=== PATIENT | male | born 1945 | race Caucasian/White ===

== ENCOUNTER → 2019-02-17 | Outpatient (CLI) | payer SELFPAY | PROVIDERS: Family Provider Family Medicine; Visit Provider Internal Medicine Medical Oncology | DX: C91.10 Chronic lymphocytic leukemia of B-cell type not having achieved remission (principal) | CPT/HCPCS: 36415; 80053; 82607; 82728; 82746; 83540; 83550; 85025; 85651 ==

== ENCOUNTER 2019-02-19 10:36 | Outpatient (RCR) | payer OTHER, SELFPAY ==
--- NOTE | 2019-02-22 12:00 | ONC FU_ITS ---
Dr. Atkins Patient Follow-Up Note Patient: Heber Mejia Unit #: [id number]: 1945 Dicatated By: Leonard Atkins M.D.Date of Visit:Feb 19, 2019 Onc Med Follow-up/Prog Note Chief Complaint: Chronic lymphocytic leukemia/pulmonary nodules. History of Present Illness: This is a 73 year-old man with chronic lymphocytic leukemia, Norman stage I with deletion 11 on cytogenetics, initially diagnosed in April 2011. He also is being followed for noncalcified pulmonary nodules. He has presented with leukocytosis. CLL was confirmed by flow cytometry on 05/07/2011. He was found to have deletion of chromosome 11 on cytogenetics. His Norman stage was I at presentation, as in June of 2011 CT revealed diffuse adenopathy and noncalcified pulmonary densities. The patient was placed on observation. Prior to his initial visit here he had last seen by wax cutter in December 2013. His WBC measured 38.4, absolute lymphocyte count not available, LDH 138. His recent followup imaging with CT of the chest from 02/15/2014 showed unchanged few pulmonary nodules with the largest in the right lower lobe up to 1.2 cm. There was minimally increasing thoracic adenopathy but otherwise stable disease. 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 The patient was followed for that at [facility] in [place] by Dr. Parker. The patient developed significant ulceration in both legs from vasculopathy, requiring wound care at [place], [place]. He was known to have significant peripheral vascular disease and mesenteric artery disease with diffuse atherosclerosis. A followup CT of the chest done by his oracle fusion middleware architect at [facility] in [place]. It reportedly showed enlarged thoracic adenopathy. PET/CT was eventually performed on 03/03/2015. It revealed an FDG positive mass in the right lower lobe increased to 2.7 cm. There was a 10th rib lesion adjacent to the mass, and lymphadenopathy in mediastinum. There was also lymph nodes in the pectoral region and neck suspicious for metastatic disease. A biopsy of the lung lesion was requested via percutaneous approach, after discussion with radiologist. Unfortunately the patient did not show up to any of his scheduled procedures as he was concerned that [facility] was not going to pay them. He did return for followup with Dr. Epperson on 07/20/2015. White blood cell count at that point was 29,000 with 82% lymphocytes. The hemoglobin was normal at 14 g and the platelet count was normal at 383,000. She did plan to repeat PET/CT for possible biopsy. PET/CT was obtained on 08/13/2015. It showed evidence of right hilar and right paratracheal adenopathy with nodes measuring up to 1.5 cm with low-grade FDG uptake, SUV 2.2 and 2.3 respectively. There were scattered 2-5 mm noncalcified pulmonary nodules with a 1.5 cm cluster of nodules in the base of the right lung with SUV 3.3. The pattern of FDG uptake was felt to be most consistent with a benign infectious or inflammatory process. A 3 cm infrarenal abdominal aortic aneurysm was also noted. I had seen him initially on 12/01/2015. At that point he appeared stable clinically. There appeared to be no indication for treatment of his chronic leukocytic leukemia, and had recommended continued observation/expectant management. He failed to return for follow-up. 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 He also has COPD, GERD, and posttraumatic stress disorder with depression. He has smoked for 50 years and continues to smoke one pack of cigarettes daily. INTERIM HISTORY: On 08/22/2018 he was seen in the emergency room with right shoulder pain. He had suspected pneumonia based on chest x-ray findings, and he was treated with Levaquin. Blood cultures came back positive for Streptococcus pneumoniae. On 09/09/2018 he was admitted to the hospital after presenting to the emergency room with increasing weakness. His CT scan showed left lower lobe consolidation felt to be likely pneumonia. Due to his shoulder pain and positive blood cultures, there was also concern about the possibility of septic arthritis. He underwent arthroscopic surgery on the right shoulder on 09/11/2018. There was no necrotic or pearly material identified. Cultures just grew scant Micrococcus and related species. He did receive 3 weeks of IV antibiotic therapy, initially with vancomycin and subsequently with Rocephin. On 10/01/2018 he was readmitted the hospital with increased pain and swelling in the right shoulder. His CT scans that time was suggestive of hemarthrosis, and he was then taken off anticoagulation. I had seen him for a follow-up visit on 12/29/2018. At that point he appeared to be showing gradual recovery, though he still had somewhat marginal performance status. There appeared to be no progression of the CLL. He is seen for a follow-up visit. He has been feeling pretty good generally, though he recently was seen by Dr. Garduno with a COPD exacerbation, and he currently is on treatment with prednisone and an antibiotic. His energy has been improving, but he still gives out after a few minutes. His ECOG score is 1. His appetite also is improving. He has not had fever. He had one recent episode of night sweating. He still has cough productive of milky sputum. His breathing is getting better. He had a little bit of dull pain in the substernal area this morning. He has no GI complaints other than constipation, which he manages adequately with a laxative. He has had difficulty voiding, mainly if he tries to hold it too long. His joints ache and hurt, particularly the shoulders and hips. He still has limited range of motion at the right shoulder. He has no focal neurologic symptoms. Medications: AmLODIPine Besylate 1 (10 mg) Tablet Oral daily, Aspirin 1 Tablet (of 81 mg) Oral daily, Gemfibrozil 1 (600 mg) Tablet Oral daily, Hydrochlorothiazide 1 (25 mg) Tablet Oral daily, Omeprazole 1 (20 mg) Capsule Delayed Release Oral daily Allergies: No Known Allergies. Review of Systems: Constitutional - He recently had an exacerbation of his COPD and was given steroids and antibiotics. He is feeling pretty good now. He does some light work at home. His appetite is getting better and his weight is up a couple pounds. No fever, chills or hot flashes. He had an episode of night sweats. ECOG score is 1, ENMT - No sinus congestion/drainage. No mouth sores. No sore throat or difficulty swallowing, Hematologic/Lymphatic - He bruises easily, Respiratory - His breathing has gotten better since being on steroids and antibiotics. He has a cough that produces white phlegm. No pleuritic pain or hemoptysis, Cardiovascular - He had an episode of chest discomfort this morning. No palpitations, Gastrointestinal - No nausea or vomiting. No heartburn or acid reflux. He has constipation. No blood in the stool or black stools, Genitourinary (M) - No dysuria or hematuria. No urinary frequency. No urgency or incontinence. 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 He has decreased range of motion in his right shoulder, Integumentary - No skin complications, Neurologic - No headache. He has dizziness quite a bit, especially when he stands up too quickly. No numbness/paresthesias or other focal neurologic symptoms, Psychiatric - He has some depression. He does not sleep well at night. Vital Signs: Performed on Feb 19, 2019 10:49 Height - 69.00 in Weight - 121.2 lbs (HIGH) BSA - 1.67 sq.m BMI - 17.90 (LOW) Temperature - 98.9 F (HIGH) Pulse - 79 /min Respiration - 16 /min BP - 126/78 mm(hg) O2 Sat - 93 % (LOW) Pain - 0 Physical Examination: Constitutional - He looks pretty good generally, Eyes - Sclerae nonicteric. Conjunctivae clear, ENMT - No lesions noted in the oral cavity, Hematologic/Lymphatic - No cervical, clavicular, or axillary adenopathy, Respiratory - Lungs sound clear with diminished air movement bilaterally, Cardiovascular - Heart tones are distant. The rhythm appears regular. There is no murmur, gallop, or rub noted, Abdomen - Thin. Liver and spleen are not enlarged. There is no abdominal mass or ascites noted. There are small inguinal lymph nodes palpable bilaterally, Extremities - No edema, Neurologic - No focal neurologic deficits noted. Lab/Imaging: CBC shows hemoglobin 12.3 g, white blood cell count 20,600, and platelet count 227,000. The absolute lymphocyte count is 17,800. Sed rate is elevated at 86 mm/hour. Comprehensive metabolic profile shows borderline renal function with BUN 32 and creatinine 1.3 mg/dL. Liver enzymes are mildly elevated with SGOT 60/40 U/L and alkaline phosphatase 203/130 U/L. The serum iron studies show low transferrin saturation at 17.1%. Ferritin is also relatively low at 59.0 ng/mL. Impression: 1. Chronic lymphocytic leukemia, Norman stage I with chromosome 11 deletion on cytogenetics. It was initially diagnosed in April 2011 and thus far has been managed with observation. 2. He has been followed for noncalcified pulmonary nodules, the largest in the right lower lobe measuring 2.7 cm. These showed low-grade FDG uptake by PET CT, felt to be most consistent with benign infectious or inflammatory process. His other medical illnesses include: 3. Hypertension. 4. Hyperlipidemia. 5. Extensive atherosclerotic cardiovascular disease with associated mesentery artery stenosis and infrarenal abdominal aortic aneurysm. 6. COPD. 7. GERD. 8. PTSD with depression. 9. He has nicotine dependence (cigarettes). In August 2018 he was treated for streptococcal pneumonia. There was also concern about the possibility of septic arthritis in the right shoulder joint. He did receive 3 weeks of IV antibiotic therapy. His clinical course was further complicated by suspected right shoulder hemarthrosis in September, at which point he was taken off anticoagulation. During that time he became significantly anemic. During follow-up he has been showing gradual recovery, though he is still borderline anemic and he still has significantly elevated sedimentation rate. His serum iron studies are suggestive of iron deficiency. The cause/significance of the elevated sed rate is still uncertain. There has been no evidence, though, of symptomatic progression of the CLL. Plan: He remains on observation/expectant management for the chronic lymphocytic leukemia. He has advised to take a multivitamin with iron. I will see him again in 3 months. Signed By: Leonard Atkins M.D. <<Signature on File>>
== END 2019-03-20 23:59 | disposition home or self-care (01) ==
LOC: ONCMED 10:36
PROVIDERS: Family Provider Family Medicine; PCP Family Medicine; Visit Provider Internal Medicine Medical Oncology
DX: C91.10 Chronic lymphocytic leukemia of B-cell type not having achieved remission (principal); R70.0 Elevated erythrocyte sedimentation rate; R91.8 Other nonspecific abnormal finding of lung field; I10 Essential (primary) hypertension; M25.511 Pain in right shoulder; E78.5 Hyperlipidemia, unspecified; I25.10 Atherosclerotic heart disease of native coronary artery without angina pectoris; J44.9 Chronic obstructive pulmonary disease, unspecified; K21.9 Gastro-esophageal reflux disease without esophagitis; F43.10 Post-traumatic stress disorder, unspecified; F32.9 Major depressive disorder, single episode, unspecified; F17.210 Nicotine dependence, cigarettes, uncomplicated; D50.9 Iron deficiency anemia, unspecified; Z79.82 Long term (current) use of aspirin; Z87.01 Personal history of pneumonia (recurrent)
CPT/HCPCS: 99213; G0463

== ENCOUNTER → 2019-04-03 08:54 | Outpatient (BNVA) | payer OTHER, SELFPAY | PROVIDERS: Family Provider Family Medicine; PCP Family Medicine; Visit Provider Family Medicine | DX: E55.9 Vitamin D deficiency, unspecified (principal); J44.9 Chronic obstructive pulmonary disease, unspecified; I10 Essential (primary) hypertension; F17.219 Nicotine dependence, cigarettes, with unspecified nicotine-induced disorders | CPT/HCPCS: 82306 ==

== ENCOUNTER → 2019-04-24 09:40 | Outpatient (BNVA) | payer OTHER, SELFPAY | PROVIDERS: Family Provider Family Medicine; PCP Family Medicine; Visit Provider Family Medicine | DX: I10 Essential (primary) hypertension (principal); G47.00 Insomnia, unspecified | CPT/HCPCS: 80048 ==

== ENCOUNTER 2019-05-19 06:00 | Outpatient (CLI) | payer OTHER, SELFPAY ==
[2019-05-19 08:01] LABS: Basophils # 0.1 10^3/uL (0.0-0.1); Basophils % 0.2 %; Eosinophils # 0.1 10^3/uL (0.0-0.8); Eosinophils % 0.5 %; Hematocrit 38.6 % (42.0-52.0); Hemoglobin 12.9 g/dL (11.7-16.6); Lymphocytes % 91.3 %; Mean Corpuscular HGB Conc 33.4 g/dL (30.0-36.0); Mean Corpuscular Hemoglobin 31.8 pg (28.0-34.0); Mean Corpuscular Volume 95.1 fL (80-94); Mean Platelet Volume 10.2 fL (7.4-10.4); Monocytes # 0.4 10^3/uL (0.2-0.9); Monocytes % 1.5 %; Neutrophils # 1.6 10^3/uL (1.8-7.7); Neutrophils % 6.4 %; Nucleated Red Blood Cells % 0 %; Platelet Count 207 10^3/cmm (130-400); Red Blood Count 4.06 10^6/uL (4.1-5.3); Red Cell Distribution Width 14.2 % (12.1-15.1); White Blood Count 25.2 10^3/uL (4.0-10.0)
[2019-05-19 08:29] LABS: Alanine Aminotransferase 13 U/L (0-41); Alkaline Phosphatase 201 IU/L (40-130); Anion Gap 14.3 (5-19); Aspartate Amino Transferase 50 U/L (0-40); Blood Urea Nitrogen 24 mg/dL (8-23); C Reactive Protein 10.1 mg/L (0.0-4.9); Calcium 9.6 mg/dL (8.5-10.5); Carbon Dioxide 29 mmol/L (22-29); Chloride 96 mmol/L (98-107); Ferritin 25 ng/mL (30-400); Globulin 3.2 g/dL (1.3-4.6); Glucose 144 mg/dL (65-115); Iron 78 ug/dL (59-158); Lactate Dehydrogenase 114 U/L (135-225); Osmolality Calculated 279 mOsm/kg (285-295); Percent Saturation 20.3 % (20-50); Potassium 4.3 mmol/L (3.5-5.1); Sodium 135 mmol/L (136-145); Total Bilirubin 0.5 mg/dL (0.15-1.2); Total Iron Binding Capacity 384 mcg/dl; Total Protein 7.2 g/dL (6.6-8.7); Unsaturated Iron Binding 306 ug/dL (112-347)
[2019-05-19 08:40] LABS: Slide Review Slide Review Perform
[2019-05-19 08:50] LABS: Erythrocyte Sedimentation Rate 53 mm/hr (0-10)
== END 2019-05-19 06:01 | disposition home or self-care (01) ==
LOC: ONCMED 05-22 09:44
PROVIDERS: Family Provider Family Medicine; PCP Family Medicine; Visit Provider Internal Medicine Medical Oncology
DX: C91.10 Chronic lymphocytic leukemia of B-cell type not having achieved remission (principal); M25.50 Pain in unspecified joint
CPT/HCPCS: 36415; 80053; 82728; 83540; 83550; 83615; 85025; 85651; 86140

== ENCOUNTER → 2019-06-24 16:41 | Outpatient (BNVA) | payer OTHER, SELFPAY | PROVIDERS: Family Provider Family Medicine; PCP Family Medicine; Visit Provider Family Medicine | DX: G47.00 Insomnia, unspecified (principal); L21.9 Seborrheic dermatitis, unspecified; R30.0 Dysuria | CPT/HCPCS: 81000 ==

== ENCOUNTER → 2019-07-29 13:13 | Outpatient (BNVA) | payer OTHER, SELFPAY | PROVIDERS: Family Provider Family Medicine; PCP Family Medicine; Visit Provider Family Medicine | DX: R30.0 Dysuria (principal); F51.01 Primary insomnia; F17.219 Nicotine dependence, cigarettes, with unspecified nicotine-induced disorders | CPT/HCPCS: 80053; 81001 ==

== ENCOUNTER 2019-08-14 14:36 | Outpatient (CLI) | payer OTHER, SELFPAY ==
--- NOTE | 2019-08-14 15:00 | US_ITS ---
WS: [id number] RENAL ULTRASOUND HISTORY: hematuria COMPARISON: None available. TECHNIQUE: 2-D and color Doppler imaging of the kidney submitted. Right kidney: 11.3 cm x 5.0 cm x 5.7 cm. Normal echogenicity with no hydronephrosis or mass. Left kidney: 12.6 cm x 3.5 cm x 4.8 cm. Normal echogenicity with no hydronephrosis or mass. Aorta: Ectatic aorta with maximum diameter of 2.9 cm. Urinary Bladder: Nondistended urinary bladder. Prostate gland is slightly enlarged and heterogeneous. No intraluminal bladder mass. US/US renal BI* [id number] IMPRESSION: Normal renal ultrasound.
== END 2019-08-14 14:37 | disposition home or self-care (01) ==
LOC: RAD 14:38
PROVIDERS: PCP Family Medicine; Visit Provider Family Medicine
DX: R31.9 Hematuria, unspecified (principal)
CPT/HCPCS: 76770

== ENCOUNTER 2019-08-22 13:19 | Inpatient (IN) | payer OTHER, MEDICARE, SELFPAY ==
[2019-08-22] VITALS (55 sets, daily range): BP systolic 117–151; BP diastolic 64–77; PULSE 72–107; RESP 13–28; TEMP 36.8; O2SAT 79–98; BMI 16.8; BMI 17.4
--- NOTE | 2019-08-22 14:00 | ECG_ITS ---
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 Measurements Intervals [place] Rate: 82 P: 79 VT: 203 QRS: 86 QRSD: 102 T: 77 QT: 367 QTc: 431 Interpretive Statements SINUS RHYTHM INCOMPLETE RIGHT BUNDLE BRANCH BLOCK [90+ ms QRS DURATION, TERMINAL R IN V1/V2, 40+ ms S IN I/aVL/V4/V5/V6] MINIMAL ST DEPRESSION [0.025+ mV ST DEPRESSION] Compared to ECG 09/30/2018 13:56:51 Incomplete right bundle-branch block now present ST (T wave) deviation now present Electronically Signed On 08-23-2019 19:55:37 CDT by Jessica Hamilton M.D. [id number]
--- NOTE | 2019-08-22 14:00 | XRR_ITS ---
PROCEDURE INFORMATION: Exam: XR Chest, 1 View Exam date and time: 08/22/2019 2:41 PM Age: 74 years old Clinical indication: Cough and shortness of breath TECHNIQUE: Imaging protocol: XR of the chest Views: 1 view. COMPARISON: CR Chest 1 [place] [id number] 09/30/2018 2:50 PM, CT chest 02/23/2016, CT PE study 08/13/2015. FINDINGS: Lungs: Emphysema. Approximate 0.9 cm nodule in the peripheral right mid lung. Mild interstitial scarring in the lung bases. The lungs are otherwise clear. Pleural space: Unremarkable. No pleural effusion. No pneumothorax. Heart/Mediastinum: Unremarkable. No cardiomegaly. Bones/joints: Scoliosis. XR/XR chest 1V portable [id number] IMPRESSION: 1. No acute finding. 2. 0.9 cm right pulmonary nodule is unchanged and is considered benign.
--- NOTE | 2019-08-22 14:20 | W.ED.SOB ---
HPI - SOB/Dyspnea General: Chief Complaint: Shortness of Breath/Dyspnea Stated Complaint: sob Time Seen by Provider: 08/22/19 13:55 Source: patient and family Mode of arrival: ambulatory Limitations: no limitations History of Present Illness: HPI Narrative: Mr. Mejia is a nice 74-year-old male who comes in complaining of cough and shortness of breath. He denies any fever and adamantly denies any COVID-19 exposures. Patient states she has history of COPD. His oxygenation at home would not go above 85%. Patient denies any chest pain. Denies any bloody sputum. He does have increased shortness of breath with exertion but denies any orthopnea or increased leg swelling. Associated symptoms: Deny abdominal pain, chest congestion, chest pain, diaphoresis, dizziness, extremity pain, fever(s), hemoptysis, lightheadedness, nausea, orthopnea, palpitations, syncope or vomiting Review of Systems Const: Denies: fever(s), chills, body aches, fatigue, malaise or diaphoresis Eyes: Denies: change in vision, blurry vision, blind spots, photophobia, eye discharge or eye redness ENMT: Denies: throat pain, odynophagia, hoarseness, swelling of lips/tongue, oral sores, ear or mastoid pain, ear discharge, change in hearing or nasal discharge Card: Denies: chest pain, palpitations, irregular heart rhythm, edema, lightheadedness, syncope, pre-syncope, dyspnea on exertion or orthopnea Resp: Reports: dyspnea, productive cough and wheezing; Denies: non-productive cough, hemoptysis or chest congestion GI: Denies: abdominal pain, nausea, vomiting, hematemesis, coffee ground emesis, heartburn, diarrhea, constipation, GI cramping, hematochezia or melena : Denies: flank pain, dysuria, urinary frequency, urinary urgency or hematuria Musc: Denies: neck pain, back pain, extremity pain, extremity swelling, joint pain, joint swelling, joint redness, joint warmth or joint stiffness Skin/Breast: Denies: rash, pruritus, erythema, skin tenderness or jaundice Neuro: Denies: headache(s), numbness in extremities, weakness in extremities, sensory changes, lack of coordination, difficulty walking, dizziness, vertigo, confusion, Slurred speech present or seizure-like activity Miguel/Lymph: Denies: easy bruising, easy bleeding, petechiae, purpura or enlarged lymph nodes All/Imm: Denies: urticaria, throat swelling, tongue swelling, facial swelling or acute wheezing PFSH ED PFSH: Medical History Anxiety and depression Atherosclerosis of paimi[place] artery of both lower extremities Cardiomyopathy, idiopathic Chronic GERD Chronic kidney disease, stage 3 Chronic lymphatic leukemia COPD, severe Insomnia Lung nodules Mixed hyperlipidemia Primary hypertension Surgical History H/O wrist surgery Family History Mother Cancer Social History Smoking and tobacco status: current every day smoker cigarettes Packs smoked per day: 1 Alcohol intake: never Physical Exam Const: COMMON NORMALS: patient oriented x3 GENERAL APPEARANCE: well kempt, anxious and frail appearing NUTRITIONAL APPEARANCE: thin ORIENTATION/CONSCIOUSNESS: Yes awake, Yes oriented to person and Yes oriented to place HENMT: COMMON NORMALS: normocephalic, atraumatic, external ears normal, EAC's normal and Normal external nose present HEAD & SCALP: normal to inspection, normocephalic and atraumatic FACE & SINUS: normal facial exam and face symmetric NOSE: Normal external nose present and Normal nares present EXTERNAL EAR: Yes external ears normal EXTERNAL AUDITORY CANAL: EAC's normal MOUTH: Normal oral and palatal mucosa present, lip normal and tongue normal Eye: COMMON NORMALS: Equal, round and reactive pupils present and conjunctivae normal GENERAL EYE: appearance normal, both eyes and all related structures ALIGNMENT: Yes alignment normal PERIORBITAL: periorbital findings normal EYELID: eyelids normal CONJUNCTIVA: Yes conjunctivae normal SCLERA: sclerae normal PUPIL: Yes Equal, round and reactive pupils present Neck/C-Spine: COMMON NORMALS: full ROM, no lymphadenopathy, supple, no meningeal signs and no JVD GENERAL: Yes normal visual inspection and Yes trachea midline Chest: COMMONS NORMALS: normal inspection of the chest and normal palpation of entire chest wall Resp: EFFORT & INSPECTION: Yes respiratory distress, Yes Actively coughing, Yes retractions and Yes audible wheezes AUSCULTATION: rhonchi and wheezes Cardio: COMMON NORMALS: no JVD, regular rate, regular rhythm, S1 normal heart sound present and S2 normal heart sound present RATE: regular rate RHYTHM: regular rhythm HEART SOUNDS: S1 normal heart sound present, S2 normal heart sound present, no click, no gallops, no murmurs, no rubs and abnormal split S2 GI: COMMON NORMALS: Soft to palpation and No hepatosplenomegaly present PALPATION: Yes Soft to palpation, No Tenderness to palpation present (GI), No Guarding due to palpation present (GI), No Rigid due to palpation, Yes No hepatosplenomegaly present, No Hernia present, No Palpable mass present and No Pulsatile mass present : COMMON NORMALS: Yes no CVA tenderness BLADDER/KIDNEY EXAM: Yes no CVA tenderness Back/Pelvis: COMMON NORMALS: no CVA tenderness, thoracic and lumbar spine normal to inspection, no thoracic nor lumbar tenderness and thoraco-lumbar ROM normal Extremity: COMMON NORMALS: normal to inspection, full ROM, capillary refill normal, no joint enlargement, no clubbing, cyanosis or edema and no calf tenderness Neuro: COMMON NORMALS: patient oriented x3, CN's II-XII intact bilaterally, moves all extremities, no focal motor deficits and no sensory deficits noted SENSORIUM/ORIENTATION: Yes oriented to person and Yes oriented to place MENINGEAL SIGNS: Yes no meningeal signs SPEECH: speech normal Psych: COMMON NORMALS: mental status grossly normal, Normal thought process present, cooperative, normal affect, speech normal and activity/motor behavior normal APPEARANCE: Yes well kempt SPEECH: Yes normal speech THOUGHT PROCESS: Normal thought process present Skin: COMMON NORMALS: no rashes or lesions noted, turgor normal, no jaundice, no petechiae and no mottling GENERAL SKIN EXAM: no rashes or lesions noted and turgor normal Course ED course: 1657 -I have discussed with the patient at length and he is refusing to be intubated if he fails BiPAP. He is okay with CPR, life-saving medications, admission to the ICU and all the treatments we can give him except he refuses intubation and mechanical ventilation. I have witnessed this along with my charge nurse and the patient's primary nurse. Please see their notes for verification. I will notify Dr. Duffy. Patient clearly has the capacity at this time to make this decision. Although he is slightly hypercapnic he is alert to person, place, time and situation. I did review with him the possibility of if he refuses this and despite understanding that risk he is refusing this intervention. Vital Signs: Vital signs: Vital Signs Temperature 98.3 F 08/22/19 20:10 Pulse Rate 92 08/22/19 20:10 Respiratory Rate 20 H 08/22/19 20:10 Blood Pressure 136/75 08/22/19 20:10 Pulse Oximetry 94 08/22/19 20:10 MDM - SOB/Dyspnea Lab Data: Labs: Lab Results 08/22/19 08/22/19 08/22/19 Range/Units 14:35 14:40 14:40 WBC 30.3 H* (4.0-10.0) 10^3/ uL RBC 3.54 L (4.1-5.3) 10^6/u L Hgb 11.9 (11.7-16.6) g/dL Hct 35.1 L (42.0-52.0) % MCV 99.2 H (80-94) fL MCH 33.6 (28.0-34.0) pg MCHC 33.9 (30.0-36.0) g/dL RDW 14.0 (12.1-15.1) % Plt Count 139 (130-400) 10^3/c mm MPV 10.4 (7.4-10.4) fL Neut % (Auto) 4.8 % Lymph % (Auto) 93.6 % [place] % (Auto) 1.3 % Eos % (Auto) 0.0 % Baso % (Auto) 0.2 % Neut # (Auto) 1.5 L (1.8-7.7) 10^3/u L Lymph # (Auto) 28.4 H (0.8-4.8) 10^3/u L [place] # (Auto) 0.4 (0.2-0.9) 10^3/u L Eos # (Auto) 0.0 (0.0-0.8) 10^3/u L Baso # (Auto) 0.1 (0.0-0.1) 10^3/u L Nucleated RBC % (a uto) 0 % Nucleated RBCs # 0.0 /100WBC PT (10.5-13.3) SECO NDS INR (0.8-1.2) D-Dimer (0-0.59) ug/mIFE U Specimen Type Arterial Sample Site Radial, right ABG pH 7.33 L (7.35-7.45) ABG pCO2 48.0 H (35-45) mmHg ABG pO2 56.3 L (80.0-100.0) mmH g ABG HCO3 25.2 (22-26) mmol/L ABG O2 Saturation 89.4 ABG Base Excess -1.2 (-2.0-2.0) mmol/ L Jerry Test Pos A-a O2 Gradient 33.7 H (5-10) mmHg Hematocrit 36.1 L (42-52) % Hgb O2 Saturation 82.9 L (95-100) % Carboxyhemoglobin 6.5 (0.4-20.1) %THgb Methemoglobin 0.8 (0.4-1.5) % Total Hemoglobin 11.8 L (14-18) g/dL Sodium 134.0 (131-143) mmol/L Potassium 4.3 (3.5-5.0) mmol/L Glucose 109.0 (70-115) mg/dL Ionized Calcium 1.2 (1.1-1.4) mmol/L O2 Delivery Device Nc O2 Liters/Min 3.0 % FiO2 % Independent Driver ID monro Chloride (98-107) mmol/L Carbon Dioxide (22-29) mmol/L Anion Gap (5-19) BUN (8-23) mg/dL Creatinine (0.7-1.2) mg/dL Calculated Osmolal ity (285-295) mOsm/k g Lactic Acid (0.5-2.2) mmol/L Calcium (8.5-10.5) mg/dL Magnesium (1.7-2.3) mg/dL Total Bilirubin (0.15-1.2) mg/dL AST (0-40) U/L ALT (0-41) U/L Alkaline Phosphata se (40-130) IU/L Troponin T Baselin e (0-15) ng/L Troponin T 120 Min [place] (0-15) ng/L Delta Troponin T (0-10) ABS# NT-Pro-B Natriuret Pep (0-125) pg/mL Total Protein (6.6-8.7) g/dL Albumin (3.5-5.2) g/dL Globulin (1.3-4.6) g/dL Lipase (13-60) U/L Urine Color (Yellow) Urine Appearance (CLEAR) Urine pH (5-7) Ur Specific Gravit y (1.005-1.030) Urine Protein (Negative) Urine Glucose (UA) (Normal) Urine Ketones (Negative) Urine Blood (Negative) Urine Nitrate (Negative) Urine Bilirubin (NEGATIVE) Urine Urobilinogen (Negative) mg/dL Ur Leukocyte Molly ase (Negative) Urine RBC (0-2) /hpf Urine WBC (0-5) /hpf Ur Squamous Epith Cells (0-5) Urine Bacteria (NONE) Urine Mucus Influenza Type A A g Negative (Negative) Influenza Type B A g Negative (Negative) 08/22/19 08/22/19 08/22/19 Range/Units 14:40 14:40 14:40 WBC (4.0-10.0) 10^3/ uL RBC (4.1-5.3) 10^6/u L Hgb (11.7-16.6) g/dL Hct (42.0-52.0) % MCV (80-94) fL MCH (28.0-34.0) pg MCHC (30.0-36.0) g/dL RDW (12.1-15.1) % Plt Count (130-400) 10^3/c mm MPV (7.4-10.4) fL Neut % (Auto) % Lymph % (Auto) % [place] % (Auto) % Eos % (Auto) % Baso % (Auto) % Neut # (Auto) (1.8-7.7) 10^3/u L Lymph # (Auto) (0.8-4.8) 10^3/u L [place] # (Auto) (0.2-0.9) 10^3/u L Eos # (Auto) (0.0-0.8) 10^3/u L Baso # (Auto) (0.0-0.1) 10^3/u L Nucleated RBC % (a uto) % Nucleated RBCs # /100WBC PT 14.10 H (10.5-13.3) SECO NDS INR 1.06 (0.8-1.2) D-Dimer (0-0.59) ug/mIFE U Specimen Type Sample Site ABG pH (7.35-7.45) ABG pCO2 (35-45) mmHg ABG pO2 (80.0-100.0) mmH g ABG HCO3 (22-26) mmol/L ABG O2 Saturation ABG Base Excess (-2.0-2.0) mmol/ L Jerry Test A-a O2 Gradient (5-10) mmHg Hematocrit (42-52) % Hgb O2 Saturation (95-100) % Carboxyhemoglobin (0.4-20.1) %THgb Methemoglobin (0.4-1.5) % Total Hemoglobin (14-18) g/dL Sodium 130 L (131-143) mmol/L Potassium 4.7 (3.5-5.0) mmol/L Glucose 117 H (70-115) mg/dL Ionized Calcium (1.1-1.4) mmol/L O2 Delivery Device O2 Liters/Min % FiO2 % Independent Driver ID Chloride 93 L (98-107) mmol/L Carbon Dioxide 24 (22-29) mmol/L Anion Gap 17.7 (5-19) BUN 26 H (8-23) mg/dL Creatinine 1.6 H (0.7-1.2) mg/dL Calculated Osmolal ity 268 L (285-295) mOsm/k g Lactic Acid 0.8 (0.5-2.2) mmol/L Calcium 9.5 (8.5-10.5) mg/dL Magnesium 2.1 (1.7-2.3) mg/dL Total Bilirubin 1.0 (0.15-1.2) mg/dL AST 81 H (0-40) U/L ALT 15 (0-41) U/L Alkaline Phosphata se 198 H (40-130) IU/L Troponin T Baselin e (0-15) ng/L Troponin T 120 Min [place] (0-15) ng/L Delta Troponin T (0-10) ABS# NT-Pro-B Natriuret Pep 1371 H (0-125) pg/mL Total Protein 8.2 (6.6-8.7) g/dL Albumin 3.9 (3.5-5.2) g/dL Globulin 4.3 (1.3-4.6) g/dL Lipase 44 (13-60) U/L Urine Color (Yellow) Urine Appearance (CLEAR) Urine pH (5-7) Ur Specific Gravit y (1.005-1.030) Urine Protein (Negative) Urine Glucose (UA) (Normal) Urine Ketones (Negative) Urine Blood (Negative) Urine Nitrate (Negative) Urine Bilirubin (NEGATIVE) Urine Urobilinogen (Negative) mg/dL Ur Leukocyte Molly ase (Negative) Urine RBC (0-2) /hpf Urine WBC (0-5) /hpf Ur Squamous Epith Cells (0-5) Urine Bacteria (NONE) Urine Mucus Influenza Type A A g (Negative) Influenza Type B A g (Negative) 08/22/19 08/22/19 08/22/19 Range/Units 14:40 14:40 15:43 WBC (4.0-10.0) 10^3/ uL RBC (4.1-5.3) 10^6/u L Hgb (11.7-16.6) g/dL Hct (42.0-52.0) % MCV (80-94) fL MCH (28.0-34.0) pg MCHC (30.0-36.0) g/dL RDW (12.1-15.1) % Plt Count (130-400) 10^3/c mm MPV (7.4-10.4) fL Neut % (Auto) % Lymph % (Auto) % [place] % (Auto) % Eos % (Auto) % Baso % (Auto) % Neut # (Auto) (1.8-7.7) 10^3/u L Lymph # (Auto) (0.8-4.8) 10^3/u L [place] # (Auto) (0.2-0.9) 10^3/u L Eos # (Auto) (0.0-0.8) 10^3/u L Baso # (Auto) (0.0-0.1) 10^3/u L Nucleated RBC % (a uto) % Nucleated RBCs # /100WBC PT (10.5-13.3) SECO NDS INR (0.8-1.2) D-Dimer 2.76 H (0-0.59) ug/mIFE U Specimen Type Sample Site ABG pH (7.35-7.45) ABG pCO2 (35-45) mmHg ABG pO2 (80.0-100.0) mmH g ABG HCO3 (22-26) mmol/L ABG O2 Saturation ABG Base Excess (-2.0-2.0) mmol/ L Jerry Test A-a O2 Gradient (5-10) mmHg Hematocrit (42-52) % Hgb O2 Saturation (95-100) % Carboxyhemoglobin (0.4-20.1) %THgb Methemoglobin (0.4-1.5) % Total Hemoglobin (14-18) g/dL Sodium (131-143) mmol/L Potassium (3.5-5.0) mmol/L Glucose (70-115) mg/dL Ionized Calcium (1.1-1.4) mmol/L O2 Delivery Device O2 Liters/Min % FiO2 % Independent Driver ID Chloride (98-107) mmol/L Carbon Dioxide (22-29) mmol/L Anion Gap (5-19) BUN (8-23) mg/dL Creatinine (0.7-1.2) mg/dL Calculated Osmolal ity (285-295) mOsm/k g Lactic Acid (0.5-2.2) mmol/L Calcium (8.5-10.5) mg/dL Magnesium (1.7-2.3) mg/dL Total Bilirubin (0.15-1.2) mg/dL AST (0-40) U/L ALT (0-41) U/L Alkaline Phosphata se (40-130) IU/L Troponin T Baselin e 70 H (0-15) ng/L Troponin T 120 Min [place] (0-15) ng/L Delta Troponin T (0-10) ABS# NT-Pro-B Natriuret Pep (0-125) pg/mL Total Protein (6.6-8.7) g/dL Albumin (3.5-5.2) g/dL Globulin (1.3-4.6) g/dL Lipase (13-60) U/L Urine Color Yellow (Yellow) Urine Appearance Clear (CLEAR) Urine pH 5 (5-7) Ur Specific Gravit y 1.020 (1.005-1.030) Urine Protein 2+ H (Negative) Urine Glucose (UA) Norm (Normal) Urine Ketones Negative (Negative) Urine Blood 3+ H (Negative) Urine Nitrate Negative (Negative) Urine Bilirubin Neg (NEGATIVE) Urine Urobilinogen 1 H (Negative) mg/dL Ur Leukocyte Molly ase Negative (Negative) Urine RBC 15-25 H (0-2) /hpf Urine WBC Rare (0-5) /hpf Ur Squamous Epith Cells 0-4 H (0-5) Urine Bacteria Trace (NONE) Urine Mucus Trace Influenza Type A A g (Negative) Influenza Type B A g (Negative) 08/22/19 08/22/19 Range/Units 16:22 16:50 WBC (4.0-10.0) 10^3/ uL RBC (4.1-5.3) 10^6/u L Hgb (11.7-16.6) g/dL Hct (42.0-52.0) % MCV (80-94) fL MCH (28.0-34.0) pg MCHC (30.0-36.0) g/dL RDW (12.1-15.1) % Plt Count (130-400) 10^3/c mm MPV (7.4-10.4) fL Neut % (Auto) % Lymph % (Auto) % [place] % (Auto) % Eos % (Auto) % Baso % (Auto) % Neut # (Auto) (1.8-7.7) 10^3/u L Lymph # (Auto) (0.8-4.8) 10^3/u L [place] # (Auto) (0.2-0.9) 10^3/u L Eos # (Auto) (0.0-0.8) 10^3/u L Baso # (Auto) (0.0-0.1) 10^3/u L Nucleated RBC % (a uto) % Nucleated RBCs # /100WBC PT (10.5-13.3) SECO NDS INR (0.8-1.2) D-Dimer (0-0.59) ug/mIFE U Specimen Type Arterial Sample Site Radial, right ABG pH 7.23 L (7.35-7.45) ABG pCO2 56.3 H (35-45) mmHg ABG pO2 72.6 L (80.0-100.0) mmH g ABG HCO3 23.7 (22-26) mmol/L ABG O2 Saturation ABG Base Excess -4.3 L (-2.0-2.0) mmol/ L Jerry Test Pos A-a O2 Gradient (5-10) mmHg Hematocrit 34.8 L (42-52) % Hgb O2 Saturation (95-100) % Carboxyhemoglobin (0.4-20.1) %THgb Methemoglobin (0.4-1.5) % Total Hemoglobin (14-18) g/dL Sodium (131-143) mmol/L Potassium (3.5-5.0) mmol/L Glucose (70-115) mg/dL Ionized Calcium (1.1-1.4) mmol/L O2 Delivery Device Bipap O2 Liters/Min % FiO2 35.0 % Independent Driver ID monro Chloride (98-107) mmol/L Carbon Dioxide (22-29) mmol/L Anion Gap (5-19) BUN (8-23) mg/dL Creatinine (0.7-1.2) mg/dL Calculated Osmolal ity (285-295) mOsm/k g Lactic Acid (0.5-2.2) mmol/L Calcium (8.5-10.5) mg/dL Magnesium (1.7-2.3) mg/dL Total Bilirubin (0.15-1.2) mg/dL AST (0-40) U/L ALT (0-41) U/L Alkaline Phosphata se (40-130) IU/L Troponin T Baselin e (0-15) ng/L Troponin T 120 Min [place] 59.15 H (0-15) ng/L Delta Troponin T -10.85 L (0-10) ABS# NT-Pro-B Natriuret Pep (0-125) pg/mL Total Protein (6.6-8.7) g/dL Albumin (3.5-5.2) g/dL Globulin (1.3-4.6) g/dL Lipase (13-60) U/L Urine Color (Yellow) Urine Appearance (CLEAR) Urine pH (5-7) Ur Specific Gravit y (1.005-1.030) Urine Protein (Negative) Urine Glucose (UA) (Normal) Urine Ketones (Negative) Urine Blood (Negative) Urine Nitrate (Negative) Urine Bilirubin (NEGATIVE) Urine Urobilinogen (Negative) mg/dL Ur Leukocyte Molly ase (Negative) Urine RBC (0-2) /hpf Urine WBC (0-5) /hpf Ur Squamous Epith Cells (0-5) Urine Bacteria (NONE) Urine Mucus Influenza Type A A g (Negative) Influenza Type B A g (Negative) EKG Data^: EKG 1: Attestation: I personally reviewed and interpreted this EKG as follows: EKG Interpretation Date: 08/22/19 EKG interpretation time: 14:52 Interpretation: Normal sinus rhythm at 82 beats a minute, incomplete right bundle branch block, T wave inversions in aVL. Other nonspecific ST and T wave changes present. Wandering baseline artifact present. 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
[2019-08-22 14:53] LABS: ABG PH Result 7.33 (7.35-7.45); Alveolar-Arterial Oxygen Gradi 33.7 mmHg (5-10); Arterial Blood Gas Hematocrit 36.1 % (42-52); Base Excess ABG -1.2 mmol/L (-2.0-2.0); Blood Gas Allen Test Pos; Blood Gas Sample Site Radial, right; Blood Gas Sample Type Arterial; Carboxyhemoglobin 6.5 %THgb (0.4-20.1); HCO3 ABG 25.2 mmol/L (22-26); HGB O2 Sat 82.9 % (95-100); Ionized Calcium Level - ABG 1.2 mmol/L (1.1-1.4); Methemoglobin 0.8 % (0.4-1.5); Oxygen Device NC; Oxygen Saturation ABG 89.4; PO2 ABG 56.3 mmHg (80.0-100.0); Potassium Level - ABG 4.3 mmol/L (3.5-5.0); Total Hemoglobin 11.8 g/dL (14-18)
[2019-08-22] MEDS: sodium chloride 0.9% 1,000 ML 100 ML IV (14:53)
[2019-08-22] MEDS: ondansetron 2 mg/ML SDV 2 mL 4 MG IVP (14:53)
[2019-08-22 14:55] LABS: Basophils # 0.1 10^3/uL (0.0-0.1); Basophils % 0.2 %; Hematocrit 35.1 % (42.0-52.0); Hemoglobin 11.9 g/dL (11.7-16.6); Lymphocytes # 28.4 10^3/uL (0.8-4.8); Lymphocytes % 93.6 %; Mean Corpuscular HGB Conc 33.9 g/dL (30.0-36.0); Mean Corpuscular Hemoglobin 33.6 pg (28.0-34.0); Mean Corpuscular Volume 99.2 fL (80-94); Mean Platelet Volume 10.4 fL (7.4-10.4); Monocytes # 0.4 10^3/uL (0.2-0.9); Monocytes % 1.3 %; Neutrophils # 1.5 10^3/uL (1.8-7.7); Neutrophils % 4.8 %; Nucleated Red Blood Cells % 0 %; Platelet Count 139 10^3/cmm (130-400); Red Blood Count 3.54 10^6/uL (4.1-5.3)
[2019-08-22] MEDS: ipratropium-albuterol 3 mL Neb 9 ML INHALATION (14:56)
[2019-08-22 15:24] LABS: Lactic Sepsis W/Reflex 0.8 mmol/L (0.5-2.2)
[2019-08-22 15:25] LABS: Troponin(5th) Baseline 70 ng/L (0-15)
[2019-08-22 15:33] LABS: Alanine Aminotransferase 15 U/L (0-41); Albumin Level 3.9 g/dL (3.5-5.2); Alkaline Phosphatase 198 IU/L (40-130); Anion Gap 17.7 (5-19); Aspartate Amino Transferase 81 U/L (0-40); Blood Urea Nitrogen 26 mg/dL (8-23); Calcium 9.5 mg/dL (8.5-10.5); Carbon Dioxide 24 mmol/L (22-29); Chloride 93 mmol/L (98-107); Globulin 4.3 g/dL (1.3-4.6); Glucose 117 mg/dL (65-115); Lipase 44 U/L (13-60); Magnesium 2.1 mg/dL (1.7-2.3); NT Pro B Type Natriuretic Pept 1371 pg/mL (0-125); Osmolality Calculated 268 mOsm/kg (285-295); Potassium 4.7 mmol/L (3.5-5.1); Sodium 130 mmol/L (136-145); Total Protein 8.2 g/dL (6.6-8.7)
[2019-08-22 15:33] LABS: Influenza A by IFA Negative (Negative); Influenza B by IFA Negative (Negative)
[2019-08-22 15:34] LABS: Slide Review Slide Review Perform
[2019-08-22 15:35] LABS: White Blood Count 30.3 10^3/uL (4.0-10.0)
[2019-08-22 15:36] LABS: INR 1.06 (0.8-1.2)
--- NOTE | 2019-08-22 16:00 | ECG_ITS ---
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 Measurements Intervals [place] Rate: 102 P: 73 MN: 180 QRS: 81 QRSD: 102 T: 77 QT: 348 QTc: 454 Interpretive Statements SINUS TACHYCARDIA POSSIBLE RIGHT ATRIAL ENLARGEMENT [0.25mV P WAVE] ABNORMAL RHYTHM ECG Compared to ECG 08/22/2019 14:52:46 Sinus rhythm no longer present Incomplete right bundle-branch block no longer present ST (T wave) deviation no longer present Electronically Signed On 08-23-2019 20:02:58 CDT by Jessica Hamilton M.D. [id number]
[2019-08-22] MEDS: FUROsemide 10 mg/mL SDV 4mL 40 MG IVP (16:10)
[2019-08-22] MEDS: nitroglycerin 1 gm/inch oint Pkt 1 INCH TOPICAL (16:10)
[2019-08-22 16:12] LABS: Bilirubin Urine Neg (NEGATIVE); Blood Urine 3+ (Negative); Glucose Urine UA Norm (Normal); Ketones Urine Negative (Negative); Leukocyte Esterase Urine Negative (Negative); Nitrate Urine Negative (Negative); Protein Urine 2+ (Negative); Urine Appearance Clear (CLEAR); Urine Color Yellow (Yellow); Urobilinogen Urine 1 mg/dL (Negative); pH Urine 5 (5-7)
[2019-08-22 16:13] LABS: RBC Urine 15-25 /hpf (0-2)
[2019-08-22 16:14] LABS: Add Urine Culture? Yes; Bacteria Urine TRACE; Mucus Urine TRACE; Squamous Epithelial Cell Urine 0-4 (0-5); WBC Urine RARE /hpf (0-5)
[2019-08-22 16:36] LABS: ABG PCO2 56.3 mmHg (35-45); ABG PH Result 7.23 (7.35-7.45); Arterial Blood Gas Hematocrit 34.8 % (42-52); Base Excess ABG -4.3 mmol/L (-2.0-2.0); Blood Gas Allen Test Pos; Blood Gas Sample Site Radial, right; Blood Gas Sample Type Arterial; HCO3 ABG 23.7 mmol/L (22-26); Oxygen Device BIPAP; PO2 ABG 72.6 mmHg (80.0-100.0)
--- NOTE | 2019-08-22 16:54 | PC.NURSE ---
PT ASKED IF THINGS GOT WORSE DID HE WANT TO BE PLACED ON VENTILATOR PT STATES NO HE DOES NOT WANT PLACED ON VENTILATOR
[2019-08-22 17:10] LABS: Troponin 5 2HR 59.15 ng/L (0-15)
[2019-08-22 17:32] LABS: Troponin 5 2HR Delta -10.85 ABS# (0-10)
--- NOTE | 2019-08-22 18:34 | PM.HP ---
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 Patient currently appears comfortbale on Bipap. No h/o fever or known covid exposure Review of Systems General: Reports: 10 or more systems reviewed and unremarkable except in HPI and below Const: Denies: fever(s), chills or body aches Eyes: Denies: change in vision, blurry vision or photophobia ENMT: Reports: hoarseness; Denies: throat pain, enlarged tonsils, odynophagia or nasal congestion Card: Denies: chest pain, palpitations, irregular heart rhythm, edema, swelling of feet/ankles, lightheadedness, pre-syncope, dyspnea on exertion or orthopnea Resp: Denies: dyspnea, productive cough, non-productive cough, wheezing, stridor, pain on inspiration, change in phlegm color, hemoptysis or chest congestion GI: Denies: abdominal pain, nausea, vomiting, hematemesis, coffee ground emesis, dysphagia, heartburn, diarrhea, constipation, GI cramping, change in stool character, hematochezia or melena : Denies: flank pain, dysuria, urinary frequency, urinary urgency, urinary hesitancy or hematuria Musc: Denies: neck pain, back pain, extremity pain, joint swelling, joint warmth or deformity Neuro: Denies: headache(s), numbness in extremities, weakness in extremities, sensory changes, difficulty walking, frequent falls, dizziness, vertigo, behavioral changes, Slurred speech present or seizure-like activity Psych: Denies: anxiety, depression, suicidal ideation or homicidal ideation Endo: Denies: polyuria, polydipsia, tired all the time, cold intolerance or hot flashes Miguel/Lymph: Denies: easy bruising or easy bleeding Medications/Allergies Home Medications Medication Instructions Recorded Confirmed Last Taken Type gemfibrozil 600 mg tablet 600 mg PO BID 03/09/19 08/22/19 08/22/19 History metoprolol tartrate 100 mg tablet 50 mg PO BID tab 03/09/19 08/22/19 08/22/19 History nitroglycerin 0.4 mg sublingual 0.4 mg SUBLINGUAL Q5M PRN 03/09/19 08/22/19 Unknown History tablet tamsulosin 0.4 mg capsule 0.4 mg PO DAILY 03/09/19 08/22/19 08/22/19 History cholecalciferol (vitamin D3) 50 1,000 unit PO DAILY #90 tab 04/07/19 08/22/19 08/21/19 Rx mcg (2,000 unit) tablet albuterol sulfate 2.5 mg INHALATION QID PRN #180 ml 04/29/19 08/22/19 08/22/19 Rx ketoconazole 1 % shampoo 1 applic TOPICAL Q3D #200 ml 06/24/19 08/22/19 Unknown Rx amlodipine 2.5 mg tablet 2.5 mg PO BID #180 tab 08/03/19 08/22/19 08/22/19 Rx budesonide-formoterol HFA 160 2 puff INHALATION BID #10.2 gm 08/20/19 08/22/19 08/22/19 Rx mcg-4.5 mcg/actuation aerosol inhaler diclofenac sodium 1 % topical gel 2 gm TOPICAL QID #100 gm 08/20/19 08/22/19 08/22/19 Rx hydrocodone 5 mg-acetaminophen 325 1 tab PO DAILY PRN 30 Days #30 tab 08/20/19 08/22/19 Unknown Rx mg tablet tiotropium bromide 2.5 2 puff INHALATION QAM #4 gm 08/20/19 08/22/19 08/22/19 Rx mcg/actuation mist for inhalation coal tar 1 applic TOPICAL DAILY 08/22/19 08/22/19 Unknown History mirtazapine 7.5 mg PO BEDTIME 08/22/19 08/22/19 08/21/19 History pantoprazole 40 mg PO DAILY 08/22/19 08/22/19 08/22/19 History Allergies Allergy/AdvReac Type Severity Reaction Status Date / Time No Known Allergies Allergy Unverified 08/22/19 13:42 PFSH Acute PFSH: Medical History Anxiety and depression Atherosclerosis of [place] artery of both lower extremities Cardiomyopathy, idiopathic Chronic GERD Chronic kidney disease, stage 3 Chronic lymphatic leukemia COPD, severe Insomnia Lung nodules Mixed hyperlipidemia Primary hypertension Surgical History H/O wrist surgery Family History Mother Cancer Social History Smoking and tobacco status: current every day smoker cigarettes Packs smoked per day: 1 Alcohol intake: never Vitals/I&O/Wt Last Vital Signs Temp 98.2 F 08/22/19 13:40 Pulse 95 08/22/19 16:40 Resp 20 H 08/22/19 14:58 BP 149/71 08/22/19 13:40 Pulse Ox 95 08/22/19 16:40 Weight last 48 hrs Weight 51.71 kg Physical Exam Narrative: EXAM NARRATIVE: GEN: Awake, alert and oriented, no acute distress on Bipap CVS: S1S2 N RS: CTA B/L Abd: Soft, nt/nd , bs+ 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 neuro 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 Data : 08/22/19 14:40 08/22/19 14:40 Micro: Microbiology 08/22/19 14:40 Blood Culture - Preliminary Blood SPECIMEN COLLECTED 08/22/19 14:35 Blood Culture - Preliminary Blood SPECIMEN COLLECTED A&P Assessment and plan (1) Acute exacerbation of chronic obstructive airways disease: Status: Acute (2) Nicotine dependence, cigarettes, with unspecified nicotine-induced disorders: Status: Chronic (3) COPD, severe: Status: Chronic Additional A&P Information Admit to ICU Hypercapneic respiratory failure from COPD excarebation, acute on chronic Duonebs q4h, budesonide q12h inh methylprednisone 60 mg iv q8h received lasix x 1 in ED serial tropinins without significant delta, no c/o chest pain DNI DVT ppx; lovenox Attestations Medical Necessity Statement*: > 2midnight expected for hypercapneic respiratory failure, COVID rule out Coding Level of Care Code Acute Gastroenterology Manager for Chg Fwd Diagnoses Acute exacerbation of chronic obstructive airways disease J44.1 Nicotine dependence, cigarettes, with unspecified nicotine-induced disorders F17.219 COPD, severe J44.9
[2019-08-22 18:52] LABS: D Dimer 2.76 ug/mIFEU (0-0.59)
[2019-08-22] MEDS: levofloxacin-dextrose 5 % 750 MG/150 ML PREMIX 150 MG IV (19:09)
[2019-08-22] MEDS: enoxaparin 40 mg/0.4 mL Syringe SUBCUT (19:14)
[2019-08-22] MEDS: morphine 4 mg/mL SDV 1 mL 2 MG IVP (19:14)
[2019-08-22 20:58] LABS: Troponin 5 6HR 63.38 ng/L (0-15)
[2019-08-22] MEDS: mirtazapine 15 mg Tablet 7.5 MG PO (21:08)
[2019-08-22 21:13] LABS: Troponin 5 6HR Delta -6.62 ng/L (0-12)
[2019-08-22] MEDS: albuterol 8 gm MDI 2 PUFF INHALATION (21:21)
[2019-08-23] VITALS (158 sets, daily range): BP systolic 127–155; BP diastolic 59–79; PULSE 64–165; RESP 13–33; TEMP 36.6–36.8; O2SAT 83–99
[2019-08-23 03:57] LABS: Basophils % 0.1 %; Hematocrit 32.3 % (42.0-52.0); Hemoglobin 10.6 g/dL (11.7-16.6); Lymphocytes # 26.2 10^3/uL (0.8-4.8); Lymphocytes % 93.8 %; Mean Corpuscular HGB Conc 32.8 g/dL (30.0-36.0); Mean Corpuscular Hemoglobin 33.1 pg (28.0-34.0); Mean Corpuscular Volume 100.9 fL (80-94); Mean Platelet Volume 10.8 fL (7.4-10.4); Monocytes # 0.3 10^3/uL (0.2-0.9); Monocytes % 0.9 %; Neutrophils # 1.5 10^3/uL (1.8-7.7); Neutrophils % 5.2 %; Nucleated Red Blood Cells % 0 %; Platelet Count 119 10^3/cmm (130-400); Red Cell Distribution Width 13.9 % (12.1-15.1)
[2019-08-23] MEDS: albuterol 8 gm MDI 2 PUFF INHALATION (04:30)
[2019-08-23 04:36] LABS: Slide Review Slide Review Perform
[2019-08-23 06:03] LABS: Alanine Aminotransferase 13 U/L (0-41); Albumin Level 3.6 g/dL (3.5-5.2); Alkaline Phosphatase 168 IU/L (40-130); Anion Gap 15.7 (5-19); Aspartate Amino Transferase 70 U/L (0-40); Blood Urea Nitrogen 33 mg/dL (8-23); Calcium 8.9 mg/dL (8.5-10.5); Carbon Dioxide 26 mmol/L (22-29); Chloride 97 mmol/L (98-107); Globulin 3.8 g/dL (1.3-4.6); Glucose 132 mg/dL (65-115); Osmolality Calculated 277 mOsm/kg (285-295); Potassium 4.7 mmol/L (3.5-5.1); Sodium 134 mmol/L (136-145); Total Bilirubin 0.6 mg/dL (0.15-1.2); Total Protein 7.4 g/dL (6.6-8.7)
[2019-08-23 07:17] LABS: Procalcitonin 0.17 ng/mL (0-0.5)
[2019-08-23] MEDS: amlodipine 5 mg Tablet PO (08:45)
[2019-08-23] MEDS: tamsulosin 0.4 mg Capsule PO (08:45)
[2019-08-23] MEDS: gemfibrozil 600 mg Tablet PO (08:46)
[2019-08-23] MEDS: metoprolol tartrate 50 mg Tablet PO (08:46)
[2019-08-23] MEDS: pantoprazole DR 40 mg Tablet PO (08:46)
[2019-08-23] MEDS: HYDROcodone-acetaminophen 5-325 mg Tablet 1 TAB PO (11:14)
[2019-08-23 14:18] LABS: ABG PCO2 50.5 mmHg (35-45); ABG PH Result 7.28 (7.35-7.45); Arterial Blood Gas Hematocrit 34.5 % (42-52); Base Excess ABG -3.6 mmol/L (-2.0-2.0); Blood Gas Allen Test Pos; Blood Gas Sample Site Radial, left; Blood Gas Sample Type Arterial; HCO3 ABG 23.5 mmol/L (22-26); Oxygen Device BIPAP; PO2 ABG 74.8 mmHg (80.0-100.0)
--- NOTE | 2019-08-23 16:00 | P.DS_ITS ---
Discharge Providers Date of Admission: 08/22/19 16:57 Date of Discharge: August 23, 2019 Attending Provider at Admission: Verito uDffy MD Attending Provider at Discharge: Verito Duffy MD Primary Care Provider: Jada Garduno DO Diagnoses at Discharge Discharge Diagnosis (1) Acute exacerbation of chronic obstructive airways disease: Status: Acute (2) Nicotine dependence, cigarettes, with unspecified nicotine-induced disorders: Status: Chronic (3) COPD, severe: Status: Chronic Reason for Visit Reason for Visit: sob Discharge Data Data Completed and Pending: Completed Studies During Hospitalization Category Date Time Status XR chest 1V brigette ble [id number] Stat Exams 08/22/19 14:00 Completed Pending at discharge Category Date Time Status Blood Culture Sta t Lab 08/22/19 14:40 Results Complete Blood Co unt w/Auto AM LABS Lab 08/24/19 04:00 Ordered Complete Blood Co unt w/Auto AM LABS Lab 08/25/19 04:00 Ordered Comprehensive Met abolic Panel AM LA BS Lab 08/24/19 04:00 Ordered Comprehensive Met abolic Panel AM LA BS Lab 08/25/19 04:00 Ordered Coronavirus Lab T est PTC Stat Lab 08/22/19 17:55 Received Urine Culture Sta t Lab 08/22/19 15:43 Received Labs from last 24 hours 08/23/19 08/23/19 08/22/19 05:22 02:58 20:34 WBC 28.0 H RBC 3.20 L Hgb 10.6 L Hct 32.3 L MCV 100.9 H MCH 33.1 MCHC 32.8 RDW 13.9 Plt Count 119 L MPV 10.8 H Neut % (Auto) 5.2 Lymph % (Auto) 93.8 Potter % (Auto) 0.9 Eos % (Auto) 0.0 Baso % (Auto) 0.1 Neut # (Auto) 1.5 L Lymph # (Auto) 26.2 H Potter # (Auto) 0.3 Eos # (Auto) 0.0 Baso # (Auto) 0.0 Nucleated RBC % (a uto) 0 Nucleated RBCs # 0.0 D-Dimer Specimen Type Sample Site ABG pH ABG pCO2 ABG pO2 ABG HCO3 ABG Base Excess Jerry Test Hematocrit O2 Delivery Device FiO2 Product Support Sales Representative ID Sodium 134 L Potassium 4.7 Chloride 97 L Carbon Dioxide 26 Anion Gap 15.7 BUN 33 H Creatinine 1.6 H Glucose 132 H Calculated Osmolal ity 277 L Calcium 8.9 Total Bilirubin 0.6 AST 70 H ALT 13 Alkaline Phosphata se 168 H Troponin I 6 Hour 63.38 H Troponin I Hi Sens Del -6.62 L Troponin T 120 Min [place] Troponin T Total Protein 7.4 Albumin 3.6 Globulin 3.8 Procalcitonin 0.17 Urine Color Urine Appearance Urine pH Ur Specific Gravit y Urine Protein Urine Glucose (UA) Urine Ketones Urine Blood Urine Nitrate Urine Bilirubin Urine Urobilinogen Ur Leukocyte Molly ase Urine RBC Urine WBC Ur Squamous Epith Cells Urine Bacteria Urine Mucus 08/22/19 08/22/19 08/22/19 17:30 16:50 16:22 WBC RBC Hgb Hct MCV MCH MCHC RDW Plt Count MPV Neut % (Auto) Lymph % (Auto) [place] % (Auto) Eos % (Auto) Baso % (Auto) Neut # (Auto) Lymph # (Auto) Potter # (Auto) Eos # (Auto) Baso # (Auto) Nucleated RBC % (a uto) Nucleated RBCs # D-Dimer Specimen Type Arterial Arterial Sample Site Radial, left Radial, right ABG pH 7.28 L 7.23 L ABG pCO2 50.5 H 56.3 H ABG pO2 74.8 L 72.6 L ABG HCO3 23.5 23.7 ABG Base Excess -3.6 L -4.3 L Jerry Test Pos Pos Hematocrit 34.5 L 34.8 L O2 Delivery Device Bipap Bipap FiO2 35.0 35.0 Product Support Sales Representative ID monro monro Sodium Potassium Chloride Carbon Dioxide Anion Gap BUN Creatinine Glucose Calculated Osmolal ity Calcium Total Bilirubin AST ALT Alkaline Phosphata se Troponin I 6 Hour Troponin I Hi Sens Del Troponin T 120 Min [place] 59.15 H Delta Troponin T -10.85 L Total Protein Albumin Globulin Procalcitonin Urine Color Urine Appearance Urine pH Ur Specific Gravit y Urine Protein Urine Glucose (UA) Urine Ketones Urine Blood Urine Nitrate Urine Bilirubin Urine Urobilinogen Ur Leukocyte Molly ase Urine RBC Urine WBC Ur Squamous Epith Cells Urine Bacteria Urine Mucus 08/22/19 08/22/19 15:43 14:40 WBC RBC Hgb Hct MCV MCH MCHC RDW Plt Count MPV Neut % (Auto) Lymph % (Auto) [place] % (Auto) Eos % (Auto) Baso % (Auto) Neut # (Auto) Lymph # (Auto) Potter # (Auto) Eos # (Auto) Baso # (Auto) Nucleated RBC % (a uto) Nucleated RBCs # D-Dimer 2.76 H Specimen Type Sample Site ABG pH ABG pCO2 ABG pO2 ABG HCO3 ABG Base Excess Jerry Test Hematocrit O2 Delivery Device FiO2 Product Support Sales Representative ID Sodium Potassium Chloride Carbon Dioxide Anion Gap BUN Creatinine Glucose Calculated Osmolal ity Calcium Total Bilirubin AST ALT Alkaline Phosphata se Troponin I 6 Hour Troponin I Hi Sens Del Troponin T 120 Min [place] Troponin T Total Protein Albumin Globulin Procalcitonin Urine Color Yellow Urine Appearance Clear Urine pH 5 Ur Specific Gravit y 1.020 Urine Protein 2+ H Urine Glucose (UA) Norm Urine Ketones Negative Urine Blood 3+ H Urine Nitrate Negative Urine Bilirubin Neg Urine Urobilinogen 1 H Ur Leukocyte Molly ase Negative Urine RBC 15-25 H Urine WBC Rare Ur Squamous Epith Cells 0-4 H Urine Bacteria Trace Urine Mucus Trace Vitals: Last Vital Signs Temp 97.8 F 08/23/19 15:33 Pulse 73 08/23/19 15:15 Resp 22 H 08/23/19 15:33 BP 149/78 08/23/19 15:33 Pulse Ox 92 08/23/19 15:33 Discharge Plan Discharge Patient Disposition: Home, Self-Care Condition: Stable Prescriptions: New prednisone 20 mg tablet 20 mg PO BID 5 Days Qty: 10 RF: 0 Continued gemfibrozil [Lopid] 600 mg tablet 600 mg PO BID RF: 0 metoprolol tartrate 100 mg tablet 50 mg PO BID RF: 0 nitroglycerin 0.4 mg tablet, sublingual 0.4 mg SUBLINGUAL Q5M PRN (Reason: Chest Pain) RF: 0 tamsulosin 0.4 mg capsule 0.4 mg PO DAILY RF: 0 ketoconazole 1 % shampoo 1 applic TOPICAL Q3D Qty: 200 RF: 1 diclofenac sodium 1 % gel 2 gm TOPICAL QID Qty: 100 RF: 1 Spiriva Respimat 2.5 mcg/actuation mist 2 puff INHALATION QAM Qty: 4 RF: 2 Symbicort 160-4.5 mcg/actuation HFA aerosol inhaler 2 puff INHALATION BID Qty: 10.2 RF: 2 hydrocodone-acetaminophen 5-325 mg tablet 1 tab PO DAILY PRN (Reason: pain) 30 Days Qty: 30 RF: 0 cholecalciferol (vitamin D3) 2,000 unit tablet 1,000 unit PO DAILY Qty: 90 RF: 1 albuterol sulfate 2.5 mg /3 mL (0.083 %) solution for nebulization 2.5 mg INHALATION QID PRN (Reason: shortness of breath or wheezing) Qty: 180 RF: 2 amlodipine 2.5 mg tablet 2.5 mg PO BID Qty: 180 RF: 0 pantoprazole 40 mg tablet,delayed release (DR/EC) 40 mg PO DAILY RF: 0 mirtazapine 15 mg tablet 7.5 mg PO BEDTIME RF: 0 coal tar 2.5 % shampoo 1 applic TOPICAL DAILY RF: 0 Discharge Orders: Discharge Order (Routine); Ordered 08/23/19 Ordered By: Verito Duffy Other Ambulatory Orders: DME: Oxygen (Order) Location: None Selected Ordered By: Verito Duffy Sleep Study/Titration (Routine) Timeframe: 2 Weeks Location: None Selected Ordered By: Verito Duffy Referrals: [facility] [place] Jada Garduno DO [Primary Care Provider] - 4-7 days Discharge Diet: Usual diet Discharge Activity: Resume usual activity Activity Restrictions/Additional Instructions: COVID-19 test results still remain pending at the time of discharge. Since you are returning home, please maintain all home isolation recommendations to minimize risk of transmission , as explained during admission until these test results are obtained. Discharge Attestations Time Spent in Discharge Care*: greater than 30 min Quality Metrics Clinical Quality Measures During this hospital stay, did patient experience: None Coding Level of Care Code Acute Prick Stitcher for Roman Oro Diagnoses Acute exacerbation of chronic obstructive airways disease J44.1 Nicotine dependence, cigarettes, with unspecified nicotine-induced disorders F17.219 COPD, severe J44.9
--- NOTE | 2019-08-23 16:01 | P.DS_ITS ---
Discharge Providers Date of Admission: 08/22/19 16:57 Date of Discharge: August 23, 2019 Attending Provider at Admission: Verito Duffy MD Attending Provider at Discharge: Verito Duffy MD Primary Care Provider: Jada Garduno DO Diagnoses at Discharge Discharge Diagnosis (1) Acute exacerbation of chronic obstructive airways disease: Status: Acute (2) Nicotine dependence, cigarettes, with unspecified nicotine-induced disorders: Status: Chronic (3) COPD, severe: Status: Chronic Reason for Visit Reason for Visit: sob Hospital Course Discharge Summary: Heber Mejia is a 74 year old male with CLL on expectant management, Hypertension, Hyperlipidemia, 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 Upon presentation noted to have acute hypercapneic respiratory failure for which he was started on Bipap, initially without significant improvement, however through the course of the evening while remaining on BiPAP his respiratory status improved. He also received steroids with Solu-Medrol IV. This has been transitioned to p.o. prednisone upon discharge. Patient is looking significantly improved today. He has been titrated down to nasal cannula. He underwent a home O2 evaluation and qualified for 2 L/min on that. He states that Dr. Garduno had been trying to arrange for his oxygen as an outpatient as well, so I suspect he has been having worsening COPD for a little bit now. He is anxious and insistent to return home. His chest x-ray did not show any acute findings. He underwent COVID-19 RT-PCR testing as well. Results remain pending at the time of discharge. Since patient is insistent on returning home, dyspnea will need to be followed up as an outpatient. In the interim while these results are pending, he is instructed to maintain home isolation and instructions have been provided for the same. A sleep study has been ordered as an outpatient. Physical Exam Narrative: EXAM NARRATIVE: GEN: Awake, alert and oriented, no acute distress HEENT: NC/AT, NC in place CVS: S1S2 N RS: CTA B/L Abd: Soft, nt/nd , bs+ AXLE POLISHER: no focal neuro deficits Discharge Data Data Completed and Pending: Completed Studies During Hospitalization Category Date Time Status XR chest 1V brigette ble [id number] Stat Exams 08/22/19 14:00 Completed Pending at discharge Category Date Time Status Blood Culture Sta t Lab 08/22/19 14:40 Results Complete Blood Co unt w/Auto AM LABS Lab 08/24/19 04:00 Ordered Complete Blood Co unt w/Auto AM LABS Lab 08/25/19 04:00 Ordered Comprehensive Met abolic Panel AM LA BS Lab 08/24/19 04:00 Ordered Comprehensive Met abolic Panel AM LA BS Lab 08/25/19 04:00 Ordered Coronavirus Lab T est PTC Stat Lab 08/22/19 17:55 Received Urine Culture Sta t Lab 08/22/19 15:43 Received Labs from last 24 hours 08/23/19 08/23/19 08/22/19 05:22 02:58 20:34 WBC 28.0 H RBC 3.20 L Hgb 10.6 L Hct 32.3 L MCV 100.9 H MCH 33.1 MCHC 32.8 RDW 13.9 Plt Count 119 L MPV 10.8 H Neut % (Auto) 5.2 Lymph % (Auto) 93.8 [place] % (Auto) 0.9 Eos % (Auto) 0.0 Baso % (Auto) 0.1 Neut # (Auto) 1.5 L Lymph # (Auto) 26.2 H [place] # (Auto) 0.3 Eos # (Auto) 0.0 Baso # (Auto) 0.0 Nucleated RBC % (a uto) 0 Nucleated RBCs # 0.0 D-Dimer Specimen Type Sample Site ABG pH ABG pCO2 ABG pO2 ABG HCO3 ABG Base Excess Jerry Test Hematocrit O2 Delivery Device FiO2 Business Test Analyst ID Sodium 134 L Potassium 4.7 Chloride 97 L Carbon Dioxide 26 Anion Gap 15.7 BUN 33 H Creatinine 1.6 H Glucose 132 H Calculated Osmolal ity 277 L Calcium 8.9 Total Bilirubin 0.6 AST 70 H ALT 13 Alkaline Phosphata se 168 H Troponin I 6 Hour 63.38 H Troponin I Hi Sens Del -6.62 L Troponin T 120 Min [place] Troponin T Total Protein 7.4 Albumin 3.6 Globulin 3.8 Procalcitonin 0.17 Urine Color Urine Appearance Urine pH Ur Specific Gravit y Urine Protein Urine Glucose (UA) Urine Ketones Urine Blood Urine Nitrate Urine Bilirubin Urine Urobilinogen Ur Leukocyte Molly ase Urine RBC Urine WBC Ur Squamous Epith Cells Urine Bacteria Urine Mucus 08/22/19 08/22/19 08/22/19 17:30 16:50 16:22 WBC RBC Hgb Hct MCV MCH MCHC RDW Plt Count MPV Neut % (Auto) Lymph % (Auto) [place] % (Auto) Eos % (Auto) Baso % (Auto) Neut # (Auto) Lymph # (Auto) [place] # (Auto) Eos # (Auto) Baso # (Auto) Nucleated RBC % (a uto) Nucleated RBCs # D-Dimer Specimen Type Arterial Arterial Sample Site Radial, left Radial, right ABG pH 7.28 L 7.23 L ABG pCO2 50.5 H 56.3 H ABG pO2 74.8 L 72.6 L ABG HCO3 23.5 23.7 ABG Base Excess -3.6 L -4.3 L Jerry Test Pos Pos Hematocrit 34.5 L 34.8 L O2 Delivery Device Bipap Bipap FiO2 35.0 35.0 Business Test Analyst ID monro monro Sodium Potassium Chloride Carbon Dioxide Anion Gap BUN Creatinine Glucose Calculated Osmolal ity Calcium Total Bilirubin AST ALT Alkaline Phosphata se Troponin I 6 Hour Troponin I Hi Sens Del Troponin T 120 Min [place] 59.15 H Delta Troponin T -10.85 L Total Protein Albumin Globulin Procalcitonin Urine Color Urine Appearance Urine pH Ur Specific Gravit y Urine Protein Urine Glucose (UA) Urine Ketones Urine Blood Urine Nitrate Urine Bilirubin Urine Urobilinogen Ur Leukocyte Molly ase Urine RBC Urine WBC Ur Squamous Epith Cells Urine Bacteria Urine Mucus 08/22/19 08/22/19 15:43 14:40 WBC RBC Hgb Hct MCV MCH MCHC RDW Plt Count MPV Neut % (Auto) Lymph % (Auto) [place] % (Auto) Eos % (Auto) Baso % (Auto) Neut # (Auto) Lymph # (Auto) [place] # (Auto) Eos # (Auto) Baso # (Auto) Nucleated RBC % (a uto) Nucleated RBCs # D-Dimer 2.76 H Specimen Type Sample Site ABG pH ABG pCO2 ABG pO2 ABG HCO3 ABG Base Excess Jerry Test Hematocrit O2 Delivery Device FiO2 Business Test Analyst ID Sodium Potassium Chloride Carbon Dioxide Anion Gap BUN Creatinine Glucose Calculated Osmolal ity Calcium Total Bilirubin AST ALT Alkaline Phosphata se Troponin I 6 Hour Troponin I Hi Sens Del Troponin T 120 Min [place] Troponin T Total Protein Albumin Globulin Procalcitonin Urine Color Yellow Urine Appearance Clear Urine pH 5 Ur Specific Gravit y 1.020 Urine Protein 2+ H Urine Glucose (UA) Norm Urine Ketones Negative Urine Blood 3+ H Urine Nitrate Negative Urine Bilirubin Neg Urine Urobilinogen 1 H Ur Leukocyte Molly ase Negative Urine RBC 15-25 H Urine WBC Rare Ur Squamous Epith Cells 0-4 H Urine Bacteria Trace Urine Mucus Trace Vitals: Last Vital Signs Temp 97.8 F 08/23/19 15:33 Pulse 73 08/23/19 15:15 Resp 22 H 08/23/19 15:33 BP 149/78 08/23/19 15:33 Pulse Ox 92 08/23/19 15:33 Discharge Plan Discharge Patient Disposition: Home, Self-Care Condition: Stable Prescriptions: New prednisone 20 mg tablet 20 mg PO BID 5 Days Qty: 10 RF: 0 Continued gemfibrozil [Lopid] 600 mg tablet 600 mg PO BID RF: 0 metoprolol tartrate 100 mg tablet 50 mg PO BID RF: 0 nitroglycerin 0.4 mg tablet, sublingual 0.4 mg SUBLINGUAL Q5M PRN (Reason: Chest Pain) RF: 0 tamsulosin 0.4 mg capsule 0.4 mg PO DAILY RF: 0 ketoconazole 1 % shampoo 1 applic TOPICAL Q3D Qty: 200 RF: 1 diclofenac sodium 1 % gel 2 gm TOPICAL QID Qty: 100 RF: 1 Spiriva Respimat 2.5 mcg/actuation mist 2 puff INHALATION QAM Qty: 4 RF: 2 Symbicort 160-4.5 mcg/actuation HFA aerosol inhaler 2 puff INHALATION BID Qty: 10.2 RF: 2 hydrocodone-acetaminophen 5-325 mg tablet 1 tab PO DAILY PRN (Reason: pain) 30 Days Qty: 30 RF: 0 cholecalciferol (vitamin D3) 2,000 unit tablet 1,000 unit PO DAILY Qty: 90 RF: 1 albuterol sulfate 2.5 mg /3 mL (0.083 %) solution for nebulization 2.5 mg INHALATION QID PRN (Reason: shortness of breath or wheezing) Qty: 180 RF: 2 amlodipine 2.5 mg tablet 2.5 mg PO BID Qty: 180 RF: 0 pantoprazole 40 mg tablet,delayed release (DR/EC) 40 mg PO DAILY RF: 0 mirtazapine 15 mg tablet 7.5 mg PO BEDTIME RF: 0 coal tar 2.5 % shampoo 1 applic TOPICAL DAILY RF: 0 Discharge Orders: Discharge Order (Routine); Ordered 08/23/19 Ordered By: Verito Duffy Other Ambulatory Orders: DME: Oxygen (Order) Location: None Selected Ordered By: Verito Duffy Sleep Study/Titration (Routine) Timeframe: 2 Weeks Location: None Selected Ordered By: Verito Duffy Referrals: [facility] [place] [Outside] Jada Garduno DO [Primary Care Provider] - 4-7 days Discharge Diet: Usual diet Discharge Activity: Resume usual activity and Oxygen as instructed Activity Restrictions/Additional Instructions: COVID-19 test results still remain pending at the time of discharge. Since you are returning home, please maintain all home isolation recommendations to minimize risk of transmission , as explained during admission until these test results are obtained. Discharge Attestations Time Spent in Discharge Care*: greater than 30 min Quality Metrics Clinical Quality Measures During this hospital stay, did patient experience: None Coding Level of Care Code Acute Supervisor Data Processing for Roman Oro Diagnoses Acute exacerbation of chronic obstructive airways disease J44.1 Nicotine dependence, cigarettes, with unspecified nicotine-induced disorders F17.219 COPD, severe J44.9
--- NOTE | 2019-08-23 17:40 | PC.NURSE ---
when i walked into patients room at 0740 with his tray, he stated that he wanted the doctor in there now and he wanted to go home. i explained that his doctor is making rounds around the hospital and i could not know her exact time of coming to his room . i did promise to call if she had not been in by 9. patient stated he had no oxygen at home and thats all he needs. manager of case management notifide of need and rt performed qualifing tests so that when his doctor came by all would be accomplished for insurance needs. patient threatened several times to go ama. he refused his lunch as he was planning on going home. he was upset that the er doctor insisted he wear his cpap all night then the cell installer rt and nurse never replaced it on him when he came to [facility]. the doctor was bedside around 1500, discharge orders placed around 1645, and he was out the door at 1715, unfortunately he dropped his phone on his way out. it was brought to the er entrance and messages left for his home line and his sons phone . Mr Mejia was very happy abut his [employer] oxygen set up.
[2019-08-23 20:38] LABS: Coronavirus Lab Test PTC SEE COMMENTS
== END 2019-08-23 17:15 | disposition home or self-care (01) | DRG 189 ==
LOC: ER 13:55 → ICU 17:27
PROVIDERS: Admitting Provider Student in an Organized Health Care Education/Training Program; Emergency Provider Emergency Medicine; PCP Family Medicine; Visit Provider Student in an Organized Health Care Education/Training Program
DX: J96.22 Acute and chronic respiratory failure with hypercapnia (principal); J44.1 Chronic obstructive pulmonary disease with (acute) exacerbation; K55.1 Chronic vascular disorders of intestine; I42.8 Other cardiomyopathies; C91.10 Chronic lymphocytic leukemia of B-cell type not having achieved remission; F17.210 Nicotine dependence, cigarettes, uncomplicated; I71.4 Abdominal aortic aneurysm, without rupture; K21.9 Gastro-esophageal reflux disease without esophagitis; F43.10 Post-traumatic stress disorder, unspecified; Z11.59 Encounter for screening for other viral diseases; F41.8 Other specified anxiety disorders; N18.3 Chronic kidney disease, stage 3 (moderate); I12.9 Hypertensive chronic kidney disease with stage 1 through stage 4 chronic kidney disease, or unspecified chronic kidney disease; I25.10 Atherosclerotic heart disease of native coronary artery without angina pectoris; G47.00 Insomnia, unspecified; E78.2 Mixed hyperlipidemia
CPT/HCPCS: 12345; 36415; 36600; 71045; 80051; 80053; 81001; 82803; 82810; 83605; 83690; 83735; 83880; 83986; 84145; 84484; 85025; 85378; 85610; 87040; 87086; 87635; 87804; 93005; 94640; 94660; 94664; 96372; 96375; 99283; J1650; J1940; J1956; J2270; J2405; J2930; J3535; J7030

== ENCOUNTER 2019-08-24 05:50 | Inpatient (IN) | payer OTHER, MEDICARE, SELFPAY ==
[2019-08-24] VITALS (23 sets, daily range): BP systolic 135–180; BP diastolic 70–121; PULSE 68–120; RESP 17–36; TEMP 36.4–36.6; O2SAT 84–100; BMI 17.7
--- NOTE | 2019-08-24 05:55 | ECG_ITS ---
[facility] Test Date: 2019-08-24 Pat Name: Heber Mejia Department: Room: Gender: Male First Assist: : 1945 Requested By: Baljit Shoemaker Order Number: [id number] Garrick MD: Jessica Hamilton M.D. Measurements Intervals [place] Rate: 97 P: 86 NM: 203 QRS: 85 QRSD: 110 T: 75 QT: 342 QTc: 435 Interpretive Statements SINUS RHYTHM RIGHT ATRIAL ENLARGEMENT [0.3mV P WAVE] POSSIBLE LEFT ATRIAL ENLARGEMENT [-0.1mV P WAVE IN V1/V2] MODERATE ST DEPRESSION [0.05+ mV ST DEPRESSION] Compared to ECG 08/22/2019 16:54:35 ST (T wave) deviation now present Sinus tachycardia no longer present Electronically Signed On 08-24-2019 21:39:57 CDT by Jessica Hamilton M.D. [id number]
--- NOTE | 2019-08-24 05:55 | XR_ITS ---
WS: [id number] PORTABLE CHEST HISTORY: sob COMPARISON: 08/22/2019 Marked pulmonary hyperinflation with emphysema. No pneumonia. Stable 9 mm nodule RIGHT lower lung fie ld. No pleural effusion or pneumothorax. Cardiac size: Normal. Mediastinum/Aorta: Moderate atherosclerosis aorta. Dilated pulmonary arteries. Osteopenia with degenerative changes at the glenohumeral joints and rotary scoliosis thoracic spine. XR/XR chest 1V portable [id number] IMPRESSION: 1. Chronic emphysema with no pneumonia. 2. Pulmonary hypertension. 3. Atherosclerosis aorta.
[2019-08-24 06:10] LABS: ABG PCO2 59.8 mmHg (35-45); ABG PH Result 7.28 (7.35-7.45); Arterial Blood Gas Hematocrit 35.3 % (42-52); Base Excess ABG 0.1 mmol/L (-2.0-2.0); Blood Gas Allen Test Pos; Blood Gas Sample Site Brachial, right; Blood Gas Sample Type Arterial; Carboxyhemoglobin 3.5 %THgb (0.4-20.1); HCO3 ABG 27.9 mmol/L (22-26); HGB O2 Sat 91.1 % (95-100); Methemoglobin 0.2 % (0.4-1.5); Oxygen Device NC; PO2 ABG 75.1 mmHg (80.0-100.0); Total Hemoglobin 11.5 g/dL (14-18)
[2019-08-24] MEDS: ipratropium-albuterol 3 mL Neb INHALATION ×5 (06:11→23:20)
--- NOTE | 2019-08-24 06:18 | ED_ITS ---
HPI - SOB/Dyspnea General: Chief Complaint: Shortness of Breath/Dyspnea Stated Complaint: sob Time Seen by Provider: 08/24/19 06:02 History of Present Illness: HPI Narrative: 74-year-old male presents emergency room complaining of shortness of breath. He was discharged home yesterday on portable oxygen from observation status. He had been advised by the hospitalist to stay but elected to leave he still regularly smokes. He also has a history of chronic lymphocytic leukemia. He was tested for COVID yesterday and the result came back as on today's chart as negative. He states he feels like he is filling up with fluid. He does state that since returning home he has been coughing. He still has a productive cough. He denies any fever. MD elicited complaint: shortness of breath and cough Pertinent past history: COPD Onset (ago): hour(s) Context: recent illness and occurred during exertion Timing: constant Severity: severe Exacerbating factors: exertion, coughing and smoke Relieving factors: oxygen and rest Known history of: COPD and other (History of cardiomyopathy) Associated symptoms: Reports chest congestion and cough; Deny abdominal pain, chest pain, fever(s), nausea, orthopnea or vomiting Treatment prior to arrival: oxygen and bronchodilator (Patient has not used any since last night at 11:00.) Review of Systems Const: Denies: fever(s), chills, body aches, change in appetite, fatigue or malaise ENMT: Denies: throat pain, ear or mastoid pain, nasal discharge or nasal congestion Card: Denies: chest pain, edema, dyspnea on exertion or orthopnea Resp: Reports: chest congestion GI: Denies: abdominal pain, nausea, vomiting, hematemesis, coffee ground emesis, diarrhea, constipation, bloating, hematochezia or melena : Denies: flank pain, dysuria, urinary frequency or urinary urgency Skin/Breast: Denies: rash or pruritus PFSH ED PFSH: Medical History (Updated 08/24/19 @ 14:42 by Bill Barrett DO) Anxiety and depression Atherosclerosis of [place] artery of both lower extremities Cardiomyopathy, idiopathic Chronic GERD Chronic kidney disease, stage 3 Chronic lymphatic leukemia COPD, severe Insomnia Lung nodules Mixed hyperlipidemia Primary hypertension Surgical History H/O wrist surgery Family History Mother Cancer Social History Smoking and tobacco status: current every day smoker cigarettes Packs smoked per day: 1 Alcohol intake: never Physical Exam Const: COMMON NORMALS: no acute distress GENERAL APPEARANCE: cooperative and comfortable ORIENTATION/CONSCIOUSNESS: Yes awake, Yes oriented to person, Yes oriented to place and Yes oriented to time HENMT: COMMON NORMALS: normocephalic, atraumatic, hearing grossly normal bilaterally, external ears normal, EAC's normal, TM's normal bilaterally, Normal nasal mucous membranes and turbinates present, moist oral mucous membranes and oropharynx normal HEAD & SCALP: normocephalic and atraumatic NOSE: Normal nasal mucous membranes and turbinates present EXTERNAL EAR: Yes external ears normal EXTERNAL AUDITORY CANAL: EAC's normal TYMPANIC MEMBRANE: TM's normal bilaterally Eye: COMMON NORMALS: Equal, round and reactive pupils present, EOMs intact bilaterally, conjunctivae normal and no scleral icterus CONJUNCTIVA: Yes conjunctivae normal PUPIL: Yes Equal, round and reactive pupils present Neck/C-Spine: COMMON NORMALS: full ROM, no lymphadenopathy, supple and no JVD Lymph: LYMPHATIC: no lymphadenopathy noted and no lymphedema noted Resp: AUSCULTATION: wheezes expiratory wheezes and lower bilaterally and diminished lung sounds Cardio: COMMON NORMALS: no JVD, regular rate, regular rhythm and No murmurs present (Cardio) RATE: regular rate RHYTHM: regular rhythm GI: COMMON NORMALS: Soft to palpation and No hepatosplenomegaly present AUSCULTATION: Yes normoactive bowel sounds PALPATION: Yes Soft to palpation, No Tenderness to palpation present (GI), No Guarding due to palpation present (GI) and Yes No hepatosplenomegaly present Extremity: COMMON NORMALS: normal to inspection, capillary refill normal, no clubbing, cyanosis or edema, no calf tenderness and no pedal edema Neuro: SENSORIUM/ORIENTATION: Yes oriented to person, Yes oriented to place and Yes oriented to time Skin: COMMON NORMALS: no rashes or lesions noted GENERAL SKIN EXAM: no rashes or lesions noted Course Vital Signs: Vital signs: Vital Signs Temperature 97.8 F 08/24/19 11:00 Pulse Rate 97 08/24/19 11:00 Respiratory Rate 20 H 08/24/19 12:00 Blood Pressure 155/85 08/24/19 11:00 Pulse Oximetry 100 08/24/19 11:00 MDM - SOB/Dyspnea MDM Narrative: Medical decision making narrative: Improved mildly on BiPAP. He was extremely anxious in regard to the Ativan did help him breathe a little better as well. He was also given multiple nebulizer treatments were going to go ahead and readmit continue steroids aggressive pulmonary toilet. Discussed with Dr. Drew he will accept on his services. Lab Data: Labs: Lab Results 08/24/19 08/24/19 08/24/19 Range/Units 06:00 06:00 06:00 WBC 49.5 H* (4.0-10.0) 10^3/ uL RBC 3.58 L (4.1-5.3) 10^6/u L Hgb 11.5 L (11.7-16.6) g/dL Hct 35.1 L (42.0-52.0) % MCV 98.0 H (80-94) fL MCH 32.1 (28.0-34.0) pg MCHC 32.8 (30.0-36.0) g/dL RDW 13.9 (12.1-15.1) % Plt Count 150 (130-400) 10^3/c mm MPV 10.8 H (7.4-10.4) fL Neut % (Auto) 5.2 % Lymph % (Auto) 93.6 % Dundy % (Auto) 0.9 % Eos % (Auto) 0.0 % Baso % (Auto) 0.2 % Neut # (Auto) 2.6 (1.8-7.7) 10^3/u L Lymph # (Auto) 46.3 H (0.8-4.8) 10^3/u L Dundy # (Auto) 0.4 (0.2-0.9) 10^3/u L Eos # (Auto) 0.0 (0.0-0.8) 10^3/u L Baso # (Auto) 0.1 (0.0-0.1) 10^3/u L Nucleated RBC % (a uto) 0 % Nucleated RBCs # 0.0 /100WBC Specimen Type Sample Site ABG pH (7.35-7.45) ABG pCO2 (35-45) mmHg ABG pO2 (80.0-100.0) mmH g ABG HCO3 (22-26) mmol/L ABG O2 Saturation ABG Base Excess (-2.0-2.0) mmol/ L Jerry Test A-a O2 Gradient (5-10) mmHg Hematocrit (42-52) % Hgb O2 Saturation (95-100) % Carboxyhemoglobin (0.4-20.1) %THgb Methemoglobin (0.4-1.5) % Total Hemoglobin (14-18) g/dL Ionized Calcium (1.1-1.4) mmol/L O2 Delivery Device O2 Liters/Min % FiO2 % Director Community Organization ID Sodium 134 L (136-145) mmol/L Potassium 4.2 (3.5-5.1) mmol/L Chloride 94 L (98-107) mmol/L Carbon Dioxide 27 (22-29) mmol/L Anion Gap 17.2 (5-19) BUN 40 H (8-23) mg/dL Creatinine 1.6 H (0.7-1.2) mg/dL Glucose 110 (65-115) mg/dL Calculated Osmolal ity 276 L (285-295) mOsm/k g Lactic Acid 0.7 (0.5-2.2) mmol/L Uric Acid (3.4-7.0) mg/dL Calcium 8.9 (8.5-10.5) mg/dL Phosphorus (2.5-4.5) mg/dL Total Bilirubin 0.5 (0.15-1.2) mg/dL AST 79 H (0-40) U/L ALT 16 (0-41) U/L Alkaline Phosphata se 158 H (40-130) IU/L Lactate Dehydrogen ase (135-225) U/L NT-Pro-B Natriuret Pep 1693 H (0-125) pg/mL Total Protein 8.1 (6.6-8.7) g/dL Albumin 3.8 (3.5-5.2) g/dL Globulin 4.3 (1.3-4.6) g/dL Procalcitonin (0-0.5) ng/mL TSH (0.27-4.20) uIU/ mL 08/24/19 08/24/19 08/24/19 Range/Units 06:00 06:03 07:50 WBC (4.0-10.0) 10^3/ uL RBC (4.1-5.3) 10^6/u L Hgb (11.7-16.6) g/dL Hct (42.0-52.0) % MCV (80-94) fL MCH (28.0-34.0) pg MCHC (30.0-36.0) g/dL RDW (12.1-15.1) % Plt Count (130-400) 10^3/c mm MPV (7.4-10.4) fL Neut % (Auto) % Lymph % (Auto) % Dundy % (Auto) % Eos % (Auto) % Baso % (Auto) % Neut # (Auto) (1.8-7.7) 10^3/u L Lymph # (Auto) (0.8-4.8) 10^3/u L Dundy # (Auto) (0.2-0.9) 10^3/u L Eos # (Auto) (0.0-0.8) 10^3/u L Baso # (Auto) (0.0-0.1) 10^3/u L Nucleated RBC % (a uto) % Nucleated RBCs # /100WBC Specimen Type Arterial Arterial Sample Site Brachial, right Brachial, right ABG pH 7.28 L 7.28 L (7.35-7.45) ABG pCO2 59.8 H 57.1 H (35-45) mmHg ABG pO2 75.1 L 99.1 (80.0-100.0) mmH g ABG HCO3 27.9 H 26.6 H (22-26) mmol/L ABG O2 Saturation 98.2 ABG Base Excess 0.1 -1.0 (-2.0-2.0) mmol/ L Jerry Test Pos N/a A-a O2 Gradient 113.2 H (5-10) mmHg Hematocrit 35.3 L 37.0 L (42-52) % Hgb O2 Saturation 91.1 L 94.3 L (95-100) % Carboxyhemoglobin 3.5 3.3 (0.4-20.1) %THgb Methemoglobin 0.2 L 0.6 (0.4-1.5) % Total Hemoglobin 11.5 L 12.1 L (14-18) g/dL Ionized Calcium 1.2 (1.1-1.4) mmol/L O2 Delivery Device Nc Bipap O2 Liters/Min 4.0 % FiO2 0.0 40.0 % Director Community Organization ID [email or web address] amh Sodium 135.0 (136-145) mmol/L Potassium 3.8 (3.5-5.1) mmol/L Chloride (98-107) mmol/L Carbon Dioxide (22-29) mmol/L Anion Gap (5-19) BUN (8-23) mg/dL Creatinine (0.7-1.2) mg/dL Glucose 127.0 H (65-115) mg/dL Calculated Osmolal ity (285-295) mOsm/k g Lactic Acid (0.5-2.2) mmol/L Uric Acid 7.0 (3.4-7.0) mg/dL Calcium (8.5-10.5) mg/dL Phosphorus 3.6 (2.5-4.5) mg/dL Total Bilirubin (0.15-1.2) mg/dL AST (0-40) U/L ALT (0-41) U/L Alkaline Phosphata se (40-130) IU/L Lactate Dehydrogen ase 166 (135-225) U/L NT-Pro-B Natriuret Pep (0-125) pg/mL Total Protein (6.6-8.7) g/dL Albumin (3.5-5.2) g/dL Globulin (1.3-4.6) g/dL Procalcitonin 0.14 (0-0.5) ng/mL TSH 0.93 (0.27-4.20) uIU/ mL 08/24/19 Range/Units 09:15 WBC (4.0-10.0) 10^3/ uL RBC (4.1-5.3) 10^6/u L Hgb (11.7-16.6) g/dL Hct (42.0-52.0) % MCV (80-94) fL MCH (28.0-34.0) pg MCHC (30.0-36.0) g/dL RDW (12.1-15.1) % Plt Count (130-400) 10^3/c mm MPV (7.4-10.4) fL Neut % (Auto) % Lymph % (Auto) % Dundy % (Auto) % Eos % (Auto) % Baso % (Auto) % Neut # (Auto) (1.8-7.7) 10^3/u L Lymph # (Auto) (0.8-4.8) 10^3/u L Dundy # (Auto) (0.2-0.9) 10^3/u L Eos # (Auto) (0.0-0.8) 10^3/u L Baso # (Auto) (0.0-0.1) 10^3/u L Nucleated RBC % (a uto) % Nucleated RBCs # /100WBC Specimen Type Arterial Sample Site Brachial, right ABG pH 7.29 L (7.35-7.45) ABG pCO2 56.0 H (35-45) mmHg ABG pO2 75.9 L (80.0-100.0) mmH g ABG HCO3 27.0 H (22-26) mmol/L ABG O2 Saturation ABG Base Excess -0.4 (-2.0-2.0) mmol/ L Jerry Test N/a A-a O2 Gradient (5-10) mmHg Hematocrit 35.2 L (42-52) % Hgb O2 Saturation (95-100) % Carboxyhemoglobin (0.4-20.1) %THgb Methemoglobin (0.4-1.5) % Total Hemoglobin (14-18) g/dL Ionized Calcium (1.1-1.4) mmol/L O2 Delivery Device Bipap O2 Liters/Min % FiO2 33.0 % Director Community Organization ID [email or web address] Sodium (136-145) mmol/L Potassium (3.5-5.1) mmol/L Chloride (98-107) mmol/L Carbon Dioxide (22-29) mmol/L Anion Gap (5-19) BUN (8-23) mg/dL Creatinine (0.7-1.2) mg/dL Glucose (65-115) mg/dL Calculated Osmolal ity (285-295) mOsm/k g Lactic Acid (0.5-2.2) mmol/L Uric Acid (3.4-7.0) mg/dL Calcium (8.5-10.5) mg/dL Phosphorus (2.5-4.5) mg/dL Total Bilirubin (0.15-1.2) mg/dL AST (0-40) U/L ALT (0-41) U/L Alkaline Phosphata se (40-130) IU/L Lactate Dehydrogen ase (135-225) U/L NT-Pro-B Natriuret Pep (0-125) pg/mL Total Protein (6.6-8.7) g/dL Albumin (3.5-5.2) g/dL Globulin (1.3-4.6) g/dL Procalcitonin (0-0.5) ng/mL TSH (0.27-4.20) uIU/ mL Discharge Plan Discharge Patient Disposition: Admitted As Inpatient Admit Provider: Reynaldo Piña Clinical Impression: COPD, severe, Nicotine dependence, cigarettes, with unspecified nicotine- induced disorders, Acute exacerbation of chronic obstructive airways disease, Acute hypercapnic respiratory failure, Chronic lymphocytic leukemia Condition: Stable Interventions: ED Discharge Assessment Last Done: 08/24/19 10:35 ED Charges Last Done: 08/24/19 10:35 Discharge Date/Time: 08/24/19 11:07 Coding Level of Care Code ED Laundry Tech for Chg Fwd Exam Comprehensive
[2019-08-24 06:34] LABS: Lactic Sepsis W/Reflex 0.7 mmol/L (0.5-2.2)
[2019-08-24 06:40] LABS: Alanine Aminotransferase 16 U/L (0-41); Albumin Level 3.8 g/dL (3.5-5.2); Alkaline Phosphatase 158 IU/L (40-130); Anion Gap 17.2 (5-19); Aspartate Amino Transferase 79 U/L (0-40); Blood Urea Nitrogen 40 mg/dL (8-23); Calcium 8.9 mg/dL (8.5-10.5); Carbon Dioxide 27 mmol/L (22-29); Chloride 94 mmol/L (98-107); Globulin 4.3 g/dL (1.3-4.6); Glucose 110 mg/dL (65-115); NT Pro B Type Natriuretic Pept 1693 pg/mL (0-125); Osmolality Calculated 276 mOsm/kg (285-295); Potassium 4.2 mmol/L (3.5-5.1); Sodium 134 mmol/L (136-145); Total Bilirubin 0.5 mg/dL (0.15-1.2); Total Protein 8.1 g/dL (6.6-8.7)
[2019-08-24 06:54] LABS: Basophils # 0.1 10^3/uL (0.0-0.1); Basophils % 0.2 %; Hematocrit 35.1 % (42.0-52.0); Hemoglobin 11.5 g/dL (11.7-16.6); Lymphocytes # 46.3 10^3/uL (0.8-4.8); Lymphocytes % 93.6 %; Mean Corpuscular HGB Conc 32.8 g/dL (30.0-36.0); Mean Corpuscular Hemoglobin 32.1 pg (28.0-34.0); Mean Platelet Volume 10.8 fL (7.4-10.4); Monocytes # 0.4 10^3/uL (0.2-0.9); Monocytes % 0.9 %; Neutrophils # 2.6 10^3/uL (1.8-7.7); Neutrophils % 5.2 %; Nucleated Red Blood Cells % 0 %; Platelet Count 150 10^3/cmm (130-400); Red Blood Count 3.58 10^6/uL (4.1-5.3); Red Cell Distribution Width 13.9 % (12.1-15.1)
[2019-08-24 07:00] LABS: Slide Review Slide Review Perform
[2019-08-24] MEDS: LORazepam 2 mg/mL INJ 1 mL 1 MG IVP (07:00)
[2019-08-24 07:01] LABS: White Blood Count 49.5 10^3/uL (4.0-10.0)
[2019-08-24 08:03] LABS: ABG PCO2 57.1 mmHg (35-45); ABG PH Result 7.28 (7.35-7.45); Alveolar-Arterial Oxygen Gradi 113.2 mmHg (5-10); Blood Gas Operator Identificat amh; Blood Gas Sample Site Brachial, right; Blood Gas Sample Type Arterial; Carboxyhemoglobin 3.3 %THgb (0.4-20.1); HCO3 ABG 26.6 mmol/L (22-26); HGB O2 Sat 94.3 % (95-100); Ionized Calcium Level - ABG 1.2 mmol/L (1.1-1.4); Methemoglobin 0.6 % (0.4-1.5); Oxygen Device BIPAP; Oxygen Saturation ABG 98.2; PO2 ABG 99.1 mmHg (80.0-100.0); Potassium Level - ABG 3.8 mmol/L (3.5-5.0); Total Hemoglobin 12.1 g/dL (14-18)
[2019-08-24 09:28] LABS: ABG PH Result 7.29 (7.35-7.45); Arterial Blood Gas Hematocrit 35.2 % (42-52); Base Excess ABG -0.4 mmol/L (-2.0-2.0); Blood Gas Operator Identificat amh; Blood Gas Sample Site Brachial, right; Blood Gas Sample Type Arterial; Oxygen Device BIPAP; PO2 ABG 75.9 mmHg (80.0-100.0)
[2019-08-24] MEDS: D5-NS 0.45% + KCL 20 mEq 20 MEQ/1,000 ML BAG 100 MEQ IV (10:44)
--- NOTE | 2019-08-24 11:58 | CTR_ITS ---
PROCEDURE INFORMATION: Exam: CT Chest Without Contrast Exam date and time: 08/24/2019 7:51 PM Age: 74 years old Clinical indication: Shortness of breath; Patient HX: HX of cll, copd, chf, lung nodules with worsening SOB TECHNIQUE: Imaging protocol: Computed tomography of the chest without contrast. Radiation optimization: All CT scans at this facility use at least one of these dose optimization techniques: automated exposure control; mA and/or kV adjustment per patient size (includes targeted exams where dose is matched to clinical indication); or iterative reconstruction. COMPARISON: CTA Chest-Pulmonary Emb [id number] 02/20/2018 9:46 AM RADIATION DOSE METRICS: Total DLP (mGy-cm): 509.44 FINDINGS: Lungs: Centrilobular emphysema. Stable 12 mm nodule in the right lower lobe, image 45. Calcified granulomas in the left lower lobe. Stable 6 mm nodule in the left lower lobe, image 52. Stable 9 mm nodule in the left lower lobe, image 53. Increased patchy consolidation in the posterior left lower lobe. Pleural space: Unremarkable. No pneumothorax. No pleural effusion. Heart: Unremarkable. No cardiomegaly. No pericardial effusion. Aorta: Unremarkable. No aortic aneurysm. Lymph nodes: Stable cervical, axillary, mediastinal, and hilar lymphadenopathy. Calcified right hilar lymph nodes. Gallbladder and bile ducts: Cholelithiasis. Kidneys and ureters: Hypodense homogeneous lesion in the right kidney Hounsfield units less than 20. No further workup recommended. Bones/joints: Unremarkable. No acute fracture. Soft tissues: Unremarkable. CT/CT chest wo con [id number] IMPRESSION: 1. Increased consolidation in the left lower lobe is suspicious for pneumonia or aspiration. 2. Greater than 1 year stability of the bilateral pulmonary nodules measuring up to [address] follow-up in 1 year is recommended. 3. Mediastinal, hilar, axillary, and cervical lymphadenopathy. This is most likely infectious or inflammatory. A neoplastic process however cannot be excluded. Radiation Dose CTDIVOL = (mGy): DLP = 509.44 (mGy-cm)
--- NOTE | 2019-08-24 11:58 | USCV_ITS ---
Mejia Heber Age: 74 Gender: M : 1945 Exam Date: 08/24/2019 15:15 Ordering Phys: Reynaldo Piña MD Technologist: Rafael Marc [place] [facility] [place]: SOB BP: 124 / 73 HR: 94 Rhythm: Sinus Technical Quality: Suboptimal MEASUREMENTS (Male / Female) Normal Values 2D ECHO LV Diastolic Diameter PLAX 3.9 cm 4.2 - 5.9 / 3.9 - 5.3 cm LV Systolic Diameter PLAX 2.1 cm IVS Diastolic Thickness 0.8 cm 0.6 - 1.0 / 0.6 - 0.9 cm IVS Systolic Thickness 1.6 cm LVPW Diastolic Thickness 0.9 cm 0.6 - 1.0 / 0.6 - 0.9 cm LVPW Systolic Thickness 1.3 cm LVOT Diameter 2.1 cm LV Ejection Fraction 2D Teich 77.8 % LV Ejection Fraction MOD 2C 71.4 % LV Ejection Fraction 2C AL 72.3 % LA Diameter 5.0 cm LA Width 4.2 cm LA Height 4.4 cm RA Width 4.0 cm RA Height 4.1 cm M-MODE LV Diastolic Diameter MM 4.0 cm 4.2 - 5.9 / 3.9 - 5.3 cm LV Systolic Diameter MM 2.4 cm LV Ejection Fraction MM Teich 71.0 % IVS Diastolic Thickness MM 1.1 cm 0.6 - 1.0 / 0.6 - 0.9 cm IVS Systolic Thickness MM 1.6 cm LVPW Diastolic Thickness MM 1.2 cm 0.6 - 1.0 / 0.6 - 0.9 cm LVPW Systolic Thickness MM 1.4 cm RV Diastolic Diameter MM 2.5 cm Aortic Annulus Diameter 4.2 cm LA Ao Ratio MM 1.2 MV E Point Septal Separation 1.5 cm DOPPLER AV Peak Velocity 134.0 cm/s LVOT Peak Velocity 98.0 cm/s AV Area Cont Eq vti 3.6 cm squared AV Area Cont Eq pk 2.5 cm squared MV Area PHT 5.0 cm squared Mitral E to A Ratio 0.5 MV E' Velocity 11.0 cm/s Mitral E to MV E' Ratio 5.7 Mitral E to LV E' Lateral Ratio 4.7 Mitral E to LV E' Septal Ratio 7.1 TR Peak Velocity 223.0 cm/s TR Peak Gradient 19.9 mmHg TV Peak E Velocity 93.0 cm/s Right Atrial Pressure 3.0 mmHg Pulmonary Artery Systolic Pressu 22.9 mmHg FINDINGS Left Ventricle Normal left ventricular size and systolic function, EF 65 %. No gross wall motion normalities noted Right Ventricle Normal right ventricular size and systolic function, RVSP 22.9 mmHg. Right Atrium Normal right atrial size. Left Atrium Normal left atrial size. Mitral Valve Thickened mitral valve. Trace mitral valve regurgitation. Aortic Valve Thickened aortic valve. Tricuspid Valve No gross abnormalities noted.trace tricuspid valve regurgitation. Pulmonic Valve Pulmonic valve not well visualized. Pericardium No pericardial effusion. Aorta Normal aortic annulus size. CONCLUSIONS Normal left ventricular size and systolic function, EF 65 %. No gross wall motion normalities noted. Normal right ventricular size and systolic function. Estimated pulmonary artery peak systolic pressure 23 mmHg Trace of mitral and tricuspid regurgitation Thickened aortic and mitral valves. There is no pericardial effusion. Technically difficult study because of the poor ultrasonic window. Dr Jessica Hamilton MD FACC (Electronically Signed) Final Date: 24 August 2019 21:27 S
--- NOTE | 2019-08-24 12:30 | PM.HP ---
Providers/Chief Complaint Admitting Physician: Reynaldo Piña MD Primary Care Provider: Jada Garduno DO Chief Complaint: sob History of Present Illness Heber Mejia is a 74 year old male with a past medical history of COPD, active smoker, chronic lymphocytic leukemia, atrial fibrillation not on anticoagulation, CAD,extensive atherosclerotic cardiovascular disease associate with mesenteric artery stenosis and infrarenal abdominal aortic aneurysm, GERD, PTSD with depression, CKD stage III, history of pulmonary nodules, presents [facility] due to complaints of worsening shortness of breath. Patient was recently admitted to [facility] for shortness of breath, received steroids, clinically improved, discharged on 2 L nasal cannula. Patient states that when he got to the hospital he felt quite well, but over the next few days, he had gradual worsening shortness of breath, nonproductive cough, no fevers, chills, recent travel, no sick contacts, and he was tested negative for Covid 19. Patient also complains of substernal chest pain, nonradiating, lasting 30 minutes, associate with shortness of breath, no lightheadedness, no dizziness. Denies calf pain, immobility, recent surgery, any recent travel, hemoptysis. In the emergency room, patient was found to have hypercarbic respiratory failure, placed on BiPAP, clinically improved, hospitalist team was called for admission. Review of Systems Const: Denies: fever(s), chills, fatigue or malaise Eyes: Denies: change in vision or blurry vision ENMT: Denies: throat pain or nasal congestion Card: Reports: chest pain; Denies: palpitations or irregular heart rhythm Resp: Reports: dyspnea, non-productive cough and wheezing; Denies: productive cough GI: Denies: abdominal pain, nausea, vomiting, hematemesis, diarrhea, constipation, hematochezia or melena : Denies: flank pain, difficulty urinating, dysuria or urinary frequency Musc: Denies: neck pain or back pain Skin/Breast: Denies: rash Neuro: Denies: headache(s), dizziness or vertigo Psych: Denies: anxiety or depression Endo: Denies: polyuria or polydipsia Medications/Allergies Home Medications Medication Instructions Recorded Confirmed Last Taken Type gemfibrozil 600 mg tablet 600 mg PO BID 03/09/19 08/24/19 08/23/19 History metoprolol tartrate 100 mg tablet 50 mg PO BID tab 03/09/19 08/24/19 08/23/19 History nitroglycerin 0.4 mg sublingual 0.4 mg SUBLINGUAL Q5M PRN 03/09/19 08/24/19 Unknown History tablet tamsulosin 0.4 mg capsule 0.4 mg PO DAILY 03/09/19 08/24/19 08/23/19 History cholecalciferol (vitamin D3) 50 1,000 unit PO DAILY #90 tab 04/07/19 08/24/19 08/23/19 Rx mcg (2,000 unit) tablet albuterol sulfate 2.5 mg INHALATION QID PRN #180 ml 04/29/19 08/24/19 08/23/19 Rx ketoconazole 1 % shampoo 1 applic TOPICAL Q3D #200 ml 06/24/19 08/24/19 Unknown Rx amlodipine 2.5 mg tablet 2.5 mg PO BID #180 tab 08/03/19 08/24/19 08/23/19 Rx budesonide-formoterol HFA 160 2 puff INHALATION BID #10.2 gm 08/20/19 08/24/19 08/23/19 Rx mcg-4.5 mcg/actuation aerosol inhaler diclofenac sodium 1 % topical gel 2 gm TOPICAL QID #100 gm 08/20/19 08/24/19 08/23/19 Rx hydrocodone 5 mg-acetaminophen 325 1 tab PO DAILY PRN 30 Days #30 tab 08/20/19 08/24/19 Unknown Rx mg tablet tiotropium bromide 2.5 2 puff INHALATION QAM #4 gm 08/20/19 08/24/19 08/23/19 Rx mcg/actuation mist for inhalation coal tar 1 applic TOPICAL DAILY 08/22/19 08/24/19 08/23/19 History mirtazapine 7.5 mg PO BEDTIME 08/22/19 08/24/19 08/23/19 History pantoprazole 40 mg PO DAILY 08/22/19 08/24/19 08/23/19 History prednisone 20 mg PO BID 5 Days #10 tab 08/23/19 08/24/19 Unknown Rx Allergies Allergy/AdvReac Type Severity Reaction Status Date / Time No Known Allergies Allergy Unverified 07/04/20 13:42 PFSH Acute PFSH: Medical History Anxiety and depression Atherosclerosis of [place] artery of both lower extremities Cardiomyopathy, idiopathic Chronic GERD Chronic kidney disease, stage 3 Chronic lymphatic leukemia COPD, severe Insomnia Lung nodules Mixed hyperlipidemia Primary hypertension Surgical History H/O wrist surgery Family History Mother Cancer Social History Smoking and tobacco status: current every day smoker cigarettes Packs smoked per day: 1 Alcohol intake: never Vitals/I&O/Wt Last Vital Signs Temp 97.8 F 08/24/19 11:00 Pulse 97 08/24/19 11:00 Resp 20 H 08/24/19 11:00 BP 155/85 08/24/19 11:00 Pulse Ox 100 08/24/19 11:00 Weight last 48 hrs Weight 54.431 kg Physical Exam Const: COMMON NORMALS: no acute distress and patient oriented x3 GENERAL APPEARANCE: cooperative and comfortable HENMT: COMMON NORMALS: normocephalic HEAD & SCALP: normocephalic Eye: COMMON NORMALS: Equal, round and reactive pupils present, EOMs intact bilaterally and no papilledema GENERAL EYE: appearance normal, both eyes and all related structures PUPIL: Yes Equal, round and reactive pupils present DIRECT OPHTHALMOSCOPY: Yes no papilledema Neck/C-Spine: COMMON NORMALS: full ROM, no lymphadenopathy, no JVD and Thyroid normal THYROID: Thyroid normal Lymph: LYMPHATIC: no lymphadenopathy noted Resp: COMMON NORMALS: normal respiratory effort and No use of accessory muscles EFFORT & INSPECTION: Yes able to speak in complete sentences and Yes tachypneic AUSCULTATION: rhonchi and wheezes Cardio: COMMON NORMALS: no JVD, regular rate, regular rhythm, S1 normal heart sound present, S2 normal heart sound present, No gallops present (Cardio), No clicks present (Cardio) and No murmurs present (Cardio) RATE: regular rate RHYTHM: regular rhythm HEART SOUNDS: S1 normal heart sound present and S2 normal heart sound present GI: COMMON NORMALS: Normal to inspection, nondistended, normoactive bowel sounds present, Soft to palpation, non-tender and No hepatosplenomegaly present PALPATION: Yes Soft to palpation and Yes No hepatosplenomegaly present Extremity: COMMON NORMALS: normal to inspection, full ROM and no pedal edema Neuro: COMMON NORMALS: patient oriented x3, CN's II-XII intact bilaterally, moves all extremities and no focal motor deficits Psych: COMMON NORMALS: mental status grossly normal, Normal thought process present and cooperative THOUGHT PROCESS: Normal thought process present Data : 08/24/19 06:00 08/24/19 06:00 Micro: Microbiology 08/24/19 06:31 Gram Stain - Final Sputum - Expectorated Sputum A&P Assessment and plan (1) Acute hypercapnic respiratory failure: Multifactorial: Related to COPD, CHF, pulmonary hypertension -Cannot exclude leukostasis as a contributing factor Plan: - wean to nasal cannula, BiPAP overnight -Lasix 40 mg IV twice daily, fluid restrictions 1500 cc -Solu-Medrol 80 every 8 hours -Ipratropium every 4 hours as needed -Mucomyst with albuterol to help with congestion -Mucinex -Levaquin Monitor 750 every 24 hours -Monitor respiratory status closely -Consider chest vest therapy -Patient is DNR/DNI -We will do a CT of the chest with a cardiac echocardiogram Status: Acute (2) Chest pain: -Complaints of left-sided chest pain, nonradiating, does have a CAD history, last echo on 01/07/2019 showed an ejection fraction 40%, and hypokinesia of the apical anterior septal and basal inferior lateral segments. Also had a cardiac stress test on 01/07/2019 which showed left ventricular wall motion diffuse hypokinesis of the septum Plan: -Aspirin, statin, beta-brittany, telemetry monitoring, nitro for chest pain -Echo as above -Serial EKGs, serial troponins Status: Acute (3) Leukocytosis: White blood cell count 49,000, limb lymphocytic, likely related to chronic lymphocytic leukemia Cannot rule out leukostasis as contributing to respiratory failure, will monitor lymphocyte count, LDH, uric acid, potassium, phosphate Status: Acute (4) Arthritis, multiple joint involvement: Status: Acute (5) Dysuria: Status: Acute (6) Chronic lymphocytic leukemia: Status: Acute (7) COPD, severe: Status: Chronic (8) Lung nodules: Status: Acute (9) CHF (congestive heart failure): Status: Acute Attestations Medical Necessity Statement*: Please requires hospitalization, inpatient, greater than 2 midnights, acute hypercapnic respiratory failure Coding Level of Care Code Acute Kiln Setter for Roman Fwtameka Diagnoses Acute hypercapnic respiratory failure J96.02 Chest pain R07.9 Leukocytosis D72.829 Arthritis, multiple joint involvement M12.9 Dysuria R30.0 Chronic lymphocytic leukemia C91.10 COPD, severe J44.9 Lung nodules R91.8 CHF (congestive heart failure) I50.9
--- NOTE | 2019-08-24 12:33 | ECG_ITS ---
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 Measurements Intervals [place] Rate: 119 P: MN: -1 QRS: 85 QRSD: 105 T: 71 QT: 304 QTc: 429 Interpretive Statements Sinus tachycardia with a heart rate of [address] DEPRESSION [0.025+ mV ST DEPRESSION] ABNORMAL RHYTHM ECG Compared to ECG 08/24/2019 06:29:28 Sinus rhythm no longer present Atrial abnormality no longer present ST (T wave) deviation still present Electronically Signed On 08-24-2019 21:42:45 CDT by Jessica Hamilton M.D. [id number]
[2019-08-24 12:52] LABS: LAB Peripheral Smear Sent for Review
[2019-08-24 12:54] LABS: INR 1.04 (0.8-1.2)
[2019-08-24 12:55] LABS: Procalcitonin 0.14 ng/mL (0-0.5); Thyroid Stimulating Hormone 0.93 uIU/mL (0.27-4.20)
[2019-08-24 12:55] LABS: Fibrinogen 523 mg/dL (184-529); Partial Thromboplastin Time 29.4 SECONDS (23.9-36.7)
[2019-08-24 12:58] LABS: D Dimer 2.33 ug/mIFEU (0-0.59)
[2019-08-24 13:01] LABS: Troponin(5th) Baseline 51 ng/L (0-15)
[2019-08-24 13:06] LABS: Lactate Dehydrogenase 166 U/L (135-225); Phosphorus 3.6 mg/dL (2.5-4.5)
[2019-08-24] MEDS: enoxaparin 40 mg/0.4 mL Syringe SUBCUT (13:52)
[2019-08-24] MEDS: levofloxacin-dextrose 5 % 750 MG/150 ML PREMIX 100 MG IV (13:54)
--- NOTE | 2019-08-24 15:30 | PC.RESP ---
Smoking Cessation and Pulmonary Rehab information and a schedule of classes sent to patient.
[2019-08-24 17:31] LABS: Troponin 5 2HR 48.73 ng/L (0-15)
[2019-08-24] MEDS: guaiFENesin 600 mg Tablet PO (17:44)
[2019-08-24] MEDS: gemfibrozil 600 mg Tablet PO (17:45)
[2019-08-24] MEDS: amlodipine 5 mg Tablet 2.5 MG PO (17:45)
[2019-08-24] MEDS: metoprolol tartrate 50 mg Tablet PO (17:46)
[2019-08-24] MEDS: FUROsemide 10 mg/mL SDV 4mL 40 MG IVP (17:46)
[2019-08-24 18:36] LABS: Troponin 5 2HR Delta -2.27 ABS# (0-10)
[2019-08-24] MEDS: mirtazapine 15 mg Tablet 7.5 MG PO (21:18)
[2019-08-24] MEDS: atorvastatin 40 mg Tablet 20 MG PO (21:18)
--- NOTE | 2019-08-24 22:05 | PC.NURSE ---
AMA: Pt stating that he wishes to leave AMA. Video Technician spoke with the pt and explained why it would be to his benefit to stay in the hospital (IV meds, treatment, etc.) Pt agreed to stay through the night and speak with the day shift Physician.
[2019-08-25] VITALS (9 sets, daily range): BP systolic 138–161; BP diastolic 68–76; PULSE 79–91; RESP 18–24; TEMP 36.5–37.4; O2SAT 93–96
--- NOTE | 2019-08-25 00:24 | PC.PHAR ---
Levaquin dosage is adjusted from 750mg IVPB every 24 hours to 750mg IVPB every 48 hours due to creatinine clearance of 31.6
[2019-08-25 04:25] LABS: Basophils % 0.1 %; Hematocrit 31.7 % (42.0-52.0); Hemoglobin 10.6 g/dL (11.7-16.6); Lymphocytes # 25.7 10^3/uL (0.8-4.8); Lymphocytes % 91.6 %; Mean Corpuscular HGB Conc 33.4 g/dL (30.0-36.0); Mean Corpuscular Hemoglobin 32.9 pg (28.0-34.0); Mean Corpuscular Volume 98.4 fL (80-94); Monocytes # 0.1 10^3/uL (0.2-0.9); Monocytes % 0.3 %; Neutrophils # 2.2 10^3/uL (1.8-7.7); Neutrophils % 7.9 %; Nucleated Red Blood Cells % 0 %; Platelet Count 124 10^3/cmm (130-400); Red Blood Count 3.22 10^6/uL (4.1-5.3); White Blood Count 28.1 10^3/uL (4.0-10.0)
[2019-08-25 05:04] LABS: Chol HDL Ratio 3.02 mg/dL (1.0-5.00); Cholesterol 142 mg/dL (0-200); HDL Cholesterol 47 mg/dL (60-100); LDL Cholesterol Calculated 86 mg/dL (50-129); LDL HDL Ratio 1.83 RATIO (0.00-3.22); Magnesium 2.2 mg/dL (1.7-2.3); Phosphorus 3.5 mg/dL (2.5-4.5); Triglycerides 44 mg/dL (0-150)
[2019-08-25 05:18] LABS: Alanine Aminotransferase 15 U/L (0-41); Albumin Level 3.6 g/dL (3.5-5.2); Alkaline Phosphatase 127 IU/L (40-130); Anion Gap 13.2 (5-19); Aspartate Amino Transferase 73 U/L (0-40); Blood Urea Nitrogen 42 mg/dL (8-23); Calcium 8.7 mg/dL (8.5-10.5); Carbon Dioxide 29 mmol/L (22-29); Chloride 96 mmol/L (98-107); Globulin 3.3 g/dL (1.3-4.6); Glucose 139 mg/dL (65-115); Osmolality Calculated 278 mOsm/kg (285-295); Potassium 4.2 mmol/L (3.5-5.1); Sodium 134 mmol/L (136-145); Total Bilirubin 0.3 mg/dL (0.15-1.2); Total Protein 6.9 g/dL (6.6-8.7)
[2019-08-25 05:48] LABS: Estmated Average Glucose 88; Hemoglobin A1C 4.7 % (4.0-6.0)
[2019-08-25] MEDS: ketoconazole Cream 15 gm 1 APPLIC TOPICAL (05:54)
[2019-08-25] MEDS: FUROsemide 10 mg/mL SDV 4mL 40 MG IVP (05:54)
--- NOTE | 2019-08-25 06:14 | PC.NURSE ---
AT THE BEGINNING OF PRINCIPAL NETWORK ENGINEER 08/23, PT STATED HE WANTED TO LEAVE AMA, THIS NURSE TRIED TO TALK HIM OUT OF IT BUT HE STILL INSISTED ON GOING HOME. THE BLADE WORKER CAME IN AND TALKED TO HIM AND WAS ABLE TO CONVINCE HIM TO STAY THROUGH THE NIGHT TO GET IV MEDICATIONS, BUT THE PT STATES HE WANTS TO TALK TO THE DR AND LEAVE FIRST THING IN THE MORNING.
[2019-08-25 06:27] LABS: Slide Review Slide Review Perform
[2019-08-25] MEDS: ipratropium-albuterol 3 mL Neb INHALATION ×2 (08:53→13:11)
[2019-08-25] MEDS: aspirin 81 mg EC Tablet PO (09:05)
[2019-08-25] MEDS: guaiFENesin 600 mg Tablet PO (09:06)
[2019-08-25] MEDS: gemfibrozil 600 mg Tablet PO (09:06)
[2019-08-25] MEDS: tamsulosin 0.4 mg Capsule PO (09:06)
[2019-08-25] MEDS: metoprolol tartrate 50 mg Tablet PO (09:06)
[2019-08-25] MEDS: pantoprazole DR 40 mg Tablet PO (09:06)
[2019-08-25] MEDS: cholecalciferol (vitamin D3) 1,000 unit Tablet 1000 UNIT PO (09:06)
[2019-08-25] MEDS: amlodipine 5 mg Tablet 2.5 MG PO (09:06)
--- NOTE | 2019-08-25 11:21 | PC.CHAP ---
Pastoral Care Encounter/Spiritual Assessment Type of Contact [] Declined retail assistant manager visit [] Patient/Family/Request visit [] Outpatient visit [] Follow-up visit [] Physician referral [] Code/Alert [x] Routine visit [] Staff referral [] Actively dying [] Patient sleeping [] Family support [] [] Out of room [] Palliative care [] [x] Receiving care in room [] Pre-surgical visit [] Trauma [] Long length of stay [] ICU visit [] Other: Relational/Emotional Strength [] Patient feels connected with others/family/visitors/staff [x] Distress [] Loneliness/isolation [] Abandonment Spirituality of Patient [x] Person of Joya [] Attends Jewish of their Joya [x] Believes in Prayer [] Reads Bible or Religion materials [] There are Spiritual issues to be addressed Regional Sales Manager Interventions [x] Prayer [x] Active listening [x] Non-anxious presence [x] Spiritual/emotional support [] Crisis/trauma care [x] Spiritual counseling [] Bereavement support [] Provided bereavement packet [] Provided Bible/devotional materials [] Provided toy/stuffed animal, coloring book to patient or family member [] Provided Communion [] Anointing/Whitt [] Salvation [x] Completed spiritual assessment [] Other: Impact on Illness or Injury [] Angry [] Fearful [x] Anxious [] Often cries [] Exhaustion [] Unable to work [] Unable to attend presybeterian [] Unable to walk/stand [] Unable to read [] Unable to drive [] Unable to eat/drink [] Unable to sleep [] Unable to be with family [] Patient intubated [] Other: Summary Dosen't what is wrong or when he can go home, has a good attitude Time spent with patient 10 mins
--- NOTE | 2019-08-25 11:57 | P.DS_ITS ---
Discharge Providers Date of Admission: 08/24/19 09:45 Date of Discharge: August 25, 2019 Attending Provider at Admission: Reynaldo Piña MD Attending Provider at Discharge: Reynaldo Piña MD Primary Care Provider: Jada Garduno DO Diagnoses at Discharge Discharge Diagnosis (1) Acute hypercapnic respiratory failure: Status: Acute (2) Chest pain: Status: Acute (3) Leukocytosis: Status: Acute (4) Arthritis, multiple joint involvement: Status: Acute (5) Dysuria: Status: Acute (6) Chronic lymphocytic leukemia: Status: Acute (7) COPD, severe: Status: Chronic (8) Lung nodules: Status: Acute (9) CHF (congestive heart failure): Status: Acute Reason for Visit Reason for Visit: sob Hospital Course Discharge Summary: This is a 74-year-old male with a past medical history of COPD, 2 to 3 L oxygen dependent, active smoker, history of chronic lymphocytic leukemia, atrial fibrillation not on anticoagulation, CAD, extensive atherosclerotic cardiovascular disease associate with mesenteric artery stenosis, and infrarenal abdominal aortic aneurysm, GERD, PTSD, depression, CKD stage III, history of pulmonary nodules who presents to [facility] due to complaints of shortness of breath, with recent discharge from [facility] a day ago for COPD exacerbation. Patient was admitted to [facility] for shortness of breath secondary to COPD exacerbation and left lower lobe pneumonia. Patient received Levaquin, steroids, nebulizer treatments, and monitored over the next 24 hours. Patient clinically improved, shortness of breath significantly improved, blood cultures so far since last admission were within normal limits. His CT of the chest showed left lower lobe consolidation concerning for pneumonia, echo showed ejection fraction of 65%, no gross wall motion abnormalities. I advised patient that he requires another day of admission, as he was just discharged the day before and is a readmission, I feel that giving another day of antibiotics and steroids would have clinical benefit, and prevent readmission. However patient refused, was adamant about going home. Advised the risk of going to early, risks including but not limited to respiratory failure, ventilation, sepsis, septic shock, significant morbidity mortality. Patient voices today, all questions answered, adamant about going home, patient was discharged home with a steroid taper and Levaquin. Patient also tells me that he has a follow-up with Dr. Edmonds this week, patient is to keep up with this appointment. On admission patient was also found to have leukocytosis, related to his chronic lymphocytic leukemia, his white blood cell count got as high as 49,500, on discharge it was 28,000, CT of his chest did show mediastinal, hilar, axillary and cervical lymphadenopathy. Likely this is related to his chronic lymphocytic leukemia, but cannot rule out other neoplastic process, patient is to follow-up with Dr. Atkins as outpatient. During his admission patient patient also had complaints of chest pain, likely related to a acute respiratory failure, his echo had no significant wall motion abnormalities, EF of 65%, baseline troponin was 51, 6-hour 40.7, negative delta. Patient EKG showed minimal ST depressions in inferior leads, he was relatively asymptomatic during his hospitalization, likely patient patient's chest pain was related to his acute respiratory failure but cannot exclude cardiac etiology. Patient was discharged on aspirin, statin, and instructions to follow with [facility] physician as outpatient. Patient is to schedule to follow-up with cardiology as outpatient for considerations of stress testing. patient was advised that if he were to have recurrent chest pain to come back to emergency room. Physical Exam Const: COMMON NORMALS: no acute distress and patient oriented x3 HENMT: COMMON NORMALS: normocephalic HEAD & SCALP: normocephalic Neck/C-Spine: COMMON NORMALS: no JVD Resp: COMMON NORMALS: normal respiratory effort, No retractions, No use of accessory muscles and clear to auscultation bilaterally AUSCULTATION: clear to auscultation bilaterally Cardio: COMMON NORMALS: no JVD, regular rate, regular rhythm, S1 normal heart sound present and S2 normal heart sound present RATE: regular rate RHYTHM: regular rhythm HEART SOUNDS: S1 normal heart sound present and S2 normal heart sound present GI: COMMON NORMALS: Normal to inspection, nondistended, normoactive bowel sounds present, Soft to palpation, non-tender, No hepatosplenomegaly present, no masses and no bruits PALPATION: Yes Soft to palpation and Yes No hepatosplenomegaly present Extremity: COMMON NORMALS: capillary refill normal, no clubbing, cyanosis or edema, no calf tenderness and no pedal edema Neuro: COMMON NORMALS: patient oriented x3 Psych: COMMON NORMALS: mental status grossly normal Discharge Data Data Completed and Pending: Completed Studies During Hospitalization Category Date Time Status CT chest wo con 7 1250 Routine Cat Scan 08/24/19 11:58 Completed XR chest 1V brigette ble 15222 Urgent Exams 08/24/19 05:55 Completed CV echo complete* [id number] Routine Ultrasound 08/24/19 11:58 Completed Pending at discharge Category Date Time Status Magnesium AM LABS Lab 08/26/19 04:00 Ordered Magnesium AM LABS Lab 08/27/19 04:00 Ordered Phosphorus AM LAB S Lab 08/26/19 04:00 Ordered Phosphorus AM LAB S Lab 08/27/19 04:00 Ordered Sputum Culture an d Gram Stain Stat Lab 08/24/19 06:31 Results Sputum Culture an d Gram Stain Stat Lab 08/24/19 12:43 Uncollected Labs from last 24 hours 08/25/19 08/25/19 08/25/19 03:25 03:25 03:25 WBC RBC Hgb Hct MCV MCH MCHC RDW Plt Count MPV Neut % (Auto) Lymph % (Auto) Howard % (Auto) Eos % (Auto) Baso % (Auto) Neut # (Auto) Lymph # (Auto) Howard # (Auto) Eos # (Auto) Baso # (Auto) Nucleated RBC % (a uto) Nucleated RBCs # PT INR APTT Fibrinogen Fibrin Degrad Prod ucts D-Dimer Sodium Potassium Chloride Carbon Dioxide Anion Gap BUN Creatinine Glucose Estimat Average Gl ucose 88 Hemoglobin A1c 4.7 Calculated Osmolal ity Uric Acid Calcium Phosphorus 3.5 Magnesium 2.2 Total Bilirubin AST ALT Alkaline Phosphata se Lactate Dehydrogen ase Troponin I 6 Hour Troponin I Hi Sens Del Troponin T Baselin e Troponin T 120 Min [place] Delta Troponin T Total Protein Albumin Globulin Triglycerides 44 Cholesterol 142 LDL Cholesterol, C alc 86 HDL Cholesterol 47 L LDL/HDL Ratio 1.83 Cholesterol/HDL Ra abraham 3.02 Procalcitonin TSH 08/25/19 08/25/19 08/24/19 03:25 03:25 18:35 WBC 28.1 H RBC 3.22 L Hgb 10.6 L Hct 31.7 L MCV 98.4 H MCH 32.9 MCHC 33.4 RDW 14.0 Plt Count 124 L MPV 11.0 H Neut % (Auto) 7.9 Lymph % (Auto) 91.6 Howard % (Auto) 0.3 Eos % (Auto) 0.0 Baso % (Auto) 0.1 Neut # (Auto) 2.2 Lymph # (Auto) 25.7 H Howard # (Auto) 0.1 L Eos # (Auto) 0.0 Baso # (Auto) 0.0 Nucleated RBC % (a uto) 0 Nucleated RBCs # 0.0 PT INR APTT Fibrinogen Fibrin Degrad Prod ucts D-Dimer Sodium 134 L Potassium 4.2 Chloride 96 L Carbon Dioxide 29 Anion Gap 13.2 BUN 42 H Creatinine 1.4 H Glucose 139 H Estimat Average Gl ucose Hemoglobin A1c Calculated Osmolal ity 278 L Uric Acid Calcium 8.7 Phosphorus Magnesium Total Bilirubin 0.3 AST 73 H ALT 15 Alkaline Phosphata se 127 Lactate Dehydrogen ase Troponin I 6 Hour 48.70 H Troponin I Hi Sens Del -2.30 L Troponin T Baselin e Troponin T 120 Min [place] Delta Troponin T Total Protein 6.9 Albumin 3.6 Globulin 3.3 Triglycerides Cholesterol LDL Cholesterol, C alc HDL Cholesterol LDL/HDL Ratio Cholesterol/HDL Ra abraham Procalcitonin TSH 08/24/19 08/24/19 08/24/19 16:28 12:25 12:25 WBC RBC Hgb Hct MCV MCH MCHC RDW Plt Count MPV Neut % (Auto) Lymph % (Auto) Howard % (Auto) Eos % (Auto) Baso % (Auto) Neut # (Auto) Lymph # (Auto) Howard # (Auto) Eos # (Auto) Baso # (Auto) Nucleated RBC % (a uto) Nucleated RBCs # PT 13.90 H INR 1.04 APTT 29.4 Fibrinogen 523 Fibrin Degrad Prod ucts Pos, 10-40 H D-Dimer 2.33 H Sodium Potassium Chloride Carbon Dioxide Anion Gap BUN Creatinine Glucose Estimat Average Gl ucose Hemoglobin A1c Calculated Osmolal ity Uric Acid Calcium Phosphorus Magnesium Total Bilirubin AST ALT Alkaline Phosphata se Lactate Dehydrogen ase Troponin I 6 Hour Troponin I Hi Sens Del Troponin T Baselin e 51 H Troponin T 120 Min [place] 48.73 H Delta Troponin T -2.27 L Total Protein Albumin Globulin Triglycerides Cholesterol LDL Cholesterol, C alc HDL Cholesterol LDL/HDL Ratio Cholesterol/HDL Ra abraham Procalcitonin TSH 08/24/19 06:00 WBC RBC Hgb Hct MCV MCH MCHC RDW Plt Count MPV Neut % (Auto) Lymph % (Auto) Howard % (Auto) Eos % (Auto) Baso % (Auto) Neut # (Auto) Lymph # (Auto) Howard # (Auto) Eos # (Auto) Baso # (Auto) Nucleated RBC % (a uto) Nucleated RBCs # PT INR APTT Fibrinogen Fibrin Degrad Prod ucts D-Dimer Sodium Potassium Chloride Carbon Dioxide Anion Gap BUN Creatinine Glucose Estimat Average Gl ucose Hemoglobin A1c Calculated Osmolal ity Uric Acid 7.0 Calcium Phosphorus 3.6 Magnesium Total Bilirubin AST ALT Alkaline Phosphata se Lactate Dehydrogen ase 166 Troponin I 6 Hour Troponin I Hi Sens Del Troponin T Baselin e Troponin T 120 Min [place] Delta Troponin T Total Protein Albumin Globulin Triglycerides Cholesterol LDL Cholesterol, C alc HDL Cholesterol LDL/HDL Ratio Cholesterol/HDL Ra abraham Procalcitonin 0.14 TSH 0.93 Vitals: Last Vital Signs Temp 99.3 F 08/25/19 11:06 Pulse 79 08/25/19 11:06 Resp 18 08/25/19 11:06 BP 147/76 08/25/19 11:06 Pulse Ox 96 08/25/19 11:06 Discharge Plan Discharge Patient Disposition: Home, Self-Care Condition: Stable Prescriptions: New Levaquin 750 mg tablet 750 mg PO DAILY 7 Days Qty: 7 RF: 0 prednisone 10 mg tablet See Rx Instructions .ROUTE .COMPLEX Qty: 53 RF: 0 aspirin 81 mg tablet,delayed release (DR/EC) 81 mg PO DAILY 30 Days Qty: 30 RF: 0 atorvastatin 20 mg tablet 20 mg PO DAILY 30 Days Qty: 30 RF: 0 Mucinex 600 mg tablet extended release 12hr 600 mg PO BID PRN (Reason: cough) 15 Days Qty: 30 RF: 0 Continued gemfibrozil [Lopid] 600 mg tablet 600 mg PO BID RF: 0 metoprolol tartrate 100 mg tablet 50 mg PO BID RF: 0 nitroglycerin 0.4 mg tablet, sublingual 0.4 mg SUBLINGUAL Q5M PRN (Reason: Chest Pain) RF: 0 tamsulosin 0.4 mg capsule 0.4 mg PO DAILY RF: 0 ketoconazole 1 % shampoo 1 applic TOPICAL Q3D Qty: 200 RF: 1 diclofenac sodium 1 % gel 2 gm TOPICAL QID Qty: 100 RF: 1 Spiriva Respimat 2.5 mcg/actuation mist 2 puff INHALATION QAM Qty: 4 RF: 2 Symbicort 160-4.5 mcg/actuation HFA aerosol inhaler 2 puff INHALATION BID Qty: 10.2 RF: 2 hydrocodone-acetaminophen 5-325 mg tablet 1 tab PO DAILY PRN (Reason: pain) 30 Days Qty: 30 RF: 0 cholecalciferol (vitamin D3) 2,000 unit tablet 1,000 unit PO DAILY Qty: 90 RF: 1 albuterol sulfate 2.5 mg /3 mL (0.083 %) solution for nebulization 2.5 mg INHALATION QID PRN (Reason: shortness of breath or wheezing) Qty: 180 RF: 2 amlodipine 2.5 mg tablet 2.5 mg PO BID Qty: 180 RF: 0 pantoprazole 40 mg tablet,delayed release (DR/EC) 40 mg PO DAILY RF: 0 mirtazapine 15 mg tablet 7.5 mg PO BEDTIME RF: 0 coal tar 2.5 % shampoo 1 applic TOPICAL DAILY RF: 0 Discontinued prednisone 20 mg tablet 20 mg PO BID 5 Days Qty: 10 RF: 0 Discharge Orders: Discharge Order (Routine); Ordered 08/25/19 Ordered By: Reynaldo Piña Referrals: Jessica Hamilton MD [Physician] - 1 week (chest pain ) Jada Garduno DO [Primary Care Provider] - 09/01/19 3:30 pm Leonard Atkins MD [Hospitalist] - 09/09/19 9:00 am Discharge Diet: Cardiac Discharge Activity: Resume usual activity Patient Instructions: Decongestant/Expectorant (By mouth), Prednisone (By mouth), Aspirin (By mouth), Atorvastatin (By mouth), Levofloxacin (By mouth), How to Stop Smoking (GEN), Chronic Lymphocytic Leukemia (GEN), Chronic Obstructive Pulmonary Disease (DC), Chronic Obstructive Pulmonary Disease (GEN), Bacterial Pneumonia (GEN), Quitting Smoking Activity Restrictions/Additional Instructions: -Please stop smoking -Please take antibiotics as prescribed -Please take steroids as prescribed -Please follow-up with sleep scientist as scheduled -Follow-up with Dr. Atkins in 2 weeks for CLL and lymphadenopathy -If you have worsening shortness of breath, fevers, come back to the emergency room Discharge Attestations Time Spent in Discharge Care*: less than 30 min Quality Metrics Clinical Quality Measures During this hospital stay, did patient experience: None Coding Level of Care Code Acute Lap Hand Tool for Chg Fwd Exam Comprehensive Diagnoses Acute hypercapnic respiratory failure J96.02 Chest pain R07.9 Leukocytosis D72.829 Arthritis, multiple joint involvement M12.9 Dysuria R30.0 Chronic lymphocytic leukemia C91.10 COPD, severe J44.9 Lung nodules R91.8 CHF (congestive heart failure) I50.9
--- NOTE | 2019-08-25 14:10 | PC.NURSE ---
PATIENT SET UP THROUGH [facility] FOR SERVICES. PHONE NUMBER PROVIDED TO PATIENT.
== END 2019-08-25 14:14 | disposition home or self-care (01) | DRG 193 ==
LOC: ER 06:02 → MEDSURG 10:17
PROVIDERS: Emergency Medicine; Family Medicine; Admitting Provider Family Medicine; PCP Family Medicine; Visit Provider Family Medicine
DX: J18.9 Pneumonia, unspecified organism (principal); J96.02 Acute respiratory failure with hypercapnia; J44.1 Chronic obstructive pulmonary disease with (acute) exacerbation; C91.10 Chronic lymphocytic leukemia of B-cell type not having achieved remission; K55.1 Chronic vascular disorders of intestine; I13.0 Hypertensive heart and chronic kidney disease with heart failure and stage 1 through stage 4 chronic kidney disease, or unspecified chronic kidney disease; J44.0 Chronic obstructive pulmonary disease with (acute) lower respiratory infection; Z66 Do not resuscitate; N18.3 Chronic kidney disease, stage 3 (moderate); M13.89 Other specified arthritis, multiple sites; R30.0 Dysuria; R91.8 Other nonspecific abnormal finding of lung field; Z99.81 Dependence on supplemental oxygen; F17.210 Nicotine dependence, cigarettes, uncomplicated; I48.91 Unspecified atrial fibrillation; I25.10 Atherosclerotic heart disease of native coronary artery without angina pectoris; I71.4 Abdominal aortic aneurysm, without rupture; K21.9 Gastro-esophageal reflux disease without esophagitis; F43.10 Post-traumatic stress disorder, unspecified; E78.2 Mixed hyperlipidemia; G47.00 Insomnia, unspecified; F41.8 Other specified anxiety disorders; I50.9 Heart failure, unspecified; I25.5 Ischemic cardiomyopathy
CPT/HCPCS: 12345; 36415; 36600; 71045; 71250; 80051; 80053; 80061; 82803; 82805; 82810; 83036; 83605; 83615; 83735; 83880; 83986; 84100; 84145; 84443; 84484; 84550; 85025; 85362; 85378; 85384; 85610; 85730; 87070; 87205; 93005; 93306; 94640; 94660; 96372; 96375; 99283; J1650; J1940; J1956; J2060; J2930

== ENCOUNTER 2019-09-09 09:07 | Outpatient (CLI) | payer OTHER, SELFPAY ==
[2019-09-09 10:10] LABS: Basophils % 0.1 %; Eosinophils # 0.1 10^3/uL (0.0-0.8); Eosinophils % 0.2 %; Hematocrit 35.2 % (42.0-52.0); Hemoglobin 11.2 g/dL (11.7-16.6); Lymphocytes # 22.8 10^3/uL (0.8-4.8); Lymphocytes % 94.8 %; Mean Corpuscular HGB Conc 31.8 g/dL (30.0-36.0); Mean Corpuscular Hemoglobin 32.1 pg (28.0-34.0); Mean Corpuscular Volume 100.9 fL (80-94); Mean Platelet Volume 11.1 fL (7.4-10.4); Monocytes # 0.1 10^3/uL (0.2-0.9); Monocytes % 0.6 %; Neutrophils # 1.01 10^3/uL (1.8-7.7); Neutrophils % 4.3 %; Nucleated Red Blood Cells % 0 %; Platelet Count 118 10^3/cmm (130-400); Red Blood Count 3.49 10^6/uL (4.1-5.3); Red Cell Distribution Width 13.8 % (12.1-15.1)
[2019-09-09 10:32] LABS: Alanine Aminotransferase 11 U/L (0-41); Albumin Level 3.5 g/dL (3.5-5.2); Alkaline Phosphatase 136 IU/L (40-130); Anion Gap 12.6 (5-19); Aspartate Amino Transferase 76 U/L (0-40); Blood Urea Nitrogen 12 mg/dL (8-23); Calcium 8.7 mg/dL (8.5-10.5); Carbon Dioxide 29 mmol/L (22-29); Chloride 97 mmol/L (98-107); Globulin 3.8 g/dL (1.3-4.6); Glucose 87 mg/dL (65-115); Lactate Dehydrogenase 126 U/L (135-225); Osmolality Calculated 273 mOsm/kg (285-295); Potassium 4.6 mmol/L (3.5-5.1); Slide Review Slide Review Perform; Sodium 134 mmol/L (136-145); Total Bilirubin 0.5 mg/dL (0.15-1.2); Total Protein 7.3 g/dL (6.6-8.7)
--- NOTE | 2019-09-09 20:46 | ONC FU_ITS ---
Dr. Atkins Patient Follow-Up Note Patient: Heber Mejia Unit #: [id number]: 1945 Dicatated By: Leonard Atkins M.D.Date of Visit:Sep 09, 2019 Onc Med Follow-up/Prog Note Chief Complaint: Chronic lymphocytic leukemia/pulmonary nodules. History of Present Illness: This is a 74 year-old man with chronic lymphocytic leukemia, Norman stage I with deletion 11 on cytogenetics, initially diagnosed in April 2011. He also is being followed for noncalcified pulmonary nodules. He has presented with leukocytosis. CLL was confirmed by flow cytometry on 05/07/2011. He was found to have deletion of chromosome 11 on cytogenetics. His Norman stage was I at presentation, as in June of 2011 CT revealed diffuse adenopathy and noncalcified pulmonary densities. The patient was placed on observation. Prior to his initial visit here he had last seen by specialty sales consultant in December 2013. His WBC measured 38.4, absolute lymphocyte count not available, LDH 138. His recent followup imaging with CT of the chest from 02/15/2014 showed unchanged few pulmonary nodules with the largest in the right lower lobe up to 1.2 cm. There was minimally increasing thoracic adenopathy but otherwise stable disease. 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 The patient was followed for that at [facility] in [place] by Dr. Parker. The patient developed significant ulceration in both legs from vasculopathy, requiring wound care at [place], [place]. He was known to have significant peripheral vascular disease and mesenteric artery disease with diffuse atherosclerosis. A followup CT of the chest done by his production pattern maker at [facility] in [place]. It reportedly showed enlarged thoracic adenopathy. PET/CT was eventually performed on 03/03/2015. It revealed an FDG positive mass in the right lower lobe increased to 2.7 cm. There was a 10th rib lesion adjacent to the mass, and lymphadenopathy in mediastinum. There was also lymph nodes in the pectoral region and neck suspicious for metastatic disease. A biopsy of the lung lesion was requested via percutaneous approach, after discussion with radiologist. Unfortunately the patient did not show up to any of his scheduled procedures as he was concerned that [facility] was not going to pay them. He did return for followup with Dr. Epperson on 07/20/2015. White blood cell count at that point was 29,000 with 82% lymphocytes. The hemoglobin was normal at 14 g and the platelet count was normal at 383,000. She did plan to repeat PET/CT for possible biopsy. PET/CT was obtained on 08/13/2015. It showed evidence of right hilar and right paratracheal adenopathy with nodes measuring up to 1.5 cm with low-grade FDG uptake, SUV 2.2 and 2.3 respectively. There were scattered 2-5 mm noncalcified pulmonary nodules with a 1.5 cm cluster of nodules in the base of the right lung with SUV 3.3. The pattern of FDG uptake was felt to be most consistent with a benign infectious or inflammatory process. A 3 cm infrarenal abdominal aortic aneurysm was also noted. I had seen him initially on 12/01/2015. At that point he appeared stable clinically. There appeared to be no indication for treatment of his chronic leukocytic leukemia, and had recommended continued observation/expectant management. He failed to return for follow-up. 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 He also has COPD, GERD, and posttraumatic stress disorder with depression. He has smoked for 50 years and continues to smoke one pack of cigarettes daily. INTERIM HISTORY: On 08/22/2018 he was seen in the emergency room with right shoulder pain. He had suspected pneumonia based on chest x-ray findings, and he was treated with Levaquin. Blood cultures came back positive for Streptococcus pneumoniae. On 09/09/2018 he was admitted to the hospital after presenting to the emergency room with increasing weakness. His CT scan showed left lower lobe consolidation felt to be likely pneumonia. Due to his shoulder pain and positive blood cultures, there was also concern about the possibility of septic arthritis. He underwent arthroscopic surgery on the right shoulder on 09/11/2018. There was no necrotic or pearly material identified. Cultures just grew scant Micrococcus and related species. He did receive 3 weeks of IV antibiotic therapy, initially with vancomycin and subsequently with Rocephin. On 10/01/2018 he was readmitted the hospital with increased pain and swelling in the right shoulder. His CT scans that time was suggestive of hemarthrosis, and he was then taken off anticoagulation. I had seen him for a follow-up visit on 12/29/2018. At that point he appeared to be showing gradual recovery, though he still had somewhat marginal performance status. There appeared to be no progression of the CLL. On 08/24/2019 he was admitted to the hospital with acute respiratory failure in association with COPD exacerbation and left lower lobe pneumonia. His chest CT showed greater than one-year stability of small bilateral pulmonary nodules. Also noted was mediastinal, hilar, axillary, and cervical lymphadenopathy which appeared to be most likely infectious or inflammatory, though neoplastic process was not excluded. He is seen for a follow-up visit. He is still pretty weak following his recent hospitalization, and his activity is still very limited. ECOG score is 2. His appetite has been lousy, but that he attributes to being on antibiotic. His weight is down 3 pounds. He does not have fever or night sweats. He did require treatment for a yeast infection in his mouth. He still has shortness of breath, but he is off oxygen now. He has cough productive of white or creamy colored sputum. He is not having chest pain. He has no GI complaints. He does complain that it hurts a lot when he urinates. He is seeing Dr. Snyder. He has generalized joint pain. The most significant is in his hips and shoulders. He very seldom has headache. He has no focal neurologic symptoms. Medications: Albuterol Sulfate 1 (2.5 mg/0.5mL) Nebulization solution Inhalation PRN, AmLODIPine Besylate 1 Tablet (of 2.5 mg) Oral b.i.d., Aspirin 1 Tablet (of 81 mg) Tablet, enteric coated Oral daily, Atorvastatin Calcium 1 Tablet (of 20 mg) Oral daily, Cholecalciferol 1 Tablet (of 25 mcg ) Oral daily, Diclofenac Sodium 1 (1 %) Gel (jelly) Transdermal daily, Gemfibrozil 1 Tablet (of 600 mg) Oral b.i.d., HYDROcodone-Acetaminophen 1 Tablet (of 5-325 mg) Oral daily PRN, Meclizine HCl 1 Tablet (of 25 mg) Oral b.i.d. PRN, Metoprolol Tartrate 0.5 Tablet (of 100 mg) Oral b.i.d., Mirtazapine 0.5 Tablet (of 15 mg) Oral at bedtime, Protonix 1 Tablet (of 40 mg) Tablet, enteric coated Oral daily, Spiriva Respimat 1 (2.5 mcg/act) Aerosol, solution Inhalation daily, Symbicort 1 (160-4.5 mcg/act) Aerosol Inhalation b.i.d., Tamsulosin HCl 1 Capsule (of 0.4 mg) Oral daily Allergies: No Known Allergies. Review of Systems: Constitutional - He is not feeling too bad, but he does complain that he has no energy, and he has very limited activity. His appetite has been lousy, that he attributes to being on antibiotic. He has no fever or night sweats. ECOG score is 2, ENMT - No sinus congestion/drainage. He recently was treated for a yeast infection in his mouth. No sore throat or difficulty swallowing, Hematologic/Lymphatic - He has easy bruising, Respiratory - He still has some shortness of breath, but he is off oxygen now. He has cough productive of white or cream-colored sputum. No pleuritic pain or hemoptysis, Cardiovascular - No angina pain. No palpitations, Gastrointestinal - No nausea or vomiting. No heartburn or acid reflux. No diarrhea or constipation. No blood in the stool or black stools, Genitourinary (M) - He has been hurting when he urinates. No hematuria. No urinary frequency. No urgency or incontinence, Musculoskeletal - He has generalized joint pain, especially in the hips and shoulders, Integumentary - , Neurologic - He very seldom has headache. He does have dizziness. No numbness or tingling. No other focal neurologic symptoms, Psychiatric - He has anxiety/depression, but adequately managed with medication. He has difficulty sleeping. Vital Signs: Performed on Sep 09, 2019 09:17 Height - 69.00 in Weight - 118.2 lbs (LOW) BSA - 1.65 sq.m BMI - 17.46 (LOW) Temperature - 99.2 F (HIGH) Pulse - 73 /min Respiration - 22 /min BP - 129/69 mm(hg) O2 Sat - 93 % (LOW) Pain - 0 Physical Examination: Constitutional - He appears somewhat weak generally, but not acutely ill, Eyes - Sclerae nonicteric. Conjunctivae clear, ENMT - No lesions noted in the oral cavity, Hematologic/Lymphatic - I whom did not feel any cervical, clavicular, or axillary lymphadenopathy, Respiratory - Lungs sound clear with diminished air movement bilaterally, Cardiovascular - Heartrhythm is regular. There is no murmur, gallop, or rub noted, Abdomen - Soft. Liver and spleen are not enlarged. There is no abdominal mass or ascites noted. There are small inguinal lymph nodes bilaterally, Extremities - No edema. There is extensive purpura on both arms, Integumentary - There is a somewhat linear area of actinic change in the lateral aspect of the left cheek, Neurologic - No focal neurologic deficits noted. Lab/Imaging: Test performed on Sep 09, 2019 09:44 LDH (Total) 126 U/L Sodium 134 mmol/L Potassium 4.6 mmol/L Chloride 97 mmol/L CO2 29 mmol/L Anion Gap 12.6 BUN 12 mg/dL Creatinine 1.2 mg/dL Cr Clearance (Est) 41.5800 mL/min Glucose 87 mg/dL Calcium 8.7 mg/dL Protein, Total 7.3 g/dL Albumin 3.5 g/dL Globulin 3.8 g/dL Bilirubin, Total 0.5 mg/dL ALT (SGPT) 11 U/L AST (SGOT) 76 U/L Alkaline Phosphatase 136 IU/L WBC 24.0 10 3/uL RBC 3.49 10 6/uL HGB 11.2 g/dL HCT 35.2 % MCV 100.9 fL MCH 32.1 pg MCHC 31.8 g/dL RDW 13.8 % Platelet Count 118 10 3/cmm MPV 11.1 fL Neutrophils 1.01 10 3/uL Lymphocytes 22.8 10 3/uL Monocytes 0.1 10 3/uL Eosinophils 0.1 10 3/uL Basophils 0.0 10 3/uL Neutrophil % 4.3 % Lymphocyte % 94.8 % Monocyte % 0.6 % Eosinophil % 0.2 % Basophils % 0.1 % NRBC % 0 % CBC Slide Review Slide Review Perform Impression: 1. Chronic lymphocytic leukemia, Norman stage I with chromosome 11 deletion on cytogenetics. It was initially diagnosed in April 2011 and thus far has been managed with observation. 2. He has been followed for noncalcified pulmonary nodules, the largest in the right lower lobe measuring 2.7 cm. These showed low-grade FDG uptake by PET CT, felt to be most consistent with benign infectious or inflammatory process. His other medical illnesses include: 3. Hypertension. 4. Hyperlipidemia. 5. Extensive atherosclerotic cardiovascular disease with associated mesentery artery stenosis and infrarenal abdominal aortic aneurysm. 6. COPD. 7. GERD. 8. PTSD with depression. 9. He has nicotine dependence (cigarettes). In August 2018 he was treated for streptococcal pneumonia. There was also concern about the possibility of septic arthritis in the right shoulder joint. He did receive 3 weeks of IV antibiotic therapy. His clinical course was further complicated by suspected right shoulder hemarthrosis in September, at which point he was taken off anticoagulation. During that time he became significantly anemic. During follow-up he has been showing gradual recovery, though he was still borderline anemic and he still had significantly elevated sedimentation rate. His serum iron studies were suggestive of iron deficiency. The cause/significance of the elevated sed rate was still uncertain, but there was no evidence for symptomatic progression of the CLL. He recently was hospitalized again with pneumonia and acute respiratory failure. He does appear to be showing gradual recovery. He continues to have very marginal performance status. His chest CT did report mediastinal, hilar, and axillary lymphadenopathy. It was thought to be reactive, but it is more likely related to the CLL. Nonetheless, he otherwise appears stable from the standpoint of the CLL. As yet, there appears to be no indication for treatment. Plan: He remains on observation/expectant management for the chronic lymphocytic leukemia. I will see him again in 3 months. In the meantime, [facility] can get him into see a location analyst for the actinic lesions on the left side of his face. Signed By: Leonard Atkins M.D. <<Signature on File>>
== END 2019-09-09 09:08 | disposition home or self-care (01) ==
PROVIDERS: PCP Family Medicine; Visit Provider Internal Medicine Medical Oncology
DX: C91.10 Chronic lymphocytic leukemia of B-cell type not having achieved remission (principal); R91.8 Other nonspecific abnormal finding of lung field; J44.9 Chronic obstructive pulmonary disease, unspecified; L98.9 Disorder of the skin and subcutaneous tissue, unspecified; I10 Essential (primary) hypertension; E78.5 Hyperlipidemia, unspecified; I25.10 Atherosclerotic heart disease of native coronary artery without angina pectoris; K55.1 Chronic vascular disorders of intestine; I71.4 Abdominal aortic aneurysm, without rupture; K21.9 Gastro-esophageal reflux disease without esophagitis; F32.9 Major depressive disorder, single episode, unspecified; F17.210 Nicotine dependence, cigarettes, uncomplicated; Z87.01 Personal history of pneumonia (recurrent)
CPT/HCPCS: 80053; 83615; 85025; 99214

== ENCOUNTER 2019-10-09 04:55 | Inpatient (IN) | payer OTHER, MEDICARE, SELFPAY ==
[2019-10-09] VITALS (18 sets, daily range): BP systolic 116–160; BP diastolic 53–61; PULSE 63–97; RESP 17–29; TEMP 36.4–37.3; O2SAT 91–96; BMI 16.5
--- NOTE | 2019-10-09 05:02 | ECG_ITS ---
[facility] Test Date: 2019-10-09 Pat Name: Heber Mejia Department: Room: Gender: Male Social Professionals: : 1945 Requested By: Bill Ware Order Number: [id number] Garrick MD: Reji Barahona M.D. Measurements Intervals [place] Rate: 100 P: 108 OH: 174 QRS: 86 QRSD: 101 T: 125 QT: 342 QTc: 441 Interpretive Statements SINUS TACHYCARDIA Compared to ECG 08/24/2019 13:22:11 ST (T wave) deviation no longer present Electronically Signed On 10-10-2019 19:43:52 CDT by Reji Barahona M.D. [id number]
--- NOTE | 2019-10-09 05:04 | W.ED.AMS ---
HPI - Altered Mental Status General: Chief Complaint: Altered Mental Status Stated Complaint: ams Time Seen by Provider: 10/09/19 05:01 History of Present Illness: HPI narrative: 74-year-old male presents to the emergency room via EMS with a complaint of altered mental status he recently started taking clonazepam 0.5 twice daily since then there complaining is difficult to arouse. Patient presents at 5 AM this morning. He denies any difficulty breathing denies any chest pain or abdominal pain he does have some shaking which he states is new. In route to the hospital patient was given 125 of Solu-Medrol, Lasix and subcu terbutaline. His arrived in the department confirms that he has continued to smoke. He is a DNI. She is unsure how often he was taking the clonazepam evidently they no longer live together, he lives with his son his son has his own health issues and was not around yesterday from around 11 AM to 4 PM and he was very sedate and lethargic since then. She is unaware if he has had any fever he denies he does have a baseline productive cough that has not changed significantly. MD complaint: decreased responsiveness Onset (ago): day(s) Timing confirmed by: family member Severity: mild Consistency of symptoms: Waxing and Waning Context: change in medication (Addition of clonazepam) and COPD Associated symptoms: Deny auditory hallucinations, visual hallucinations, delusions, homicidal ideation, racing thoughts or suicidal ideation Treatments prior to arrival: oxygen and other (Solu-Medrol Lasix and terbutaline) Review of Systems Const: Denies: fever(s), chills, body aches, change in appetite, fatigue or malaise ENMT: Denies: throat pain, ear or mastoid pain, nasal discharge or nasal congestion Card: Denies: chest pain, edema, dyspnea on exertion or orthopnea Resp: Denies: dyspnea, productive cough or non-productive cough GI: Denies: abdominal pain, nausea, vomiting, hematemesis, coffee ground emesis, diarrhea, constipation, bloating, hematochezia or melena : Denies: flank pain, dysuria, urinary frequency or urinary urgency Skin/Breast: Denies: rash or pruritus Psych: Denies: visual hallucinations, auditory hallucinations, suicidal ideation or homicidal ideation [facility] PFSH: Medical History (Updated 10/09/19 @ 09:21 by Bill Barrett DO) Abdominal aortic aneurysm Anxiety and depression Atherosclerosis of [place] artery of both lower extremities Cardiomyopathy Patient had a repeat echocardiogram in August 2019 in the hospital. He was found to have ejection fraction in the normal range. Cardiomyopathy, idiopathic Chronic GERD Chronic kidney disease, stage 3 Chronic lymphatic leukemia COPD, severe Insomnia Lung nodules Mixed hyperlipidemia Primary hypertension Surgical History H/O wrist surgery Family History Mother Cancer Social History Smoking and tobacco status: current every day smoker cigarettes Packs smoked per day: 1 Years cigarettes smoked: 50 Alcohol intake: never Lives independently: Yes Household members: none Marital status: / Current occupational status: retired and disabled History of recent travel: No Current gender identity: Male Physical Exam Const: COMMON NORMALS: no acute distress GENERAL APPEARANCE: comfortable HENMT: COMMON NORMALS: normocephalic and atraumatic HEAD & SCALP: normocephalic and atraumatic Eye: COMMON NORMALS: Equal, round and reactive pupils present, EOMs intact bilaterally, conjunctivae normal and no scleral icterus CONJUNCTIVA: Yes conjunctivae normal PUPIL: Yes Equal, round and reactive pupils present Neck/C-Spine: COMMON NORMALS: full ROM, no lymphadenopathy, supple and no JVD Lymph: LYMPHATIC: no lymphadenopathy noted and no lymphedema noted Resp: AUSCULTATION: rales, wheezes expiratory wheezes and diminished lung sounds Cardio: COMMON NORMALS: no JVD, regular rate, regular rhythm and No murmurs present (Cardio) RATE: regular rate RHYTHM: regular rhythm GI: COMMON NORMALS: Soft to palpation and No hepatosplenomegaly present AUSCULTATION: Yes normoactive bowel sounds PALPATION: Yes Soft to palpation, No Tenderness to palpation present (GI), No Guarding due to palpation present (GI) and Yes No hepatosplenomegaly present Extremity: COMMON NORMALS: normal to inspection, capillary refill normal, no clubbing, cyanosis or edema, no calf tenderness and no pedal edema Psych: THOUGHT CONTENT: No delusions Course Vital Signs: Vital signs: Vital Signs Temperature 99.1 F 10/09/19 04:56 Pulse Rate 80 10/09/19 08:50 Respiratory Rate 24 H 10/09/19 08:22 Blood Pressure 137/60 10/09/19 08:22 Pulse Oximetry 94 10/09/19 08:50 MDM - Altered Mental Status MDM Narrative: Medical decision making narrative: ABG shows hypercapnic respiratory failure. He has a suppressed absolute neutrophil count at 800. I am anticipating of increased blasts were getting a manual differential. He will need to be admitted due to his hypercapnic respiratory failure. He has been started on BiPAP with the is okay with that but does not want anything more aggressive done. May need consult from oncology looking through his old CBCs this is a new finding. Labs were reviewed. Repeat ABG shows improvement from initial prior to BiPAP. Rapid COVID test is negative. Lab Data: Labs: Lab Results 10/09/19 10/09/19 10/09/19 Range/Units 05:00 05:00 05:00 WBC 19.4 H (4.0-10.0) 10^3/ uL RBC 3.24 L (4.1-5.3) 10^6/u L Hgb 10.1 L (11.7-16.6) g/dL Hct 32.5 L (42.0-52.0) % MCV 100.3 H (80-94) fL MCH 31.2 (28.0-34.0) pg MCHC 31.1 (30.0-36.0) g/dL RDW 13.9 (12.1-15.1) % Plt Count 133 (130-400) 10^3/c mm MPV 11.8 H (7.4-10.4) fL Neut % (Auto) 4.2 % Lymph % (Auto) 94.6 % Rolette % (Auto) 0.7 % Eos % (Auto) 0.2 % Baso % (Auto) 0.2 % Neut # (Auto) 0.81 L* (1.8-7.7) 10^3/u L Lymph # (Auto) 18.3 H (0.8-4.8) 10^3/u L Rolette # (Auto) 0.1 L (0.2-0.9) 10^3/u L Eos # (Auto) 0.0 (0.0-0.8) 10^3/u L Baso # (Auto) 0.0 (0.0-0.1) 10^3/u L Nucleated RBC % (a uto) 0 % Total Counted (0-100) Atypical Lymphs % (0-5) % Segmented Neutroph ils % Band Neutrophils % Lymphocytes (Manua l) % Monocytes (Manual) % Nucleated RBCs # 0.0 /100WBC Platelet Estimate (Normal) Specimen Type Sample Site ABG pH (7.35-7.45) ABG pCO2 (35-45) mmHg ABG pO2 (80.0-100.0) mmH g ABG HCO3 (22-26) mmol/L ABG O2 Saturation ABG Base Excess (-2.0-2.0) mmol/ L Jerry Test A-a O2 Gradient (5-10) mmHg Hematocrit (42-52) % Hgb O2 Saturation (95-100) % Carboxyhemoglobin (0.4-20.1) %THgb Methemoglobin (0.4-1.5) % Total Hemoglobin (14-18) g/dL Ionized Calcium (1.1-1.4) mmol/L O2 Delivery Device O2 Liters/Min % Community Health Nursing Director ID Sodium 134 L (136-145) mmol/L Potassium 4.7 (3.5-5.1) mmol/L Chloride 97 L (98-107) mmol/L Carbon Dioxide 29 (22-29) mmol/L Anion Gap 12.7 (5-19) BUN 38 H (8-23) mg/dL Creatinine 1.5 H (0.7-1.2) mg/dL GFR Calculation Not Reportable Glucose 92 (65-115) mg/dL Calculated Osmolal ity 275 L (285-295) mOsm/k g Calcium 8.6 (8.5-10.5) mg/dL Total Bilirubin 1.0 (0.15-1.2) mg/dL AST 84 H (0-40) U/L ALT 16 (0-41) U/L Alkaline Phosphata se 98 (40-130) IU/L NT-Pro-B Natriuret Pep 972 H (0-125) pg/mL Total Protein 7.1 (6.6-8.7) g/dL Albumin 2.9 L (3.5-5.2) g/dL Globulin 4.2 (1.3-4.6) g/dL Urine Color (Yellow) Urine Appearance (CLEAR) Urine pH (5-7) Ur Specific Gravit y (1.005-1.030) Urine Protein (Negative) Urine Glucose (UA) (Normal) Urine Ketones (Negative) Urine Blood (Negative) Urine Nitrate (Negative) Urine Bilirubin (NEGATIVE) Urine Urobilinogen (Negative) mg/dL Ur Leukocyte Molly ase (Negative) 10/09/19 10/09/19 10/09/19 Range/Units 05:00 05:37 05:50 WBC (4.0-10.0) 10^3/ uL RBC (4.1-5.3) 10^6/u L Hgb (11.7-16.6) g/dL Hct (42.0-52.0) % MCV (80-94) fL MCH (28.0-34.0) pg MCHC (30.0-36.0) g/dL RDW (12.1-15.1) % Plt Count (130-400) 10^3/c mm MPV (7.4-10.4) fL Neut % (Auto) % Lymph % (Auto) % Rolette % (Auto) % Eos % (Auto) % Baso % (Auto) % Neut # (Auto) (1.8-7.7) 10^3/u L Lymph # (Auto) (0.8-4.8) 10^3/u L Rolette # (Auto) (0.2-0.9) 10^3/u L Eos # (Auto) (0.0-0.8) 10^3/u L Baso # (Auto) (0.0-0.1) 10^3/u L Nucleated RBC % (a uto) % Total Counted 100 (0-100) Atypical Lymphs % 0.0 (0-5) % Segmented Neutroph ils 5 % Band Neutrophils 0.0 % Lymphocytes (Manua l) 95 % Monocytes (Manual) 0.0 % Nucleated RBCs # /100WBC Platelet Estimate Normal (Normal) Specimen Type Arterial Sample Site Brachial, right ABG pH 7.28 L (7.35-7.45) ABG pCO2 59.2 H (35-45) mmHg ABG pO2 76.7 L (80.0-100.0) mmH g ABG HCO3 28.0 H (22-26) mmol/L ABG O2 Saturation 95.0 ABG Base Excess 0.6 (-2.0-2.0) mmol/ L Jerry Test N/a A-a O2 Gradient 0.1 L (5-10) mmHg Hematocrit 29.3 L (42-52) % Hgb O2 Saturation 92.3 L (95-100) % Carboxyhemoglobin 2.4 (0.4-20.1) %THgb Methemoglobin 0.5 (0.4-1.5) % Total Hemoglobin 9.6 L (14-18) g/dL Ionized Calcium 1.2 (1.1-1.4) mmol/L O2 Delivery Device Nc O2 Liters/Min 3.0 % Community Health Nursing Director ID Harkr Sodium 135.0 (136-145) mmol/L Potassium 4.5 (3.5-5.1) mmol/L Chloride (98-107) mmol/L Carbon Dioxide (22-29) mmol/L Anion Gap (5-19) BUN (8-23) mg/dL Creatinine (0.7-1.2) mg/dL GFR Calculation Glucose 97.0 (65-115) mg/dL Calculated Osmolal ity (285-295) mOsm/k g Calcium (8.5-10.5) mg/dL Total Bilirubin (0.15-1.2) mg/dL AST (0-40) U/L ALT (0-41) U/L Alkaline Phosphata se (40-130) IU/L NT-Pro-B Natriuret Pep (0-125) pg/mL Total Protein (6.6-8.7) g/dL Albumin (3.5-5.2) g/dL Globulin (1.3-4.6) g/dL Urine Color Yellow (Yellow) Urine Appearance Clear (CLEAR) Urine pH 5 (5-7) Ur Specific Gravit y 1.020 (1.005-1.030) Urine Protein Neg (Negative) Urine Glucose (UA) Norm (Normal) Urine Ketones Negative (Negative) Urine Blood Neg (Negative) Urine Nitrate Negative (Negative) Urine Bilirubin Neg (NEGATIVE) Urine Urobilinogen Norm (Negative) mg/dL Ur Leukocyte Molly ase Negative (Negative) Discharge Plan Discharge Patient Disposition: Admitted As Inpatient Admit Provider: Sruthi Godfrey Clinical Impression: Acute hypercapnic respiratory failure, Chronic lymphocytic leukemia, Acute interstitial pneumonitis Condition: Stable Interventions: ED Discharge Assessment Last Done: 10/09/19 08:22 ED Charges Last Done: 10/09/19 08:22 Discharge Date/Time: 10/09/19 08:33 Coding Level of Care Code ED Contact And Service Clerks Supervisor for Chg Fwd Exam Comprehensive
--- NOTE | 2019-10-09 05:14 | XR_ITS ---
WS: [id number] EXAM: AP CHEST: PORTABLE UPRIGHT DATE OF EXAM: 10/09/2019, 0517 hours COMPARISON: Chest x-ray from 08/24/2019 HISTORY: Patient is 74 years old with shortness of breath. History of leukemia. FINDINGS: The cardiac silhouette is normal in size. The mediastinal contours are similar. Calcified plaque i n the aorta.. The pulmonary vascularity is normal. Fairly extensive chronic lung changes are demon strated. There are some minimal increased interstitial markings in the right lung base. Whether this is related to vascularity versus a slight interstitial pneumonitis is uncertain. Trace right pleural fluid. There has been interval development of an infiltrate in the left lower chest felt to represen t pneumonia with a small left effusion. No pneumothorax. Bone density is decreased. Multilevel degen erative changes in the spine. XR/XR chest 1V portable [id number] IMPRESSION: COPD changes with hyperinflation and fibrosis. Interval development of infiltra te suggesting pneumonia in the left lower lobe with trace left effusion. Slight increased interstitial markings in the right lung base. Whether this is related to pulmonary vascularity versus acute interstitial pneumonitis in the r ight lung base as well is uncertain. Follow-up recommended.
--- NOTE | 2019-10-09 05:22 | PC.NURSE ---
XRAY IN ROOM
[2019-10-09 05:25] LABS: Basophils % 0.2 %; Eosinophils % 0.2 %; Hematocrit 32.5 % (42.0-52.0); Hemoglobin 10.1 g/dL (11.7-16.6); Lymphocytes # 18.3 10^3/uL (0.8-4.8); Lymphocytes % 94.6 %; Mean Corpuscular HGB Conc 31.1 g/dL (30.0-36.0); Mean Corpuscular Hemoglobin 31.2 pg (28.0-34.0); Mean Corpuscular Volume 100.3 fL (80-94); Mean Platelet Volume 11.8 fL (7.4-10.4); Monocytes # 0.1 10^3/uL (0.2-0.9); Monocytes % 0.7 %; Neutrophils % 4.2 %; Nucleated Red Blood Cells % 0 %; Platelet Count 133 10^3/cmm (130-400); Red Blood Count 3.24 10^6/uL (4.1-5.3); Red Cell Distribution Width 13.9 % (12.1-15.1); White Blood Count 19.4 10^3/uL (4.0-10.0)
[2019-10-09 05:56] LABS: Neutrophils # 0.81 10^3/uL (1.8-7.7); Slide Review Slide Review Perform
[2019-10-09 06:01] LABS: ABG PCO2 59.2 mmHg (35-45); ABG PH Result 7.28 (7.35-7.45); Alveolar-Arterial Oxygen Gradi 0.1 mmHg (5-10); Arterial Blood Gas Hematocrit 29.3 % (42-52); Base Excess ABG 0.6 mmol/L (-2.0-2.0); Blood Gas Operator Identificat HARKR; Blood Gas Sample Site Brachial, right; Blood Gas Sample Type Arterial; Carboxyhemoglobin 2.4 %THgb (0.4-20.1); HGB O2 Sat 92.3 % (95-100); Ionized Calcium Level - ABG 1.2 mmol/L (1.1-1.4); Methemoglobin 0.5 % (0.4-1.5); Oxygen Device NC; PO2 ABG 76.7 mmHg (80.0-100.0); Potassium Level - ABG 4.5 mmol/L (3.5-5.0); Total Hemoglobin 9.6 g/dL (14-18)
[2019-10-09 06:18] LABS: Add Urine Microscopic? NO
[2019-10-09 06:22] LABS: Lymphocytes 95 %; Segmented Neutrophils 5 %; Total Cells Counted 100 (0-100)
[2019-10-09 06:24] LABS: Alanine Aminotransferase 16 U/L (0-41); Albumin Level 2.9 g/dL (3.5-5.2); Alkaline Phosphatase 98 IU/L (40-130); Anion Gap 12.7 (5-19); Aspartate Amino Transferase 84 U/L (0-40); Blood Urea Nitrogen 38 mg/dL (8-23); Calcium 8.6 mg/dL (8.5-10.5); Carbon Dioxide 29 mmol/L (22-29); Chloride 97 mmol/L (98-107); Globulin 4.2 g/dL (1.3-4.6); Glucose 92 mg/dL (65-115); Osmolality Calculated 275 mOsm/kg (285-295); Potassium 4.7 mmol/L (3.5-5.1); Sodium 134 mmol/L (136-145); Total Protein 7.1 g/dL (6.6-8.7)
[2019-10-09 06:27] LABS: Platelet Estimate Normal (Normal)
[2019-10-09 06:32] LABS: Bilirubin Urine Neg (NEGATIVE); Blood Urine Neg (Negative); Glucose Urine UA Norm (Normal); Ketones Urine Negative (Negative); Leukocyte Esterase Urine Negative (Negative); Nitrate Urine Negative (Negative); Protein Urine Neg (Negative); Urine Appearance Clear (CLEAR); Urine Color Yellow (Yellow); Urobilinogen Urine Norm (Negative); pH Urine 5 (5-7)
[2019-10-09 06:50] LABS: NT Pro B Type Natriuretic Pept 972 pg/mL (0-125)
[2019-10-09] MEDS: cefTAZidime 2,000 MG in sodium chloride 0.9% (plus) 50 ML 150 MG IV (07:49)
--- NOTE | 2019-10-09 08:01 | PC.NURSE ---
pt swabbed for patterson virus-pt on droplet precautions
[2019-10-09 08:21] LABS: ABG PCO2 50.8 mmHg (35-45); ABG PH Result 7.35 (7.35-7.45); Arterial Blood Gas Hematocrit 29.1 % (42-52); Base Excess ABG 1.8 mmol/L (-2.0-2.0); Blood Gas Allen Test Pos; Blood Gas Operator Identificat CAK; Blood Gas Sample Site Radial, left; Blood Gas Sample Type Arterial; Oxygen Device BIPAP; PO2 ABG 96.8 mmHg (80.0-100.0)
[2019-10-09 08:36] LABS: SARS Covid-2 Antigen Negative (Negative)
--- NOTE | 2019-10-09 09:49 | P.HP_ITS ---
Providers/Chief Complaint Admitting Physician: Sruthi Godfrey DO Primary Care Provider: Jada Garduno DO Chief Complaint: ams History of Present Illness Heber Mejia is a 74 year old male with a past medical history of abdominal aortic aneurysm, hyperlipidemia, diastolic congestive heart failure, peripheral vascular disease and chronic lymphocytic leukemia that presented to the hospital for altered mental status. Patient was brought to the ER due to decreased mentation, noted to have acute on chronic hypercapnic respiratory failure and placed on BiPAP. He was noted to have neutropenia, this is new finding and left lower lobe pneumonia. Patient was tested for COVID-19 it was negative. Patient is able to tell me somewhat of a history but is uncertain why he was brought to the hospital, stated that he just woke up here and is uncertain why. He denies any chest pain, no fevers or chills. Patient reports chronic cough with sputum production that is may be slightly increased. He reports that he is chronically on 2 L of oxygen by nasal cannula. Reports that he was recently started on Klonopin yesterday, son was not at home yesterday but typically in the home with him. He does not recall how many doses of pain medication or anxiety medication that he took yesterday. Further HPI unable to be obtained due to patient's altered mental status Review of Systems General: Reports: Other (Difficult to obtain full review of systems due to patient's altered mental status, able to answer yes and no appropriately but unable to expand on questions) Const: Reports: fatigue; Denies: fever(s) or chills Eyes: Denies: change in vision ENMT: Denies: nasal congestion Card: Denies: chest pain, palpitations or edema Resp: Reports: dyspnea and productive cough; Denies: hemoptysis GI: Reports: constipation; Denies: abdominal pain, nausea, vomiting, diarrhea, hematochezia or melena : Denies: dysuria or hematuria Musc: Denies: extremity pain or muscle cramps Skin/Breast: Denies: rash or new lesions Neuro: Denies: headache(s) or dizziness Psych: Denies: anxiety or depression Endo: Denies: polyuria or hot flashes Miguel/Lymph: Denies: easy bruising or easy bleeding Medications/Allergies Home Medications Medication Instructions Recorded Confirmed Last Taken Type gemfibrozil 600 mg tablet 600 mg PO BID 03/09/19 09/22/19 08/23/19 History nitroglycerin 0.4 mg sublingual 0.4 mg SUBLINGUAL Q5M PRN 03/09/19 09/22/19 Unknown History tablet cholecalciferol (vitamin D3) 50 1,000 unit PO DAILY #90 tab 04/07/19 09/22/19 08/23/19 Rx mcg (2,000 unit) tablet ketoconazole 1 % shampoo 1 applic TOPICAL Q3D #200 ml 06/24/19 09/22/19 Unknown Rx amlodipine 2.5 mg tablet 2.5 mg PO BID #180 tab 08/03/19 09/22/19 08/23/19 Rx diclofenac sodium 1 % topical gel 2 gm TOPICAL QID #100 gm 08/20/19 09/22/19 08/23/19 Rx coal tar 1 applic TOPICAL DAILY 08/22/19 09/22/19 08/23/19 History mirtazapine 7.5 mg PO BEDTIME 08/22/19 09/22/19 08/23/19 History pantoprazole 40 mg PO DAILY 08/22/19 09/22/19 08/23/19 History fluticasone fur. 100 mcg-umeclid 1 inh INHALATION Q24H 30 Days #60 08/26/19 09/22/19 Unknown Rx 62.5 mcg-vilant 25 mcg each inhalat.powder hydrocodone 5 mg-acetaminophen 325 1 tab PO DAILY PRN 23 Days #23 tab 08/27/19 09/22/19 Unknown Rx mg tablet budesonide-formoterol HFA 160 2 puff INHALATION BID 09/01/19 09/22/19 Unknown History mcg-4.5 mcg/actuation aerosol inhaler gabapentin 100 mg capsule 100 mg PO TID #90 cap 09/01/19 09/22/19 Unknown Rx nystatin 100,000 unit/mL oral 5 ml PO Q6H #250 ml 09/01/19 09/22/19 Unknown Rx suspension tiotropium bromide 2.5 2 inh INHALATION QAM 09/01/19 09/22/19 Unknown History mcg/actuation mist for inhalation tamsulosin 0.4 mg capsule 0.4 mg PO DAILY #90 cap 09/02/19 09/22/19 Unknown Rx meclizine 25 mg tablet 25 mg PO BID PRN #60 tab 09/16/19 09/22/19 Unknown Rx metoprolol tartrate 100 mg tablet 50 mg PO BID #180 tab 09/16/19 09/22/19 Unknown Rx albuterol sulfate 2.5 mg INHALATION QID PRN #180 ml 09/28/19 Unknown Rx Inogen #1 ea 10/06/19 Unknown Rx clonazepam 0.5 mg tablet 0.5 mg PO TID #45 tab 10/06/19 Unknown Rx Allergies Allergy/AdvReac Type Severity Reaction Status Date / Time No Known Allergies Allergy Verified 09/22/19 10:17 PFSH Acute PFSH: Medical History Abdominal aortic aneurysm Anxiety and depression Atherosclerosis of [place] artery of both lower extremities Cardiomyopathy Patient had a repeat echocardiogram in August 2019 in the hospital. He was found to have ejection fraction in the normal range. Cardiomyopathy, idiopathic Chronic GERD Chronic kidney disease, stage 3 Chronic lymphatic leukemia COPD, severe Insomnia Lung nodules Mixed hyperlipidemia Primary hypertension Surgical History H/O wrist surgery Family History Mother Cancer Social History Smoking and tobacco status: current every day smoker cigarettes Packs smoked per day: 1 Years cigarettes smoked: 50 Alcohol intake: never Lives independently: Yes Household members: none Marital status: / Current occupational status: retired and disabled History of recent travel: No Current gender identity: Male Vitals/I&O/Wt Last Vital Signs Temp 99.0 F 10/09/19 09:37 Pulse 84 10/09/19 09:37 Resp 18 10/09/19 09:37 BP 116/56 10/09/19 09:37 Pulse Ox 95 10/09/19 09:37 10/08/19 10/09/19 10/09/19 22:59 06:59 14:59 Intake Total 50 / 50 Balance 50 / 50 Weight last 48 hrs Weight 52.163 kg Physical Exam Const: COMMON NORMALS: alert GENERAL APPEARANCE: cooperative, lethargic, ill appearing and frail appearing ORIENTATION/CONSCIOUSNESS: Yes awake, Yes oriented to person and Yes oriented to place HENMT: COMMON NORMALS: normocephalic and atraumatic HEAD & SCALP: normocephalic and atraumatic Eye: COMMON NORMALS: Equal, round and reactive pupils present PUPIL: Yes Equal, round and reactive pupils present Neck/C-Spine: COMMON NORMALS: supple GENERAL: Yes normal visual inspection Resp: AUSCULTATION: no rhonchi and no wheezes OTHER: BiPAP in place, tachypneic, moderate accessory muscle use, diminished breath sounds bilaterally with prolonged expiratory phase, rhonchi in the left base Cardio: COMMON NORMALS: regular rate, regular rhythm and No murmurs present (Cardio) RATE: regular rate RHYTHM: regular rhythm GI: COMMON NORMALS: Soft to palpation and non-tender INSPECTION: No abdominal distension AUSCULTATION: Yes normoactive bowel sounds PALPATION: Yes Soft to palpation : COMMON NORMALS: Yes no CVA tenderness BLADDER/KIDNEY EXAM: Yes no CVA tenderness Back/Pelvis: COMMON NORMALS: no CVA tenderness Extremity: COMMON NORMALS: no clubbing, cyanosis or edema and no calf tenderness OTHER: Muscle atrophy in the lower extremities bilaterally Neuro: COMMON NORMALS: patient oriented x3, CN's II-XII intact bilaterally, moves all extremities and no focal motor deficits SENSORIUM/ORIENTATION: Yes alert, Yes oriented to person and Yes oriented to place Psych: COMMON NORMALS: cooperative OTHER: Patient answers questions appropriately but remains lethargic and falls asleep during questions Skin: COMMON NORMALS: no rashes or lesions noted GENERAL SKIN EXAM: no rashes or lesions noted Data : 10/09/19 05:00 10/09/19 05:00 A&P Assessment and plan (1) Acute encephalopathy: Believed to be multifactorial due to new prescription of Klonopin and acute on chronic hypercapnic respiratory failure Continue close neurologic checks Telemetry CT scan of the head ordered for further evaluation and treatment Continue on BiPAP with treatment for pneumonia as below Caution with any sedating medications including home Klonopin. Status: Acute (2) Acute on chronic respiratory failure with hypercapnia: Respiratory therapy to assess and treat Oxygen per protocol Continue on BiPAP and wean to oxygen by nasal cannula as needed, patient is on 2 L of oxygen by nasal cannula at baseline After discussing with patient's son, Rich, it was reported that home health nurse recently increased his home oxygen requirements Continue to wean oxygen with a goal oxygen saturation of 90 to 92%. Patient has shown improvement with BiPAP, improved ABG, believe that due to his chronic respiratory failure he would benefit from a BiPAP at home. Patient's hypoxia and hypercapnia is not related to obstructive sleep apnea. He has had recurrent admissions in the past due to acute on chronic hypercapnic respiratory failure and feel that patient would strongly benefit from a home BiPAP Status: Acute (3) Neutropenia: Patient with underlying CLL Placed on reverse isolation Cover with broad-spectrum antibiotics including vancomycin and Zosyn Repeat CBC in the morning Add manual differential Status: Acute (4) Pneumonia: Left lower lobe pneumonia Due to neutropenia we will continue on broad-spectrum antibiotics Blood in sputum culture ordered and pending Status: Acute (5) Abdominal aortic aneurysm: Followed by cardiology, Dr. Hamilton Status: Acute Qualifiers: Presence of rupture: without rupture Qualified Code(s): I71.4 - Abdominal aortic aneurysm, without rupture (6) Cardiomyopathy: Diastolic CHF Appears to be euvolemic at this time Strict intake and output, daily weights Status: Acute Qualifiers: Cardiomyopathy type: dilated Qualified Code(s): I42.0 - Dilated cardiomyopathy (7) COPD (chronic obstructive pulmonary disease): Status: Acute Qualifiers: COPD type: unspecified COPD Qualified Code(s): J44.9 - Chronic obstructive pulmonary disease, unspecified (8) Chronic lymphocytic leukemia: Followed closely by Dr. Atkins Not currently on any treatment Status: Acute Additional A&P Information Diet: Cardiac diet DVT prophylaxis: Lovenox CODE STATUS: Do Not Resuscitate/DNI, this was discussed with patient on admission, also confirmed with patient's son, Rich Attestlester Medical Necessity Statement*: Patient requires hospitalization due to acute encephalopathy secondary to pneumonia and acute on chronic hypercapnic respirato ry failure. Expected stay greater than 2 midnights. 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
[2019-10-09 10:28] LABS: Procalcitonin 0.28 ng/mL (0-0.5); Thyroid Stimulating Hormone 0.84 uIU/mL (0.27-4.20)
--- NOTE | 2019-10-09 10:52 | CT_ITS ---
WS: [id number] EXAM: CT head wo con* [id number] DATE OF EXAMINATION: 10/09/2019, 1617 hours COMPARISON: Head CT from 03/04/2017 HISTORY: 74 years old with lethargy. Acute mental status changes. History of chronic lymphocytic leukemia. TECHNIQUE: Thin slice imaging obtained through the brain. Viewed in brain, subdural and bone window with reconst ructions. DLP: 865.[address] scans at [facility] use at least one of these dose optimization techniques: automat ed exposure control; mA and/or kV adjustment per patient size (includes targeted exams where dose is matched to clinical indication); or iterative reconstruction. FINDINGS: Again demonstrated are slight changes of atrophy. Rangel-white differentiation is normal. There are sli ght changes of decreased attenuation within the white matter felt to represent sequelae from chronic small vessel white matter microangiopathic change. No findings of hemorrhage, hydrocephalus, mass, ma ss effect or abnormal extra-axial fluid collection is seen. Slight cerebellar atrophy is seen. Arter ial calcified plaque changes noted. Extracalvarial soft tissues are unremarkable. The paranasal sinus es are well pneumatized as visualized. CT/CT head wo con* [id number] IMPRESSION: Atrophy and slight chronic white matter changes. No acute intracranial process.
[2019-10-09 10:59] LABS: Lactic Sepsis W/Reflex 0.9 mmol/L (0.5-2.2)
[2019-10-09] MEDS: enoxaparin 40 mg/0.4 mL Syringe SUBCUT (11:00)
[2019-10-09] MEDS: polyethylene glycol 3350 Pkt 17 gm PO (11:01)
--- NOTE | 2019-10-09 11:28 | PC.OT ---
Patient held per nursing
[2019-10-09] MEDS: nicotine 21 mg Patch 1 PATCH TRANSDERMA (11:52)
[2019-10-09] MEDS: vancomycin 750 MG in sodium chloride 0.9% 250 ML 250 MG IV (11:52)
[2019-10-09] MEDS: piperacillin-tazobactam 3.375 GM in sodium chloride 0.9% (plus) 50 ML IV ×2 (13:57→21:50)
[2019-10-09] MEDS: ipratropium-albuterol 3 mL Neb INHALATION ×2 (14:34→21:39)
[2019-10-09] MEDS: metoprolol tartrate 50 mg Tablet PO (17:58)
--- NOTE | 2019-10-09 19:58 | PC.NURSE ---
VS on wrong pt
[2019-10-09] MEDS: mirtazapine 15 mg Tablet 7.5 MG PO (20:58)
[2019-10-09] MEDS: lanolin oint 7 gm 1 APPLIC TOPICAL (20:58)
[2019-10-09] MEDS: gabapentin 100 mg Capsule PO (21:00)
[2019-10-09] MEDS: nystatin 100,000 unit/mL UDC 5 mL 500000 UNIT PO (23:37)
[2019-10-10] VITALS (9 sets, daily range): BP systolic 118–133; BP diastolic 53–55; PULSE 57–78; RESP 18; TEMP 35.7–36.6; O2SAT 92–99
[2019-10-10] MEDS: ipratropium-albuterol 3 mL Neb INHALATION ×2 (03:39→08:42)
[2019-10-10 04:22] LABS: Alanine Aminotransferase 15 U/L (0-41); Albumin Level 2.5 g/dL (3.5-5.2); Alkaline Phosphatase 80 IU/L (40-130); Anion Gap 10.1 (5-19); Aspartate Amino Transferase 95 U/L (0-40); Blood Urea Nitrogen 43 mg/dL (8-23); Calcium 8.9 mg/dL (8.5-10.5); Carbon Dioxide 30 mmol/L (22-29); Chloride 97 mmol/L (98-107); Globulin 3.4 g/dL (1.3-4.6); Glucose 151 mg/dL (65-115); Osmolality Calculated 275 mOsm/kg (285-295); Potassium 5.1 mmol/L (3.5-5.1); Sodium 132 mmol/L (136-145); Total Bilirubin 0.4 mg/dL (0.15-1.2); Total Protein 5.9 g/dL (6.6-8.7)
[2019-10-10 05:14] LABS: Basophils % 0.1 %; Hematocrit 26.3 % (42.0-52.0); Lymphocytes # 12.5 10^3/uL (0.8-4.8); Lymphocytes % 88.1 %; Mean Corpuscular HGB Conc 30.4 g/dL (30.0-36.0); Mean Corpuscular Hemoglobin 30.3 pg (28.0-34.0); Mean Corpuscular Volume 99.6 fL (80-94); Mean Platelet Volume 12.3 fL (7.4-10.4); Monocytes # 0.1 10^3/uL (0.2-0.9); Monocytes % 0.6 %; Neutrophils # 1.59 10^3/uL (1.8-7.7); Neutrophils % 11.1 %; Nucleated Red Blood Cells % 0 %; Platelet Count 121 10^3/cmm (130-400); Red Blood Count 2.64 10^6/uL (4.1-5.3); Red Cell Distribution Width 13.6 % (12.1-15.1); White Blood Count 14.2 10^3/uL (4.0-10.0)
[2019-10-10] MEDS: piperacillin-tazobactam 3.375 GM in sodium chloride 0.9% (plus) 50 ML IV (05:43)
[2019-10-10] MEDS: nystatin 100,000 unit/mL UDC 5 mL 500000 UNIT PO (05:45)
[2019-10-10 06:02] LABS: Slide Review Slide Review Perform
[2019-10-10] MEDS: gabapentin 100 mg Capsule PO (09:27)
[2019-10-10] MEDS: pantoprazole DR 40 mg Tablet PO (09:27)
[2019-10-10] MEDS: metoprolol tartrate 50 mg Tablet PO (09:27)
[2019-10-10] MEDS: tamsulosin 0.4 mg Capsule PO (09:27)
[2019-10-10] MEDS: cholecalciferol (vitamin D3) 1,000 unit Tablet 1000 UNIT PO (09:27)
[2019-10-10] MEDS: polyethylene glycol 3350 Pkt 17 gm PO (09:29)
[2019-10-10] MEDS: enoxaparin 40 mg/0.4 mL Syringe SUBCUT (09:33)
--- NOTE | 2019-10-10 11:12 | PC.OT ---
Orders received to evaluate and treat. Pt. informed therapist he is on hospice. Evaluation not appropriate at this time.
--- NOTE | 2019-10-10 11:53 | PM.DCS ---
Discharge Providers Date of Admission: 10/09/19 07:53 Date of Discharge: October 10, 2019 Attending Provider at Admission: Sruthi Godfrey DO Attending Provider at Discharge: Mandeep Church MD Primary Care Provider: Jada Garduno DO Diagnoses at Discharge Discharge Diagnosis (1) Acute encephalopathy: Status: Acute Problem details: Resolved. Secondary to Klonopin (2) Acute on chronic respiratory failure with hypercapnia: Status: Acute Problem details: Resolved (3) Neutropenia: Status: Acute (4) Pneumonia: Status: Acute Problem details: Will finish 7 days of Levaquin (5) Abdominal aortic aneurysm: Status: Acute Qualifiers: Presence of rupture: without rupture Qualified Code(s): I71.4 - Abdominal aortic aneurysm, without rupture (6) Cardiomyopathy: Status: Acute Problem details: Patient had a repeat echocardiogram in August 2019 in the hospital. He was found to have ejection fraction in the normal range. Qualifiers: Cardiomyopathy type: dilated Qualified Code(s): I42.0 - Dilated cardiomyopathy (7) COPD (chronic obstructive pulmonary disease): Status: Acute Qualifiers: COPD type: unspecified COPD Qualified Code(s): J44.9 - Chronic obstructive pulmonary disease, unspecified (8) Chronic lymphocytic leukemia: Status: Acute Reason for Visit Reason for Visit: ams Hospital Course Hospital Course: Heber is a 74-year-old white male who presented to the emergency department with decreased mental status, after initiating Klonopin as a new medication. Left lower lobe pneumonia was noted on x-ray. He required BiPAP secondary to acute on chronic respiratory failure. He was tested for COVID and negative, placed in the hospital on IV antibiotics secondary to immune suppression from his underlying CLL. The following day his mental status was back to baseline. He was off BiPAP and on 2 L of oxygen which was his baseline. He told me he was on hospice and had been for the last 2 to 3 weeks and would like to go home, to focus on comfort as was his intention when he initiated hospice. I discussed this with his son and discharge planning and this was arranged. He will finish up 7 days of Levaquin for his pneumonia. Physical Exam Narrative: EXAM NARRATIVE: General exam no apparent distress, alert and oriented Cardiovascular regular in rhythm Lungs with diminished breath sounds bilaterally but no wheezes or crackles Abdomen is soft, positive bowel sounds Extremities no cyanosis clubbing or edema Discharge Data Data Completed and Pending: Completed Studies During Hospitalization Category Date Time Status CT head wo con* 7 0450 Routine Cat Scan 10/09/19 10:52 Completed XR chest 1V brigette ble [id number] Stat Exams 10/09/19 05:14 Completed Pending at discharge Category Date Time Status Sputum Culture an d Gram Stain Stat Lab 10/09/19 21:00 Results Vancomycin Trough Timed Lab 10/11/19 10:00 Ordered Labs from last 24 hours 10/10/19 10/10/19 03:35 03:35 WBC 14.2 H RBC 2.64 L Hgb 8.0 L Hct 26.3 L MCV 99.6 H MCH 30.3 MCHC 30.4 RDW 13.6 Plt Count 121 L MPV 12.3 H Neut % (Auto) 11.1 Lymph % (Auto) 88.1 [place] % (Auto) 0.6 Eos % (Auto) 0.0 Baso % (Auto) 0.1 Neut # (Auto) 1.59 L Lymph # (Auto) 12.5 H [place] # (Auto) 0.1 L Eos # (Auto) 0.0 Baso # (Auto) 0.0 Nucleated RBC % (a uto) 0 Nucleated RBCs # 0.0 Sodium 132 L Potassium 5.1 Chloride 97 L Carbon Dioxide 30 H Anion Gap 10.1 BUN 43 H Creatinine 1.6 H GFR Calculation Not Reportable Glucose 151 H Calculated Osmolal ity 275 L Calcium 8.9 Total Bilirubin 0.4 AST 95 H ALT 15 Alkaline Phosphata se 80 Total Protein 5.9 L Albumin 2.5 L Globulin 3.4 Vitals: Last Vital Signs Temp 97.8 F 10/10/19 11:48 Pulse 67 10/10/19 11:48 Resp 18 10/10/19 11:48 BP 122/54 10/10/19 11:48 Pulse Ox 95 10/10/19 11:48 Discharge Plan Discharge Patient Disposition: Hospice - Home Condition: Stable Prescriptions: New levofloxacin [Levaquin] 750 mg tablet 750 mg PO DAILY 7 Days Qty: 7 RF: 0 Continued gemfibrozil [Lopid] 600 mg tablet 600 mg PO BID RF: 0 nitroglycerin 0.4 mg tablet, sublingual 0.4 mg SUBLINGUAL Q5M PRN (Reason: Chest Pain) RF: 0 nystatin 100,000 unit/mL suspension 5 ml PO Q6H Qty: 250 RF: 0 Trelegy Ellipta 100-62.5-25 mcg blister with device 1 inh INHALATION Q24H 30 Days Qty: 60 RF: 3 ketoconazole 1 % shampoo 1 applic TOPICAL Q3D Qty: 200 RF: 1 diclofenac sodium 1 % gel 2 gm TOPICAL QID Qty: 100 RF: 1 hydrocodone-acetaminophen 5-325 mg tablet 1 tab PO DAILY PRN (Reason: pain) 23 Days Qty: 23 RF: 0 budesonide-formoterol [Symbicort] 160-4.5 mcg/actuation HFA aerosol inhaler 2 puff INHALATION BID RF: 0 Spiriva Respimat 2.5 mcg/actuation mist 2 inh INHALATION QAM RF: 0 gabapentin [Neurontin] 100 mg capsule 100 mg PO TID Qty: 90 RF: 0 cholecalciferol (vitamin D3) 2,000 unit tablet 1,000 unit PO DAILY Qty: 90 RF: 1 tamsulosin 0.4 mg capsule 0.4 mg PO DAILY Qty: 90 RF: 0 meclizine 25 mg tablet 25 mg PO BID PRN (Reason: dizziness) Qty: 60 RF: 0 metoprolol tartrate 100 mg tablet 50 mg PO BID Qty: 180 RF: 0 albuterol sulfate 2.5 mg /3 mL (0.083 %) solution for nebulization 2.5 mg INHALATION QID PRN (Reason: shortness of breath or wheezing) Qty: 180 RF: 0 (DME) Inogen See Rx Instructions .Route .MEDSUPPLY Qty: 1 RF: 0 pantoprazole 40 mg tablet,delayed release (DR/EC) 40 mg PO DAILY RF: 0 mirtazapine 15 mg tablet 7.5 mg PO BEDTIME RF: 0 coal tar 2.5 % shampoo 1 applic TOPICAL DAILY RF: 0 Discontinued amlodipine 2.5 mg tablet 2.5 mg PO BID Qty: 180 RF: 0 clonazepam 0.5 mg Tablet 0.25 mg PO TID PRN (Reason: Anxiety) RF: 0 Discharge Orders: Discharge Order (Routine); Ordered 10/10/19 Ordered By: Mandeep Church Referrals: [facility] [Outside] Jada Garduno DO [Primary Care Provider] - 4-7 days Discharge Diet: Usual diet Discharge Activity: Increase activity as tolerated Activity Restrictions/Additional Instructions: Take all medicine as prescribed Resume hospice services on discharge Resume 2 L of oxygen per nasal cannula on discharge Discharge Attestations Time Spent in Discharge Care*: greater than 30 min Quality Metrics Clinical Quality Measures During this hospital stay, did patient experience: None Coding Level of Care Code 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
--- NOTE | 2019-10-10 13:50 | PC.PT ---
PT note; patient pleasantly declined attempted PT evaluation, stating he is on hospice care, and that they help him as needed, denies needs at this time, provided walker in room for patient use, patient agreeable with same; no further attempts at PT evaluation at this time, unless new orders are received.
--- NOTE | 2019-10-10 15:00 | PC.NURSE ---
Reviewed patient's discharge with patient and significant other at this time. Patient was dispensed 1 750mg Levaquin pill for home use tomorrow because his pharmacy will be closed until Saturday. Patient and significant other verbalized understanding of medications instructions and follow up appoints. Patient is A&Ox3. Respirations even and non-labored on 2 liters.
--- NOTE | 2019-10-12 16:39 | PC.RESP ---
SMOKING CESSATION AND PULMONARY REHAB INFORMATION SENT TO PATIENT.
== END 2019-10-10 15:00 | disposition hospice, home (50) | DRG 189 ==
LOC: ER 05:22 → MEDSURG 08:17
PROVIDERS: Family Medicine; Admitting Provider Family Medicine; PCP Family Medicine; Visit Provider Internal Medicine
DX: J96.22 Acute and chronic respiratory failure with hypercapnia (principal); J18.9 Pneumonia, unspecified organism; G93.40 Encephalopathy, unspecified; C91.10 Chronic lymphocytic leukemia of B-cell type not having achieved remission; J44.0 Chronic obstructive pulmonary disease with (acute) lower respiratory infection; I42.9 Cardiomyopathy, unspecified; I42.0 Dilated cardiomyopathy; I71.4 Abdominal aortic aneurysm, without rupture; E78.2 Mixed hyperlipidemia; I12.9 Hypertensive chronic kidney disease with stage 1 through stage 4 chronic kidney disease, or unspecified chronic kidney disease; N18.3 Chronic kidney disease, stage 3 (moderate); I73.9 Peripheral vascular disease, unspecified; D70.9 Neutropenia, unspecified; Z99.81 Dependence on supplemental oxygen; F41.8 Other specified anxiety disorders; K21.9 Gastro-esophageal reflux disease without esophagitis; F17.210 Nicotine dependence, cigarettes, uncomplicated; Z66 Do not resuscitate; Z79.891 Long term (current) use of opiate analgesic; Z79.51 Long term (current) use of inhaled steroids
CPT/HCPCS: 12345; 36415; 36600; 70450; 71045; 80051; 80053; 81003; 82803; 82810; 83605; 83880; 83986; 84145; 84443; 85007; 85025; 87070; 87205; 87426; 93005; 94640; 94660; 94664; 96372; 99284; J0713; J1650; J2543; J3370; J7050

== ENCOUNTER → 2019-11-06 11:38 | Outpatient (BNVA) | payer OTHER, SELFPAY | PROVIDERS: PCP Family Medicine; Referring Provider Family Medicine; Visit Provider Nurse Practitioner Family | DX: R31.9 Hematuria, unspecified (principal) | CPT/HCPCS: 80053; 81001; 88112 ==

== ENCOUNTER 2019-12-04 11:08 | Outpatient (CLI) | payer OTHER, SELFPAY ==
--- NOTE | 2019-12-04 11:30 | CT_ITS ---
WS: [id number] CT ABDOMEN AND PELVIS WITH AND WITHOUT CONTRAST HISTORY: MICROSCOPIC HEMATURIA TECHNIQUE: Unenhanced 5 mm axial imaging first performed through the abdomen. Post contrast imaging t hrough the abdomen and pelvis. Oral contrast has not been provided. Sagittal and coronal reformats a re submitted. All CT scans at [facility] use at least one of these dose optimization tech niques: automated exposure control; mA and/or kV adjustment per patient size (includes targeted exams where dose is matched to clinical indication); or iterative reconstruction. CONTRAST: Visipaque 320; 95 mL IV. DLP: 597.1 mGy.cm COMPARISON: 09/21/2018, 04/26/2014 Long-term stability lobulated solid nodule at the RIGHT lung base measures 12 mm. The dense consolida tion previously described at the LEFT lung base has probably not changed significantly. There is patric cent atelectasis with pleural thickening. Not significantly changed since 09/21/2018 but new since 2014. On a prior chest CT of 08/24/2019 that to be pneumonia or aspiration. May be an area of scarring and atelectasis. Marked pulmonary emphysema. Atherosclerosis within the visualized aorta. New RIGHT basilar nodular consolidation is similar to the consolidation in the LEFT lower lobe. Liver and spleen are unchanged. No enhancing masses. Contracted gallbladder bladder with stones. Atro phied pancreas. No adrenal mass. Moderate atherosclerosis aorta with near complete calcification and additional intraluminal thrombus. Maximum transverse diameter is 3.2 cm. Extensive calcifications con tinue into the iliac arteries. RIGHT kidney: Mild atrophy with perinephric stranding. 1.5 cm. Cortical cyst. Additional cyst in the lower pole. No solid mass is identified. Mild atrophy and cortical thinning of the LEFT kidney. No so lid mass. Small extrarenal pelvis. Diffuse constipation with tortuous colon. Marked dilatation of the rectum with fecal material. Normal appendix. Small shoddy retroperitoneal and inguinal lymph nodes. Probably similar to the prior studies. No inte rval change. Prostate gland is not significantly enlarged. There is mild indentation into the posterior bladder. N o bladder wall thickening is appreciated. Small RIGHT hydrocele. Bones are osteopenic. Severe degenerative disc disease and spondylitic changes at L4-5 and L5-S1. No bone lesions identified. CT/CT abdomen pelvis wo/w [id number] IMPRESSION: 1. Mild atrophy and perinephric stranding and cortical thinning of each kidney . 2. No renal stones or calcifications identified. No solid mass. 3. Minimal enlargement of the prostate gland encroaching into the posterior bl adder. 4. Marked fecal retention and impaction. 5. Small abdominal aortic aneurysm at 3.2 cm. 6. Contracted gallbladder with cholelithiasis. 7. New RIGHT lower lobe consolidation. Probably pneumonia or atelectasis. Kaylee lar to the consolidation in the LEFT lower lobe which has been stable since at least 09/21/2018. 8. Chronic emphysema. 9. Retroperitoneal and inguinal lymph nodes are indeterminate and similar to .
[2019-12-04] MEDS: iodixanol 320 mg/mL 100mL Btl IV (12:07)
[2019-12-04 12:11] LABS: Blood Urea Nitrogen 21 mg/dL (8-23)
== END 2019-12-04 11:09 | disposition home or self-care (01) ==
PROVIDERS: PCP Family Medicine; Visit Provider Nurse Practitioner Family
DX: R31.29 Other microscopic hematuria (principal); N26.1 Atrophy of kidney (terminal); N40.0 Benign prostatic hyperplasia without lower urinary tract symptoms; K59.00 Constipation, unspecified; I71.4 Abdominal aortic aneurysm, without rupture; K80.20 Calculus of gallbladder without cholecystitis without obstruction; J43.9 Emphysema, unspecified
CPT/HCPCS: 36415; 74178; 81001; 82565; 84520

== ENCOUNTER 2019-12-08 06:08 | Outpatient (CLI) | payer OTHER, SELFPAY ==
[2019-12-08 11:21] LABS: Hematocrit 36.4 % (42.0-52.0); Hemoglobin 11.4 g/dL (11.7-16.6); Mean Corpuscular HGB Conc 31.3 g/dL (30.0-36.0); Mean Corpuscular Hemoglobin 29.3 pg (28.0-34.0); Mean Corpuscular Volume 93.6 fL (80-94); Mean Platelet Volume 10.4 fL (7.4-10.4); Platelet Count 127 10^3/cmm (130-400); Red Blood Count 3.89 10^6/uL (4.1-5.3); Red Cell Distribution Width 14.4 % (12.1-15.1); White Blood Count 28.5 10^3/uL (4.0-10.0)
[2019-12-08 11:47] LABS: Alanine Aminotransferase 10 U/L (0-41); Albumin Level 3.7 g/dL (3.5-5.2); Alkaline Phosphatase 115 IU/L (40-130); Anion Gap 11.7 (5-19); Aspartate Amino Transferase 78 U/L (0-40); Blood Urea Nitrogen 20 mg/dL (8-23); Carbon Dioxide 27 mmol/L (22-29); Chloride 99 mmol/L (98-107); Globulin 3.1 g/dL (1.3-4.6); Glucose 109 mg/dL (65-115); Lactate Dehydrogenase 159 U/L (135-225); Osmolality Calculated 279 mOsm/kg (285-295); Potassium 4.7 mmol/L (3.5-5.1); Sodium 133 mmol/L (136-145); Total Bilirubin 0.5 mg/dL (0.15-1.2); Total Protein 6.8 g/dL (6.6-8.7)
[2019-12-08 11:50] LABS: Slide Review Slide Review Perform
[2019-12-08 11:51] LABS: Absolute Segmented Neutrophil 1.4 10/cmm (1.6-7.1); Band Neutrophils Absolute 0.9 10^3/cmm (0.0-1.2); Lymphocytes 88 %; Monocytes Absolute 0.3 10^3/cmm (0.1-0.6); Segmented Neutrophils 5 %; Total Cells Counted 100 (0-100)
[2019-12-08 11:52] LABS: Absolute Neutrophil 2.3 10^3/cmm (1.4-6.5); Blastocytes 3 % (0-0); Platelet Estimate Decreased (Normal)
[2019-12-08 11:54] LABS: Eosinophils 0 %
== END 2019-12-08 06:09 | disposition home or self-care (01) ==
LOC: ONCMED 06:12
PROVIDERS: PCP Family Medicine; Visit Provider Internal Medicine Medical Oncology
DX: C91.10 Chronic lymphocytic leukemia of B-cell type not having achieved remission (principal)
CPT/HCPCS: 36415; 80053; 83615; 85007; 85025

== ENCOUNTER 2019-12-10 06:10 | Outpatient (CLI) | payer OTHER, SELFPAY ==
--- NOTE | 2019-12-13 21:23 | ONC FU_ITS ---
Dr. Atkins Patient Follow-Up Note Patient: Heber Mejia Unit #: [id number]: 1945 Dicatated By: Leonard Atkins M.D.Date of Visit:Dec 10, 2019 Onc Med Follow-up/Prog Note Chief Complaint: Chronic lymphocytic leukemia/pulmonary nodules. History of Present Illness: This is a 74 year-old man with chronic lymphocytic leukemia, Norman stage I with deletion 11 on cytogenetics, initially diagnosed in April 2011. He also is being followed for noncalcified pulmonary nodules. He has presented with leukocytosis. CLL was confirmed by flow cytometry on 05/07/2011. He was found to have deletion of chromosome 11 on cytogenetics. His Norman stage was I at presentation, as in June of 2011 CT revealed diffuse adenopathy and noncalcified pulmonary densities. The patient was placed on observation. Prior to his initial visit here he had last seen by imitation marble mechanic in December 2013. His WBC measured 38.4, absolute lymphocyte count not available, LDH 138. His recent followup imaging with CT of the chest from 02/15/2014 showed unchanged few pulmonary nodules with the largest in the right lower lobe up to 1.2 cm. There was minimally increasing thoracic adenopathy but otherwise stable disease. 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 The patient was followed for that at [facility] in [place] by Dr. Parker. The patient developed significant ulceration in both legs from vasculopathy, requiring wound care at [place], [place]. He was known to have significant peripheral vascular disease and mesenteric artery disease with diffuse atherosclerosis. A followup CT of the chest done by his director of sales at [facility] in [place]. It reportedly showed enlarged thoracic adenopathy. PET/CT was eventually performed on 03/03/2015. It revealed an FDG positive mass in the right lower lobe increased to 2.7 cm. There was a 10th rib lesion adjacent to the mass, and lymphadenopathy in mediastinum. There was also lymph nodes in the pectoral region and neck suspicious for metastatic disease. A biopsy of the lung lesion was requested via percutaneous approach, after discussion with radiologist. Unfortunately the patient did not show up to any of his scheduled procedures as he was concerned that [facility] was not going to pay them. He did return for followup with Dr. Epperson on 07/20/2015. White blood cell count at that point was 29,000 with 82% lymphocytes. The hemoglobin was normal at 14 g and the platelet count was normal at 383,000. She did plan to repeat PET/CT for possible biopsy. PET/CT was obtained on 08/13/2015. It showed evidence of right hilar and right paratracheal adenopathy with nodes measuring up to 1.5 cm with low-grade FDG uptake, SUV 2.2 and 2.3 respectively. There were scattered 2-5 mm noncalcified pulmonary nodules with a 1.5 cm cluster of nodules in the base of the right lung with SUV 3.3. The pattern of FDG uptake was felt to be most consistent with a benign infectious or inflammatory process. A 3 cm infrarenal abdominal aortic aneurysm was also noted. I had seen him initially on 12/01/2015. At that point he appeared stable clinically. There appeared to be no indication for treatment of his chronic leukocytic leukemia, and had recommended continued observation/expectant management. He failed to return for follow-up. 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 He also has COPD, GERD, and posttraumatic stress disorder with depression. He has smoked for 50 years and continues to smoke one pack of cigarettes daily. INTERIM HISTORY: On 08/22/2018 he was seen in the emergency room with right shoulder pain. He had suspected pneumonia based on chest x-ray findings, and he was treated with Levaquin. Blood cultures came back positive for Streptococcus pneumoniae. On 09/09/2018 he was admitted to the hospital after presenting to the emergency room with increasing weakness. His CT scan showed left lower lobe consolidation felt to be likely pneumonia. Due to his shoulder pain and positive blood cultures, there was also concern about the possibility of septic arthritis. He underwent arthroscopic surgery on the right shoulder on 09/11/2018. There was no necrotic or pearly material identified. Cultures just grew scant Micrococcus and related species. He did receive 3 weeks of IV antibiotic therapy, initially with vancomycin and subsequently with Rocephin. On 10/01/2018 he was readmitted the hospital with increased pain and swelling in the right shoulder. His CT scans that time was suggestive of hemarthrosis, and he was then taken off anticoagulation. I had seen him for a follow-up visit on 12/29/2018. At that point he appeared to be showing gradual recovery, though he still had somewhat marginal performance status. There appeared to be no progression of the CLL. On 08/24/2019 he was admitted to the hospital with acute respiratory failure in association with COPD exacerbation and left lower lobe pneumonia. His chest CT showed greater than one-year stability of small bilateral pulmonary nodules. Also noted was mediastinal, hilar, axillary, and cervical lymphadenopathy which appeared to be most likely infectious or inflammatory, though neoplastic process was not excluded. I had seen him for a follow-up visit on 09/09/2019. At that point he was still recovering from the pneumonia. There appeared to be no indication, though, for treatment of the chronic lymphocytic leukemia. He is seen for a follow-up visit. He has been feeling better generally. He has started some new medications for his COPD, including a low-dose of prednisone, and he has had improvement in his energy and activity tolerance. His ECOG score is 1. His appetite also has improved. He has no fever or night sweats. He still has shortness of breath with activity, but his breathing is better. He has cough productive of cream-colored sputum. He does not complain of chest pain. He has no GI complaints. He has some chronic bladder issues. He sees Dr. Snyder for that. He says he has a lot of arthritis, but with just occasional flareups. He has only rare headaches. He has no focal neurologic symptoms. Medications: Albuterol Sulfate 1 (2.5 mg/0.5mL) Nebulization solution Inhalation PRN, AmLODIPine Besylate 1 Tablet (of 2.5 mg) Oral b.i.d., Aspirin 1 Tablet (of 81 mg) Tablet, enteric coated Oral daily, Atorvastatin Calcium 1 Tablet (of 20 mg) Oral daily, Cholecalciferol 1 Tablet (of 25 mcg ) Oral daily, Diclofenac Sodium 1 (1 %) Gel (jelly) Transdermal daily, Gemfibrozil 1 Tablet (of 600 mg) Oral b.i.d., HYDROcodone-Acetaminophen 1 Tablet (of 5-325 mg) Oral daily PRN, Meclizine HCl 1 Tablet (of 25 mg) Oral b.i.d. PRN, Metoprolol Tartrate 0.5 Tablet (of 100 mg) Oral b.i.d., Mirtazapine 0.5 Tablet (of 15 mg) Oral at bedtime, predniSONE 1 Tablet (of 5 mg) Oral daily, Protonix 1 Tablet (of 40 mg) Tablet, enteric coated Oral daily, Tamsulosin HCl 1 Capsule (of 0.4 mg) Oral daily Allergies: No Known Allergies. Review of Systems: Constitutional - He is doing very well and feeling great. His energy is good. He is able to do light work around the house. His appetite is good and his weight is up 11 pounds from last visit. No fever, night sweats, or hot flashes. ECOG score is 1, ENMT - No sinus congestion/drainage. No mouth sores. No sore throat or difficulty swallowing, Hematologic/Lymphatic - He bruises easily, Respiratory - He gets short of breath with exertion, but overall his breathing has improved. He has a cough that produces thick beige colored phlegm. No pleuritic pain or hemoptysis, Cardiovascular - No angina pain. No palpitations, Gastrointestinal - No nausea or vomiting. No heartburn or acid reflux. No diarrhea or constipation. No blood in the stool or black stools, Genitourinary (M) - No dysuria or hematuria. No urinary frequency. No urgency or incontinence, Musculoskeletal - He has arthritic pain, Integumentary - No skin complications, Neurologic - No headache. His dizziness is adequately managed with meclizine. No numbness or tingling. No other focal neurologic symptoms, Psychiatric - No anxiety or depression. No insomnia. Vital Signs: Performed on Dec 10, 2019 13:42 Height - 69.00 in Weight - 129.0 lbs (HIGH) BSA - 1.71 sq.m BMI - 19.05 Temperature - 98.8 F Pulse - 71 /min Respiration - 20 /min BP - 160/79 mm(hg) (HIGH) O2 Sat - 94 % (LOW) Pain - 0 Physical Examination: Constitutional - He looks pretty good generally, Eyes - Sclerae nonicteric. Conjunctivae clear, ENMT - No lesions noted in the oral cavity, Hematologic/Lymphatic - No cervical, clavicular, or axillary adenopathy, Respiratory - Lungs sound clear with diminished air movement bilaterally, Cardiovascular - Heart rhythm is regular. There is a II/ systolic murmur. There is no gallop or rub noted, Abdomen - Soft. Liver and spleen are not enlarged. There is no abdominal mass or ascites noted and there is no inguinal adenopathy, Extremities - No edema. He has extensive purpura, Neurologic - No focal neurologic deficits noted. Lab/Imaging: Test performed on Dec 08, 2019 10:55 LDH (Total) 159 U/L Sodium 133 mmol/L Potassium 4.7 mmol/L Chloride 99 mmol/L CO2 27 mmol/L Anion Gap 11.7 BUN 20 mg/dL Creatinine 1.4 mg/dL Cr Clearance (Est) 35.6400 mL/min Glucose 109 mg/dL Osmolality - Calculated 279 mOsm/kg Calcium 9.0 mg/dL Protein, Total 6.8 g/dL Albumin 3.7 g/dL Globulin 3.1 g/dL Bilirubin, Total 0.5 mg/dL ALT (SGPT) 10 U/L AST (SGOT) 78 U/L Alkaline Phosphatase 115 IU/L WBC 28.5 10 3/uL Manual Segs % 5 % Manual Bands % 3.0 % RBC 3.89 10 6/uL HGB 11.4 g/dL Manual Lymphs % 88 % HCT 36.4 % MCV 93.6 fL Total Cells Counted 100 Manual Monos % 1.0 % MCH 29.3 pg Manual Eos % 0 % MCHC 31.3 g/dL Manual Basos % 0.0 % RDW 14.4 % Platelet Count 127 10 3/cmm MPV 10.4 fL Blasts % 3 % CBC Slide Review Slide Review Perform Platelet Estimate Decreased Manual Segs Abs 1.4 10/cmm Manual Bands Abs 0.9 10 3/cmm Manual Neutrophils Abs 2.3 10 3/cmm Manual Monocytes Abs 0.3 10 3/cmm Manual Eosinophils Abs 0.0 10 3/cmm Manual Basophils Abs 0.0 10 3/cmm Impression: 1. Chronic lymphocytic leukemia, Norman stage I with chromosome 11 deletion on cytogenetics. It was initially diagnosed in April 2011 and thus far has been managed with observation. 2. He has been followed for noncalcified pulmonary nodules, the largest in the right lower lobe measuring 2.7 cm. These showed low-grade FDG uptake by PET CT, felt to be most consistent with benign infectious or inflammatory process. His other medical illnesses include: 3. Hypertension. 4. Hyperlipidemia. 5. Extensive atherosclerotic cardiovascular disease with associated mesentery artery stenosis and infrarenal abdominal aortic aneurysm. 6. COPD. 7. GERD. 8. PTSD with depression. 9. He has nicotine dependence (cigarettes). In August 2018 he was treated for streptococcal pneumonia. There was also concern about the possibility of septic arthritis in the right shoulder joint. He did receive 3 weeks of IV antibiotic therapy. His clinical course was further complicated by suspected right shoulder hemarthrosis in September, at which point he was taken off anticoagulation. During that time he became significantly anemic. During follow-up he has been showing gradual recovery, though he was still borderline anemic and he still had significantly elevated sedimentation rate. His serum iron studies were suggestive of iron deficiency. The cause/significance of the elevated sed rate was still uncertain, but there was no evidence for symptomatic progression of the CLL. In August 2019 he was hospitalized again with pneumonia and acute respiratory failure. He does appear to be showing gradual recovery. He continues to have very marginal performance status. His chest CT did report mediastinal, hilar, and axillary lymphadenopathy. It was thought to be reactive, though I had suspected that it is more likely related to the underlying chronic lymphocytic leukemia. However, there is still no clear indication for treatment, and he continued on observation/expectant management. He has since then shown some improvement in his energy/activity tolerance, mainly due to adjustments in the treatment for his COPD. Overall, he appears to be doing well clinically. There has been no significant progression or any indication for treatment of the chronic lymphocytic leukemia. Plan: He remains on observation/expectant management for the chronic lymphocytic leukemia. I will see him again in 3 months. Signed By: Leonard Atkins M.D. <<Signature on File>>
== END 2019-12-10 06:11 | disposition home or self-care (01) ==
PROVIDERS: PCP Family Medicine; Visit Provider Internal Medicine Medical Oncology
DX: C91.10 Chronic lymphocytic leukemia of B-cell type not having achieved remission (principal); I10 Essential (primary) hypertension; E78.5 Hyperlipidemia, unspecified; I25.10 Atherosclerotic heart disease of native coronary artery without angina pectoris; I71.4 Abdominal aortic aneurysm, without rupture; J44.9 Chronic obstructive pulmonary disease, unspecified; K21.9 Gastro-esophageal reflux disease without esophagitis; F43.10 Post-traumatic stress disorder, unspecified; F32.9 Major depressive disorder, single episode, unspecified; F17.210 Nicotine dependence, cigarettes, uncomplicated; Z87.01 Personal history of pneumonia (recurrent)
CPT/HCPCS: G0463

== ENCOUNTER 2020-01-18 02:48 | Inpatient (IN) | payer OTHER, MEDICARE, SELFPAY ==
[2020-01-18] VITALS (34 sets, daily range): BP systolic 102–199; BP diastolic 45–82; PULSE 64–142; RESP 18–42; TEMP 36.5–36.9; O2SAT 81–100; BMI 19.3
--- NOTE | 2020-01-18 03:01 | XRR_ITS ---
PROCEDURE INFORMATION: Exam: XR Chest, 1 View Exam date and time: 01/18/2020 3:14 AM Age: 74 years old Clinical indication: Shortness of breath; Additional info: SOB TECHNIQUE: Imaging protocol: XR of the chest Views: 1 view. COMPARISON: CR XR chest 1V portable [id number] 10/09/2019 5:15 AM FINDINGS: Lungs: Emphysema. Patchy airspace consolidation within the left mid lung and left lower lobe. Mildly improved within the left lung base. Pleural space: Unremarkable. No pleural effusion. No pneumothorax. Heart/Mediastinum: Unremarkable. No cardiomegaly. Bones/joints: Unremarkable. XR/XR chest 1V portable [id number] IMPRESSION: Emphysema. Patchy airspace consolidation within the left mid lung and left lower lobe. Mildly improved within the left lung base.
--- NOTE | 2020-01-18 03:03 | ECG_ITS ---
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: : [id number] Requested By: Rea Ortega Order Number: [id number] Garrick MD: LISA FLORES Measurements Intervals [place] Rate: 170 P: AK: QRS: 97 QRSD: 98 T: 61 QT: 241 QTc: 406 Interpretive Statements ATRIAL FIBRILLATION WITH RAPID VENTRICULAR RESPONSE BORDERLINE RIGHT AXIS DEVIATION [QRS AXIS > 90] VOLTAGE CRITERIA FOR LVH [MEETS CRITERIA IN ONE OF: R(aVL), S(V1), R(V5), R(V5/V6)+S(V1)] MODERATE ST DEPRESSION [0.05+ mV ST DEPRESSION] Compared to ECG 10/09/2019 05:05:50 Left ventricular hypertrophy now present ST (T wave) deviation now present Sinus tachycardia no longer present Electronically Signed On 01-18-2020 17:31:22 INTELLIGENCE DIRECTOR by LISA FLORES [email or web address]
[2020-01-18 03:12] LABS: Basophils # 0.1 10^3/uL (0.0-0.1); Basophils % 0.2 %; Hematocrit 36.8 % (42.0-52.0); Hemoglobin 11.2 g/dL (11.7-16.6); Lymphocytes # 36.2 10^3/uL (0.8-4.8); Lymphocytes % 94.2 %; Mean Corpuscular HGB Conc 30.4 g/dL (30.0-36.0); Mean Corpuscular Hemoglobin 28.5 pg (28.0-34.0); Mean Corpuscular Volume 93.6 fL (80-94); Mean Platelet Volume 11.3 fL (7.4-10.4); Monocytes # 0.1 10^3/uL (0.2-0.9); Monocytes % 0.3 %; Neutrophils # 1.96 10^3/uL (1.8-7.7); Neutrophils % 5.1 %; Nucleated Red Blood Cells % 0 %; Platelet Count 171 10^3/cmm (130-400); Red Blood Count 3.93 10^6/uL (4.1-5.3); Red Cell Distribution Width 15.4 % (12.1-15.1)
[2020-01-18] MEDS: sodium chloride 0.9% 500 ML 999 ML IV (03:14)
--- NOTE | 2020-01-18 03:22 | W.ED.SOB ---
HPI - SOB/Dyspnea General: Chief Complaint: Shortness of Breath/Dyspnea Stated Complaint: trouble breathing/low o2 Time Seen by Provider: 01/18/20 03:17 Source: patient Mode of arrival: ambulatory Limitations: no limitations History of Present Illness: HPI Narrative: 74-year-old male has a long history of COPD and is a longtime smoker continues to smoke. Patient is on 3 L of oxygen at home. He states that over the last day to 2 days he has had increasing shortness of breath and is requiring 6 L of oxygen here. He states he has had a cough as well and generalized weakness. He has no known sick contacts. He denies any chest pain denies any worsening or improving factors. MD elicited complaint: shortness of breath Associated symptoms: Deny abdominal pain, chest pain, fever(s), nausea or vomiting Review of Systems Const: Denies: fever(s), chills, body aches or change in appetite Eyes: Denies: blurry vision or eye discomfort ENMT: Denies: throat pain or dental pain Card: Denies: chest pain Resp: Reports: dyspnea and non-productive cough GI: Denies: abdominal pain, nausea, vomiting or diarrhea : Denies: dysuria Musc: Denies: neck pain or back pain Skin/Breast: Denies: rash Neuro: Denies: headache(s) Psych: Denies: depression Miguel/Lymph: Denies: easy bruising All/Imm: Denies: urticaria PFSH ED PFSH: Medical History (Updated 01/18/20 @ 04:44 by Rea Ortega MD) Abdominal aortic aneurysm Anxiety and depression Atherosclerosis of iliamna artery of both lower extremities BPH loc w urin obs/LUTS Cardiomyopathy Patient had a repeat echocardiogram in August 2019 in the hospital. He was found to have ejection fraction in the normal range. Cardiomyopathy, idiopathic Chronic GERD Chronic kidney disease, stage 3 Chronic lymphatic leukemia COPD, severe Insomnia Lung nodules Microscopic hematuria Negative evaluation including cystoscopy, CT scan, physical exam, cytology and culture. Mixed hyperlipidemia Primary hypertension Surgical History H/O wrist surgery Family History Mother Cancer Social History Smoking and tobacco status: current every day smoker cigarettes Packs smoked per day: 1 Years cigarettes smoked: 50 Alcohol intake: never Lives independently: Yes Household members: none Marital status: / Current occupational status: retired and disabled History of recent travel: No Current gender identity: Male Physical Exam Const: COMMON NORMALS: no acute distress, patient oriented x3 and healthy appearing HENMT: COMMON NORMALS: normocephalic and atraumatic HEAD & SCALP: normocephalic and atraumatic Eye: COMMON NORMALS: Equal, round and reactive pupils present and EOMs intact bilaterally PUPIL: Yes Equal, round and reactive pupils present Neck/C-Spine: COMMON NORMALS: full ROM and supple Chest: COMMONS NORMALS: normal inspection of the chest and normal palpation of entire chest wall Resp: COMMON NORMALS: No retractions and No use of accessory muscles EFFORT & INSPECTION: Yes tachypneic AUSCULTATION: rales on the left and wheezes Cardio: COMMON NORMALS: No murmurs present (Cardio) RATE: tachycardic RHYTHM: abnormal rhythm irregularly irregular GI: COMMON NORMALS: Normal to inspection, nondistended, normoactive bowel sounds present, Soft to palpation, non-tender and no masses PALPATION: Yes Soft to palpation Extremity: COMMON NORMALS: normal to inspection and full ROM Neuro: COMMON NORMALS: patient oriented x3, moves all extremities and no focal motor deficits Psych: COMMON NORMALS: mental status grossly normal, Normal thought process present and cooperative THOUGHT PROCESS: Normal thought process present Skin: COMMON NORMALS: no rashes or lesions noted and no wounds GENERAL SKIN EXAM: no rashes or lesions noted Course Vital Signs: Vital signs: Vital Signs Temperature 98.5 F 01/18/20 02:51 Pulse Rate 95 01/18/20 04:41 Respiratory Rate 28 H 01/18/20 04:41 Blood Pressure 150/68 01/18/20 04:41 Pulse Oximetry 95 01/18/20 04:41 MDM - SOB/Dyspnea MDM Narrative: Medical decision making narrative: Heber presents here with respiratory distress from Covid 19 pneumonia. Patient also has A. fib with RVR heart rate is improved with Cardizem. Patient started on remdesivir along with Solu-Medrol. Spoke to hospitalist and will admit to the viral ICU. Lab Data: Labs: Lab Results 01/18/20 01/18/20 01/18/20 Range/Units 03:00 03:00 03:00 WBC 38.4 H* (4.0-10.0) 10^3/ uL RBC 3.93 L (4.1-5.3) 10^6/u L Hgb 11.2 L (11.7-16.6) g/dL Hct 36.8 L (42.0-52.0) % MCV 93.6 (80-94) fL MCH 28.5 (28.0-34.0) pg MCHC 30.4 (30.0-36.0) g/dL RDW 15.4 H (12.1-15.1) % Plt Count 171 (130-400) 10^3/c mm MPV 11.3 H (7.4-10.4) fL Neut % (Auto) 5.1 % Lymph % (Auto) 94.2 % Pinal % (Auto) 0.3 % Eos % (Auto) 0.0 % Baso % (Auto) 0.2 % Neut # (Auto) 1.96 (1.8-7.7) 10^3/u L Lymph # (Auto) 36.2 H (0.8-4.8) 10^3/u L Pinal # (Auto) 0.1 L (0.2-0.9) 10^3/u L Eos # (Auto) 0.0 (0.0-0.8) 10^3/u L Baso # (Auto) 0.1 (0.0-0.1) 10^3/u L Nucleated RBC % (a uto) 0 % Nucleated RBCs # 0.0 /100WBC D-Dimer (0-0.59) ug/mIFE U Specimen Type Sample Site ABG pH (7.35-7.45) ABG pCO2 (35-45) mmHg ABG pO2 (80.0-100.0) mmH g ABG HCO3 (22-26) mmol/L ABG Base Excess (-2.0-2.0) mmol/ L Jerry Test Hematocrit (42-52) % Hgb O2 Saturation (95-100) % Carboxyhemoglobin (0.4-20.1) %THgb Methemoglobin (0.4-1.5) % Total Hemoglobin (14-18) g/dL O2 Delivery Device O2 Liters/Min % Vineyard Supervisor ID Sodium 127 L (136-145) mmol/L Potassium 4.6 (3.5-5.1) mmol/L Chloride 91 L (98-107) mmol/L Carbon Dioxide 23 (22-29) mmol/L Anion Gap 17.6 (5-19) BUN 39 H (8-23) mg/dL Creatinine 1.7 H (0.7-1.2) mg/dL GFR Calculation Not Reportable Glucose 94 (65-115) mg/dL Calculated Osmolal ity 273 L (285-295) mOsm/k g Lactic Acid 1.7 (0.5-2.2) mmol/L Calcium 8.8 (8.5-10.5) mg/dL Total Bilirubin 1.8 H (0.15-1.2) mg/dL AST 95 H (0-40) U/L ALT 17 (0-41) U/L Alkaline Phosphata se 111 (40-130) IU/L Troponin T Gen 5 n g/L Troponin T Baselin e (0-15) ng/L NT-Pro-B Natriuret Pep 4303 H (0-125) pg/mL Total Protein 6.7 (6.6-8.7) g/dL Albumin 3.3 L (3.5-5.2) g/dL Globulin 3.4 (1.3-4.6) g/dL Influenza Type A A g (Negative) Influenza Type B A g (Negative) SARS-CoV-2 Ag (Rap id) (Negative) 01/18/20 01/18/20 01/18/20 Range/Units 03:00 03:00 03:00 WBC (4.0-10.0) 10^3/ uL RBC (4.1-5.3) 10^6/u L Hgb (11.7-16.6) g/dL Hct (42.0-52.0) % MCV (80-94) fL MCH (28.0-34.0) pg MCHC (30.0-36.0) g/dL RDW (12.1-15.1) % Plt Count (130-400) 10^3/c mm MPV (7.4-10.4) fL Neut % (Auto) % Lymph % (Auto) % Pinal % (Auto) % Eos % (Auto) % Baso % (Auto) % Neut # (Auto) (1.8-7.7) 10^3/u L Lymph # (Auto) (0.8-4.8) 10^3/u L Pinal # (Auto) (0.2-0.9) 10^3/u L Eos # (Auto) (0.0-0.8) 10^3/u L Baso # (Auto) (0.0-0.1) 10^3/u L Nucleated RBC % (a uto) % Nucleated RBCs # /100WBC D-Dimer 5.42 H (0-0.59) ug/mIFE U Specimen Type Sample Site ABG pH (7.35-7.45) ABG pCO2 (35-45) mmHg ABG pO2 (80.0-100.0) mmH g ABG HCO3 (22-26) mmol/L ABG Base Excess (-2.0-2.0) mmol/ L Jerry Test Hematocrit (42-52) % Hgb O2 Saturation (95-100) % Carboxyhemoglobin (0.4-20.1) %THgb Methemoglobin (0.4-1.5) % Total Hemoglobin (14-18) g/dL O2 Delivery Device O2 Liters/Min % Vineyard Supervisor ID Sodium (136-145) mmol/L Potassium (3.5-5.1) mmol/L Chloride (98-107) mmol/L Carbon Dioxide (22-29) mmol/L Anion Gap (5-19) BUN (8-23) mg/dL Creatinine (0.7-1.2) mg/dL GFR Calculation Glucose (65-115) mg/dL Calculated Osmolal ity (285-295) mOsm/k g Lactic Acid (0.5-2.2) mmol/L Calcium (8.5-10.5) mg/dL Total Bilirubin (0.15-1.2) mg/dL AST (0-40) U/L ALT (0-41) U/L Alkaline Phosphata se (40-130) IU/L Troponin T Gen 5 n g/L Cancelled Troponin T Baselin e 95 H (0-15) ng/L NT-Pro-B Natriuret Pep (0-125) pg/mL Total Protein (6.6-8.7) g/dL Albumin (3.5-5.2) g/dL Globulin (1.3-4.6) g/dL Influenza Type A A g (Negative) Influenza Type B A g (Negative) SARS-CoV-2 Ag (Rap id) (Negative) 01/18/20 01/18/20 01/18/20 Range/Units 03:11 03:11 03:20 WBC (4.0-10.0) 10^3/ uL RBC (4.1-5.3) 10^6/u L Hgb (11.7-16.6) g/dL Hct (42.0-52.0) % MCV (80-94) fL MCH (28.0-34.0) pg MCHC (30.0-36.0) g/dL RDW (12.1-15.1) % Plt Count (130-400) 10^3/c mm MPV (7.4-10.4) fL Neut % (Auto) % Lymph % (Auto) % Pinal % (Auto) % Eos % (Auto) % Baso % (Auto) % Neut # (Auto) (1.8-7.7) 10^3/u L Lymph # (Auto) (0.8-4.8) 10^3/u L Pinal # (Auto) (0.2-0.9) 10^3/u L Eos # (Auto) (0.0-0.8) 10^3/u L Baso # (Auto) (0.0-0.1) 10^3/u L Nucleated RBC % (a uto) % Nucleated RBCs # /100WBC D-Dimer (0-0.59) ug/mIFE U Specimen Type Arterial Sample Site Radial, left ABG pH 7.38 (7.35-7.45) ABG pCO2 36.9 (35-45) mmHg ABG pO2 62.1 L (80.0-100.0) mmH g ABG HCO3 21.6 L (22-26) mmol/L ABG Base Excess -3.2 L (-2.0-2.0) mmol/ L Jerry Test Pos Hematocrit 31.9 L (42-52) % Hgb O2 Saturation 88.9 L (95-100) % Carboxyhemoglobin 2.1 (0.4-20.1) %THgb Methemoglobin 0.6 (0.4-1.5) % Total Hemoglobin 10.4 L (14-18) g/dL O2 Delivery Device Nc O2 Liters/Min 6.0 % Vineyard Supervisor ID [email or web address] Sodium (136-145) mmol/L Potassium (3.5-5.1) mmol/L Chloride (98-107) mmol/L Carbon Dioxide (22-29) mmol/L Anion Gap (5-19) BUN (8-23) mg/dL Creatinine (0.7-1.2) mg/dL GFR Calculation Glucose (65-115) mg/dL Calculated Osmolal ity (285-295) mOsm/k g Lactic Acid (0.5-2.2) mmol/L Calcium (8.5-10.5) mg/dL Total Bilirubin (0.15-1.2) mg/dL AST (0-40) U/L ALT (0-41) U/L Alkaline Phosphata se (40-130) IU/L Troponin T Gen 5 n g/L Troponin T Baselin e (0-15) ng/L NT-Pro-B Natriuret Pep (0-125) pg/mL Total Protein (6.6-8.7) g/dL Albumin (3.5-5.2) g/dL Globulin (1.3-4.6) g/dL Influenza Type A A g Negative (Negative) Influenza Type B A g Negative (Negative) SARS-CoV-2 Ag (Rap id) Positive H (Negative) Imaging Data^: CXR: Attestation: I personally reviewed and interpreted this imaging study as follows: My impression: L sided infiltrates EKG Data^: EKG 1: Attestation: I personally reviewed and interpreted this EKG as follows: EKG Interpretation Date: 01/18/20 EKG interpretation time: 02:59 Interpretation: afib hr [address] or t wave abnormalities qrs 98 qtc 333 Critical Care Time Critical Care Time: Critical Care Time: Yes Total Critical Care Time: 36 Attestation: This case had a high probability of a clinically significant, sudden, or life threatening deterioration of this patient's condition which required my full and direct attention, intervention and personal management. Discharge Plan Discharge Patient Disposition: Admitted As Inpatient Clinical Impression: Pneumonia due to 2019-nCoV, Atrial fibrillation Condition: Stable Coding Level of Care Code ED Regulatory Agency Director for Caling Fwd Exam Comprehensive
[2020-01-18 03:23] LABS: Lactic Sepsis W/Reflex 1.7 mmol/L (0.5-2.2)
[2020-01-18 03:25] LABS: Troponin(5th) Baseline 95 ng/L (0-15)
[2020-01-18 03:32] LABS: ABG PCO2 36.9 mmHg (35-45); ABG PH Result 7.38 (7.35-7.45); Arterial Blood Gas Hematocrit 31.9 % (42-52); Base Excess ABG -3.2 mmol/L (-2.0-2.0); Blood Gas Allen Test Pos; Blood Gas Sample Site Radial, left; Blood Gas Sample Type Arterial; Carboxyhemoglobin 2.1 %THgb (0.4-20.1); HCO3 ABG 21.6 mmol/L (22-26); HGB O2 Sat 88.9 % (95-100); Methemoglobin 0.6 % (0.4-1.5); Oxygen Device NC; PO2 ABG 62.1 mmHg (80.0-100.0); Total Hemoglobin 10.4 g/dL (14-18)
[2020-01-18 03:37] LABS: Alanine Aminotransferase 17 U/L (0-41); Albumin Level 3.3 g/dL (3.5-5.2); Alkaline Phosphatase 111 IU/L (40-130); Anion Gap 17.6 (5-19); Aspartate Amino Transferase 95 U/L (0-40); Blood Urea Nitrogen 39 mg/dL (8-23); Calcium 8.8 mg/dL (8.5-10.5); Carbon Dioxide 23 mmol/L (22-29); Chloride 91 mmol/L (98-107); Globulin 3.4 g/dL (1.3-4.6); Glucose 94 mg/dL (65-115); NT Pro B Type Natriuretic Pept 4303 pg/mL (0-125); Osmolality Calculated 273 mOsm/kg (285-295); Potassium 4.6 mmol/L (3.5-5.1); Sodium 127 mmol/L (136-145); Total Bilirubin 1.8 mg/dL (0.15-1.2); Total Protein 6.7 g/dL (6.6-8.7)
[2020-01-18 03:45] LABS: Influenza A by IFA Negative (Negative); Influenza B by IFA Negative (Negative); SARS Covid-2 Antigen Positive (Negative)
[2020-01-18 03:53] LABS: White Blood Count 38.4 10^3/uL (4.0-10.0)
[2020-01-18 04:19] LABS: D Dimer 5.42 ug/mIFEU (0-0.59)
--- NOTE | 2020-01-18 04:27 | CTR_ITS ---
PROCEDURE INFORMATION: Exam: CT Angiography Chest With Contrast Exam date and time: 01/18/2020 4:35 AM Age: 74 years old Clinical indication: Shortness of breath; Patient HX: SOB with hypoxia. Covid positive. TECHNIQUE: Imaging protocol: Computed tomographic angiography of the chest with intravenous contrast. 3D rendering (Not supervised by radiologist): MIP and/or 3D reconstructed images were created by the technologist. Radiation optimization: All CT scans at this facility use at least one of these dose optimization techniques: automated exposure control; mA and/or kV adjustment per patient size (includes targeted exams where dose is matched to clinical indication); or iterative reconstruction. Contrast material: VISI 320; Contrast volume: 67 ml; Contrast route: INTRAVENOUS (IV); COMPARISON: CTA Chest-Pulmonary Emb [id number] 02/20/2018 9:46 AM RADIATION DOSE METRICS: Total DLP (mGy-cm): 529.33 FINDINGS: Pulmonary arteries: Normal. No pulmonary emboli. Aorta: Unremarkable. No aortic aneurysm. No aortic dissection. Other arteries: There is aneurysmal dilatation the proximal abdominal aorta measuring 3 cm transverse dimension by 3.7 cm AP dimension at the origin of the superior mesenteric artery. Lungs: There is a background of centrilobular emphysema, bronchiectasis and pulmonary fibrosis. There are some patchy opacities in the lower hemithoraces bilaterally compatible with atelectasis. However, bilateral basilar pneumonia cannot be entirely excluded. There is a 9.9 x 14.4 mm pulmonary nodularity seen in the right lower lobe laterally. Pleural space: Unremarkable. No pneumothorax. No pleural effusion. Heart: Unremarkable. No cardiomegaly. No pericardial effusion. Lymph nodes: There is prominent mediastinal and hilar lymphadenopathy. The most prominent lymph node is seen in the subcarinal region measuring 22 mm transverse dimension. There are prominent bilateral axillary lymph nodes present. Multiple mildly prominent retroperitoneal lymph nodes are present. Bones/joints: Unremarkable. No acute fracture. Soft tissues: Unremarkable. CT/CT angio chest PE protcl [id number] IMPRESSION: 1. There is no evidence for pulmonary emboli. 2. There is bulky mediastinal and hilar lymphadenopathy, prominent bilateral axillary and retroperitoneal lymph nodes, findings that could represent reactive lymph nodes although a lymphoproliferative disorder cannot be entirely excluded. 3. Aneurysmal dilatation of the proximal abdominal aorta measuring 3 x 3.7 cm at the level of the superior mesenteric artery. There is no evidence for dissection or extravasation. 4. Background of severe centrilobular emphysema, bronchiectasis and pulmonary fibrosis. Patchy opacities are seen in the lower hemithoraces likely representing atelectasis although bilateral basilar pneumonia cannot be entirely excluded. 5. Solitary pulmonary nodularity in the right lower lobe measuring up to 14.4 mm. For both low risk and high risk patients, consider CT Chest at 3 months, PET/CT, or biopsy. (Reference: Poppy) REFERENCES: Poppy Kinney, et al. Guidelines for Management of Incidental Pulmonary Nodules Detected on CT Images: From the Fleischner Society 2017. Radiology. 2017;284(1):228-243. Radiation Dose CTDIVOL = (mGy): DLP = 529.33 (mGy-cm)
--- NOTE | 2020-01-18 05:16 | ECG_ITS ---
[facility] Test Date: 2020-01-18 Pat Name: Heber Mejia Department: Room: ICU19 Gender: Male Business Intelligence Director: : [id number] Requested By: Rea Ortega Order Number: [id number] Reading MD: LISA FLORES Measurements Intervals Robson Rate: 93 P: 59 KS: 176 QRS: 79 QRSD: 95 T: 55 QT: 350 QTc: 435 Interpretive Statements SINUS RHYTHM VOLTAGE CRITERIA FOR LVH [MEETS CRITERIA IN ONE OF: R(aVL), S(V1), R(V5), R(V5/V6)+S(V1)] Compared to ECG 01/18/2020 02:59:20 Atrial fibrillation no longer present ST (T wave) deviation no longer present Electronically Signed On 01-18-2020 17:33:23 CHIEF SOLUTION ARCHITECT by LISA FLORES [id number] f
[2020-01-18] MEDS: iodixanol 320 mg/mL 100mL Btl IV (06:22)
--- NOTE | 2020-01-18 06:45 | PC.NURSE ---
Patient brought to VICU 5 via stretcher from ER. Patient ambulated to bed from stretcher without difficulty. Placed on specialist managers, blood pressure cuff, sat monitor and is on a oxymask at 12L.
[2020-01-18 07:03] LABS: Lactate Dehydrogenase 233 U/L (135-225)
[2020-01-18 07:24] LABS: Troponin 5 2HR 86.45 ng/L (0-15)
[2020-01-18 07:39] LABS: Troponin 5 2HR Delta -8.55 ABS# (0-10)
[2020-01-18] MEDS: cefTRIAXone 1,000 MG in sodium chloride 0.9% (plus) 50 ML 100 MG IV (07:50)
[2020-01-18] MEDS: dexamethasone 4 mg/mL INJ 6 MG IVP (07:50)
[2020-01-18] MEDS: enoxaparin 40 mg/0.4 mL Syringe SUBCUT (07:50)
[2020-01-18] MEDS: FUROsemide 10 mg/mL SDV 2mL 20 MG IVP (07:51)
--- NOTE | 2020-01-18 08:34 | P.HP_ITS ---
Providers/Chief Complaint Admitting Physician: Verito Duffy MD Primary Care Provider: Jada Garduno DO Chief Complaint: trouble breathing/low o2 History of Present Illness Heber Mejia is a 74 year old gentleman with past history of COPD, which he states is quite severe, in the past he was to be on oxygen, although says that over the last several months has actually done better and had weaned off down to room air. He also states previously he was even under hospice care temporarily. Other chronic medical conditions as listed below, including CLL for which he is managed expectantly/under observation with Dr. Atkins. He presented overnight with admission requested this morning due to progressive shortness of breath over the last 1-2 days. In ER he is found positive for COVID-19 rapid antigen which she says is the first time he has tested positive. He states he has been afebrile, and apart from shortness of breath has not had any chills, muscle aches, headache, nausea, vomiting or diarrhea. Rapid flu negative. In ER found with hypoxemia, PO2 62. Requiring initially up to 15 l of oxygen. D-dimer abnormal at 5.42. CTA chest was performed without finding of PE. Noted bulky mediastinal and hilar lymphadenopathy, prominent retroperitoneal lymph nodes. 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 No evidence of dissection. Severe centrilobular emphysema, bronchiectasis and pulmonary fibrosis. Patchy opacities in lower hemithoraces. Pulmonary nodule noted in right lower lobe, 14.4 mm. She is also noted to have creatinine 1.7, baseline around 1.4. Sodium 127. T bili 1.8, baseline normal. AST 95. He denies NSAID use at home, although I do see he takes Voltaren gel. In ER he is started on ceftriaxone, azithromycin. He started on remdesivir, Solu-Medrol. Received 1 dose of Lasix 20 mg. Due to noted atrial fibrillation he was started on diltiazem drip. Review of Systems Const: Denies: fever(s), chills, body aches or malaise Eyes: Denies: change in vision or eye redness ENMT: Denies: throat pain, oral sores or ear or mastoid pain Card: Denies: chest pain, edema, pre-syncope or dyspnea on exertion Resp: Reports: dyspnea, productive cough (Yellow-colored sputum) and change in phlegm color; Denies: hemoptysis GI: Denies: abdominal pain, nausea, vomiting, diarrhea, constipation, hematochezia or melena : Denies: flank pain, difficulty urinating, urinary frequency or hematuria Musc: Denies: back pain, joint swelling or joint redness Skin/Breast: Denies: rash, sores or new lesions Neuro: Denies: headache(s), numbness in extremities, weakness in extremities, dizziness, confusion or seizure-like activity Endo: Denies: polyuria or polydipsia Miguel/Lymph: Denies: easy bleeding or purpura All/Imm: Denies: urticaria, throat swelling or tongue swelling Medications/Allergies Home Medications Medication Instructions Recorded Confirmed Last Taken Type gemfibrozil 600 mg tablet 600 mg PO BID 03/09/19 01/12/20 10/09/19 History ketoconazole 1 % shampoo 1 applic TOPICAL Q3D #200 ml 06/24/19 01/12/20 10/09/19 Rx diclofenac sodium 1 % topical gel 2 gm TOPICAL QID #100 gm 08/20/19 01/12/20 10/09/19 Rx coal tar 1 applic TOPICAL DAILY 08/22/19 01/12/20 08/23/19 History gabapentin 100 mg capsule 100 mg PO TID #90 cap 09/01/19 01/12/20 10/09/19 Rx nystatin 100,000 unit/mL oral 5 ml PO Q6H #250 ml 09/01/19 01/12/20 Unknown Rx suspension tiotropium bromide 2.5 2 inh INHALATION QAM 09/01/19 01/12/20 Unknown History mcg/actuation mist for inhalation Inogen #1 ea 10/06/19 01/12/20 Unknown Rx clonazepam 0.25 mg disintegrating 0.125 mg PO BID PRN #15 tab 10/14/19 01/12/20 Unknown Rx tablet albuterol sulfate 2.5 mg INHALATION QID PRN #180 ml 10/23/19 01/12/20 Unknown Rx hydrocodone 5 mg-acetaminophen 325 1 tab PO BID PRN 15 Days #30 tab 10/23/19 01/12/20 Unknown Rx mg tablet mirtazapine 15 mg tablet 15 mg PO BEDTIME #15 tab 10/28/19 01/12/20 Unknown Rx prednisone 5 mg tablet 5 mg PO DAILY 90 Days #90 tab 11/03/19 01/12/20 Unknown Rx cholecalciferol (vitamin D3) 50 1,000 unit PO DAILY #90 tab 11/06/19 01/12/20 Unknown Rx mcg (2,000 unit) tablet mometasone 1 inh INHALATION BID 90 Days #3 11/11/19 01/12/20 Unknown Rx each nitroglycerin 0.4 mg sublingual 0.4 mg SUBLINGUAL Q5M PRN #1 tab 11/16/19 01/12/20 Unknown Rx tablet pantoprazole 40 mg tablet,delayed 40 mg PO DAILY #90 tab 11/16/19 01/12/20 Unknown Rx release meclizine 25 mg tablet 25 mg PO BID PRN #30 tab 11/26/19 01/12/20 Unknown Rx clobetasol 0.05 % topical ointment 1 applic TOPICAL BID 14 Days #60 gm 12/14/19 01/12/20 Unknown Rx halobetasol propionate 0.05 % 1 applic TOPICAL BID 12/14/19 01/12/20 Unknown History topical cream mometasone 0.1 % topical solution 1 applic TOPICAL DAILY PRN #60 ml 12/14/19 01/12/20 Unknown Rx tamsulosin 0.4 mg capsule 0.4 mg PO DAILY #90 cap 12/14/19 01/12/20 Unknown Rx triamcinolone acetonide 0.05 % 1 applic TOPICAL BID #430 gm 12/14/19 01/12/20 Unknown Rx topical ointment metoprolol tartrate 100 mg tablet 50 mg PO BID #180 tab 12/17/19 01/12/20 Unknown Rx doxycycline hyclate 100 mg tablet 100 mg PO BID #60 tab 01/13/20 Unknown Rx ipratropium 0.5 mg-albuterol 3 mg 3 ml INHALATION QID 30 Days #360 ml 01/15/20 Unknown Rx (2.5 mg base)/3 mL nebulization soln Allergies Allergy/AdvReac Type Severity Reaction Status Date / Time No Known Allergies Allergy Verified 01/12/20 11:03 PFSH Acute PFSH: Medical History (Updated 01/18/20 @ 09:22 by Reji Perez MD) Abdominal aortic aneurysm Anxiety and depression Atherosclerosis of tangirnaq artery of both lower extremities BPH loc w urin obs/LUTS Cardiomyopathy Patient had a repeat echocardiogram in August 2019 in the hospital. He was found to have ejection fraction in the normal range. Cardiomyopathy, idiopathic Chronic GERD Chronic kidney disease, stage 3 Chronic lymphatic leukemia COPD, severe Current smoker Insomnia Lung nodules Microscopic hematuria Negative evaluation including cystoscopy, CT scan, physical exam, cytology and culture. Mixed hyperlipidemia Primary hypertension Surgical History H/O wrist surgery Family History Mother Cancer Social History Smoking and tobacco status: current every day smoker cigarettes Packs smoked per day: 1 Years cigarettes smoked: 50 Alcohol intake: never Lives independently: Yes Household members: none Marital status: / Current occupational status: retired and disabled History of recent travel: No Current gender identity: Male Vitals/I&O/Wt Last Vital Signs Temp 98.1 F 01/18/20 08:01 Pulse 81 01/18/20 08:01 Resp 26 H 01/18/20 08:01 BP 140/66 01/18/20 08:01 Pulse Ox 95 01/18/20 08:01 01/17/20 01/18/20 01/18/20 22:59 06:59 14:59 Intake Total 106.5 / 106.5 110.5 / 110.5 Output Total 100 / 100 Balance 106.5 / 106.5 10.5 / 10.5 Weight last 48 hrs Weight 57.561 kg Weight 63.503 kg Physical Exam Const: COMMON NORMALS: no acute distress and patient oriented x3 HENMT: COMMON NORMALS: oropharynx normal Neck/C-Spine: COMMON NORMALS: no JVD Resp: COMMON NORMALS: normal respiratory effort and clear to auscultation bilaterally AUSCULTATION: clear to auscultation bilaterally Cardio: COMMON NORMALS: no JVD, regular rhythm, S1 normal heart sound present, S2 normal heart sound present and No murmurs present (Cardio) RHYTHM: regular rhythm HEART SOUNDS: S1 normal heart sound present and S2 normal heart sound present GI: COMMON NORMALS: Normal to inspection, nondistended, normoactive bowel sounds present, Soft to palpation and non-tender PALPATION: Yes Soft to palpation Extremity: COMMON NORMALS: no joint enlargement and no pedal edema Neuro: COMMON NORMALS: patient oriented x3 and moves all extremities Skin: COMMON NORMALS: no rashes or lesions noted GENERAL SKIN EXAM: no rashes or lesions noted Data : 01/18/20 03:00 01/18/20 03:00 Micro: Microbiology 01/18/20 03:05 Blood Culture - Preliminary Blood SPECIMEN COLLECTED 01/18/20 03:00 Blood Culture - Preliminary Blood SPECIMEN COLLECTED A&P Assessment and plan (1) Pneumonia due to 2019-nCoV: Hypoxic respiratory failure with covid-19 pneumonia and underlying immune compromise due to CLL, as well as COPD exacerbation. Continue oxygen support, at this time on high flow cannula. States he does not have sleep apnea, and does not use NIPPV at home. Wean down as tolerating. Target saturation around 88-92% with severe underlying COPD. Remdesivir Solu-Medrol Change to Advair, Combivent. Rocephin for COPD exacerbation. Started on Lovenox VT prophylaxis. Status: Acute (2) COPD (chronic obstructive pulmonary disease): Additionally COPD exacerbation with severe underlying COPD, continue oxygen support, wean off as tolerating. Collect sputum culture. Continue Rocephin. Solu-Medrol. Advair, Combivent. Status: Acute Qualifiers: COPD type: unspecified COPD Qualified Code(s): J44.9 - Chronic obstructive pulmonary disease, unspecified (3) Atrial fibrillation: Currently back in sinus rhythm. This appears to be secondary to respiratory failure, viral infection, COPD exacerbation. We will stop Cardizem drip. Resume his home metoprolol. He states not aware of prior history of atrial fibrillation. Troponin is moderately elevated. He denies chest pain. Suspect this is due to the arrhythmia. Will assess TTE. He may benefit from anticoagulation for stroke risk reduction if he agrees. Status: Acute Qualifiers: Atrial fibrillation type: unspecified Qualified Code(s): I48.91 - Unspecified atrial fibrillation (4) Acute kidney injury superimposed on CKD: Cr 1.7, baseline ~1.4. He is not hypotensive, blood pressure has been stable, although he does report poor oral intake at home, poor appetite. May be prerenal component to it. Otherwise may be NSAID induced, SIC he does use his diclofenac. Additionally we will check CK. Hold NSAID. Regular diet. For now hold off on IV hydration. Status: Acute (5) Elevated bilirubin: Elevated 1.8. He does not have any abdominal pain. There is no pain on right upper quadrant palpation. Monitor for now. Right upper quadrant ultrasound. Status: Acute (6) Transaminitis: AST elevated 95. Will check CK. Monitor. Status: Acute (7) Chronic lymphocytic leukemia: Under obs. Status: Acute (8) Troponin level elevated: Suspected demand ishchemia w AFib, DASHA/CKD, hypoxia. No chest pain. Assess TTE. Status: Acute (9) Current smoker: Encourage cessation. Nicotine patch, gum made available. Status: Acute (10) Hyponatremia: Possibly secondary to poor PO intake Status: Acute (11) Pulmonary nodule: RLL, did increased in size from Aug. Consider PET scan after acute issue resolves. Status: Acute Attestations Medical Necessity Statement*: Admission of over 2 midnights continued for assessment of management of hypoxic respiratory failure, COVID-19 pneumonia, C OPD exacerbation, acute kidney injury, other problems listed above and gentleman with severe underlying COPD, immune compromised with CLL. Coding Level of Care Code Acute Autism Specialist for [facility] Diagnoses Pneumonia due to 2019-nCoV U07.1; J12.89 COPD (chronic obstructive pulmonary disease) J44.9 COPD type: unspecified COPD Atrial fibrillation I48.91 Atrial fibrillation type: unspecified Acute kidney injury superimposed on CKD N17.9; N18.9 Elevated bilirubin R17 Transaminitis R74.01 Chronic lymphocytic leukemia C91.10 Troponin level elevated R77.8 Current smoker F17.200 Hyponatremia E87.1 Pulmonary nodule R91.1
--- NOTE | 2020-01-18 09:07 | USCV_ITS ---
Heber Mejia Age: 74 Gender: M : 1945 Exam Date: 01/18/2020 12:45 Ordering Phys: Reji Perez MD Technologist: Rafael Marc Exam Location: [facility] – [place] Indication: AFIB BP: 126 / 76 HR: 75 Rhythm: Sinus Technical Quality: Adequate MEASUREMENTS (Male / Female) Normal Values 2D ECHO LV Diastolic Diameter PLAX 3.7 cm 4.2 - 5.9 / 3.9 - 5.3 cm LV Systolic Diameter PLAX 2.7 cm IVS Diastolic Thickness 1.0 cm 0.6 - 1.0 / 0.6 - 0.9 cm IVS Systolic Thickness 1.4 cm LVPW Diastolic Thickness 1.1 cm 0.6 - 1.0 / 0.6 - 0.9 cm LVPW Systolic Thickness 1.6 cm LVOT Diameter 2.1 cm LV Ejection Fraction 2D Teich 52.4 % LV Ejection Fraction MOD 2C 60.8 % LV Ejection Fraction 2C AL 60.5 % LA Diameter 3.6 cm LA Width 3.6 cm LA Height 4.0 cm RA Width 3.9 cm RA Height 3.7 cm Aorta at Sinotubular Diameter 3.1 cm M-MODE LV Diastolic Diameter MM 4.9 cm 4.2 - 5.9 / 3.9 - 5.3 cm LV Systolic Diameter MM 3.4 cm LV Ejection Fraction MM Teich 57.5 % IVS Diastolic Thickness MM 1.5 cm 0.6 - 1.0 / 0.6 - 0.9 cm IVS Systolic Thickness MM 1.9 cm LVPW Diastolic Thickness MM 1.4 cm 0.6 - 1.0 / 0.6 - 0.9 cm LVPW Systolic Thickness MM 1.7 cm RV Diastolic Diameter MM 2.0 cm Aortic Annulus Diameter 4.0 cm LA Ao Ratio MM 1.0 MV E Point Septal Separation 0.7 cm DOPPLER AV Peak Velocity 165.0 cm/s LVOT Peak Velocity 105.0 cm/s AV Area Cont Eq vti 2.0 cm squared AV Area Cont Eq pk 2.1 cm squared MV Area PHT 5.0 cm squared Mitral E to A Ratio 0.9 MV E' Velocity 41.5 cm/s Mitral E to MV E' Ratio 6.7 Mitral E to LV E' Lateral Ratio 7.9 Mitral E to LV E' Septal Ratio 5.8 TR Peak Velocity 238.7 cm/s TR Peak Gradient 22.8 mmHg TV Peak E Velocity 93.0 cm/s PV Peak Velocity 116.0 cm/s FINDINGS Left Ventricle Normal left ventricular size and systolic function, EF 65 %. Grade I/IV diastolic dysfunction (abnormal relaxation filling pattern), normal to mildly elevated filling pressures. Mild left ventricular hypertrophy. Right Ventricle The right ventricle is normal in size and function. Right Atrium The right atrium is normal in size. Left Atrium The left atrium is normal in size. Mitral Valve Thickened mitral valve. Aortic Valve Moderate to heavy calcification was noted in the valve. Mild aortic valve regurgitation. Tricuspid Valve No gross abnormalities noted Pulmonic Valve Pulmonic valve not well visualized. Pericardium Normal pericardium without effusion. Aorta Normal ascending aorta dimension. CONCLUSIONS Normal left ventricular size and systolic function, EF 65 %. Grade I/IV diastolic dysfunction (abnormal relaxation filling pattern), normal to mildly elevated filling pressures. Mild left ventricular hypertrophy. Thickened mitral valve. Moderate to heavy calcification was noted in the aortic valve. Mild aortic valve regurgitation. There is no pericardial effusion. Thickened aortic and mitral valves. There are no intracardiac masses. Compared to the study from 08/24/2019, there may not be a significant change Dr Jessica Hamilton MD FACC (Electronically Signed) Final Date: 18 January 2020 19:45 S
[2020-01-18 09:28] LABS: Creatine Phosphokinase 133 U/L (39-308)
[2020-01-18] MEDS: pantoprazole DR 40 mg Tablet PO (09:30)
[2020-01-18] MEDS: gemfibrozil 600 mg Tablet PO ×2 (09:30→17:05)
[2020-01-18] MEDS: tamsulosin 0.4 mg Capsule PO (09:30)
[2020-01-18] MEDS: gabapentin 100 mg Capsule PO ×3 (09:30→21:24)
[2020-01-18] MEDS: metoprolol tartrate 50 mg Tablet PO ×2 (09:30→17:05)
[2020-01-18 09:35] LABS: Basophils % 0.2 %; Hematocrit 32.4 % (42.0-52.0); Hemoglobin 10.5 g/dL (11.7-16.6); Lymphocytes # 24.4 10^3/uL (0.8-4.8); Mean Corpuscular HGB Conc 32.4 g/dL (30.0-36.0); Mean Corpuscular Hemoglobin 28.7 pg (28.0-34.0); Mean Corpuscular Volume 88.5 fL (80-94); Mean Platelet Volume 10.8 fL (7.4-10.4); Monocytes # 0.1 10^3/uL (0.2-0.9); Monocytes % 0.2 %; Neutrophils # 1.42 10^3/uL (1.8-7.7); Neutrophils % 5.4 %; Nucleated Red Blood Cells % 0 %; Platelet Count 131 10^3/cmm (130-400); Red Blood Count 3.66 10^6/uL (4.1-5.3); Red Cell Distribution Width 15.2 % (12.1-15.1)
[2020-01-18 10:09] LABS: Slide Review Slide Review Perform
[2020-01-18] MEDS: benzonatate 100 mg Capsule PO (12:13)
[2020-01-18] MEDS: nicotine 21 mg Patch 1 PATCH TRANSDERMA (12:13)
--- NOTE | 2020-01-18 16:53 | PC.RESP ---
Smoking Cessation and Pulmonary Rehab information sent to patient.
--- NOTE | 2020-01-18 18:45 | PC.NURSE ---
Received report on patient from Trista AGUILERA. Assumed care at this time.
[2020-01-18] MEDS: nicotine 2 mg Gum BUCCAL (20:21)
[2020-01-18] MEDS: mirtazapine 15 mg Tablet PO (21:24)
[2020-01-19] VITALS (30 sets, daily range): BP systolic 122–152; BP diastolic 54–104; PULSE 64–105; RESP 13–28; TEMP 36.2–37.7; O2SAT 90–99; BMI 19.3
[2020-01-19 04:21] LABS: Basophils % 0.1 %; Hematocrit 29.9 % (42.0-52.0); Hemoglobin 9.5 g/dL (11.7-16.6); Lymphocytes # 26.2 10^3/uL (0.8-4.8); Lymphocytes % 92.6 %; Mean Corpuscular HGB Conc 31.8 g/dL (30.0-36.0); Mean Corpuscular Hemoglobin 27.9 pg (28.0-34.0); Mean Corpuscular Volume 87.9 fL (80-94); Mean Platelet Volume 11.2 fL (7.4-10.4); Monocytes # 0.1 10^3/uL (0.2-0.9); Monocytes % 0.2 %; Neutrophils # 1.94 10^3/uL (1.8-7.7); Neutrophils % 6.9 %; Nucleated Red Blood Cells % 0 %; Platelet Count 135 10^3/cmm (130-400); White Blood Count 28.2 10^3/uL (4.0-10.0)
[2020-01-19 04:54] LABS: Alanine Aminotransferase 23 U/L (0-41); Albumin Level 2.6 g/dL (3.5-5.2); Alkaline Phosphatase 90 IU/L (40-130); Anion Gap 14.9 (5-19); Aspartate Amino Transferase 118 U/L (0-40); Blood Urea Nitrogen 52 mg/dL (8-23); C Reactive Protein 260.3 mg/L (0.0-4.9); Calcium 8.9 mg/dL (8.5-10.5); Carbon Dioxide 25 mmol/L (22-29); Chloride 96 mmol/L (98-107); Globulin 3.6 g/dL (1.3-4.6); Glucose 148 mg/dL (65-115); Osmolality Calculated 291 mOsm/kg (285-295); Potassium 3.9 mmol/L (3.5-5.1); Sodium 132 mmol/L (136-145); Total Bilirubin 0.4 mg/dL (0.15-1.2); Total Protein 6.2 g/dL (6.6-8.7)
[2020-01-19 05:24] LABS: Slide Review Slide Review Perform
[2020-01-19] MEDS: cefTRIAXone 1,000 MG in sodium chloride 0.9% (plus) 50 ML 100 MG IV (06:21)
--- NOTE | 2020-01-19 07:00 | US_ITS ---
WS: [id number] ULTRASOUND ABDOMEN LIMITED CLINICAL INFORMATION: Hepatobiliary COMPARISON: None. FINDINGS: Liver Size: Mild hepatomegaly Craniocaudal length: 16.3 cm. Echogenicity: Normal. Surface nodularity: None. Mass (size and location): None. Bile ducts Intrahepatic ducts: Normal. Common bile duct diameter: 0.3 cm. Gallbladder Cholelithiasis Gallstones: Present Gallbladder sludge: None. Gallbladder wall thickening: Gallbladder is contracted. Wall measures 4.3 mm. Pericholecystic fluid: None. Sonographic Turcios sign: Absent. Pancreas Normal as visualized. Right kidney: Normal. Hydronephrosis: None. Size: 10.1 cm x 5.6 cm x 5.6 cm. Abdominal aorta and IVC Visualized portions are normal. Ascites: None. US/US abdomen limited [id number] IMPRESSION: 1. Mild hepatomegaly. No intrahepatic biliary ductal dilatation. 2. Cholelithiasis with dense shadowing. No pericholecystic fluid. Normal commo n bile duct. 3. No hydronephrosis in right kidney. 4. Simple cyst right kidney measuring 1.4 x 1.3 CCM.
[2020-01-19] MEDS: enoxaparin 40 mg/0.4 mL Syringe SUBCUT (07:49)
[2020-01-19] MEDS: dexamethasone 4 mg/mL INJ 6 MG IVP (07:49)
[2020-01-19] MEDS: benzonatate 100 mg Capsule PO ×2 (08:17→17:18)
[2020-01-19] MEDS: gabapentin 100 mg Capsule PO ×3 (08:17→21:16)
[2020-01-19] MEDS: tamsulosin 0.4 mg Capsule PO (08:17)
[2020-01-19] MEDS: metoprolol tartrate 50 mg Tablet PO ×2 (08:17→17:18)
[2020-01-19] MEDS: pantoprazole DR 40 mg Tablet PO (08:17)
[2020-01-19] MEDS: gemfibrozil 600 mg Tablet PO ×2 (08:17→17:18)
[2020-01-19] MEDS: nicotine 21 mg Patch 1 PATCH TRANSDERMA (12:32)
--- NOTE | 2020-01-19 18:45 | PC.NURSE ---
Received report on patient from Trista AGUILERA. Assumed care at this time.
--- NOTE | 2020-01-19 19:52 | PM.PN ---
Subjective Subjective: Interval history: Standing up attempting to urinate, however, with difficulties maintaining his balance. Stated him so he could complete the process. He afterwards denies any chest pain or pressure. Feels that his breathing has been fair with oxygen support. Saturation mostly in the 90s at rest, does drop down into 80s with exertion. Denies headache, nausea vomiting or diarrhea. No abdominal discomfort. Denies any questions. Later in the day he walked with physical therapy with a walker. Vitals/I&O/Wt Last Vital Signs Temp 97.9 F 01/19/20 19:32 Pulse 77 01/19/20 18:00 Resp 21 H 01/19/20 18:00 BP 152/67 01/19/20 18:00 Pulse Ox 93 01/19/20 18:00 01/19/20 01/19/20 01/19/20 06:59 14:59 22:59 Intake Total 240 / 1550.5 750 / 750 120 / 870 Output Total 700 / 1725 100 / 100 250 / 350 Balance -460 / -174.5 650 / 650 -130 / 520 Weight last 48 hrs Weight 57.561 kg Weight 57.561 kg Weight 63.503 kg Physical Exam Const: COMMON NORMALS: no acute distress and patient oriented x3 HENMT: COMMON NORMALS: oropharynx normal Neck/C-Spine: COMMON NORMALS: no JVD Resp: COMMON NORMALS: normal respiratory effort and clear to auscultation bilaterally AUSCULTATION: clear to auscultation bilaterally Cardio: COMMON NORMALS: no JVD, regular rhythm, S1 normal heart sound present, S2 normal heart sound present and No murmurs present (Cardio) RHYTHM: regular rhythm HEART SOUNDS: S1 normal heart sound present and S2 normal heart sound present GI: COMMON NORMALS: Normal to inspection, nondistended, normoactive bowel sounds present, Soft to palpation and non-tender PALPATION: Yes Soft to palpation Extremity: COMMON NORMALS: no joint enlargement and no pedal edema Neuro: COMMON NORMALS: patient oriented x3 and moves all extremities Skin: COMMON NORMALS: no rashes or lesions noted GENERAL SKIN EXAM: no rashes or lesions noted Data : 01/19/20 03:45 01/19/20 03:45 Micro: Microbiology 01/18/20 12:36 Gram Stain - Final Sputum - Expectorated Sputum Sputum Culture - Preliminary Gram Negative Rods 01/18/20 03:05 Blood Culture - Preliminary Blood NEGATIVE TO DATE 01/18/20 03:00 Blood Culture - Preliminary Blood NEGATIVE TO DATE A&P Assessment and plan (1) Pneumonia due to 2019-nCoV: Hypoxic respiratory failure with covid-19 pneumonia and underlying immune compromise due to CLL, as well as COPD exacerbation. His oxygenation appears to have reached a plateau, and is gradually improving. Oxygen requirement down to 4 L today. He does desaturate very easily with minimal exertion like standing. Saturations dropped down into mid to high 80s. He did successfully walk some in the young with a walker and oxygen with physical therapy. D-dimer is better. CRP much higher today. He appears to have gotten irritated today having forgotten that he had spoken with me, and requesting multiple times regarding plan of care and timing of discharge to nursing staff. Discussing with his life partner she states that he has a very well established history of getting very impatient as soon as his condition improved somewhat, and very frequently leaving the hospital prematurely and AGAINST MEDICAL ADVICE not infrequently. Discussed with her that we would like to avoid that if possible given the seriousness of the illness, as well as underlying conditions in his case. This would risk severe disability and very poor outcome including . However, he has shown some signs of improvement, and hopefully will continue to improve as he is currently, and so far he has allowed to continue hospitalization. She states that he has a portable oxygen machine at home, although the larger stationary unit has been taken away by hospice care after he was discharged from their care. On discharge, or if leaves prematurely would be encouraged to at least continue anticoagulation given elevated D-dimer and elevated risk of VTE. Given severe COVID-19 illness, with high risk for deterioration to life-threatening illness we will continue with remdesivir, Decadron. Continue with inhalers. Oxygen support, wean down as tolerating. He has severe underlying COPD. Also noted bronchiectasis, pulmonary fibrosis on CT of the chest. No PE. Status: Acute (2) COPD (chronic obstructive pulmonary disease): Additionally COPD exacerbation with severe underlying COPD, continue oxygen support, wean off as tolerating. Collect sputum culture. Continue Rocephin. Decadron. Advair, Combivent. Status: Acute Qualifiers: COPD type: unspecified COPD Qualified Code(s): J44.9 - Chronic obstructive pulmonary disease, unspecified (3) Atrial fibrillation: Metoprolol. He states not aware of prior history of atrial fibrillation. Troponin is moderately elevated. He denies chest pain. Suspect this is due to the arrhythmia. Will assess TTE. He may benefit from anticoagulation for stroke risk reduction if he agrees. Status: Acute Qualifiers: Atrial fibrillation type: unspecified Qualified Code(s): I48.91 - Unspecified atrial fibrillation (4) Acute kidney injury superimposed on CKD: Better today, creatinine down to 1.6. Cr baseline ~1.4. He is not hypotensive, blood pressure has been stable, although he does report poor oral intake at home, poor appetite. May be prerenal component to it. Otherwise may be NSAID induced. Normal CK. Hold NSAID. Regular diet. For now hold off on IV hydration. Status: Acute (5) Elevated bilirubin: Resolved. Cholelithiasis, mild hepatomegaly noted on ultrasound, with normal CBD. He does not have any abdominal pain. There is no pain on right upper quadrant palpation. Monitor for now. Status: Acute (6) Transaminitis: AST elevated secondary to viral illness. Normal CK. Monitor. Status: Acute (7) Chronic lymphocytic leukemia: Under obs. Status: Acute (8) Troponin level elevated: Suspected demand ishchemia w AFib, DASHA/CKD, hypoxia. No chest pain. Assess TTE. Status: Acute (9) Current smoker: Encourage cessation. Nicotine patch, gum made available. Status: Acute (10) Hyponatremia: Minimal. Possibly secondary to poor PO intake Status: Acute (11) Pulmonary nodule: RLL, did increased in size from Aug. Consider PET scan after acute issue resolves. Status: Acute (12) UTI (urinary tract infection): Gram-negative rods. Continue Rocephin. Status: Acute Attestations Medical Necessity Statement*: Continue admission for severe COVID-19 pneumonia with severe underlying pulmonary disease and gentleman who is current smoker, with DASHA, UTI. Coding Level of Care Code Acute Computer Forensic Specialist for [facility] Diagnoses Pneumonia due to 2019-nCoV U07.1; J12.89 COPD (chronic obstructive pulmonary disease) J44.9 COPD type: unspecified COPD Atrial fibrillation I48.91 Atrial fibrillation type: unspecified Acute kidney injury superimposed on CKD N17.9; N18.9 Elevated bilirubin R17 Transaminitis R74.01 Chronic lymphocytic leukemia C91.10 Troponin level elevated R77.8 Current smoker F17.200 Hyponatremia E87.1 Pulmonary nodule R91.1 UTI (urinary tract infection) N39.0
[2020-01-19] MEDS: mirtazapine 15 mg Tablet PO (21:16)
[2020-01-20] VITALS (30 sets, daily range): BP systolic 133–164; BP diastolic 58–93; PULSE 68–98; RESP 13–25; TEMP 35.6–36.7; O2SAT 79–98
[2020-01-20 05:23] LABS: Basophils # 0.1 10^3/uL (0.0-0.1); Basophils % 0.2 %; Hematocrit 33.3 % (42.0-52.0); Hemoglobin 10.4 g/dL (11.7-16.6); Lymphocytes # 35.5 10^3/uL (0.8-4.8); Lymphocytes % 91.2 %; Mean Corpuscular HGB Conc 31.2 g/dL (30.0-36.0); Mean Corpuscular Hemoglobin 28.1 pg (28.0-34.0); Mean Platelet Volume 11.8 fL (7.4-10.4); Monocytes # 0.1 10^3/uL (0.2-0.9); Monocytes % 0.2 %; Neutrophils # 3.19 10^3/uL (1.8-7.7); Neutrophils % 8.1 %; Nucleated Red Blood Cells % 0 %; Platelet Count 157 10^3/cmm (130-400); Red Cell Distribution Width 15.4 % (12.1-15.1)
[2020-01-20 05:47] LABS: Alanine Aminotransferase 22 U/L (0-41); Alkaline Phosphatase 102 IU/L (40-130); Aspartate Amino Transferase 110 U/L (0-40); Blood Urea Nitrogen 53 mg/dL (8-23); Calcium 8.9 mg/dL (8.5-10.5); Carbon Dioxide 28 mmol/L (22-29); Chloride 100 mmol/L (98-107); Globulin 3.9 g/dL (1.3-4.6); Glucose 131 mg/dL (65-115); Osmolality Calculated 302 mOsm/kg (285-295); Sodium 138 mmol/L (136-145); Total Bilirubin 0.4 mg/dL (0.15-1.2); Total Protein 6.9 g/dL (6.6-8.7)
[2020-01-20 05:54] LABS: Slide Review Slide Review Perform
[2020-01-20] MEDS: cefTRIAXone 1,000 MG in sodium chloride 0.9% (plus) 50 ML 100 MG IV (05:54)
[2020-01-20] MEDS: enoxaparin 40 mg/0.4 mL Syringe SUBCUT (09:49)
[2020-01-20] MEDS: metoprolol tartrate 50 mg Tablet PO ×2 (09:49→17:48)
[2020-01-20] MEDS: gemfibrozil 600 mg Tablet PO ×2 (09:50→17:48)
[2020-01-20] MEDS: gabapentin 100 mg Capsule PO ×3 (09:50→21:28)
[2020-01-20] MEDS: pantoprazole DR 40 mg Tablet PO (09:50)
[2020-01-20] MEDS: tamsulosin 0.4 mg Capsule PO (09:50)
[2020-01-20] MEDS: dexamethasone 4 mg/mL INJ 6 MG IVP (09:51)
[2020-01-20] MEDS: benzonatate 100 mg Capsule PO (11:28)
--- NOTE | 2020-01-20 18:15 | PC.NURSE ---
Patient Complaint Patient very upset about room temperature. Patient stating that his family has brought a heater to the hospital and he would like it brought to his room. nurse educated patient about safety protocols and risk of fire hazard. nurse also educated patient on why temperature in room could not be changed. primary nurse had already given patient warmed blankets, pants, and socks. patient requesting that administration be called about issue. This nurse informed ICU charge nurse, cleaner housekeeping, and physician of complaint. loom fixer supervisor came and spoke with patient and further educated patient on subject.
[2020-01-20] MEDS: nicotine 21 mg Patch 1 PATCH TRANSDERMA (18:25)
--- NOTE | 2020-01-20 18:44 | PC.NURSE ---
Shift status update: Patient has been up in hallway today with therapy tolerated well. Patient has also had episodes of coughing with productive sputum pale yellow thick. Patients SPO2 drops with minimal activity and does have a prolonged recovery time. Encouraged purse lip breathing. O2 increased during these episodes and titrated back down to 4 liters. patient has been c/o feeling cold today. Warm blankets placed. Patient wants to bring in personal heater which is discouraged. cellars supervisor did come down and speak with patient. Patient put on pants socks and shoes which have helped. No c/o pain or discomfort continue to monitor
--- NOTE | 2020-01-20 19:23 | PC.NURSE ---
Received report from ALE Corrales. Pt sitting in chair. several blankets wrapped around pt. Pt appears to be resting with eyes closed. Pt appeared to be in deep sleep, shoulder tap to wake pt up to complete assessment. Pt denies pain. No needs.
--- NOTE | 2020-01-20 19:54 | PC.NURSE ---
Report to ALE Elias.
--- NOTE | 2020-01-20 20:02 | PM.PN ---
Subjective Subjective: Interval history: He is feeling little bit better today. He is feeling somewhat impatient to return home. States I can do all the same things at home . Discussed with him regarding persistent hypoxia, worsening leukocytosis, worsening CRP. As well as therapies that he cannot continue at home, including IV remdesivir, IV steroids, IV broad-spectrum antibiotic while awaiting culture with gram-negative rods growing in sputum, as well as high risk of deterioration with severe underlying pulmonary illness, and other ongoing and chronic underlying problems. He is agreeable to stay. Discussed with him that since he is still requiring oxygen we will try to aim for 5 days of remdesivir therapy which would complete day after tomorrow. He states that he is willing to stay only on till tomorrow, but is willing to revisit at that time. Later reported aggravated due to cold temperature, despite being provided multiple warm blankets (this cannot be adjusted reliably due to airflow restrictions, currently in the third room since admission to try accommodate his request), and again threatening to leave AMA to nursing staff. Discussed again to see if anything else can be done to help him feel warmer. I had also discussed with his son regarding his condition, and our plans of treatment. He is agreeable that patient or other should stay in the hospital if he will agree. Discussed with his son need for oxygen which would have to be set up in case patient leaves AMA, as well as medications which could be continued at home including steroids, antibiotic for gram-negative flaca pulmonary infection, anticoagulation due to coagulopathy from COVID-19, as well as A. fib. His son verbalized understanding and agreement to follow-up if needed. Vitals/I&O/Wt Last Vital Signs Temp 97.6 F 01/20/20 19:00 Pulse 70 01/20/20 19:34 Resp 17 01/20/20 19:00 BP 152/63 01/20/20 19:00 Pulse Ox 98 01/20/20 19:00 01/20/20 01/20/20 01/20/20 06:59 14:59 22:59 Intake Total 300 / 1170 600 / 600 360 / 960 Output Total 550 / 900 550 / 550 200 / 750 Balance -250 / 270 50 / 50 160 / 210 Weight last 48 hrs Weight 60.781 kg Weight 57.561 kg Physical Exam Const: COMMON NORMALS: no acute distress, patient oriented x3 and alert ORIENTATION/CONSCIOUSNESS: Yes awake OTHER: Slightly irritable but cooperative during my visit. HENMT: COMMON NORMALS: oropharynx normal Neck/C-Spine: COMMON NORMALS: no JVD Resp: COMMON NORMALS: normal respiratory effort AUSCULTATION: diminished lung sounds Cardio: COMMON NORMALS: no JVD, regular rhythm, S1 normal heart sound present, S2 normal heart sound present and No murmurs present (Cardio) RHYTHM: regular rhythm HEART SOUNDS: S1 normal heart sound present and S2 normal heart sound present GI: COMMON NORMALS: Normal to inspection, nondistended, normoactive bowel sounds present, Soft to palpation and non-tender PALPATION: Yes Soft to palpation Extremity: COMMON NORMALS: no joint enlargement and no pedal edema Neuro: COMMON NORMALS: patient oriented x3 and moves all extremities SENSORIUM/ORIENTATION: Yes alert Skin: COMMON NORMALS: no rashes or lesions noted GENERAL SKIN EXAM: no rashes or lesions noted Data : 01/20/20 03:35 01/20/20 03:35 Micro: Microbiology 01/18/20 12:36 Gram Stain - Final Sputum - Expectorated Sputum Sputum Culture - Preliminary Gram Negative Rods A&P Assessment and plan (1) Pneumonia due to 2019-nCoV: Hypoxia with some gradual improvement, down to 4 L today, but with exertion requiring 6 L by nasal cannula. D-dimer today is better. CRP was higher yesterday, but today is slightly better, still very high at 153. He is becoming somewhat impatient to get home. Has allowed to continue treatment until tomorrow, although it was discussed in detail with him that he is at risk of very severe illness and potentially disabling or fatal outcome with COVID-19, with his underlying severe pulmonary disease, hematologic malignancy. He states that overall since he had been on hospice care his goals of care are rather limited and expectations are rather low. He states that tomorrow he would most likely like to return home no matter what even if it means he may pass away prematurely due to this acute episode of illness. Discussed his condition and wishes with his son who does encourage him to stay in the hospital if he will be willing to. Continue remdesivir, Decadron. On discharge will require oxygen. Anticoagulation given elevated D-dimer and elevated risk of VTE and A. fib. Given severe COVID-19 illness, with high risk for deterioration to life-threatening illness we will continue with remdesivir, Decadron. Continue with inhalers. Oxygen support, wean down as tolerating. He has severe underlying COPD. Also noted bronchiectasis, pulmonary fibrosis on CT of the chest. No PE. Status: Acute (2) COPD (chronic obstructive pulmonary disease): Additionally COPD exacerbation with severe underlying COPD, continue oxygen support, wean off as tolerating. Collect sputum culture. Continue Rocephin. Decadron. Advair, Combivent. Status: Acute Qualifiers: COPD type: unspecified COPD Qualified Code(s): J44.9 - Chronic obstructive pulmonary disease, unspecified (3) Atrial fibrillation: Metoprolol. He states not aware of prior history of atrial fibrillation. Troponin is moderately elevated. He denies chest pain. Suspect this is due to the arrhythmia. Will assess TTE. He may benefit from anticoagulation for stroke risk reduction if he agrees. Status: Acute Qualifiers: Atrial fibrillation type: unspecified Qualified Code(s): I48.91 - Unspecified atrial fibrillation (4) Acute kidney injury superimposed on CKD: Better, creatinine down to 1.6. Cr baseline ~1.4. He is not hypotensive, blood pressure has been stable, although he does report poor oral intake at home, poor appetite. May be prerenal component to it. Otherwise may be NSAID induced. Normal CK. Hold NSAID. Regular diet. For now hold off on IV hydration. Status: Acute (5) Elevated bilirubin: Resolved. Cholelithiasis, mild hepatomegaly noted on ultrasound, with normal CBD. He does not have any abdominal pain. There is no pain on right upper quadrant palpation. Monitor for now. Status: Acute (6) Transaminitis: AST elevated secondary to viral illness. Normal CK. Monitor. Status: Acute (7) Chronic lymphocytic leukemia: Under obs. Status: Acute (8) Troponin level elevated: Suspected demand ishchemia w AFib, DASHA/CKD, hypoxia. No chest pain. Normal EF, grade 1 diastolic dysfunction, thickened mitral valve, moderate to heavy calcification in aortic valve on TTE. No significant change compared to August 2019. Status: Acute (9) Current smoker: Encourage cessation. Nicotine patch, gum made available. Status: Acute (10) Hyponatremia: Resolved. Possibly secondary to poor PO intake Status: Acute (11) Pulmonary nodule: RLL, did increased in size from Aug. Consider PET scan after acute issue resolves. Status: Acute (12) UTI (urinary tract infection): No UTI. Pulmomnary infection with gram negative rods growing in sputum. Status: Acute Attestations Medical Necessity Statement*: Continue admission for treatment of respiratory failure secondary to severe COVID-19 pneumonia with severe underlying pulmonary disease. 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
[2020-01-20] MEDS: enoxaparin 60 mg/0.6 mL Syringe SUBCUT (21:29)
[2020-01-20] MEDS: mirtazapine 15 mg Tablet PO (21:29)
[2020-01-21] VITALS (21 sets, daily range): BP systolic 124–167; BP diastolic 50–73; PULSE 67–92; RESP 18–28; TEMP 36.6; O2SAT 77–94
--- NOTE | 2020-01-21 00:18 | PC.NURSE ---
While sleeping, it appears pt removed his NC from his nostrils, noted a drop in SP02 84% on RA. Once replaced the NC to pt's nostril, time between SP02 84% and 92% was approximately 20 minutes.
--- NOTE | 2020-01-21 00:32 | PC.NURSE ---
Pt turned on his left side and NC came off. replaced pt on pt nostrils and noted improvement with 4L NC. Review with pt the importance of NC.
--- NOTE | 2020-01-21 02:19 | PC.NURSE ---
Pt Sp02 low secondary to pt removes NC from Nostril. Replaced back in nostril immediate return to 92-94% on 4L NC.
[2020-01-21 04:31] LABS: Alanine Aminotransferase 18 U/L (0-41); Albumin Level 2.4 g/dL (3.5-5.2); Alkaline Phosphatase 104 IU/L (40-130); Aspartate Amino Transferase 85 U/L (0-40); Blood Urea Nitrogen 47 mg/dL (8-23); C Reactive Protein 97.9 mg/L (0.0-4.9); Calcium 8.4 mg/dL (8.5-10.5); Carbon Dioxide 29 mmol/L (22-29); Chloride 100 mmol/L (98-107); Globulin 3.6 g/dL (1.3-4.6); Glucose 118 mg/dL (65-115); Osmolality Calculated 293 mOsm/kg (285-295); Sodium 135 mmol/L (136-145); Total Bilirubin 0.3 mg/dL (0.15-1.2)
[2020-01-21 04:34] LABS: D Dimer 2.56 ug/mIFEU (0-0.59)
[2020-01-21 04:40] LABS: Anion Gap 10.6 (5-19); Potassium 4.6 mmol/L (3.5-5.1)
[2020-01-21] MEDS: cefTRIAXone 1,000 MG in sodium chloride 0.9% (plus) 50 ML 100 MG IV (06:54)
--- NOTE | 2020-01-21 07:09 | PC.NURSE ---
Report to ALE Hamilton
[2020-01-21] MEDS: gemfibrozil 600 mg Tablet PO (08:32)
[2020-01-21] MEDS: pantoprazole DR 40 mg Tablet PO (08:32)
[2020-01-21] MEDS: metoprolol tartrate 50 mg Tablet PO (08:32)
[2020-01-21] MEDS: tamsulosin 0.4 mg Capsule PO (08:32)
[2020-01-21] MEDS: dexamethasone 4 mg/mL INJ 6 MG IVP (08:35)
[2020-01-21] MEDS: enoxaparin 60 mg/0.6 mL Syringe SUBCUT (08:36)
[2020-01-21] MEDS: gabapentin 100 mg Capsule PO (08:36)
[2020-01-21] MEDS: nicotine 2 mg Gum BUCCAL (08:36)
[2020-01-21 08:58] LABS: Basophils % 0.1 %; Hematocrit 30.3 % (42.0-52.0); Hemoglobin 9.4 g/dL (11.7-16.6); Lymphocytes # 30.2 10^3/uL (0.8-4.8); Lymphocytes % 92.8 %; Mean Corpuscular Volume 90.2 fL (80-94); Mean Platelet Volume 12.2 fL (7.4-10.4); Monocytes # 0.1 10^3/uL (0.2-0.9); Monocytes % 0.2 %; Neutrophils % 6.7 %; Nucleated Red Blood Cells % 0 %; Platelet Count 144 10^3/cmm (130-400); Red Blood Count 3.36 10^6/uL (4.1-5.3); Red Cell Distribution Width 16.1 % (12.1-15.1)
--- NOTE | 2020-01-21 09:00 | PC.SOCIAL ---
IMM Page 2 of [facility] explained to patient's life partner, Clarissa Rodriguez, by phone. She verbalizes understanding. Initialed, dated, and timed and will be sent to medical records at the time he is discharged.
[2020-01-21 09:50] LABS: Slide Review Slide Review Perform; White Blood Count 32.6 10^3/uL (4.0-10.0)
--- NOTE | 2020-01-21 14:48 | PC.NURSE ---
Discharge Patient adamant about going home, demanding to be discharged home today. Discharge instructions given to patient, verbal understanding, oxygen on and working. IV removed. Prescriptions called to [facility] (not [facility] per [place] request. Patient wheeled to private vehicle, friend driving home. No further questions.
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
== END 2020-01-21 14:53 | disposition hospice, home (50) | DRG 177 ==
LOC: ER 04:41 → ICU 05:33
PROVIDERS: Admitting Provider Student in an Organized Health Care Education/Training Program; Emergency Provider Emergency Medicine; PCP Family Medicine; Visit Provider Internal Medicine
DX: U07.1 COVID-19 (principal); J12.89 Other viral pneumonia; J96.91 Respiratory failure, unspecified with hypoxia; I42.9 Cardiomyopathy, unspecified; J44.0 Chronic obstructive pulmonary disease with (acute) lower respiratory infection; I24.8 Other forms of acute ischemic heart disease; N17.9 Acute kidney failure, unspecified; E87.1 Hypo-osmolality and hyponatremia; C91.10 Chronic lymphocytic leukemia of B-cell type not having achieved remission; J44.1 Chronic obstructive pulmonary disease with (acute) exacerbation; I48.91 Unspecified atrial fibrillation; F17.210 Nicotine dependence, cigarettes, uncomplicated; N18.30 Chronic kidney disease, stage 3 unspecified; I25.10 Atherosclerotic heart disease of native coronary artery without angina pectoris; Z79.82 Long term (current) use of aspirin; K21.9 Gastro-esophageal reflux disease without esophagitis; G47.00 Insomnia, unspecified; R91.8 Other nonspecific abnormal finding of lung field; N40.0 Benign prostatic hyperplasia without lower urinary tract symptoms; F41.8 Other specified anxiety disorders; I71.4 Abdominal aortic aneurysm, without rupture; E78.2 Mixed hyperlipidemia; I12.9 Hypertensive chronic kidney disease with stage 1 through stage 4 chronic kidney disease, or unspecified chronic kidney disease
CPT/HCPCS: 12345; 36415; 36600; 71045; 71275; 76705; 80053; 82550; 82805; 83605; 83615; 83880; 84484; 85025; 85378; 86140; 87040; 87070; 87077; 87186; 87205; 87426; 87804; 93005; 93306; 94640; 94664; 96372; 96375; 97110; 97116; 97163; 97166; 97530; 97535; 99283; J0696; J1100; J1650; J1940; J2930; J3490; J3535; J7040; Q9967

== ENCOUNTER 2020-01-23 04:20 | Inpatient (IN) | payer OTHER, MEDICARE, SELFPAY ==
[2020-01-23] VITALS (11 sets, daily range): BP systolic 170–192; BP diastolic 73–89; PULSE 75–98; RESP 18–32; TEMP 36.6–37.2; O2SAT 91–96; BMI 18.2
--- NOTE | 2020-01-23 05:03 | XRR_ITS ---
PROCEDURE INFORMATION: Exam: XR Chest, 1 View Exam date and time: 01/23/2020 5:12 AM Age: 74 years old Clinical indication: Shortness of breath; Patient HX: SOB. Hypoxia. Covid +. History of cll. TECHNIQUE: Imaging protocol: XR of the chest Views: 1 view. COMPARISON: CR XR chest 1V portable [id number] 01/18/2020 3:00 AM FINDINGS: Lungs: There is worsening interstitial and alveolar consolidation in the left lung. Stable hazy interstitial infiltrates are present in the right lung. These findings indicate worsening left pneumonia. This may be viral in nature. Pleural space: Unremarkable. No pleural effusion. No pneumothorax. Heart/Mediastinum: Unremarkable. No cardiomegaly. Bones/joints: Unremarkable. XR/XR chest 1V portable [id number] IMPRESSION: There is worsening interstitial and alveolar pneumonia in the left lung which is most likely viral etiology.
--- NOTE | 2020-01-23 05:03 | ECG_ITS ---
[facility] Test Date: 2020-01-23 Pat Name: Heber Mejia Department: Room: Gender: Male Hall Tender: : 1945 Requested By: Baljit Shoemaker Order Number: [id number] Reading MD: LISA FLORES Measurements Intervals [place] Rate: 81 P: MS: QRS: 95 QRSD: 97 T: 81 QT: 370 QTc: 430 Interpretive Statements Sinus rhythm BORDERLINE RIGHT AXIS DEVIATION [QRS AXIS > 90] INCOMPLETE RIGHT BUNDLE BRANCH BLOCK [90+ ms QRS DURATION, TERMINAL R IN V1/V2, 40+ ms S IN I/aVL/V4/V5/V6] MODERATE ST DEPRESSION [0.05+ mV ST DEPRESSION] Compared to ECG 01/18/2020 05:31:37 There is no change Electronically Signed On 01-23-2020 17:27:15 PANELBEATER by LISA FLORES [id number]
[2020-01-23 05:28] LABS: ABG PCO2 47.7 mmHg (35-45); ABG PH Result 7.42 (7.35-7.45); Base Excess ABG 5.8 mmol/L (-2.0-2.0); Blood Gas Allen Test Pos; Blood Gas Sample Type Arterial; Carboxyhemoglobin 2.1 %THgb (0.4-20.1); HGB O2 Sat 89.3 % (95-100); Methemoglobin 0.8 % (0.4-1.5); PO2 ABG 59.4 mmHg (80.0-100.0); Total Hemoglobin 10.1 g/dL (14-18)
[2020-01-23 05:29] LABS: Blood Gas Operator Identificat HARKR; Blood Gas Sample Site Radial, right; Oxygen Device NC
[2020-01-23 05:47] LABS: Basophils % 0.1 %; Eosinophils % 0.1 %; Hematocrit 31.5 % (42.0-52.0); Lymphocytes # 30.4 10^3/uL (0.8-4.8); Lymphocytes % 95.8 %; Mean Corpuscular HGB Conc 31.7 g/dL (30.0-36.0); Mean Corpuscular Hemoglobin 28.5 pg (28.0-34.0); Mean Corpuscular Volume 89.7 fL (80-94); Monocytes # 0.1 10^3/uL (0.2-0.9); Monocytes % 0.3 %; Neutrophils # 1.15 10^3/uL (1.8-7.7); Neutrophils % 3.6 %; Nucleated Red Blood Cells % 0 %; Platelet Count 70 10^3/cmm (130-400); Red Blood Count 3.51 10^6/uL (4.1-5.3); Red Cell Distribution Width 16.4 % (12.1-15.1)
--- NOTE | 2020-01-23 05:47 | W.ED.SOB ---
Documented by User: Baljit Navid Kevin, 01/23/20 19:00 HPI - SOB/Dyspnea General: Chief Complaint: Shortness of Breath/Dyspnea Stated Complaint: RESP DISTRESS Time Seen by Provider: 01/23/20 04:27 History of Present Illness: HPI Narrative: 74-year-old gentleman who went home around 36 hours ago from the hospital where he presents to the ER this morning with shortness of breath. He says he could not breathe at home. He was supposed to go home on hospice, but I do not know if hospice is made a visit to his home yet. He complains of some cough, shortness of breath. He has no fever. He is usually on 3 L of oxygen at home, but has been using 6 since he was hospitalized. MD elicited complaint: shortness of breath and cough Pertinent past history: COPD Onset (ago): day(s) Context: recent illness Severity: moderate Exacerbating factors: exertion Relieving factors: oxygen Known history of: COPD Associated symptoms: Reports chest congestion, cough and nausea; Deny chest pain, extremity pain, fever(s) or vomiting Review of Systems Const: Denies: fever(s) or chills Eyes: Denies: change in vision Card: Denies: chest pain Resp: Reports: chest congestion GI: Reports: nausea; Denies: vomiting Musc: Denies: extremity pain PFSH ED PFSH: Medical History Abdominal aortic aneurysm Anxiety and depression Atherosclerosis of eyak artery of both lower extremities BPH loc w urin obs/LUTS Cardiomyopathy Patient had a repeat echocardiogram in August 2019 in the hospital. He was found to have ejection fraction in the normal range. Cardiomyopathy, idiopathic Chronic GERD Chronic kidney disease, stage 3 Chronic lymphatic leukemia Chronic lymphocytic leukemia COPD (chronic obstructive pulmonary disease) COPD, severe Current smoker Insomnia Lung nodules Microscopic hematuria Negative evaluation including cystoscopy, CT scan, physical exam, cytology and culture. Mixed hyperlipidemia Primary hypertension Troponin level elevated Surgical History H/O wrist surgery Family History Mother Cancer Social History (Reviewed 01/23/20 @ 10:25 by NIA Malin Smoking and tobacco status: current every day smoker cigarettes Packs smoked per day: 1 Years cigarettes smoked: 50 Alcohol intake: never Lives independently: Yes Household members: none Marital status: / Current occupational status: retired and disabled History of recent travel: No Current gender identity: Male Physical Exam Const: GENERAL APPEARANCE: anxious, ill appearing and frail appearing ORIENTATION/CONSCIOUSNESS: Yes oriented to person and Yes oriented to place HENMT: COMMON NORMALS: normocephalic, external ears normal and Normal external nose present HEAD & SCALP: normocephalic FACE & SINUS: normal facial exam NOSE: Normal external nose present and No nasal discharge present EXTERNAL EAR: Yes external ears normal THROAT: posterior oropharynx normal; no peritonsillar mass Eye: COMMON NORMALS: Equal, round and reactive pupils present, EOMs intact bilaterally and conjunctivae normal EYELID: eyelids normal CONJUNCTIVA: Yes conjunctivae normal PUPIL: Yes Equal, round and reactive pupils present Neck/C-Spine: GENERAL: No tracheal deviation Chest: COMMONS NORMALS: normal inspection of the chest CHEST: No tenderness Resp: COMMON NORMALS: negative for clear to auscultation bilaterally EFFORT & INSPECTION: Yes tachypneic, Yes respiratory distress, No retractions, Yes uses accessory muscles and No tracheal deviation AUSCULTATION: not clear to auscultation bilaterally, rhonchi, wheezes and diminished lung sounds Cardio: COMMON NORMALS: regular rate and regular rhythm RATE: regular rate RHYTHM: regular rhythm HEART SOUNDS: no murmurs PERIPHERAL PULSES: radial pulses present GI: INSPECTION: No abdominal distension AUSCULTATION: No Hyperactive bowel sounds present and No Hypoactive bowel sounds present PALPATION: No Guarding due to palpation present (GI) and No Rigid due to palpation PERCUSSION: no dullness to percussion and no tympanic to percussion : COMMON NORMALS: Yes no CVA tenderness BLADDER/KIDNEY EXAM: Yes no CVA tenderness Back/Pelvis: COMMON NORMALS: no CVA tenderness Neuro: SENSORIUM/ORIENTATION: Yes oriented to person and Yes oriented to place Skin: COMMON NORMALS: no rashes or lesions noted GENERAL SKIN EXAM: no rashes or lesions noted Course Vital Signs: Vital signs: Vital Signs Temperature 98.1 F 01/23/20 13:12 Pulse Rate 77 01/23/20 13:12 Respiratory Rate 20 H 01/23/20 13:12 Blood Pressure 173/78 01/23/20 13:12 Pulse Oximetry 94 01/23/20 13:12 MDM - SOB/Dyspnea MDM Narrative: Medical decision making narrative: 74-year-old male who presented with shortness of breath and some respiratory distress. He had increased oxygen demand. His chest x-ray showed worsening bilateral pneumonitis. Labs were pending at change of shift. He was checked out to Dr. Barrett. Lab Data: Labs: Lab Results 01/23/20 01/23/20 01/23/20 Range/Units 04:29 04:29 04:29 WBC 31.7 H* (4.0-10.0) 10^3/ uL RBC 3.51 L (4.1-5.3) 10^6/u L Hgb 10.0 L (11.7-16.6) g/dL Hct 31.5 L (42.0-52.0) % MCV 89.7 (80-94) fL MCH 28.5 (28.0-34.0) pg MCHC 31.7 (30.0-36.0) g/dL RDW 16.4 H (12.1-15.1) % Plt Count 70 L (130-400) 10^3/c mm MPV 12.0 H (7.4-10.4) fL Neut % (Auto) 3.6 % Lymph % (Auto) 95.8 % Martin % (Auto) 0.3 % Eos % (Auto) 0.1 % Baso % (Auto) 0.1 % Neut # (Auto) 1.15 L (1.8-7.7) 10^3/u L Lymph # (Auto) 30.4 H (0.8-4.8) 10^3/u L Martin # (Auto) 0.1 L (0.2-0.9) 10^3/u L Eos # (Auto) 0.0 (0.0-0.8) 10^3/u L Baso # (Auto) 0.0 (0.0-0.1) 10^3/u L Nucleated RBC % (a uto) 0 % Nucleated RBCs # 0.0 /100WBC PT 14.10 (12.1-14.9) SECO NDS INR 1.06 (0.8-1.2) D-Dimer 5.34 H (0-0.59) ug/mIFE U Specimen Type Sample Site ABG pH (7.35-7.45) ABG pCO2 (35-45) mmHg ABG pO2 (80.0-100.0) mmH g ABG HCO3 (22-26) mmol/L ABG Base Excess (-2.0-2.0) mmol/ L Jerry Test Hematocrit (42-52) % Hgb O2 Saturation (95-100) % Carboxyhemoglobin (0.4-20.1) %THgb Methemoglobin (0.4-1.5) % Total Hemoglobin (14-18) g/dL O2 Delivery Device O2 Liters/Min % Sous Chef Kitchen Manager ID Sodium 132 L (136-145) mmol/L Potassium 5.0 (3.5-5.1) mmol/L Chloride 96 L (98-107) mmol/L Carbon Dioxide 28 (22-29) mmol/L Anion Gap 13.0 (5-19) BUN 41 H (8-23) mg/dL Creatinine 1.8 H (0.7-1.2) mg/dL GFR Calculation Not Reportable Glucose 82 (65-115) mg/dL Calculated Osmolal ity 283 L (285-295) mOsm/k g Lactic Acid (0.5-2.2) mmol/L Calcium 8.3 L (8.5-10.5) mg/dL Total Bilirubin 0.8 (0.15-1.2) mg/dL AST 70 H (0-40) U/L ALT 12 (0-41) U/L Alkaline Phosphata se 81 (40-130) IU/L NT-Pro-B Natriuret Pep 5389 H (0-125) pg/mL Total Protein 6.1 L (6.6-8.7) g/dL Albumin 2.2 L (3.5-5.2) g/dL Globulin 3.9 (1.3-4.6) g/dL 01/23/20 01/23/20 Range/Units 05:15 05:18 WBC (4.0-10.0) 10^3/ uL RBC (4.1-5.3) 10^6/u L Hgb (11.7-16.6) g/dL Hct (42.0-52.0) % MCV (80-94) fL MCH (28.0-34.0) pg MCHC (30.0-36.0) g/dL RDW (12.1-15.1) % Plt Count (130-400) 10^3/c mm MPV (7.4-10.4) fL Neut % (Auto) % Lymph % (Auto) % Martin % (Auto) % Eos % (Auto) % Baso % (Auto) % Neut # (Auto) (1.8-7.7) 10^3/u L Lymph # (Auto) (0.8-4.8) 10^3/u L Martin # (Auto) (0.2-0.9) 10^3/u L Eos # (Auto) (0.0-0.8) 10^3/u L Baso # (Auto) (0.0-0.1) 10^3/u L Nucleated RBC % (a uto) % Nucleated RBCs # /100WBC PT (12.1-14.9) SECO NDS INR (0.8-1.2) D-Dimer (0-0.59) ug/mIFE U Specimen Type Arterial Sample Site Radial, right ABG pH 7.42 (7.35-7.45) ABG pCO2 47.7 H (35-45) mmHg ABG pO2 59.4 L (80.0-100.0) mmH g ABG HCO3 31.0 H (22-26) mmol/L ABG Base Excess 5.8 H (-2.0-2.0) mmol/ L Jerry Test Pos Hematocrit 31.0 L (42-52) % Hgb O2 Saturation 89.3 L (95-100) % Carboxyhemoglobin 2.1 (0.4-20.1) %THgb Methemoglobin 0.8 (0.4-1.5) % Total Hemoglobin 10.1 L (14-18) g/dL O2 Delivery Device Nc O2 Liters/Min 6.0 % Sous Chef Kitchen Manager ID Harkr Sodium (136-145) mmol/L Potassium (3.5-5.1) mmol/L Chloride (98-107) mmol/L Carbon Dioxide (22-29) mmol/L Anion Gap (5-19) BUN (8-23) mg/dL Creatinine (0.7-1.2) mg/dL GFR Calculation Glucose (65-115) mg/dL Calculated Osmolal ity (285-295) mOsm/k g Lactic Acid 1.1 (0.5-2.2) mmol/L Calcium (8.5-10.5) mg/dL Total Bilirubin (0.15-1.2) mg/dL AST (0-40) U/L ALT (0-41) U/L Alkaline Phosphata se (40-130) IU/L NT-Pro-B Natriuret Pep (0-125) pg/mL Total Protein (6.6-8.7) g/dL Albumin (3.5-5.2) g/dL Globulin (1.3-4.6) g/dL Discharge Plan Discharge Patient Disposition: Admitted As Inpatient Admit Provider: Reji Perez Clinical Impression: Pneumonia, COPD, severe, Chronic respiratory failure with hypoxia and hypercapnia, Pneumonia due to 2019-nCoV, Acute kidney injury Condition: Fair Discharge Diet: Usual diet and Regular Discharge Activity: Oxygen as instructed Sign Out Sign Out Data: Patient Sign Out occurred on 01/23/20 at 06:48. Patient's care was discussed, and care was transferred from to Bill Barrett DO. Coding Level of Care Code ED Regional Education Coordinator for Chg Fwd Exam Comprehensive Documented by User: Bill Barrett DO 01/23/20 07:59 HPI - SOB/Dyspnea General: Chief Complaint: Shortness of Breath/Dyspnea Stated Complaint: RESP DISTRESS Time Seen by Provider: 01/23/20 04:27 PFSH ED PFSH: Medical History Abdominal aortic aneurysm Anxiety and depression Atherosclerosis of [place] artery of both lower extremities BPH loc w urin obs/LUTS Cardiomyopathy Patient had a repeat echocardiogram in August 2019 in the hospital. He was found to have ejection fraction in the normal range. Cardiomyopathy, idiopathic Chronic GERD Chronic kidney disease, stage 3 Chronic lymphatic leukemia Chronic lymphocytic leukemia COPD (chronic obstructive pulmonary disease) COPD, severe Current smoker Insomnia Lung nodules Microscopic hematuria Negative evaluation including cystoscopy, CT scan, physical exam, cytology and culture. Mixed hyperlipidemia Primary hypertension Troponin level elevated Surgical History H/O wrist surgery Family History Mother Cancer Social History Smoking and tobacco status: current every day smoker cigarettes Packs smoked per day: 1 Years cigarettes smoked: 50 Alcohol intake: never Lives independently: Yes Household members: none Marital status: / Current occupational status: retired and disabled History of recent travel: No Current gender identity: Male Course Vital Signs: Vital signs: Vital Signs Temperature 98.1 F 01/23/20 13:12 Pulse Rate 77 01/23/20 13:12 Respiratory Rate 20 H 01/23/20 13:12 Blood Pressure 173/78 01/23/20 13:12 Pulse Oximetry 94 01/23/20 13:12 MDM - SOB/Dyspnea MDM Narrative: Medical decision making narrative: Care assumed a change of shift. Patient has leukocytosis probably in large part due to his steroid intake. He does seem to have worsening Covid suspect is a secondary pneumonia. We will go ahead and admit him to the medical surgical floor he would like to be treated but he still does not want to be intubated so he is done as a DNI. He is requiring higher levels of oxygen although at the time of discharge she was listed as being home on 6 L/min he reported to Dr. Brown that he was down to 3 L/min and then it was increased to 6. At this point you wishes to be treated again. Discussed Dr. Langston orders have been written. Lab Data: Labs: Lab Results 01/23/20 01/23/20 01/23/20 Range/Units 04:29 04:29 04:29 WBC 31.7 H* (4.0-10.0) 10^3/ uL RBC 3.51 L (4.1-5.3) 10^6/u L Hgb 10.0 L (11.7-16.6) g/dL Hct 31.5 L (42.0-52.0) % MCV 89.7 (80-94) fL MCH 28.5 (28.0-34.0) pg MCHC 31.7 (30.0-36.0) g/dL RDW 16.4 H (12.1-15.1) % Plt Count 70 L (130-400) 10^3/c mm MPV 12.0 H (7.4-10.4) fL Neut % (Auto) 3.6 % Lymph % (Auto) 95.8 % Martin % (Auto) 0.3 % Eos % (Auto) 0.1 % Baso % (Auto) 0.1 % Neut # (Auto) 1.15 L (1.8-7.7) 10^3/u L Lymph # (Auto) 30.4 H (0.8-4.8) 10^3/u L Martin # (Auto) 0.1 L (0.2-0.9) 10^3/u L Eos # (Auto) 0.0 (0.0-0.8) 10^3/u L Baso # (Auto) 0.0 (0.0-0.1) 10^3/u L Nucleated RBC % (a uto) 0 % Nucleated RBCs # 0.0 /100WBC PT 14.10 (12.1-14.9) SECO NDS INR 1.06 (0.8-1.2) D-Dimer 5.34 H (0-0.59) ug/mIFE U Specimen Type Sample Site ABG pH (7.35-7.45) ABG pCO2 (35-45) mmHg ABG pO2 (80.0-100.0) mmH g ABG HCO3 (22-26) mmol/L ABG Base Excess (-2.0-2.0) mmol/ L Jerry Test Hematocrit (42-52) % Hgb O2 Saturation (95-100) % Carboxyhemoglobin (0.4-20.1) %THgb Methemoglobin (0.4-1.5) % Total Hemoglobin (14-18) g/dL O2 Delivery Device O2 Liters/Min % Sous Chef Kitchen Manager ID Sodium 132 L (136-145) mmol/L Potassium 5.0 (3.5-5.1) mmol/L Chloride 96 L (98-107) mmol/L Carbon Dioxide 28 (22-29) mmol/L Anion Gap 13.0 (5-19) BUN 41 H (8-23) mg/dL Creatinine 1.8 H (0.7-1.2) mg/dL GFR Calculation Not Reportable Glucose 82 (65-115) mg/dL Calculated Osmolal ity 283 L (285-295) mOsm/k g Lactic Acid (0.5-2.2) mmol/L Calcium 8.3 L (8.5-10.5) mg/dL Total Bilirubin 0.8 (0.15-1.2) mg/dL AST 70 H (0-40) U/L ALT 12 (0-41) U/L Alkaline Phosphata se 81 (40-130) IU/L NT-Pro-B Natriuret Pep 5389 H (0-125) pg/mL Total Protein 6.1 L (6.6-8.7) g/dL Albumin 2.2 L (3.5-5.2) g/dL Globulin 3.9 (1.3-4.6) g/dL 01/23/20 01/23/20 Range/Units 05:15 05:18 WBC (4.0-10.0) 10^3/ uL RBC (4.1-5.3) 10^6/u L Hgb (11.7-16.6) g/dL Hct (42.0-52.0) % MCV (80-94) fL MCH (28.0-34.0) pg MCHC (30.0-36.0) g/dL RDW (12.1-15.1) % Plt Count (130-400) 10^3/c mm MPV (7.4-10.4) fL Neut % (Auto) % Lymph % (Auto) % Martin % (Auto) % Eos % (Auto) % Baso % (Auto) % Neut # (Auto) (1.8-7.7) 10^3/u L Lymph # (Auto) (0.8-4.8) 10^3/u L Martin # (Auto) (0.2-0.9) 10^3/u L Eos # (Auto) (0.0-0.8) 10^3/u L Baso # (Auto) (0.0-0.1) 10^3/u L Nucleated RBC % (a uto) % Nucleated RBCs # /100WBC PT (12.1-14.9) SECO NDS INR (0.8-1.2) D-Dimer (0-0.59) ug/mIFE U Specimen Type Arterial Sample Site Radial, right ABG pH 7.42 (7.35-7.45) ABG pCO2 47.7 H (35-45) mmHg ABG pO2 59.4 L (80.0-100.0) mmH g ABG HCO3 31.0 H (22-26) mmol/L ABG Base Excess 5.8 H (-2.0-2.0) mmol/ L Jerry Test Pos Hematocrit 31.0 L (42-52) % Hgb O2 Saturation 89.3 L (95-100) % Carboxyhemoglobin 2.1 (0.4-20.1) %THgb Methemoglobin 0.8 (0.4-1.5) % Total Hemoglobin 10.1 L (14-18) g/dL O2 Delivery Device Nc O2 Liters/Min 6.0 % Sous Chef Kitchen Manager ID Harkr Sodium (136-145) mmol/L Potassium (3.5-5.1) mmol/L Chloride (98-107) mmol/L Carbon Dioxide (22-29) mmol/L Anion Gap (5-19) BUN (8-23) mg/dL Creatinine (0.7-1.2) mg/dL GFR Calculation Glucose (65-115) mg/dL Calculated Osmolal ity (285-295) mOsm/k g Lactic Acid 1.1 (0.5-2.2) mmol/L Calcium (8.5-10.5) mg/dL Total Bilirubin (0.15-1.2) mg/dL AST (0-40) U/L ALT (0-41) U/L Alkaline Phosphata se (40-130) IU/L NT-Pro-B Natriuret Pep (0-125) pg/mL Total Protein (6.6-8.7) g/dL Albumin (3.5-5.2) g/dL Globulin (1.3-4.6) g/dL Discharge Plan Discharge Patient Disposition: Admitted As Inpatient Admit Provider: Reji Perez Clinical Impression: Pneumonia, COPD, severe, Chronic respiratory failure with hypoxia and hypercapnia, Pneumonia due to 2019-nCoV, Acute kidney injury Condition: Fair Discharge Diet: Usual diet and Regular Discharge Activity: Oxygen as instructed Sign Out Sign Out Data: Patient Sign Out occurred on 01/23/20 at 06:48. Patient's care was discussed, and care was transferred from to Bill Barrett DO. Coding Level of Care Code ED Regional Education Coordinator for Chg Fwd Exam Comprehensive
[2020-01-23 05:49] LABS: INR 1.06 (0.8-1.2)
[2020-01-23 06:00] LABS: D Dimer 5.34 ug/mIFEU (0-0.59)
[2020-01-23 06:36] LABS: Alanine Aminotransferase 12 U/L (0-41); Albumin Level 2.2 g/dL (3.5-5.2); Alkaline Phosphatase 81 IU/L (40-130); Aspartate Amino Transferase 70 U/L (0-40); Blood Urea Nitrogen 41 mg/dL (8-23); Calcium 8.3 mg/dL (8.5-10.5); Carbon Dioxide 28 mmol/L (22-29); Chloride 96 mmol/L (98-107); Globulin 3.9 g/dL (1.3-4.6); Glucose 82 mg/dL (65-115); NT Pro B Type Natriuretic Pept 5389 pg/mL (0-125); Osmolality Calculated 283 mOsm/kg (285-295); Sodium 132 mmol/L (136-145); Total Bilirubin 0.8 mg/dL (0.15-1.2); Total Protein 6.1 g/dL (6.6-8.7)
[2020-01-23] MEDS: levofloxacin-dextrose 5 % 750 MG/150 ML PREMIX 100 MG IV (06:40)
[2020-01-23 06:49] LABS: White Blood Count 31.7 10^3/uL (4.0-10.0)
[2020-01-23 06:50] LABS: Slide Review Slide Review Perform
[2020-01-23] MEDS: sodium chloride 0.9% 500 ML 999 ML IV (07:59)
[2020-01-23 08:05] LABS: Lactic Sepsis W/Reflex 1.1 mmol/L (0.5-2.2)
[2020-01-23] MEDS: dexamethasone 4 mg Tablet 6 MG PO (09:59)
[2020-01-23] MEDS: sodium chloride 0.9% 1,000 ML 100 ML IV (09:59)
--- NOTE | 2020-01-23 10:21 | P.HP_ITS ---
Providers/Chief Complaint Admitting Physician: Reji Perez Primary Care Provider: Jada Garduno DO Chief Complaint: RESP DISTRESS History of Present Illness 74-year-old gentleman returns to the hospital after discharge on 01/20 after discharging prematurely from admission for treatment of hypoxic respiratory failure, acute on chronic, due to severe COVID-19, underwent treatment with remdesivir, Decadron, empirically ceftriaxone due to underlying severe COPD. Had been recently discharged from hospice with severe underlying pulmonary disease apart from COPD with bronchiectasis and pulmonary fibrosis. He was feeling better, felt that there was no further benefit he could gain from staying in the hospital and decided to leave and reengage hospice care at home. Sputum culture from last admission growing Bordetella bronchiseptica. He was discharged with a course of Levaquin. However, he states he has not taken any of his medications after discharge. He states he did not have anybody to sort through his medications. States was admitted to hospice, however, he did not have anybody to come out to his house until Saturday. He states that at home he tried smoking, but could not do much of it. He started feeling more short of breath, decided to return to the hospital. In ER he is requiring 6 L of oxygen by nasal cannula. There is noted progression of opacification on chest x-ray. WBC 31.7, PLT 70, Hb 10. D-dimer 5.34. ABG 7.42/47.7/59.4/31. Sodium 132. Creatinine 1.8. AST 70. BNP 5389. EKG with atrial flutter. This was new onset during prior admission. On discharge she was continued metoprolol. Rate is controlled, currently 80. Was started on Eliquis. He states he is willing to come to the hospital and be admitted, but not for long . Review of Systems Const: Reports: fatigue; Denies: fever(s), chills, body aches or malaise Eyes: Denies: change in vision or eye redness ENMT: Denies: throat pain, oral sores or ear or mastoid pain Card: Denies: chest pain, edema, pre-syncope or dyspnea on exertion Resp: Reports: dyspnea; Denies: productive cough, change in phlegm color or hemoptysis GI: Denies: abdominal pain, nausea, vomiting, diarrhea, constipation, hematochezia or melena : Denies: flank pain, difficulty urinating, urinary frequency or hematuria Musc: Denies: back pain, joint swelling or joint redness Skin/Breast: Denies: rash, sores or new lesions Neuro: Denies: headache(s), numbness in extremities, weakness in extremities, dizziness, confusion or seizure-like activity Endo: Denies: polyuria or polydipsia Miguel/Lymph: Denies: easy bleeding or purpura All/Imm: Denies: urticaria, throat swelling or tongue swelling Medications/Allergies Home Medications Medication Instructions Recorded Confirmed Last Taken Type gemfibrozil 600 mg tablet 600 mg PO BID 03/09/19 01/23/20 10/09/19 History ketoconazole 1 % shampoo 1 applic TOPICAL Q3D #200 ml 06/24/19 01/23/20 01/21/20 Rx coal tar 1 applic TOPICAL . DIRECTED PRN 08/22/19 01/23/20 01/21/20 History gabapentin 100 mg capsule 100 mg PO TID #90 cap 09/01/19 01/23/20 01/21/20 Rx tiotropium bromide 2.5 2 inh INHALATION QAM 09/01/19 01/23/20 Unknown History mcg/actuation mist for inhalation Inogen #1 ea 10/06/19 01/23/20 Unknown Rx albuterol sulfate 2.5 mg INHALATION QID PRN #180 ml 10/23/19 01/23/20 Unknown Rx hydrocodone 5 mg-acetaminophen 325 1 tab PO BID PRN 15 Days #30 tab 10/23/19 01/23/20 Unknown Rx mg tablet prednisone 5 mg tablet 5 mg PO DAILY 90 Days #90 tab 11/03/19 01/23/20 01/21/20 Rx cholecalciferol (vitamin D3) 50 1,000 unit PO DAILY #90 tab 11/06/19 01/23/20 01/21/20 Rx mcg (2,000 unit) tablet mometasone 1 inh INHALATION BID 90 Days #3 11/11/19 01/23/20 Unknown Rx each nitroglycerin 0.4 mg sublingual 0.4 mg SUBLINGUAL Q5M PRN #1 tab 11/16/19 01/23/20 Unknown Rx tablet pantoprazole 40 mg tablet,delayed 40 mg PO DAILY #90 tab 11/16/19 01/23/20 01/21/20 Rx release meclizine 25 mg tablet 25 mg PO BID PRN #30 tab 11/26/19 01/23/20 Unknown Rx clobetasol 0.05 % topical ointment 1 applic TOPICAL BID 14 Days #60 gm 12/14/19 01/23/20 Unknown Rx halobetasol propionate 0.05 % 1 applic TOPICAL BID 12/14/19 01/23/20 Unknown History topical cream mometasone 0.1 % topical solution 1 applic TOPICAL DAILY PRN #60 ml 12/14/19 01/23/20 Unknown Rx tamsulosin 0.4 mg capsule 0.4 mg PO DAILY #90 cap 12/14/19 01/23/20 01/21/20 Rx triamcinolone acetonide 0.05 % 1 applic TOPICAL BID #430 gm 12/14/19 01/23/20 Unknown Rx topical ointment metoprolol tartrate 100 mg tablet 50 mg PO BID #180 tab 12/17/19 01/23/20 01/21/20 Rx doxycycline hyclate 100 mg tablet 100 mg PO BID #60 tab 01/13/20 01/23/20 Unknown Rx ipratropium 0.5 mg-albuterol 3 mg 3 ml INHALATION QID 30 Days #360 ml 01/15/20 01/23/20 01/21/20 Rx (2.5 mg base)/3 mL nebulization soln aspirin 81 mg PO QAM 01/18/20 01/23/20 01/21/20 History atorvastatin [Lipitor] 20 mg PO QPM 01/18/20 01/23/20 01/21/20 History budesonide-formoterol [Symbicort] 2 puff INHALATION BID 01/18/20 01/23/20 01/21/20 History clonazepam 0.5 mg PO Q12H PRN 01/18/20 01/23/20 Unknown History guaifenesin [Mucinex] 600 mg PO BID 01/18/20 01/23/20 Unknown History mirtazapine 7.5 mg PO BEDTIME 01/18/20 01/23/20 01/21/20 History polyethylene glycol 3350 [Miralax] 17 g PO DAILY PRN 01/18/20 01/23/20 Unknown History trazodone 100 mg PO BEDTIME 01/18/20 01/23/20 Unknown History apixaban See Rx Instructions .ROUTE 01/21/20 01/23/20 01/21/20 Rx .COMPLEX #74 ea benzonatate 100 mg PO TID PRN #30 cap 01/21/20 01/23/20 01/21/20 Rx dexamethasone 6 mg PO DAILY #12 tab 01/21/20 01/23/20 01/21/20 Rx levofloxacin 750 mg PO DAILY 7 Days #7 tab 01/21/20 01/23/20 01/21/20 Rx nicotine 1 patch TRANSDERMAL DAILY PRN #30 01/21/20 01/23/20 01/21/20 Rx ea Allergies Allergy/AdvReac Type Severity Reaction Status Date / Time No Known Allergies Allergy Verified 01/22/20 13:42 PFSH Acute PFSH: Medical History Abdominal aortic aneurysm Anxiety and depression Atherosclerosis of [place] artery of both lower extremities BPH loc w urin obs/LUTS Cardiomyopathy Patient had a repeat echocardiogram in August 2019 in the hospital. He was found to have ejection fraction in the normal range. Cardiomyopathy, idiopathic Chronic GERD Chronic kidney disease, stage 3 Chronic lymphatic leukemia Chronic lymphocytic leukemia COPD (chronic obstructive pulmonary disease) COPD, severe Current smoker Insomnia Lung nodules Microscopic hematuria Negative evaluation including cystoscopy, CT scan, physical exam, cytology and culture. Mixed hyperlipidemia Primary hypertension Troponin level elevated Surgical History H/O wrist surgery Family History Mother Cancer Social History Smoking and tobacco status: current every day smoker cigarettes Packs smoked per day: 1 Years cigarettes smoked: 50 Alcohol intake: never Lives independently: Yes Household members: none Marital status: / Current occupational status: retired and disabled History of recent travel: No Current gender identity: Male Vitals/I&O/Wt Last Vital Signs Temp 98.9 F 01/23/20 08:50 Pulse 87 01/23/20 08:50 Resp 22 H 01/23/20 08:50 BP 172/73 01/23/20 08:50 Pulse Ox 94 01/23/20 08:50 01/22/20 01/23/20 01/23/20 22:59 06:59 14:59 Output Total 400 / 400 Balance -400 / -400 Weight last 48 hrs Weight 54.431 kg Physical Exam Const: COMMON NORMALS: no acute distress and patient oriented x3 HENMT: COMMON NORMALS: oropharynx normal Neck/C-Spine: COMMON NORMALS: no JVD Resp: COMMON NORMALS: normal respiratory effort and clear to auscultation bilaterally AUSCULTATION: crackles (coarse, more at bases) and diminished lung sounds Cardio: COMMON NORMALS: no JVD, regular rhythm, S1 normal heart sound present, S2 normal heart sound present and No murmurs present (Cardio) RHYTHM: regular rhythm HEART SOUNDS: S1 normal heart sound present and S2 normal heart sound present GI: COMMON NORMALS: Normal to inspection, nondistended, normoactive bowel sounds present, Soft to palpation and non-tender PALPATION: Yes Soft to palpation Extremity: COMMON NORMALS: no joint enlargement and no pedal edema Neuro: COMMON NORMALS: patient oriented x3 and moves all extremities Skin: COMMON NORMALS: no rashes or lesions noted GENERAL SKIN EXAM: no rashes or lesions noted Data : 01/23/20 04:29 01/23/20 04:29 Micro: Microbiology 01/23/20 05:20 Blood Culture - Preliminary Blood SPECIMEN COLLECTED 01/23/20 05:12 Blood Culture - Preliminary Blood SPECIMEN COLLECTED A&P Assessment and plan (1) Pneumonia due to 2019-nCoV: Severe COVID-19 infection. Underlying severe pulmonary disease with COPD, bronchiectasis, pulmonary fibrosis. Current smoker. Became more short of breath at home, return to the hospital. On admission progression opacities on x-ray. Hypoxemia. He did not take any of his medications at home as well. Bordetella bronchiseptica from sputum suspected bacterial superinfection during past admission. We will restart Decadron, he received Levaquin, will continue. Breathing treatments. D-dimer elevated. Continue Eliquis. We will not restart Decadron as he had almost completed the therapy last time, as well as renal function appears worse this time. He wants to receive treatment currently. He states that we will not be staying in the hospital long. Intends to return to hospice after discharge. Appreciate caser in assistance with arrangements. Status: Acute (2) Bordetella bronchiseptica (b. bronchiseptica): Continue Levaquin. Status: Acute (3) Acute kidney injury: Avoid nephrotoxins. For now hold off diuretic. Monitor renal function. Hold off additional IV fluids. Status: Acute (4) Current smoker: Encourage cessation. Status: Acute (5) COPD, severe: Possible minimal exacerbation. Decreased air entry. Does have underlying bronchiectasis, pulmonary fibrosis. Graduated hospice shortly prior to last admission. Currently resumed under hospice care. Status: Chronic (6) Thrombocytopenia: Has underlying CLL. Platelet level is worse currently than previously. Unsure if this may be from some fluid overload given his diuretic has been held last time due to acute kidney injury, although does not appear fluid overloaded on exam. Possibly may be secondary to Covid infection. Possible sepsis with pulmonary source, although does not fit sepsis criteria currently. Monitor. For now we will hold aspirin. Status: Acute Attestations Medical Necessity Statement*: Admission of over 2 midnights is continued for assessment management of severe COVID-19 infection, superimposed bacterial pulmonary infection with Bordetella Mccammon septic a, with underlying severe COPD, bronchiectasis, pulmonary fibrosis. Coding Level of Care Code Acute Geneticist for [facility] Diagnoses Pneumonia due to 2019-nCoV U07.1; J12.89 Bordetella bronchiseptica (b. bronchiseptica) A37.80 Acute kidney injury N17.9 Current smoker F17.200 COPD, severe J44.9 Thrombocytopenia D69.6
[2020-01-23] MEDS: tamsulosin 0.4 mg Capsule PO (11:53)
[2020-01-23] MEDS: pantoprazole DR 40 mg Tablet PO (11:53)
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
--- NOTE | 2020-01-25 10:52 | PC.RESP ---
Smoking Cessation and Pulmonary Rehab packet sent to patient.
--- NOTE | 2020-01-25 13:54 | PC.SOCIAL ---
Spoke with the patient's son Rich on the phone about the discharge information they received spoke about signs and symptoms to watch for such as; blue lips or face, fever of 104 or higher, trouble breathing or catching breath, chest pain lasting longer than 5 minute, confusion or trouble waking up. We also spoke about ways to improve the immune system, these included; eating and drinking well, eating fruits and vegetables, lean meat, low fat dairy products, keeping up with immunizations such as flu/pneumonia/shingles shots, going to all appointments and follow ups, lessening and stress. We also spoke about ways to stop or prevent the spread of the COVID 19. These included; social distancing at all times, washing hands longer than 20 seconds with a good lather, sanitizing surfaces in home and in vehicle, masking up when possible and washing any cloth masks after use and allow them to dry completely before next use, sneezing or coughing into arm, restricting company or going out in public. We spoke a little about the benefits of plasma donation. He stated that his father was suppose to have an appointment set up with Dr. miller, this was never set up. They did a telehealth Appointment on the . He readmitted to the hospital after that. The patient is on hospice so he likely will not need the PCP follow up. I informed the nurse for Dr. Miller to F/U with the hospice company to see if a new apt is even needed.
== END 2020-01-23 13:30 | disposition left against medical advice (07) | DRG 177 ==
LOC: ER 06:48 → MEDSURG 07:47
PROVIDERS: Emergency Medicine; Admitting Provider Internal Medicine; Emergency Provider Family Medicine; PCP Family Medicine; Visit Provider Internal Medicine
DX: U07.1 COVID-19 (principal); J12.89 Other viral pneumonia; J96.21 Acute and chronic respiratory failure with hypoxia; A00-B99 Certain infectious and parasitic diseases; J44.0 Chronic obstructive pulmonary disease with (acute) lower respiratory infection; I48.92 Unspecified atrial flutter; N13.8 Other obstructive and reflux uropathy; I42.9 Cardiomyopathy, unspecified; C91.10 Chronic lymphocytic leukemia of B-cell type not having achieved remission; N17.9 Acute kidney failure, unspecified; J84.10 Pulmonary fibrosis, unspecified; F17.210 Nicotine dependence, cigarettes, uncomplicated; I71.4 Abdominal aortic aneurysm, without rupture; F41.8 Other specified anxiety disorders; I73.9 Peripheral vascular disease, unspecified; N40.1 Benign prostatic hyperplasia with lower urinary tract symptoms; K21.9 Gastro-esophageal reflux disease without esophagitis; N18.30 Chronic kidney disease, stage 3 unspecified; I12.9 Hypertensive chronic kidney disease with stage 1 through stage 4 chronic kidney disease, or unspecified chronic kidney disease; G47.00 Insomnia, unspecified; R91.8 Other nonspecific abnormal finding of lung field; E78.2 Mixed hyperlipidemia; Z79.82 Long term (current) use of aspirin; Z79.891 Long term (current) use of opiate analgesic; Z53.29 Procedure and treatment not carried out because of patient's decision for other reasons; Z91.128 Patient's intentional underdosing of medication regimen for other reason; D69.6 Thrombocytopenia, unspecified
CPT/HCPCS: 12345; 36600; 71045; 80053; 82805; 83605; 83880; 85025; 85378; 85610; 87040; 93005; 99283; J1956; J7030; J7040; J8540

== ENCOUNTER → 2020-06-02 11:53 | Outpatient (BNVA) | payer OTHER, MEDICARE, SELFPAY | PROVIDERS: PCP Family Medicine; Visit Provider Urology | DX: N40.1 Benign prostatic hyperplasia with lower urinary tract symptoms (principal); R30.0 Dysuria; R31.29 Other microscopic hematuria; F17.210 Nicotine dependence, cigarettes, uncomplicated | CPT/HCPCS: 81003; 87086 ==

== ENCOUNTER 2020-06-07 06:52 | Inpatient (IN) | payer OTHER, MEDICARE, SELFPAY ==
[2020-06-07] VITALS (21 sets, daily range): BP systolic 113–167; BP diastolic 65–98; PULSE 63–88; RESP 16–25; TEMP 36.4–37.1; O2SAT 81–95; BMI 18.4
--- NOTE | 2020-06-07 07:20 | W.ED.SOB ---
HPI - SOB/Dyspnea General: Chief Complaint: Shortness of Breath/Dyspnea Stated Complaint: DIFFICULTY BREATHING, HEADACHE, EYE SORENESS Time Seen by Provider: 06/07/20 06:55 History of Present Illness: HPI Narrative: 75-year-old male presents emergency room with complaints of shortness of breath and mild chest discomfort. symptoms began overnight. Patient has a history of severe COPD as well as CLL. Patient had COVID-19 pneumonia in December 2019. He is also has chronic kidney disease and atrial fibrillation. He is on anticoagulation and states he has been taking it regularly. His symptoms seem to begin for the most part overnight. He has some mild chest discomfort along with it on the left base. He denies any vomiting or diarrhea. MD elicited complaint: shortness of breath and cough Pertinent past history: COPD and other (Chronic lymphocytic leukemia) Onset (ago): day(s) Context: occurred during exertion Timing: constant Severity: severe Exacerbating factors: exertion and coughing Relieving factors: oxygen and rest Known history of: COPD Associated symptoms: Reports chest congestion, chest pain and cough; Deny abdominal pain, diaphoresis, dizziness, extremity pain, fever(s), hemoptysis, lightheadedness, myalgias, nausea, orthopnea, palpitations, paresthesias, polydipsia, polyuria, rash, sense of impending doom, syncope or vomiting Treatment prior to arrival: oxygen and bronchodilator Review of Systems Const: Denies: fever(s) or diaphoresis ENMT: Denies: throat pain, ear or mastoid pain, nasal discharge or nasal congestion Card: Reports: chest pain; Denies: palpitations, lightheadedness, syncope or orthopnea Resp: Reports: chest congestion; Denies: hemoptysis GI: Denies: abdominal pain, nausea or vomiting : Denies: flank pain, dysuria, urinary frequency or urinary urgency Musc: Denies: extremity pain Skin/Breast: Denies: rash or pruritus Neuro: Denies: dizziness Endo: Denies: polyuria or polydipsia PFS ED PFSH: Medical History Abdominal aortic aneurysm Anxiety and depression Atherosclerosis of [place] artery of both lower extremities BPH loc w urin obs/LUTS Cardiomyopathy Patient had a repeat echocardiogram in August 2019 in the hospital. He was found to have ejection fraction in the normal range. Cardiomyopathy, idiopathic Chronic GERD Chronic kidney disease, stage 3 Chronic lymphatic leukemia Chronic lymphocytic leukemia COPD (chronic obstructive pulmonary disease) On 3 L of oxygen currently COPD, severe Current smoker Insomnia Lung nodules Microscopic hematuria Negative evaluation including cystoscopy, CT scan, physical exam, cytology and culture. Mixed hyperlipidemia Primary hypertension Troponin level elevated Surgical History H/O wrist surgery Family History Mother Cancer Social History Smoking and tobacco status: current every day smoker cigarettes Packs smoked per day: 1 Years cigarettes smoked: 50 Smoking risk assessment/counseling performed?: Yes Alcohol intake: never Counseling given: No Counseling given: No Lives independently: Yes Household members: none Marital status: / Current occupational status: retired and disabled History of recent travel: No Current gender identity: Male Physical Exam Const: COMMON NORMALS: no acute distress GENERAL APPEARANCE: cooperative and comfortable ORIENTATION/CONSCIOUSNESS: Yes awake, Yes oriented to person, Yes oriented to place and Yes oriented to time HENMT: COMMON NORMALS: normocephalic, atraumatic and hearing grossly normal bilaterally HEAD & SCALP: normocephalic and atraumatic Neck/C-Spine: COMMON NORMALS: no JVD Resp: EFFORT & INSPECTION: Yes labored and Yes uses accessory muscles AUSCULTATION: rhonchi, wheezes and diminished lung sounds Cardio: COMMON NORMALS: no JVD, regular rhythm and No murmurs present (Cardio) RATE: tachycardic RHYTHM: regular rhythm GI: COMMON NORMALS: Soft to palpation and No hepatosplenomegaly present AUSCULTATION: Yes normoactive bowel sounds PALPATION: Yes Soft to palpation, No Tenderness to palpation present (GI), No Guarding due to palpation present (GI) and Yes No hepatosplenomegaly present Extremity: COMMON NORMALS: normal to inspection, capillary refill normal, no clubbing, cyanosis or edema, no calf tenderness and no pedal edema Neuro: SENSORIUM/ORIENTATION: Yes oriented to person, Yes oriented to place and Yes oriented to time Skin: COMMON NORMALS: no rashes or lesions noted GENERAL SKIN EXAM: no rashes or lesions noted Course Vital Signs: Vital signs: Vital Signs Temperature 97.8 F 06/09/20 03:42 Pulse Rate 74 06/09/20 03:42 Respiratory Rate 17 06/09/20 03:42 Blood Pressure 185/89 06/09/20 03:42 Pulse Oximetry 93 06/09/20 03:42 MDM - SOB/Dyspnea MDM Narrative: Medical decision making narrative: Patient has acute exacerbation COPD. White count elevated. Actually improved from his previous. Orders written discussed with Dr. Lopez. Lab Data: Labs: Lab Results 06/07/20 06/07/20 06/07/20 Range/Units 07:27 07:27 07:27 WBC 23.3 H (4.0-10.0) 10^3/ uL RBC 4.01 L (4.1-5.3) 10^6/u L Hgb 12.0 (11.7-16.6) g/dL Hct 37.6 L (42.0-52.0) % MCV 93.8 (80-94) fL MCH 29.9 (28.0-34.0) pg MCHC 31.9 (30.0-36.0) g/dL RDW 14.8 (12.1-15.1) % Plt Count 60 L (130-400) 10^3/c mm MPV 13.0 H (7.4-10.4) fL Neut % (Auto) 10.0 % Lymph % (Auto) 89.3 % Warren % (Auto) 0.5 % Eos % (Auto) 0.0 % Baso % (Auto) 0.2 % Neut # (Auto) 2.29 (1.8-7.7) 10^3/u L Lymph # (Auto) 20.8 H (0.8-4.8) 10^3/u L Warren # (Auto) 0.1 L (0.2-0.9) 10^3/u L Eos # (Auto) 0.0 (0.0-0.8) 10^3/u L Baso # (Auto) 0.1 (0.0-0.1) 10^3/u L Nucleated RBC % (a uto) 0.1 % Nucleated RBCs # 0.0 /100WBC Haptoglobin (30-200) mg/L Sodium 131 L (136-145) mmol/L Potassium 5.3 H (3.5-5.1) mmol/L Chloride 96 L (98-107) mmol/L Carbon Dioxide 26 (22-29) mmol/L Anion Gap 14.3 (5-19) BUN 40 H (8-23) mg/dL Creatinine 2.4 H (0.7-1.2) mg/dL GFR Calculation Not Reportable Glucose 92 (65-115) mg/dL Calculated Osmolal ity 281 L (285-295) mOsm/k g Uric Acid (3.4-7.0) mg/dL Calcium 8.8 (8.5-10.5) mg/dL Magnesium 1.5 L (1.7-2.3) mg/dL Total Bilirubin 1.2 (0.15-1.2) mg/dL AST 49 H (0-40) U/L ALT 6 (0-41) U/L Alkaline Phosphata se 72 (40-130) IU/L Lactate Dehydrogen ase (135-225) U/L Troponin T Baselin e 153 H* (0-15) ng/L Troponin T 120 Min ken[place]ze (0-15) ng/L Delta Troponin T (0-10) ABS# Troponin T Hi Sens 6Hr (0-15) ng/L Troponin T Hi Sens 6Hr Delta (0-12) ng/L Total Protein 6.4 L (6.6-8.7) g/dL Albumin 3.7 (3.5-5.2) g/dL Globulin 2.7 (1.3-4.6) g/dL TSH (0.27-4.20) uIU/ mL Urine Color (Yellow) Urine Appearance (CLEAR) Urine pH Ur Specific Gravit y Urine Protein Urine Glucose (UA) Urine Ketones Urine Blood Urine Nitrate Urine Bilirubin Urine Urobilinogen Ur Leukocyte Molly ase Urine RBC (0-2) /hpf Urine WBC (0-5) /hpf Ur Squamous Epith Cells (0-5) /hpf Amorphous Sediment Urine Bacteria (NONE) /hpf U Random Total Pro tein mg/dL Urine Creatinine (39-259) mg/dL 06/07/20 06/07/20 06/07/20 Range/Units 07:27 09:48 11:01 WBC (4.0-10.0) 10^3/ uL RBC (4.1-5.3) 10^6/u L Hgb (11.7-16.6) g/dL Hct (42.0-52.0) % MCV (80-94) fL MCH (28.0-34.0) pg MCHC (30.0-36.0) g/dL RDW (12.1-15.1) % Plt Count (130-400) 10^3/c mm MPV (7.4-10.4) fL Neut % (Auto) % Lymph % (Auto) % Warren % (Auto) % Eos % (Auto) % Baso % (Auto) % Neut # (Auto) (1.8-7.7) 10^3/u L Lymph # (Auto) (0.8-4.8) 10^3/u L Warren # (Auto) (0.2-0.9) 10^3/u L Eos # (Auto) (0.0-0.8) 10^3/u L Baso # (Auto) (0.0-0.1) 10^3/u L Nucleated RBC % (a uto) % Nucleated RBCs # /100WBC Haptoglobin (30-200) mg/L Sodium (136-145) mmol/L Potassium (3.5-5.1) mmol/L Chloride (98-107) mmol/L Carbon Dioxide (22-29) mmol/L Anion Gap (5-19) BUN (8-23) mg/dL Creatinine (0.7-1.2) mg/dL GFR Calculation Glucose (65-115) mg/dL Calculated Osmolal ity (285-295) mOsm/k g Uric Acid (3.4-7.0) mg/dL Calcium (8.5-10.5) mg/dL Magnesium (1.7-2.3) mg/dL Total Bilirubin (0.15-1.2) mg/dL AST (0-40) U/L ALT (0-41) U/L Alkaline Phosphata se (40-130) IU/L Lactate Dehydrogen ase (135-225) U/L Troponin T Baselin e (0-15) ng/L Troponin T 120 Min k[place]ze 152.1 H (0-15) ng/L Delta Troponin T -0.9 L (0-10) ABS# Troponin T Hi Sens 6Hr (0-15) ng/L Troponin T Hi Sens 6Hr Delta (0-12) ng/L Total Protein (6.6-8.7) g/dL Albumin (3.5-5.2) g/dL Globulin (1.3-4.6) g/dL TSH 1.07 (0.27-4.20) uIU/ mL Urine Color [place] (Yellow) Urine Appearance Cloudy (CLEAR) Urine pH Not Reportable Ur Specific Gravit y Not Reportable Urine Protein Not Reportable Urine Glucose (UA) Not Reportable Urine Ketones Not Reportable Urine Blood Not Reportable Urine Nitrate Not Reportable Urine Bilirubin Not Reportable Urine Urobilinogen Not Reportable Ur Leukocyte Molly ase Not Reportable Urine RBC 0-4 H (0-2) /hpf Urine WBC 0-4 H (0-5) /hpf Ur Squamous Epith Cells 0-4 H (0-5) /hpf Amorphous Sediment Not Reportable Urine Bacteria Trace (NONE) /hpf U Random Total Pro tein mg/dL Urine Creatinine (39-259) mg/dL 06/07/20 06/07/20 06/08/20 Range/Units 14:12 18:18 04:25 WBC 15.9 H (4.0-10.0) 10^3/ uL RBC 3.14 L (4.1-5.3) 10^6/u L Hgb 9.6 L (11.7-16.6) g/dL Hct 29.7 L (42.0-52.0) % MCV 94.6 H (80-94) fL MCH 30.6 (28.0-34.0) pg MCHC 32.3 (30.0-36.0) g/dL RDW 14.9 (12.1-15.1) % Plt Count 35 L (130-400) 10^3/c mm MPV 13.1 H (7.4-10.4) fL Neut % (Auto) 13.8 % Lymph % (Auto) 80.4 % Warren % (Auto) 1.1 % Eos % (Auto) 0.0 % Baso % (Auto) 0.3 % Neut # (Auto) 2.20 (1.8-7.7) 10^3/u L Lymph # (Auto) 12.8 H (0.8-4.8) 10^3/u L Warren # (Auto) 0.2 (0.2-0.9) 10^3/u L Eos # (Auto) 0.0 (0.0-0.8) 10^3/u L Baso # (Auto) 0.1 (0.0-0.1) 10^3/u L Nucleated RBC % (a uto) 0 % Nucleated RBCs # 0.0 /100WBC Haptoglobin (30-200) mg/L Sodium (136-145) mmol/L Potassium (3.5-5.1) mmol/L Chloride (98-107) mmol/L Carbon Dioxide (22-29) mmol/L Anion Gap (5-19) BUN (8-23) mg/dL Creatinine (0.7-1.2) mg/dL GFR Calculation Glucose (65-115) mg/dL Calculated Osmolal ity (285-295) mOsm/k g Uric Acid (3.4-7.0) mg/dL Calcium (8.5-10.5) mg/dL Magnesium (1.7-2.3) mg/dL Total Bilirubin (0.15-1.2) mg/dL AST (0-40) U/L ALT (0-41) U/L Alkaline Phosphata se (40-130) IU/L Lactate Dehydrogen ase (135-225) U/L Troponin T Baselin e (0-15) ng/L Troponin T 120 Min kenaitze (0-15) ng/L Delta Troponin T (0-10) ABS# Troponin T Hi Sens 6Hr 146.7 H (0-15) ng/L Troponin T Hi Sens 6Hr Delta -6.3 L (0-12) ng/L Total Protein (6.6-8.7) g/dL Albumin (3.5-5.2) g/dL Globulin (1.3-4.6) g/dL TSH (0.27-4.20) uIU/ mL Urine Color (Yellow) Urine Appearance (CLEAR) Urine pH Ur Specific Gravit y Urine Protein Urine Glucose (UA) Urine Ketones Urine Blood Urine Nitrate Urine Bilirubin Urine Urobilinogen Ur Leukocyte Molly ase Urine RBC (0-2) /hpf Urine WBC (0-5) /hpf Ur Squamous Epith Cells (0-5) /hpf Amorphous Sediment Urine Bacteria (NONE) /hpf U Random Total Pro tein 135 mg/dL Urine Creatinine 177 (39-259) mg/dL 06/08/20 06/08/20 06/08/20 Range/Units 04:25 04:25 04:25 WBC (4.0-10.0) 10^3/ uL RBC (4.1-5.3) 10^6/u L Hgb (11.7-16.6) g/dL Hct (42.0-52.0) % MCV (80-94) fL MCH (28.0-34.0) pg MCHC (30.0-36.0) g/dL RDW (12.1-15.1) % Plt Count (130-400) 10^3/c mm MPV (7.4-10.4) fL Neut % (Auto) % Lymph % (Auto) % Warren % (Auto) % Eos % (Auto) % Baso % (Auto) % Neut # (Auto) (1.8-7.7) 10^3/u L Lymph # (Auto) (0.8-4.8) 10^3/u L Warren # (Auto) (0.2-0.9) 10^3/u L Eos # (Auto) (0.0-0.8) 10^3/u L Baso # (Auto) (0.0-0.1) 10^3/u L Nucleated RBC % (a uto) % Nucleated RBCs # /100WBC Haptoglobin 201.0 H (30-200) mg/L Sodium 133 L (136-145) mmol/L Potassium 5.4 H (3.5-5.1) mmol/L Chloride 103 (98-107) mmol/L Carbon Dioxide 24 (22-29) mmol/L Anion Gap 11.4 (5-19) BUN 47 H (8-23) mg/dL Creatinine 2.4 H (0.7-1.2) mg/dL GFR Calculation Not Reportable Glucose 103 (65-115) mg/dL Calculated Osmolal ity 289 (285-295) mOsm/k g Uric Acid 7.1 H (3.4-7.0) mg/dL Calcium 8.0 L (8.5-10.5) mg/dL Magnesium 1.9 Cancelled (1.7-2.3) mg/dL Total Bilirubin 0.4 (0.15-1.2) mg/dL AST 45 H (0-40) U/L ALT 8 (0-41) U/L Alkaline Phosphata se 49 (40-130) IU/L Lactate Dehydrogen ase 126 L (135-225) U/L Troponin T Baselin e (0-15) ng/L Troponin T 120 Min kenaitze (0-15) ng/L Delta Troponin T (0-10) ABS# Troponin T Hi Sens 6Hr (0-15) ng/L Troponin T Hi Sens 6Hr Delta (0-12) ng/L Total Protein 5.2 L (6.6-8.7) g/dL Albumin 2.7 L (3.5-5.2) g/dL Globulin 2.5 (1.3-4.6) g/dL TSH (0.27-4.20) uIU/ mL Urine Color (Yellow) Urine Appearance (CLEAR) Urine pH Ur Specific Gravit y Urine Protein Urine Glucose (UA) Urine Ketones Urine Blood Urine Nitrate Urine Bilirubin Urine Urobilinogen Ur Leukocyte Molly ase Urine RBC (0-2) /hpf Urine WBC (0-5) /hpf Ur Squamous Epith Cells (0-5) /hpf Amorphous Sediment Urine Bacteria (NONE) /hpf U Random Total Pro tein mg/dL Urine Creatinine (39-259) mg/dL Discharge Plan Discharge Patient Disposition: Home Clinical Impression: Chest pain, Acute exacerbation of chronic obstructive airways disease, Chronic lymphocytic leukemia, Atrial fibrillation, Thrombocytopenia Condition: Stable Coding Level of Care Code ED U[employer]rella [employer] for [facility]ro
--- NOTE | 2020-06-07 07:51 | XRR_ITS ---
PROCEDURE INFORMATION: Exam: XR Chest Exam date and time: 06/07/2020 8:00 AM Age: 75 years old Clinical indication: Cough and dyspnea; Additional info: Dyspnea/cough TECHNIQUE: Imaging protocol: XR of the chest. Views: 1 view. COMPARISON: CR XR chest 1V portable [id number] 01/23/2020 5:39 AM FINDINGS: Lungs: Interstitial infiltrates are again seen in the left lung but they have significantly improved since previous examination. Mild interstitial infiltration in the right lung has also improved. No new infiltrates are seen. Pleural spaces: Unremarkable. No pleural effusion. No pneumothorax. Heart/Mediastinum: Unremarkable. No cardiomegaly. Bones/joints: Unremarkable. XR/XR chest 1V portable [id number] IMPRESSION: Improving interstitial pneumonia.
[2020-06-07] MEDS: ipratropium-albuterol 3 mL Neb INHALATION ×4 (08:00→23:12)
[2020-06-07 08:09] LABS: Alanine Aminotransferase 6 U/L (0-41); Albumin Level 3.7 g/dL (3.5-5.2); Alkaline Phosphatase 72 IU/L (40-130); Aspartate Amino Transferase 49 U/L (0-40); Blood Urea Nitrogen 40 mg/dL (8-23); Calcium 8.8 mg/dL (8.5-10.5); Carbon Dioxide 26 mmol/L (22-29); Chloride 96 mmol/L (98-107); Globulin 2.7 g/dL (1.3-4.6); Glucose 92 mg/dL (65-115); Magnesium 1.5 mg/dL (1.7-2.3); Osmolality Calculated 281 mOsm/kg (285-295); Sodium 131 mmol/L (136-145); Total Bilirubin 1.2 mg/dL (0.15-1.2); Total Protein 6.4 g/dL (6.6-8.7)
[2020-06-07 08:15] LABS: Anion Gap 14.3 (5-19); Potassium 5.3 mmol/L (3.5-5.1)
[2020-06-07 08:27] LABS: Basophils # 0.1 10^3/uL (0.0-0.1); Basophils % 0.2 %; Hematocrit 37.6 % (42.0-52.0); Lymphocytes # 20.8 10^3/uL (0.8-4.8); Lymphocytes % 89.3 %; Mean Corpuscular HGB Conc 31.9 g/dL (30.0-36.0); Mean Corpuscular Hemoglobin 29.9 pg (28.0-34.0); Mean Corpuscular Volume 93.8 fL (80-94); Monocytes # 0.1 10^3/uL (0.2-0.9); Monocytes % 0.5 %; Neutrophils # 2.29 10^3/uL (1.8-7.7); Nucleated Red Blood Cells % 0.1 %; Red Blood Count 4.01 10^6/uL (4.1-5.3); Red Cell Distribution Width 14.8 % (12.1-15.1); White Blood Count 23.3 10^3/uL (4.0-10.0)
[2020-06-07 08:29] LABS: Platelet Count 60 10^3/cmm (130-400)
[2020-06-07 08:30] LABS: Slide Review Slide Review Perform
--- NOTE | 2020-06-07 09:17 | ECG_ITS ---
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1945 Requested By: Bill Ware Order Number: [id number] Reading MD: LISA FLORES Measurements Intervals [place] Rate: 66 P: 64 [place]: 186 QRS: 67 QRSD: 94 T: 76 QT: 427 QTc: 449 Interpretive Statements SINUS RHYTHM POSSIBLE RIGHT VENTRICULAR CONDUCTION DELAY [RSR (QR) IN V1/V2] Compared to ECG 01/23/2020 05:15:27 Incomplete right bundle-branch block no longer present ST (T wave) deviation no longer present Electronically Signed On 06-07-2020 23:40:37 CDT by LISA FLORES [id number]
[2020-06-07 10:09] LABS: Troponin(5th) Baseline 153 ng/L (0-15)
[2020-06-07 10:25] LABS: Troponin 5 2HR 152.1 ng/L (0-15); Troponin 5 2HR Delta -0.9 ABS# (0-10)
[2020-06-07] MEDS: nitroglycerin 1 gm/inch oint Pkt 0.5 INCH TOPICAL (10:28)
[2020-06-07] MEDS: aspirin 81 mg Chew Tablet 324 MG PO (10:28)
[2020-06-07] MEDS: sodium chloride 0.9% 1,000 ML 999 ML IV (11:10)
--- NOTE | 2020-06-07 11:17 | ECG_ITS ---
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 Measurements Intervals [place] Rate: 73 P: 69 [place]: 182 QRS: 74 QRSD: 94 T: 79 QT: 406 QTc: 449 Interpretive Statements SINUS RHYTHM Compared to ECG 06/07/2020 07:16:44 No significant changes Electronically Signed On 06-07-2020 12:33:02 CDT by Molly Joya M.D. [id number]
[2020-06-07 11:28] LABS: Urine Appearance Cloudy (CLEAR); Urine Color Orange (Yellow)
[2020-06-07 11:29] LABS: Add Urine Microscopic? YES
[2020-06-07 11:41] LABS: Bacteria Urine TRACE /hpf; RBC Urine 0-4 /hpf (0-2); Squamous Epithelial Cell Urine 0-4 /hpf (0-5); WBC Urine 0-4 /hpf (0-5)
[2020-06-07 11:42] LABS: Add Urine Culture? No
--- NOTE | 2020-06-07 13:05 | P.HP_ITS ---
Providers/Chief Complaint Admitting Physician: Mandeep Church MD Chief Complaint: DIFFICULTY BREATHING, HEADACHE, EYE SORENESS History of Present Illness Heber Mejia is a 75 year old male [facility] complaints of shortness of breath as well as chest discomfort. He reports it started last night, he is not for sure what time but perhaps around midnight. He reports he had some wheezing. It hurts some to breathe, and to change positions. He denied any fever. The pain was dull in nature. Some radiation to his back. He has not had this type of discomfort before. He denies any prior history of exertional discomfort. He has had a cough which is occasionally productive but this is not unusual for him. He denies any recent Covid exposure, or vaccine. He does admit to having Covid for which she was hospitalized in December. He has had decreased p.o. intake and appetite. He has had no vomiting. He has had one loose stool. In discussing his goals of his hospital stay he reports that he was recently on hospice, but was kicked off secondary to improvement in his overall health. He is wondering if there is any other avenues to get more help at home. He reports he would not want any interventions for any healthcare issues but is willing to undergo any medicine changes that would improve the quality of his health. CODE STATUS was discussed and he is allow natural . He reports he has been discomfort free for 4 hours and he would like to go home as possible, but reports of pain occurred again he would be right back to the emergency department. He has been compliant with his anticoagulant. In the last several days he was put on doxycycline, secondary to chronic UTIs by urology. Review of Systems General: Reports: 10 or more systems reviewed and unremarkable except in HPI and below Const: Denies: fever(s) or chills Eyes: Denies: change in vision ENMT: Denies: throat pain Card: Reports: chest pain; Denies: palpitations Resp: Reports: dyspnea and productive cough GI: Denies: abdominal pain : Denies: flank pain Musc: Denies: neck pain Skin/Breast: Denies: rash Neuro: Denies: headache(s) Psych: Denies: anxiety or depression Endo: Denies: polyuria Miguel/Lymph: Denies: easy bruising All/Imm: Denies: urticaria Medications/Allergies Home Medications Medication Instructions Recorded Confirmed Last Taken Type Inogen #1 ea 10/06/19 06/07/20 Unknown Rx cholecalciferol (vitamin D3) 50 1,000 unit PO DAILY #90 tab 11/06/19 06/07/20 01/21/20 Rx mcg (2,000 unit) tablet nitroglycerin 0.4 mg sublingual 0.4 mg SUBLINGUAL Q5M PRN #1 tab 11/16/19 06/07/20 Unknown Rx tablet meclizine 25 mg tablet 25 mg PO BID PRN #30 tab 11/26/19 06/07/20 Unknown Rx tamsulosin 0.4 mg capsule 0.4 mg PO DAILY #90 cap 12/14/19 06/07/20 01/21/20 Rx metoprolol tartrate 100 mg tablet 50 mg PO BID #180 tab 12/17/19 06/07/20 01/21/20 Rx aspirin 81 mg PO QAM 01/18/20 06/07/20 01/21/20 History polyethylene glycol 3350 [Miralax] 17 g PO DAILY PRN 01/18/20 06/07/20 Unknown History benzonatate 100 mg PO TID PRN #30 cap 01/21/20 06/07/20 01/21/20 Rx pantoprazole 40 mg tablet,delayed 40 mg PO DAILY #90 tab 03/10/20 06/07/20 Unknown Rx release furosemide 20 mg tablet 10 mg PO QAM 04/12/20 06/07/20 Unknown History lorazepam 0.5 mg tablet 0.5 mg PO Q4H PRN tab 04/12/20 06/07/20 Unknown History phenazopyridine 95 mg tablet 95 mg PO TID PRN 04/12/20 06/07/20 Unknown History hydrocodone 5 mg-acetaminophen 325 1 tab PO DAILY PRN 15 Days #15 tab 05/03/20 06/07/20 Unknown Rx mg tablet budesonide 0.5 mg/2 mL suspension 0.5 mg INHALATION BID #120 ml 05/18/20 0 06/07/20 Unknown Rx for nebulization ipratropium 0.5 mg-albuterol 3 mg 3 ml INHALATION QID 30 Days #360 ml 05/18/20 06/07/20 Unknown Rx (2.5 mg base)/3 mL nebulization soln prednisone 5 mg tablet 7.5 mg PO DAILY 30 Days #45 tab 05/18/20 06/07/20 Unknown Rx citalopram 10 mg tablet 10 mg PO DAILY #30 tab 05/25/20 06/07/20 Unknown Rx doxycycline hyclate 100 mg tablet 100 mg PO BID #28 tab 06/02/20 06/07/20 Unknown Rx apixaban 2.5 mg PO BID 06/07/20 06/07/20 Unknown History budesonide-formoterol [Symbicort] 2 puff INHALATION BID 06/07/20 06/07/20 Unknown History gabapentin 100 mg PO TID 06/07/20 06/07/20 Unknown History mirtazapine 30 mg PO BEDTIME 06/07/20 06/07/20 Unknown History tiotropium bromide [Spiriva 2 puff INHALATION DAILY 06/07/20 06/07/20 Unknown History Respimat] trazodone 100 mg PO BEDTIME 06/07/20 06/07/20 Unknown History Allergies Allergy/AdvReac Type Severity Reaction Status Date / Time No Known Allergies Allergy Verified 06/02/20 10:31 PFSH Acute PFSH: Medical History (Updated 06/07/20 @ 13:16 by Mandeep Church MD) Abdominal aortic aneurysm Anxiety and depression Atherosclerosis of [place] artery of both lower extremities BPH loc w urin obs/LUTS Cardiomyopathy Patient had a repeat echocardiogram in August 2019 in the hospital. He was found to have ejection fraction in the normal range. Cardiomyopathy, idiopathic Chronic GERD Chronic kidney disease, stage 3 Chronic lymphatic leukemia Chronic lymphocytic leukemia COPD (chronic obstructive pulmonary disease) On 3 L of oxygen currently COPD, severe Current smoker Insomnia Lung nodules Microscopic hematuria Negative evaluation including cystoscopy, CT scan, physical exam, cytology and culture. Mixed hyperlipidemia Primary hypertension Troponin level elevated Surgical History H/O wrist surgery Family History Mother Cancer Social History Smoking and tobacco status: current every day smoker cigarettes Packs smoked per day: 1 Years cigarettes smoked: 50 Smoking risk assessment/counseling performed?: Yes Alcohol intake: never Counseling given: No Counseling given: No Lives independently: Yes Household members: none Marital status: / Current occupational status: retired and disabled History of recent travel: No Current gender identity: Male Vitals/I&O/Wt Last Vital Signs Temp 97.5 F L 06/07/20 12:38 Pulse 75 06/07/20 12:45 Resp 18 06/07/20 12:45 BP 150/87 06/07/20 12:45 Pulse Ox 94 06/07/20 12:45 Weight last 48 hrs Weight 56.699 kg Physical Exam Narrative: EXAM NARRATIVE: General exam is a white male reporting he is discomfort free wondering when he could potentially be discharged HEENT: Atraumatic normocephalic. Pupils equally round. Oropharynx clear. Neck is supple no lymphadenopathy or thyromegaly Cardiovascular regular rate and rhythm with 2/6 systolic murmur, no S3 or S4 Lungs demonstrate diminished breath sounds bilaterally with a few expiratory w heezes Abdomen is soft with positive bowel sounds. No obvious organomegaly exam is deferred Extremities no cyanosis clubbing or edema, cap refill brisk Skin no rash Neuro no obvious focal deficits Data : 06/07/20 07:27 06/07/20 07:27 Other data: Magnesium 1.5 LFTs normal with exception of AST of 49 Troponin I 53 at baseline and 152 at 120 minutes Urinalysis demonstrating 0-4 red blood cells and 0-4 white blood cells Chest x-ray which I reviewed as well demonstrated some left lung infiltrates that were improving EKG demonstrated sinus rhythm normal axis and no acute changes. A&P Assessment and plan (1) Acute exacerbation of COPD with asthma: Patient with significant acute COPD exacerbation, now improved after treatment in the emergency department. Continue pulmonary toilet Increase prednisone to 40 mg a day. Note that he received Solu-Medrol in the emergency department Continue doxycycline, initially started for urologic issues but appropriate for acute bronchitis/bronchiectasis in this patient with history of bronchiectasis, severe COPD on recent CTA. Status: Acute (2) Chest pain: No significant delta on troponin Repeat limited echo. Last echo demonstrated 1/4 diastolic dysfunction, intact ejection fraction Initiate long-acting nitrates to try to improve chest discomfort. Continue beta-brittany. Patient is interested in symptom control but not significant investigations/invasive studies Note this he is on Eliquis chronically making pulmonary embolism less likely Aspirin 81 mg daily Serial troponins Status: Acute (3) Chronic lymphocytic leukemia: Status: Acute (4) Acute kidney injury: Hydration Recheck BMP in the morning Hold diuretics currently Avoid anti-inflammatories Status: Acute (5) Atrial fibrillation: Continue patient's Eliquis Status: Acute Qualifiers: Atrial fibrillation type: unspecified Qualified Code(s): I48.91 - Unspecified atrial fibrillation (6) Thrombocytopenia: Associated with his CLL Status: Acute Additional A&P Information Hypomagnesemia. Supplement. Recheck magnesium in the morning. 1 g only secondary to renal dysfunction. Nicotine dependence. 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
--- NOTE | 2020-06-07 13:26 | USCV_ITS ---
Heber Mejia Age: 75 Gender: M : 1945 Exam Date: 06/07/2020 14:39 Ordering Phys: Mandeep Church MD Technologist: Amanda Velarde Exam Location: [facility] Indication: ? EF BP: 134 / 83 HR: 81 Rhythm: Sinus Technical Quality: Fair MEASUREMENTS (Male / Female) Normal Values 2D ECHO LV Diastolic Diameter PLAX 4.7 cm 4.2 - 5.9 / 3.9 - 5.3 cm LV Systolic Diameter PLAX 3.8 cm IVS Diastolic Thickness 1.1 cm 0.6 - 1.0 / 0.6 - 0.9 cm IVS Systolic Thickness 0.9 cm LVPW Diastolic Thickness 1.0 cm 0.6 - 1.0 / 0.6 - 0.9 cm LVPW Systolic Thickness 1.2 cm LVOT Diameter 2.1 cm LV Ejection Fraction MOD 2C 62.0 % LV Ejection Fraction 2C AL 64.5 % LA Diameter 3.6 cm LA Width 3.5 cm LA Height 4.2 cm RA Width 3.5 cm RA Height 4.8 cm M-MODE LV Diastolic Diameter MM 6.2 cm 4.2 - 5.9 / 3.9 - 5.3 cm LV Systolic Diameter MM 4.9 cm LV Ejection Fraction MM Teich 41.5 % IVS Diastolic Thickness MM 0.8 cm 0.6 - 1.0 / 0.6 - 0.9 cm IVS Systolic Thickness MM 1.1 cm LVPW Diastolic Thickness MM 1.2 cm 0.6 - 1.0 / 0.6 - 0.9 cm LVPW Systolic Thickness MM 1.6 cm RV Diastolic Diameter MM 2.0 cm Aortic Annulus Diameter 3.9 cm LA Ao Ratio MM 0.9 MV E Point Septal Separation 0.9 cm FINDINGS Left Ventricle Normal left ventricular cavity size. Normal left ventricular systolic function. No regional wall motion abnormalities. Left ventricular ejection fraction is estimated at 55 %. Right Ventricle Right Atrium Left Atrium Mitral Valve Aortic Valve Severe aortic valve calcification. Severe aortic valve stenosis by visually however there is no Doppler data since it is a limited study. Please correlate clinically are order full study to assess hemodynamics of the valves. Tricuspid Valve Pulmonic Valve Pericardium Aorta CONCLUSIONS Limited echo without hemodynamics assessment 1-Normal left ventricular cavity size. Normal left ventricular systolic function. No regional wall motion abnormalities. Left ventricular ejection fraction is estimated at 55 %. 2-Severe aortic valve calcification. Severe aortic valve stenosis by visually however there is no Doppler data since it is a limited study. Please correlate clinically are order full study to assess hemodynamics of the valves. 3-No significant ejection fraction change since the prior echocardiogram study of 01/18/2020. Shine Cyr MD (Electronically Signed) Final Date: 10 June 2020 09:10 S
[2020-06-07 14:45] LABS: Thyroid Stimulating Hormone 1.07 uIU/mL (0.27-4.20)
[2020-06-07] MEDS: sodium chloride 0.9% 1,000 ML 100 ML IV (15:04)
[2020-06-07] MEDS: gabapentin 100 mg Capsule PO ×2 (15:04→21:48)
--- NOTE | 2020-06-07 15:17 | ECG_ITS ---
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 Measurements Intervals [place] Rate: 80 P: 62 PA: 193 QRS: 73 QRSD: 93 T: 73 QT: 381 QTc: 440 Interpretive Statements SINUS RHYTHM Compared to ECG 06/07/2020 11:28:13 No significant changes Electronically Signed On 06-11-2020 5:29:21 CDT by Molly Joya M.D. [email or web address] [email or web address] [email or web address] [id number]
[2020-06-07 15:49] LABS: Troponin 5 6HR Delta -6.3 ng/L (0-12)
[2020-06-07 15:50] LABS: Troponin 5 6HR 146.7 ng/L (0-15)
[2020-06-07 19:42] LABS: Urine Creatinine 177 mg/dL (39-259)
[2020-06-07 19:43] LABS: Urine Protein Random 135 mg/dL
[2020-06-07] MEDS: budesonide 0.5 mg/2 mL Neb INHALATION (20:00)
[2020-06-07] MEDS: doxycycline 100 mg Tablet PO (21:47)
[2020-06-07] MEDS: metoprolol tartrate 50 mg Tablet PO (21:48)
[2020-06-07] MEDS: apixaban 5 mg Tablet 2.5 MG PO (21:48)
[2020-06-07] MEDS: trazodone 100 mg Tablet PO (21:48)
[2020-06-07] MEDS: mirtazapine 30 mg Tablet PO (21:49)
[2020-06-08] VITALS (20 sets, daily range): BP systolic 138–191; BP diastolic 62–82; PULSE 75–97; RESP 17–20; TEMP 36.3–36.9; O2SAT 90–96
[2020-06-08] MEDS: sodium chloride 0.9% 1,000 ML 100 ML IV ×3 (00:37→18:43)
[2020-06-08] MEDS: ipratropium-albuterol 3 mL Neb INHALATION ×5 (03:40→19:40)
[2020-06-08] MEDS: aspirin 81 mg EC Tablet PO (05:42)
[2020-06-08 06:18] LABS: Basophils # 0.1 10^3/uL (0.0-0.1); Basophils % 0.3 %; Hematocrit 29.7 % (42.0-52.0); Hemoglobin 9.6 g/dL (11.7-16.6); Lymphocytes # 12.8 10^3/uL (0.8-4.8); Lymphocytes % 80.4 %; Mean Corpuscular HGB Conc 32.3 g/dL (30.0-36.0); Mean Corpuscular Hemoglobin 30.6 pg (28.0-34.0); Mean Corpuscular Volume 94.6 fL (80-94); Mean Platelet Volume 13.1 fL (7.4-10.4); Monocytes # 0.2 10^3/uL (0.2-0.9); Monocytes % 1.1 %; Neutrophils % 13.8 %; Nucleated Red Blood Cells % 0 %; Platelet Count 35 10^3/cmm (130-400); Red Blood Count 3.14 10^6/uL (4.1-5.3); Red Cell Distribution Width 14.9 % (12.1-15.1); White Blood Count 15.9 10^3/uL (4.0-10.0)
[2020-06-08 06:52] LABS: Alanine Aminotransferase 8 U/L (0-41); Albumin Level 2.7 g/dL (3.5-5.2); Alkaline Phosphatase 49 IU/L (40-130); Anion Gap 11.4 (5-19); Aspartate Amino Transferase 45 U/L (0-40); Blood Urea Nitrogen 47 mg/dL (8-23); Carbon Dioxide 24 mmol/L (22-29); Chloride 103 mmol/L (98-107); Globulin 2.5 g/dL (1.3-4.6); Glucose 103 mg/dL (65-115); Magnesium 1.9 mg/dL (1.7-2.3); Osmolality Calculated 289 mOsm/kg (285-295); Potassium 5.4 mmol/L (3.5-5.1); Sodium 133 mmol/L (136-145); Total Bilirubin 0.4 mg/dL (0.15-1.2); Total Protein 5.2 g/dL (6.6-8.7)
[2020-06-08 07:06] LABS: Slide Review Slide Review Perform
[2020-06-08] MEDS: budesonide 0.5 mg/2 mL Neb INHALATION ×2 (07:32→19:40)
--- NOTE | 2020-06-08 09:28 | US_ITS ---
WS: [id number] ULTRASOUND RENAL TECHNIQUE: Ultrasound examination of both kidneys. CLINICAL INFORMATION: renal failure COMPARISON: None. FINDINGS: RIGHT: Right kidney is normal in size and appearance. Echogenicity: Normal. Cortical thickness: 1.6 cm; Normal. Hydronephrosis: None. Perinephric fluid: None. Right kidney measures: 9.2 cm x 5.1 cm x 4.7 cm. LEFT: Left kidney is normal in size and appearance. Echogenicity: Normal. Cortical thickness: 1.0 cm; Normal. Hydronephrosis: None. Perinephric fluid: None. Left kidney measures: 8.2 cm x 3.8 cm x 3.8 cm. Normal visualized aorta. Patient unable to void. Bladder residual volume 110 cc US/US renal BI with PV bladder IMPRESSION: 1. Patient could not void. Bladder residual 110 cc 2. Normal kidneys bilaterally
[2020-06-08] MEDS: doxycycline 100 mg Tablet PO ×2 (09:48→21:38)
[2020-06-08] MEDS: tamsulosin 0.4 mg Capsule PO (09:48)
[2020-06-08] MEDS: isosorbide mononitrate ER 30 mg Tablet PO (09:49)
[2020-06-08] MEDS: pantoprazole DR 40 mg Tablet PO (09:49)
[2020-06-08] MEDS: predniSONE 20 mg Tablet 100 MG PO (09:49)
[2020-06-08] MEDS: gabapentin 100 mg Capsule PO ×3 (09:49→21:38)
[2020-06-08] MEDS: metoprolol tartrate 50 mg Tablet PO ×2 (09:50→21:37)
[2020-06-08] MEDS: citalopram 20 mg Tablet 10 MG PO (09:50)
[2020-06-08] MEDS: HYDROcodone-acetaminophen 5-325 mg Tablet 1 TAB PO (10:15)
--- NOTE | 2020-06-08 10:21 | PC.CHAP ---
Pastoral Care Encounter/Spiritual Assessment Type of Contact [] Declined mechanism assembler visit [] Patient/Family/Request visit [] Outpatient visit [] Follow-up visit [] Physician referral [] Code/Alert [x] Routine visit [] Staff referral [] Actively dying [] Patient sleeping [] Family support [] [] Out of room [] Palliative care [] [] Receiving care in room [] Pre-surgical visit [] Trauma [] Long length of stay [] ICU visit [] Other: Relational/Emotional Strength [x] Patient feels connected with others/family/visitors/staff [] Distress [] Loneliness/isolation [] Abandonment Spirituality of Patient [x] Person of Joya [x] Attends Catholic of their Joya [x] Believes in Prayer [] Reads Bible or Gnosticism materials [] There are Spiritual issues to be addressed Product Design Engineer Interventions [x] Prayer [x] Active listening [x] Non-anxious presence [x] Spiritual/emotional support [] Crisis/trauma care [] Spiritual counseling [] Bereavement support [] Provided bereavement packet [] Provided Bible/devotional materials [] Provided toy/stuffed animal, coloring book to patient or family member [] Provided Communion [] Anointing/[employer] [] Salvation [x] Completed spiritual assessment [] Other: Impact on Illness or Injury [] Angry [] Fearful [] Anxious [] Often cries [] Exhaustion [] Unable to work [] Unable to attend jehovah's witness [] Unable to walk/stand [] Unable to read [] Unable to drive [] Unable to eat/drink [] Unable to sleep [] Unable to be with family [] Patient intubated [] Other: Summary feeling much better Time spent with patient 15 min
[2020-06-08 10:37] LABS: Lactate Dehydrogenase 126 U/L (135-225); Uric Acid 7.1 mg/dL (3.4-7.0)
--- NOTE | 2020-06-08 10:57 | P.PN_ITS ---
Subjective Subjective: Interval history: Heber reports he feels like his breathing is better. He denies any chest discomfort. He was hoping to go home today. I discussed with him his renal function had not improved and asked him if he was using any anti-inflammatories at home. He reports he was using naproxen about twice a day secondary to his various aches and pains. Medications: Reviewed: Yes Vitals/I&O/Wt Last Vital Signs Temp 98.1 F 06/08/20 08:00 Pulse 97 06/08/20 08:00 Resp 18 06/08/20 08:00 BP 183/82 06/08/20 08:00 Pulse Ox 90 06/08/20 08:00 06/07/20 06/08/20 06/08/20 22:59 06:59 14:59 Intake Total 1052 / 1052 1355 / 2407 1163.333 / 1163.333 Output Total 100 / 100 200 / 300 150 / 150 Balance 952 / 952 1155 / 2107 1013.333 / 1013.333 Weight last 48 hrs Weight 56.699 kg Physical Exam Narrative: EXAM NARRATIVE: General exam is currently no apparent distress Neck is supple no lymphadenopathy or thyromegaly Cardiovascular regular rate and rhythm with 2/6 systolic murmur, no S3 or S4 Lungs bilateral expiratory wheezes and a few coarse breath sounds Abdomen is soft with positive bowel sounds. No obvious organomegaly exam is deferred Extremities no cyanosis clubbing or edema, cap refill brisk Data : 06/08/20 04:25 06/08/20 04:25 A&P Assessment and plan (1) Acute exacerbation of COPD with asthma: Patient with significant acute COPD exacerbation Somewhat improved. Continue pulmonary toilet Currently on prednisone 40 mg a day. After visiting with hematology this will b e increased to 100 mg to concomitantly treat his low platelet count. Continue doxycycline, initially started for urologic issues but appropriate for acute bronchitis/bronchiectasis in this patient with history of bronchiectasis, severe COPD on recent CTA. Status: Acute (2) Chest pain: No significant delta on troponin Await repeat limited echo. Last echo demonstrated 1/4 diastolic dysfunction, intact ejection fraction Imdur was added to his regimen . Continue beta-brittany. Patient is interested in symptom control but not significant investigations/invasive studies Note this he is on Eliquis chronically making pulmonary embolism less likely. I am going to discontinue this today as his platelet count has dropped to 36,000. Continue aspirin 81 mg daily Status: Acute (3) Chronic lymphocytic leukemia: Platelet count has dropped. I visited with hematology briefly regarding the patient. They are concerned about the possibility of ITP with his underlying CLL. I will check a uric acid level and LDH. I discussed with hematology who reviewed his slide and they assure me there was no platelet clumping. With guidance from hematology will initiate prednisone 100 mg a day for 4 days, then 80 mg a day until follow-up with hematology. Status: Acute (4) Acute kidney injury: Continue hydration. Reduce rate to try to avoid fluid overload Renal function has not improved but this may have to do with anti-inflammatory medication taken prior to admission Avoid all renal toxic medication and anti-inflammatories Hold diuretics Change to regular admission secondary to continued hyperkalemia, unimproved renal failure Check renal ultrasound Check random cortisol secondary to hyperkalemia and hyponatremia Status: Acute (5) Atrial fibrillation: Continue aspirin, beta-brittany Discontinue Eliquis secondary to platelet count less than 50,000 Status: Acute Qualifiers: Atrial fibrillation type: unspecified Qualified Code(s): I48.91 - Unspecified atrial fibrillation (6) Thrombocytopenia: Associated with his CLL. See notations under CLL above Status: Acute Additional A&P Information Hypomagnesemia. Supplemented and normal this morning Nicotine dependence. Encourage cessation Multiple other medical problems as outlined by past medical history Allow natural SCDs Attestations Medical Necessity Statement*: Needs continued hospital stay for follow-up of his renal failure, that has not improved with hydration as well as marked thrombocytopenia. 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
[2020-06-08 12:50] LABS: Cortisol Random 16.48 ug/dL (2.47-19.5)
--- NOTE | 2020-06-08 20:23 | PC.NURSE ---
SCD Patient refused the SCDs on bilateral legs. This nurse educated patient on importance of wearing the SCDs and prevention of blood clots and helping of circulation on lower extremities with patient verbalizing understanding but still refusing.
[2020-06-08] MEDS: mirtazapine 30 mg Tablet PO (21:37)
[2020-06-08] MEDS: trazodone 100 mg Tablet PO (21:38)
[2020-06-09] VITALS (26 sets, daily range): BP systolic 100–208; BP diastolic 63–89; PULSE 70–89; RESP 16–25; TEMP 36.4–36.9; O2SAT 82–97
[2020-06-09] MEDS: ipratropium-albuterol 3 mL Neb INHALATION ×7 (00:38→23:54)
[2020-06-09 03:43] LABS: ABG PCO2 46.2 mmHg (35-45); ABG PH Result 7.28 (7.35-7.45); Base Excess ABG -4.6 mmol/L (-2.0-2.0); Blood Gas Operator Identificat HARKR; HCO3 ABG 21.9 mmol/L (22-26); Oxygen Device NC; PO2 ABG 65.7 mmHg (80.0-100.0)
[2020-06-09 03:44] LABS: Arterial Blood Gas Hematocrit 29.2 % (42-52); Blood Gas Drawn By HARKR
[2020-06-09] MEDS: HYDROcodone-acetaminophen 5-325 mg Tablet 1 TAB PO (04:25)
[2020-06-09] MEDS: hyDRALAzine 20 mg/mL INJ 1 mL 10 MG IVP (04:25)
[2020-06-09] MEDS: LORazepam 0.5 mg Tablet PO (04:51)
[2020-06-09 05:09] LABS: Basophils % 0.2 %; Hematocrit 30.3 % (42.0-52.0); Hemoglobin 9.7 g/dL (11.7-16.6); Lymphocytes # 14.4 10^3/uL (0.8-4.8); Lymphocytes % 85.8 %; Mean Corpuscular Hemoglobin 30.7 pg (28.0-34.0); Mean Corpuscular Volume 95.9 fL (80-94); Mean Platelet Volume 12.9 fL (7.4-10.4); Monocytes # 0.1 10^3/uL (0.2-0.9); Monocytes % 0.5 %; Neutrophils # 2.23 10^3/uL (1.8-7.7); Neutrophils % 13.4 %; Nucleated Red Blood Cells % 0 %; Red Blood Count 3.16 10^6/uL (4.1-5.3); Red Cell Distribution Width 15.4 % (12.1-15.1); White Blood Count 16.8 10^3/uL (4.0-10.0)
[2020-06-09] MEDS: acetaminophen 325 mg Tablet 650 MG PO ×3 (05:27→20:04)
[2020-06-09 05:28] LABS: Anion Gap 10.9 (5-19); Blood Urea Nitrogen 48 mg/dL (8-23); Calcium 8.4 mg/dL (8.5-10.5); Carbon Dioxide 24 mmol/L (22-29); Chloride 101 mmol/L (98-107); Glucose 103 mg/dL (65-115); Osmolality Calculated 285 mOsm/kg (285-295); Potassium 4.9 mmol/L (3.5-5.1); Sodium 131 mmol/L (136-145)
[2020-06-09] MEDS: aspirin 81 mg EC Tablet PO (06:16)
--- NOTE | 2020-06-09 06:18 | ECG_ITS ---
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 Measurements Intervals [place] Rate: 84 P: 61 VA: 177 QRS: 73 QRSD: 108 T: 52 QT: 359 QTc: 425 Interpretive Statements SINUS RHYTHM WITH SINUS ARRHYTHMIA Compared to ECG 06/07/2020 15:30:53 No significant changes Electronically Signed On 06-11-2020 5:21:57 CDT by Molly Joya M.D. [id number]
--- NOTE | 2020-06-09 06:37 | PC.NURSE ---
Patient's lungs sounded wet and blood pressure was 208/80; Dr Garland notified, patients fluids were stopped. Patient reports pain when breathing in left rib cage. Patient has been restless and moaning in pain; pain medication was given. Patient has been confused at times. Dr Garland came to floor to assess the patient.
[2020-06-09 06:43] LABS: Troponin T (5th) Once 93 ng/L (0-15)
[2020-06-09 06:54] LABS: ABG PCO2 47.5 mmHg (35-45); ABG PH Result 7.28 (7.35-7.45); Base Excess ABG -4.4 mmol/L (-2.0-2.0); HCO3 ABG 22.2 mmol/L (22-26); Oxygen Saturation ABG 95.3; PO2 ABG 81.9 mmHg (80.0-100.0)
[2020-06-09 06:55] LABS: Arterial Blood Gas Hematocrit 28.8 % (42-52); Blood Gas Drawn By BISJE; Blood Gas Operator Identificat JB; Potassium Level - ABG 4.8 mmol/L (3.5-5.0)
[2020-06-09 06:56] LABS: Total Hemoglobin 9.4 g/dL (14-18)
[2020-06-09 06:57] LABS: Carboxyhemoglobin 0.7 %THgb (0.4-20.1); HGB O2 Sat 93.6 % (95-100)
--- NOTE | 2020-06-09 07:09 | XR_ITS ---
WS: [id number] Portable AP upright chest, 06/09/2020 Clinical Data: dyspnea Comparison: Portable chest, 06/07/2020. Findings: The bilateral interstitial infiltrates, greater on on the left than the right remain the sa me. The heart is normal. The aortic arch and descending aorta show calcification and tortuosity. Ther e is a dextroscoliosis. Monitor leads are on the chest wall. No nodules, masses or effusions are seen . There is no pneumothorax. XR/XR chest 1V portable [id number] Impression: 1. No change in bilateral interstitial opacities. 2. Atherosclerosis.
[2020-06-09 07:26] LABS: Platelet Count 80 10^3/cmm (130-400); Slide Review Slide Review Perform
[2020-06-09] MEDS: budesonide 0.5 mg/2 mL Neb INHALATION ×2 (07:45→19:50)
[2020-06-09] MEDS: FUROsemide 10 mg/mL SDV 10mL 60 MG IVP (07:54)
[2020-06-09 08:02] LABS: Alveolar-Arterial Oxygen Gradi 1.4 mmHg (5-10); Blood Gas Sample Site Brachial, right; Blood Gas Sample Type Arterial; Ionized Calcium Level - ABG 1.3 mmol/L (1.1-1.4); Oxygen Device OXY MASK
[2020-06-09 08:02] LABS: Blood Gas Allen Test Pos; Blood Gas Sample Site Brachial, right; Blood Gas Sample Type Arterial
--- NOTE | 2020-06-09 08:59 | ECG_ITS ---
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 Measurements Intervals [place] Rate: 85 P: 67 LA: 185 QRS: 76 QRSD: 102 T: 49 QT: 360 QTc: 430 Interpretive Statements SINUS RHYTHM WITH SINUS ARRHYTHMIA TALL T-WAVES, SUGGESTS HYPERKALEMIA Compared to ECG 06/09/2020 06:29:14 No significant changes Electronically Signed On 06-11-2020 5:21:34 CDT by Molly Joya M.D. [id number]
--- NOTE | 2020-06-09 09:17 | P.PN_ITS ---
Subjective Subjective: Interval history: Patient is sleepy this morning. He reports he is not short of breath on the oxygen. Nursing reports he was slightly confused last night. He has required escalating oxygen levels. ABG was done this morning demonstrating low pH, CO2 retention. Fluids were stopped around 1 AM or so secondary to concern of him becoming fluid overloaded. Medications: Reviewed: Yes Vitals/I&O/Wt Last Vital Signs Temp 98.2 F 06/09/20 07:36 Pulse 79 06/09/20 07:59 Resp 16 06/09/20 07:48 BP 164/72 06/09/20 07:36 Pulse Ox 93 06/09/20 07:48 06/08/20 06/09/20 06/09/20 22:59 06:59 14:59 Intake Total 1246.667 / 2890.000 800 / 3690.000 Output Total 200 / 350 250 / 600 Balance 1046.667 / 2540.000 550 / 3090.000 Physical Exam Narrative: EXAM NARRATIVE: General exam is currently no apparent distress Neck is supple no lymphadenopathy or thyromegaly Cardiovascular regular rate and rhythm with 2/6 systolic murmur, no S3 or S4 Lungs bilateral coarse breath sounds with a few crackles. No wheezes Abdomen is soft with positive bowel sounds. No obvious organomegaly Extremities no cyanosis clubbing or edema, cap refill brisk Data : 06/09/20 04:18 06/09/20 04:18 A&P Assessment and plan (1) Acute exacerbation of COPD with asthma: Patient with significant acute COPD exacerbation Continue pulmonary toilet Currently on prednisone 40 mg a day. After visiting with hematology this will be increased to 100 mg to concomitantly treat his low platelet count. Secondary to his change in mental status and increased platelets I am going to lower this to 60 mg. Concern with confusion that this could cause some psychosis. Continue doxycycline, initially started for urologic issues but appropriate for acute bronchitis/bronchiectasis in this patient with history of bronchiectasis, severe COPD on recent CTA. Add Levaquin IV secondary to worsening pulmonary status, although I believe this is likely secondary to fluid overload. Currently on BiPAP, and 60 mg of Lasix have been given. Hopefully can wean off BiPAP soon. Status: Acute (2) Chest pain: Troponin rechecked this morning and decreased. Rechecked secondary to shortness of breath last night. Awaiting repeat echo. I have called and informed ultrasound that it is not yet been read.. Last echo demonstrated 1/4 diastolic dysfunction, intact ejection fraction Imdur was added to his regimen . Continue beta-brittany. Patient is interested in symptom control but not significant investigations/invasive studies As platelet count is improved will reinitiate his Eliquis low-dose Continue aspirin 81 mg daily Status: Acute (3) Chronic lymphocytic leukemia: Platelet count has dropped. I visited with hematology briefly regarding the patient. They are concerned about the possibility of ITP with his underlying CLL. Uric acid and LDH not overly elevated. I discussed with hematology(lab) who reviewed his slide and they assure me there was no platelet clumping. With guidance from hematology I initiated prednisone 100 mg daily. However, with his confusion last night, and platelet count rebounding will reduce this to 60 mg. I am worried regarding potential for psychosis at high amounts. Status: Acute (4) Acute kidney injury: Improved Hydration was reduced yesterday but despite this I believe he has some fluid overload leading to acute hypoxic hypercarbic respiratory failure requiring BiPAP Lasix 60 mg IV x1 BiPAP secondary to fluid overload and worsening respiratory status Renal function has not improved but this may have to do with anti-inflammatory medication taken prior to admission Avoid all renal toxic medication and anti-inflammatories Renal ultrasound was checked and no significant residual, renal abnormality Random cortisol level was checked and normal. Status: Acute (5) Atrial fibrillation: Continue aspirin, beta-brittany Discontinue Eliquis secondary to platelet count less than 50,000 Status: Acute (6) Thrombocytopenia: Associated with his CLL. See notations under CLL above Status: Acute Additional A&P Information Hypomagnesemia. Previously supplemented Nicotine dependence. 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
[2020-06-09] MEDS: levofloxacin-dextrose 5 % 750 MG/150 ML PREMIX 100 MG IV (10:46)
[2020-06-09] MEDS: metoprolol tartrate 50 mg Tablet PO ×2 (12:48→20:04)
[2020-06-09] MEDS: apixaban 5 mg Tablet 2.5 MG PO ×2 (12:49→20:04)
[2020-06-09] MEDS: gabapentin 100 mg Capsule PO ×2 (12:49→20:04)
[2020-06-09] MEDS: doxycycline 100 mg Tablet PO ×2 (12:49→20:04)
[2020-06-09] MEDS: tamsulosin 0.4 mg Capsule PO (12:50)
[2020-06-09] MEDS: isosorbide mononitrate ER 30 mg Tablet PO (12:50)
[2020-06-09] MEDS: citalopram 20 mg Tablet 10 MG PO (12:51)
[2020-06-09] MEDS: pantoprazole DR 40 mg Tablet PO (12:51)
[2020-06-09 16:50] LABS: Base Excess ABG -3.6 mmol/L (-2.0-2.0); Blood Gas Allen Test Pos; Blood Gas Operator Identificat MONRO; Blood Gas Sample Site Radial, right; Blood Gas Sample Type Arterial; Carboxyhemoglobin 0.9 %THgb (0.4-20.1); HCO3 ABG 22.7 mmol/L (22-26); HGB O2 Sat 94.2 % (95-100); Ionized Calcium Level - ABG 1.3 mmol/L (1.1-1.4); Methemoglobin 0.9 % (0.4-1.5); Oxygen Device BIPAP; PO2 ABG 80.8 mmHg (80.0-100.0); Potassium Level - ABG 4.7 mmol/L (3.5-5.0); Total Hemoglobin 10.1 g/dL (14-18)
[2020-06-09] MEDS: nicotine 21 mg Patch 1 PATCH TRANSDERMA (20:03)
[2020-06-09] MEDS: trazodone 100 mg Tablet PO (20:04)
[2020-06-09] MEDS: mirtazapine 30 mg Tablet PO (20:04)
[2020-06-10] VITALS (20 sets, daily range): BP systolic 120–177; BP diastolic 55–80; PULSE 65–94; RESP 16–23; TEMP 36.2–37.1; O2SAT 91–99
[2020-06-10] MEDS: ipratropium-albuterol 3 mL Neb INHALATION ×4 (03:26→19:57)
[2020-06-10 05:10] LABS: Basophils % 0.2 %; Hematocrit 28.2 % (42.0-52.0); Hemoglobin 8.6 g/dL (11.7-16.6); Lymphocytes # 9.3 10^3/uL (0.8-4.8); Lymphocytes % 87.2 %; Mean Corpuscular HGB Conc 30.5 g/dL (30.0-36.0); Mean Corpuscular Hemoglobin 29.9 pg (28.0-34.0); Mean Corpuscular Volume 97.9 fL (80-94); Monocytes # 0.1 10^3/uL (0.2-0.9); Monocytes % 0.8 %; Neutrophils # 1.23 10^3/uL (1.8-7.7); Neutrophils % 11.5 %; Nucleated Red Blood Cells % 0 %; Platelet Count 35 10^3/cmm (130-400); Red Blood Count 2.88 10^6/uL (4.1-5.3); Red Cell Distribution Width 15.5 % (12.1-15.1); White Blood Count 10.6 10^3/uL (4.0-10.0)
[2020-06-10 05:30] LABS: Anion Gap 14.1 (5-19); Blood Urea Nitrogen 56 mg/dL (8-23); Calcium 8.2 mg/dL (8.5-10.5); Carbon Dioxide 23 mmol/L (22-29); Chloride 103 mmol/L (98-107); Glucose 107 mg/dL (65-115); Osmolality Calculated 296 mOsm/kg (285-295); Potassium 5.1 mmol/L (3.5-5.1); Sodium 135 mmol/L (136-145)
[2020-06-10 05:40] LABS: Slide Review Slide Review Perform
[2020-06-10] MEDS: aspirin 81 mg EC Tablet PO (06:07)
[2020-06-10] MEDS: citalopram 20 mg Tablet 10 MG PO (08:01)
[2020-06-10] MEDS: nicotine 21 mg Patch 1 PATCH TRANSDERMA (08:01)
[2020-06-10] MEDS: doxycycline 100 mg Tablet PO ×2 (08:01→21:05)
[2020-06-10] MEDS: predniSONE 20 mg Tablet 60 MG PO (08:01)
[2020-06-10] MEDS: pantoprazole DR 40 mg Tablet PO (08:01)
[2020-06-10] MEDS: metoprolol tartrate 50 mg Tablet PO ×2 (08:01→21:05)
[2020-06-10] MEDS: gabapentin 100 mg Capsule PO ×3 (08:01→21:05)
[2020-06-10] MEDS: tamsulosin 0.4 mg Capsule PO (08:01)
[2020-06-10] MEDS: isosorbide mononitrate ER 30 mg Tablet PO (08:04)
--- NOTE | 2020-06-10 09:03 | PM.PN ---
Subjective Subjective: Interval history: Heber is feeling better today. He expectorated some sputum this morning. He denies any chest discomfort. He reports he was confused when he woke up this morning with BiPAP but is now better. He relates he is urinating normally. Medications: Reviewed: Yes Vitals/I&O/Wt Last Vital Signs Temp 97.4 F L 06/10/20 08:00 Pulse 72 06/10/20 08:00 Resp 18 06/10/20 08:00 BP 175/55 06/10/20 08:00 Pulse Ox 95 06/10/20 08:00 06/09/20 06/10/20 06/10/20 22:59 06:59 14:59 Intake Total 100 / 350 140 / 140 Output Total 276 / 576 Balance 100 / 50 -276 / -226 140 / 140 Physical Exam Narrative: EXAM NARRATIVE: General exam is currently no apparent distress Neck is supple no lymphadenopathy or thyromegaly Cardiovascular regular rate and rhythm with 2/6 systolic murmur, no S3 or S4 Lungs bilateral coarse breath sounds Abdomen is soft with positive bowel sounds. No obvious organomegaly Extremities no cyanosis clubbing or edema, cap refill brisk Data : 06/10/20 04:18 06/10/20 04:18 A&P Assessment and plan (1) Acute exacerbation of COPD with asthma: Patient with significant acute COPD exacerbation Continue pulmonary toilet Currently on prednisone 60 mg a day. After visiting with hematology this will be increased to 100 mg to concomitantly treat his low platelet count. Secondary to his change in mental status this was lowered to 60 mg . Platelet count is decreased again today but no evidence of bleeding. Concern with confusion that this could cause some psychosis. Continue doxycycline, initially started for urologic issues but appropriate for acute bronchitis/bronchiectasis in this patient with history of bronchiectasis, severe COPD. Levaquin IV was initiated June 09 secondary to worsening pulmonary status, although this may have been secondary to some fluid overload as well. Lasix 60 mg IV was given June 09 with some improvement, although worsening of creatinine is noted today.. Today his overall respiratory status appears improved. He has come off BiPAP. On 5 L he is saturating appropriately. He is alert and oriented. Chest x-ray was repeated on June 09 and I I believe a left-sided pneumonia could be present, likely present from admission. This is why Levaquin was added as well. Sputum culture, MRSA PCR was ordered. Doxycycline he was on from admission was continued. With improvement today this antibiotic coverage was not expanded. Status: Acute (2) Chest pain: Troponin rechecked this morning and decreased. Awaiting echocardiogram. Last echo demonstrated 1/4 diastolic dysfunction, intact ejection fraction Imdur was added to his regimen . Continue beta-brittany. Patient is interested in symptom control but not significant investigations/invasive studies Continue aspirin 81 mg daily Status: Acute (3) Chronic lymphocytic leukemia: Platelet count has dropped. I visited with hematology briefly regarding the patient. They are concerned about the possibility of ITP with his underlying CLL. Uric acid and LDH not overly elevated. I discussed with hematology(lab) who reviewed his slide and they assure me there was no platelet clumping. With guidance from hematology I initiated prednisone 100 mg daily. However, with his confusion and concern of steroid psychosis I lowered this to 60 mg on June 09. He has no evidence of active bleeding currently. White blood cell count has decreased significantly. Status: Acute (4) Acute kidney injury: Overall unchanged Secondary to concern of fluid overload yesterday he was given late 60 mg of Lasix. IV fluid was stopped. He appears to be able to orally hydrate today. Hold any further diuretics Renal function has not improved but this may have to do with anti-inflammatory medication taken prior to admission Avoid all renal toxic medication and anti-inflammatories Renal ultrasound was checked and no significant residual, renal abnormality Random cortisol level was checked and normal. Status: Acute (5) Atrial fibrillation: Continue aspirin, beta-brittany Eliquis discontinued as platelet count less than 50,000 Status: Acute (6) Thrombocytopenia: Associated with his CLL. See notations under CLL above Note that haptoglobin level was checked and not low Status: Acute Additional A&P Information Hypomagnesemia. Previously supplemented Nicotine dependence. 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
[2020-06-10] MEDS: budesonide 0.5 mg/2 mL Neb INHALATION ×2 (09:06→19:57)
--- NOTE | 2020-06-10 09:13 | USCV_ITS ---
Heber Mejia Age: 75 Gender: M : 1945 Exam Date: 06/10/2020 14:34 Ordering Phys: Mandeep Church MD Technologist: MELITON Exam Location: [facility] [place] Indication: AORTIC STENOSIS BP: 140 / 70 HR: 91 Rhythm: Sinus Technical Quality: Adequate MEASUREMENTS (Male / Female) Normal Values 2D ECHO LV Diastolic Diameter PLAX 4.7 cm 4.2 - 5.9 / 3.9 - 5.3 cm LV Systolic Diameter PLAX 3.1 cm LV Chamber Size 4.1 cm IVS Diastolic Thickness 1.0 cm 0.6 - 1.0 / 0.6 - 0.9 cm IVS Systolic Thickness 1.9 cm LVPW Diastolic Thickness 1.3 cm 0.6 - 1.0 / 0.6 - 0.9 cm LVPW Systolic Thickness 1.7 cm RV Chamber Size 4.3 cm LVOT Diameter 3.0 cm LV Ejection Fraction 2D Teich 64.2 % LV Ejection Fraction MOD 2C 53.6 % LV Ejection Fraction 2C AL 53.8 % LA Diameter 3.6 cm LA Width 3.3 cm LA Height 4.1 cm RA Width 3.7 cm RA Height 4.8 cm Aorta at Sinotubular Diameter 3.4 cm M-MODE LV Diastolic Diameter MM 4.9 cm 4.2 - 5.9 / 3.9 - 5.3 cm LV Systolic Diameter MM 3.4 cm LV Ejection Fraction MM Teich 59.7 % IVS Diastolic Thickness MM 1.3 cm 0.6 - 1.0 / 0.6 - 0.9 cm IVS Systolic Thickness MM 1.5 cm LVPW Diastolic Thickness MM 1.6 cm 0.6 - 1.0 / 0.6 - 0.9 cm LVPW Systolic Thickness MM 1.7 cm RV Diastolic Diameter MM 1.6 cm Aortic Annulus Diameter 3.3 cm LA Ao Ratio MM 1.2 MV E Point Septal Separation 0.1 cm DOPPLER AV Peak Velocity 170.0 cm/s LVOT Peak Velocity 104.0 cm/s AV Area Cont Eq vti 4.4 cm squared AV Area Cont Eq pk 4.4 cm squared MV Area PHT 3.5 cm squared Mitral E to A Ratio 0.7 MV E' Velocity 35.0 cm/s Mitral E to MV E' Ratio 9.0 Mitral E to LV E' Lateral Ratio 10.1 Mitral E to LV E' Septal Ratio 8.1 TR Peak Velocity 300.7 cm/s TR Peak Gradient 36.2 mmHg TR Mean Velocity 228.7 cm/s TR Mean Gradient 23.5 mmHg TR Velocity Time Integral 86.7 cm TV Peak E Velocity 54.0 cm/s Right Atrial Pressure 3.0 mmHg Pulmonary Artery Systolic Pressu 39.2 mmHg PV Peak Velocity 82.0 cm/s RV Acceleration Time 0.1 s RV Ejection Time 0.3 s RV AcT/ET 0.3 FINDINGS Left Ventricle Normal left ventricular cavity size. Normal left ventricular systolic function. No regional wall motion abnormalities. Left ventricular ejection fraction is estimated at 60 %. Grade I/IV diastolic dysfunction (abnormal relaxation filling pattern), normal to mildly elevated filling pressures. Right Ventricle The right ventricle is normal in size and function. Mild pulmonary hypertension, RVSP 39.2 mmHg. Right Atrium The right atrium is normal in size. Left Atrium The left atrium is normal in size. Mitral Valve Moderately thickened mitral valve. Mild mitral annular calcification. Trace mitral valve regurgitation. Aortic Valve Severe aortic valve calcification. Mild aortic valve stenosis, mean gradient 6.6 mmHg, no aortic valve regurgitation. Velocity across the aortic valve is 1.7 m/s Tricuspid Valve Tcoh-cc-mixrxslr tricuspid valve regurgitation. Pulmonic Valve Structurally normal pulmonic valve without significant stenosis. There is no pulmonic regurgitation. Pericardium Normal pericardium without effusion. Aorta Normal ascending aorta dimension. CONCLUSIONS 1-Normal left ventricular cavity size. Normal left ventricular systolic function. No regional wall motion abnormalities. Left ventricular ejection fraction is estimated at 60 %. Grade I/IV diastolic dysfunction (abnormal relaxation filling pattern), normal to mildly elevated filling pressures. 2-Severe aortic valve calcification. Mild aortic valve stenosis, mean gradient 6.6 mmHg, no aortic valve regurgitation. Velocity across the aortic valve is 1.7 m/s. 3-Moderately thickened mitral valve. Mild mitral annular calcification. Trace mitral valve regurgitation. 7-Xfxg-yy-moderate tricuspid valve regurgitation. 5-There is no pericardial effusion. 6-The right ventricle is normal in size and function. Mild pulmonary hypertension, RVSP 39.2 mmHg. 7-Right atrial pressure is around 5 mm of mercury. 8-No significant change since the prior echocardiogram study of January 18, 2020 Shine Cyr MD (Electronically Signed) Final Date: 11 June 2020 13:44 S
--- NOTE | 2020-06-10 13:46 | PC.CHAP ---
Pastoral Care Encounter/Spiritual Assessment Type of Contact [] Declined gang investigator visit [] Patient/Family/Request visit [] Outpatient visit [] Follow-up visit [] Physician referral [] Code/Alert [xx] Routine visit [] Staff referral [] Actively dying [] Patient sleeping [] Family support [] [] Out of room [] Palliative care [] [] Receiving care in room [] Pre-surgical visit [] Trauma [] Long length of stay [] ICU visit [] Other: Relational/Emotional Strength [xx] Patient feels connected with others/family/visitors/staff [] Distress [] Loneliness/isolation [] Abandonment Spirituality of Patient [xx] Person of Joya [xx] Attends Quaker of their Joya [xx] Believes in Prayer [] Reads Bible or Gnosticist materials [] There are Spiritual issues to be addressed Polysilicon Preparation Worker Interventions [xx] Prayer [xx] Active listening [xx] Non-anxious presence [] Spiritual/emotional support [] Crisis/trauma care [] Spiritual counseling [] Bereavement support [] Provided bereavement packet [] Provided Bible/devotional materials [] Provided toy/stuffed animal, coloring book to patient or family member [] Provided Communion [] Anointing/[place] [] Salvation [xx] Completed spiritual assessment [] Other: Impact on Illness or Injury [] Angry [] Fearful [] Anxious [] Often cries [] Exhaustion [] Unable to work [] Unable to attend taoist [] Unable to walk/stand [xx] Unable to read [] Unable to drive [] Unable to eat/drink [] Unable to sleep [] Unable to be with family [] Patient intubated [] Other: Summary Patient was very pleasant to talk to. He is feeling much better and feels ready to go home if Dr will discharge him today. Time spent with patient 6 minutes
--- NOTE | 2020-06-10 17:37 | PC.RESP ---
Smoking Cessation and Pulmonary Rehab information sent to patient.
--- NOTE | 2020-06-10 19:09 | PC.NURSE ---
pt granddaughter asked how we need to get pt sleep study for his c-pap set up for home. procedure writer notified ss and charge nurse.
[2020-06-10] MEDS: trazodone 100 mg Tablet PO (21:05)
[2020-06-10] MEDS: mirtazapine 30 mg Tablet PO (21:06)
[2020-06-11] VITALS (15 sets, daily range): BP systolic 163–179; BP diastolic 61–80; PULSE 74–90; RESP 14–20; TEMP 36.5–36.8; O2SAT 84–99
[2020-06-11] MEDS: ipratropium-albuterol 3 mL Neb INHALATION ×4 (00:20→12:00)
--- NOTE | 2020-06-11 01:41 | ECG_ITS ---
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 Measurements Intervals [place] Rate: 86 P: 77 DC: 197 QRS: 70 QRSD: 111 T: 59 QT: 356 QTc: 427 Interpretive Statements SINUS RHYTHM WITH OCCASIONAL SUPRAVENTRICULAR PREMATURE COMPLEXES MODERATE INTRAVENTRICULAR CONDUCTION DELAY [110+ ms QRS DURATION] MINIMAL VOLTAGE CRITERIA FOR LVH, CONSIDER NORMAL VARIANT EARLY REPOLARIZATION [ST ELEVATION WITH NORMALLY INFLECTED T WAVE] TALL T-WAVES, SUGGESTS HYPERKALEMIA Compared to ECG 06/09/2020 06:30:33 Intraventricular conduction delay now present Early repolarization now present Sinus arrhythmia no longer present Electronically Signed On 06-14-2020 17:38:54 CDT by Molly Joya M.D. [email or web address]
[2020-06-11] MEDS: hyDRALAzine 20 mg/mL INJ 1 mL 10 MG IVP (04:30)
[2020-06-11] MEDS: aspirin 81 mg EC Tablet PO (05:19)
[2020-06-11 07:04] LABS: Basophils % 0.1 %; Hematocrit 33.4 % (42.0-52.0); Hemoglobin 10.2 g/dL (11.7-16.6); Lymphocytes % 89.5 %; Mean Corpuscular HGB Conc 30.5 g/dL (30.0-36.0); Mean Corpuscular Hemoglobin 29.9 pg (28.0-34.0); Mean Corpuscular Volume 97.9 fL (80-94); Mean Platelet Volume 12.7 fL (7.4-10.4); Monocytes # 0.1 10^3/uL (0.2-0.9); Monocytes % 0.5 %; Neutrophils # 1.53 10^3/uL (1.8-7.7); Neutrophils % 9.8 %; Nucleated Red Blood Cells % 0.1 %; Red Blood Count 3.41 10^6/uL (4.1-5.3); Red Cell Distribution Width 15.4 % (12.1-15.1); White Blood Count 15.6 10^3/uL (4.0-10.0)
[2020-06-11 07:23] LABS: Anion Gap 13.9 (5-19); Blood Urea Nitrogen 58 mg/dL (8-23); Calcium 8.7 mg/dL (8.5-10.5); Carbon Dioxide 26 mmol/L (22-29); Chloride 101 mmol/L (98-107); Glucose 90 mg/dL (65-115); Osmolality Calculated 298 mOsm/kg (285-295); Potassium 4.9 mmol/L (3.5-5.1); Sodium 136 mmol/L (136-145)
[2020-06-11 07:55] LABS: Slide Review Slide Review Perform
[2020-06-11 08:08] LABS: Platelet Count 100 10^3/cmm (130-400)
[2020-06-11] MEDS: budesonide 0.5 mg/2 mL Neb INHALATION (08:24)
[2020-06-11] MEDS: gabapentin 100 mg Capsule PO (08:37)
[2020-06-11] MEDS: predniSONE 20 mg Tablet 60 MG PO (08:37)
[2020-06-11] MEDS: isosorbide mononitrate ER 30 mg Tablet PO (08:37)
[2020-06-11] MEDS: nicotine 21 mg Patch 1 PATCH TRANSDERMA (08:37)
[2020-06-11] MEDS: tamsulosin 0.4 mg Capsule PO (08:37)
[2020-06-11] MEDS: pantoprazole DR 40 mg Tablet PO (08:37)
[2020-06-11] MEDS: doxycycline 100 mg Tablet PO (08:37)
[2020-06-11] MEDS: citalopram 20 mg Tablet 10 MG PO (08:38)
[2020-06-11] MEDS: levofloxacin-dextrose 5 % 750 MG/150 ML PREMIX 100 MG IV (08:38)
[2020-06-11] MEDS: metoprolol tartrate 50 mg Tablet PO (08:42)
--- NOTE | 2020-06-11 11:16 | PM.DCS ---
Discharge Providers Date of Admission: 06/08/20 11:29 Date of Discharge: June 11, 2020 Attending Provider at Admission: Mandeep Church MD Attending Provider at Discharge: Reynaldo Piña MD Diagnoses at Discharge Discharge Diagnosis (1) Acute exacerbation of COPD with asthma: Status: Acute (2) Chest pain: Status: Acute (3) Chronic lymphocytic leukemia: Status: Acute (4) Acute kidney injury: Status: Acute (5) Atrial fibrillation: Status: Acute Permanent problem details: New (6) Thrombocytopenia: Status: Acute Reason for Visit Reason for Visit: DIFFICULTY BREATHING, HEADACHE, EYE SORENESS Hospital Course Hospital Course This is a 75-year-old male with a past medical history of atrial fibrillation on Eliquis, history of cardiomyopathy, history of aortic stenosis, CKD stage III, COPD on 3 L, anxiety and depression, history of CLL, has been on hospice in the past, who is DNR/DNI, who presents to [facility] due to complaints of shortness of breath and chest pain. Patient was admitted to [facility] for acute COPD exacerbation, received broad-spectrum antibiotic therapy, steroid therapy, clinically monitored. Patient clinically improved, his oxygen requirements did increase to 5 L, discharged on a long steroid taper, doxycycline Levaquin for antibiotic coverage, with close follow-up with primary care provider as outpatient. For his CLL, patient developed severe thrombocytopenia during his hospitalization, after discussion with hematology oncology, he was started on high-dose steroids, his thrombocytopenia improved, platelet count on discharge was 100,000. He was discharged on a long prednisone taper, with a follow-up with Dr. Farley as outpatient. For his anemia, likely associate with CLL, no signs of bleeding, hemoglobin discharge 10.2. Given his anemia and thrombocytopenia, his Eliquis has been held as inpatient, and will continue to be held as outpatient until he follows up with his primary care provider or hematology/oncology, repeat CBC, and a decision can be made to resume anticoagulation. Patient was advised the risks and benefits of holding anticoagulation, he wishes medical all questions answered, agreed to proceed. Patient developed DASHA during his hospitalization, initially treated with fluid therapy, however developed fluid overload, then treated with Lasix therapy. Creatinine on discharge 2.2, will continue to hold Lasix until he follows up with his primary care provider with recheck of creatinine, resume based on improvement in creatinine. For his chest pain, 6-hour troponin 152, delta -6.3, no acute ST-T wave changes, echocardiogram showed LV function 55%, no regional wall motion abnormalities. There was also concerns for worsening of severe aortic stenosis, however repeat echocardiogram showed only mild aortic stenosis. Patient was discharged with home sleep study Patient was discharged with home hospice Physical Exam Const: COMMON NORMALS: no acute distress and patient oriented x3 GENERAL APPEARANCE: frail appearing NUTRITIONAL APPEARANCE: cachectic HENMT: COMMON NORMALS: normocephalic HEAD & SCALP: normocephalic Neck/C-Spine: COMMON NORMALS: no JVD Resp: COMMON NORMALS: normal respiratory effort, No retractions, No use of accessory muscles and clear to auscultation bilaterally AUSCULTATION: clear to auscultation bilaterally Cardio: COMMON NORMALS: no JVD, regular rate, regular rhythm, S1 normal heart sound present and S2 normal heart sound present RATE: regular rate RHYTHM: regular rhythm HEART SOUNDS: S1 normal heart sound present and S2 normal heart sound present GI: COMMON NORMALS: Normal to inspection, nondistended, normoactive bowel sounds present, Soft to palpation, non-tender, No hepatosplenomegaly present, no masses and no bruits PALPATION: Yes Soft to palpation and Yes No hepatosplenomegaly present Extremity: COMMON NORMALS: capillary refill normal, no clubbing, cyanosis or edema, no calf tenderness and no pedal edema Neuro: COMMON NORMALS: patient oriented x3 Psych: COMMON NORMALS: mental status grossly normal Discharge Data Data Completed and Pending: Completed Studies During Hospitalization Category Date Time Status XR chest 1V brigette ble [id number] Routine Exams 06/09/20 07:09 Completed XR chest 1V brigette ble [id number] Stat Exams 06/07/20 07:51 Completed CV echo limited 9 [id number] Routine Ultrasound 06/07/20 13:26 Completed US renal BI with PV bladder Routine Ultrasound 06/08/20 09:28 Completed Pending at discharge Category Date Time Status MRSA by PCR [facility] 06/10/20 12:20 Received Sputum Culture an d Gram Stain [facility] 06/10/20 12:40 Results CV echo complete* [id number] Routine Ultrasound 06/10/20 09:13 Taken Labs from last 24 hours 06/11/20 06/11/20 06:09 06:09 WBC 15.6 H RBC 3.41 L Hgb 10.2 L Hct 33.4 L MCV 97.9 H MCH 29.9 MCHC 30.5 RDW 15.4 H Plt Count 100 L MPV 12.7 H Neut % (Auto) 9.8 Lymph % (Auto) 89.5 [place] % (Auto) 0.5 Eos % (Auto) 0.0 Baso % (Auto) 0.1 Neut # (Auto) 1.53 L Lymph # (Auto) 14.0 H [place] # (Auto) 0.1 L Eos # (Auto) 0.0 Baso # (Auto) 0.0 Nucleated RBC % (a uto) 0.1 Nucleated RBCs # 0.0 Sodium 136 Potassium 4.9 Chloride 101 Carbon Dioxide 26 Anion Gap 13.9 BUN 58 H Creatinine 2.2 H GFR Calculation Not Reportable Glucose 90 Calculated Osmolal ity 298 H Calcium 8.7 Vitals: Last Vital Signs Temp 98.2 F 06/11/20 07:43 Pulse 75 06/11/20 08:26 Resp 18 06/11/20 08:26 BP 171/72 06/11/20 07:43 Pulse Ox 97 06/11/20 08:26 Discharge Plan Discharge Patient Disposition: Home Condition: Stable Prescriptions: New isosorbide mononitrate 30 mg Tablet Extended Release 24 Hr 30 mg PO DAILY 30 Days Qty: 30 RF: 0 nicotine 21 mg/24 hr Patch 24 Hour 1 patch transdermal DAILY 28 Days Qty: 28 RF: 0 Mucinex 600 mg Tablet Extended Release 12hr 600 mg PO BID PRN (Reason: cough/congestion) 15 Days Qty: 30 RF: 0 levofloxacin 750 mg tablet 750 mg PO DAILY 5 Days Qty: 5 RF: 0 prednisone 10 mg tablet See Rx Instructions .ROUTE .COMPLEX Qty: 105 RF: 0 Continued budesonide [Pulmicort] 0.5 mg/2 mL suspension for nebulization 0.5 mg inhalation BID Qty: 120 RF: 3 ipratropium-albuterol 0.5 mg-3 mg(2.5 mg base)/3 mL solution for nebulization 3 ml INHALATION QID 30 Days Qty: 360 RF: 3 lorazepam [Ativan] 0.5 mg tablet 0.5 mg PO Q4H PRN (Reason: Anxiety) RF: 0 phenazopyridine 95 mg tablet 95 mg PO TID PRN (Reason: URINARY PAIN) RF: 0 citalopram [Celexa] 10 mg tablet 10 mg PO DAILY Qty: 30 RF: 0 (DME) Inogen See Rx Instructions .Route .MEDSUPPLY Qty: 1 RF: 0 cholecalciferol (vitamin D3) 50 mcg (2,000 unit) tablet 1,000 unit PO DAILY Qty: 90 RF: 1 nitroglycerin 0.4 mg tablet, sublingual 0.4 mg SUBLINGUAL Q5M PRN (Reason: Chest Pain) Qty: 1 RF: 0 meclizine 25 mg tablet 25 mg PO BID PRN (Reason: dizziness) Qty: 30 RF: 0 tamsulosin 0.4 mg capsule 0.4 mg PO DAILY Qty: 90 RF: 1 metoprolol tartrate 100 mg tablet 50 mg PO BID Qty: 180 RF: 0 pantoprazole 40 mg tablet,delayed release (DR/EC) 40 mg PO DAILY Qty: 90 RF: 3 hydrocodone-acetaminophen 5-325 mg tablet 1 tab PO DAILY PRN (Reason: pain) 15 Days Qty: 15 RF: 0 polyethylene glycol 3350 [Miralax] 17 gram Powder In Packet 17 g PO DAILY PRN (Reason: Constipation) RF: 0 aspirin 81 mg Tablet,Delayed Release (Dr/Ec) 81 mg PO QAM RF: 0 benzonatate 100 mg Capsule 100 mg PO TID PRN (Reason: Cough) Qty: 30 RF: 0 trazodone 100 mg Tablet 100 mg PO BEDTIME RF: 0 mirtazapine 30 mg Tablet 30 mg PO BEDTIME RF: 0 gabapentin 100 mg Capsule 100 mg PO TID RF: 0 Symbicort 160-4.5 mcg/actuation Hfa Aerosol Inhaler 2 puff INHALATION BID RF: 0 Spiriva Respimat 2.5 mcg/actuation Mist 2 puff INHALATION DAILY RF: 0 doxycycline hyclate 100 mg tablet 100 mg PO BID 7 Days Qty: 14 RF: 0 Held prednisone 5 mg tablet 7.5 mg PO DAILY 30 Days Qty: 45 RF: 4 Hold Instructions: Resume on 06/11/20. hold until steroid taper has finished, then resume furosemide [Lasix] 20 mg tablet 10 mg PO QAM RF: 0 Hold Instructions: Resume on 06/25/20. hold until seen PMD, cr 2.2 on dc apixaban 5 mg (74 tabs) tablets,dose pack 2.5 mg PO BID RF: 0 Hold Instructions: Resume on 06/25/20. hold until seen b primary care, and repeat cbc Discharge Orders: Discharge Order (Routine); Ordered 06/11/20 Ordered By: Reynaldo Piña Other Ambulatory Orders: Sleep Study W Sleep Stage (Routine) Timeframe: 1 Day Location: None Selected Ordered By: Reynaldo Piña Referrals: Shine Cyr MD [Physician] - 1 month ([facility] will call you on Saturday to set up an appointment.) Gricelda Farley MD [Staff Physician] - 1 week (CLL) Discharge Diet: Cardiac Discharge Activity: Resume usual activity Patient Instructions: COPD, Prednisone (By mouth), Guaifenesin (By mouth), Nicotine (Absorbed through the skin), Isosorbide Mononitrate (By mouth), Levofloxacin (By mouth), Acute Kidney Injury (GEN), COPD Stoplight, Opioid Safety Activity Restrictions/Additional Instructions: -Please follow-up with primary care provider in 1 week for recheck CBC -Follow-up with Dr. Farley in 1 week -I have held your Eliquis due to low hemoglobin and low platelet count, follow-up with primary care provider recheck CBC, and decision to resume Eliquis -You are on a long steroid taper -I have put you on doxycycline and Levaquin -Hold Lasix until you see your primary care provider, for recheck creatinine, creatinine on discharge 2.2 -Home sleep study has been ordered -Home hospice has been ordered Discharge Attestations Time Spent in Discharge Care*: greater than 30 min Quality Metrics Clinical Quality Measures During this hospital stay, did patient experience: None Coding Level of Care Code Acute g FW DC note Exam Comprehensive Diagnoses Acute exacerbation of COPD with asthma J44.1; J45.901 Chest pain R07.9 Chronic lymphocytic leukemia C91.10 Acute kidney injury N17.9 Atrial fibrillation I48.91 Thrombocytopenia D69.6
--- NOTE | 2020-06-11 13:48 | DCPLANNER ---
IMM given copy given to patient, signed and dated
--- NOTE | 2020-06-11 14:15 | PC.NURSE ---
Discharge instructions discussed with patient as well as needing to call Saturday and follow up with physicians. Medications sent to pharmacy on file. Patient verbalized understanding. IV discontinued. Tip of catheter intact. Patient tolerated well. Discharged via wheelchair with family.
== END 2020-06-11 15:30 | disposition hospice, home (50) | DRG 190 ==
LOC: ER 07:32 → MEDSURG 15:41
PROVIDERS: Internal Medicine; Admitting Provider Internal Medicine; Emergency Provider Family Medicine; Visit Provider Family Medicine
DX: J44.1 Chronic obstructive pulmonary disease with (acute) exacerbation (principal); J18.9 Pneumonia, unspecified organism; N17.9 Acute kidney failure, unspecified; C91.10 Chronic lymphocytic leukemia of B-cell type not having achieved remission; J44.0 Chronic obstructive pulmonary disease with (acute) lower respiratory infection; I12.9 Hypertensive chronic kidney disease with stage 1 through stage 4 chronic kidney disease, or unspecified chronic kidney disease; N18.30 Chronic kidney disease, stage 3 unspecified; E87.70 Fluid overload, unspecified; R07.9 Chest pain, unspecified; I48.91 Unspecified atrial fibrillation; E83.42 Hypomagnesemia; Z79.52 Long term (current) use of systemic steroids; Z79.82 Long term (current) use of aspirin; Z66 Do not resuscitate; Z86.16 Personal history of COVID-19; F17.210 Nicotine dependence, cigarettes, uncomplicated; E78.2 Mixed hyperlipidemia; N40.1 Benign prostatic hyperplasia with lower urinary tract symptoms; F41.8 Other specified anxiety disorders; D63.0 Anemia in neoplastic disease; D69.59 Other secondary thrombocytopenia; I35.0 Nonrheumatic aortic (valve) stenosis; I71.4 Abdominal aortic aneurysm, without rupture; I73.9 Peripheral vascular disease, unspecified; K21.9 Gastro-esophageal reflux disease without esophagitis; Z87.440 Personal history of urinary (tract) infections; Z79.01 Long term (current) use of anticoagulants
CPT/HCPCS: 36415; 36600; 71045; 76770; 76857; 80048; 80051; 80053; 81001; 82330; 82533; 82570; 82803; 82805; 83010; 83615; 83735; 84156; 84443; 84484; 84550; 85025; 87070; 87205; 87641; 93005; 93306; 93308; 94640; 94660; 96361; 96374; 97110; 97161; 97530; 99285; G0378; J0360; J1940; J1956; J2930; J3475; J7030; J7512; J7626

== ENCOUNTER → 2020-06-21 11:10 | Outpatient (BNVA) | payer OTHER, SELFPAY | PROVIDERS: Visit Provider Family Medicine | DX: D69.6 Thrombocytopenia, unspecified (principal); M12.9 Arthropathy, unspecified | CPT/HCPCS: 85025 ==